=== PATIENT | male | born 1970 | race Caucasian/White ===

== ENCOUNTER 2017-06-20 12:55 | Emergency (ER) | payer OTHER ==
[~2017-06-20] VITALS: Ht 170.2 cm; Wt 74.5 kg
[2017-06-20 13:01] VITALS: Ht 170.2 cm; Wt 74.5 kg
[2017-06-20] MEDS ORDERED: KETOROLAC 60 MG INJ IM STA (13:36)
--- NOTE | 2017-06-20 13:56 | RADRPT ---
PROCEDURE: XR Chest. CLINICAL INDICATION: Chest pain TECHNIQUE: AP view of the chest was performed. COMPARISON: None FINDINGS: The cardiomediastinal silhouette is within normal limits. The lungs are clear. No signs of pleural f luid or pneumothorax are seen. The osseous structures and soft tissues are unremarkable. IMPRESSION: No evidence for active cardiopulmonary disease. RPTAT: QQ .Fifi Mcgee MD, MD Date Time Electronically viewed and signed by .Fifi Mcgee MD, on 06/20/2017 13:56 .F/
[2017-06-20] MEDS ORDERED: HYDROCODONE/APAP (10/325) TAB PO ONE (14:00)
[2017-06-20] MEDS ORDERED: IBUP-1542 PO (15:08)
[2017-06-20] MEDS ORDERED: TRAM50TA2 PO (15:08)
--- NOTE | 2017-06-20 15:13 | ERD ---
ER Documentation Chief Complaint Date/Time DATE: 06/20/17 TIME: 15:11 Chief Complaint LEFT SHOULDER PAIN X 2 WEEKS HPI This 38-year-old male presents with left shoulder pain and left chest wall pain for last 2 weeks. He denies any inciting events or history of trauma. Denies any fevers, cough, hemoptysis, leg swelling, shortness of breath. Patient has a history of HIV although he states that his T-cell counts are "good". ROS All systems reviewed and are negative except as per history of present illness. Medications Home Meds Active Scripts Ibuprofen* (Motrin*) 600 Mg Tab, 600 MG PO Q6, #20 TAB Prov:DAIN PIEDRA MD 06/20/17 Tramadol HCl (Tramadol HCl) 50 Mg Tablet, 50 MG PO Q4 Y for PAIN, #20 TAB Prov:DAIN PIEDRA MD 06/20/17 Allergies Allergies: Coded Allergies: No Known Drug Allergies (Verified Allergy, Unknown, 06/20/17) PMhx/Soc Medical and Surgical Hx: pt denies Medical Hx History of Surgery: No Anesthesia Reaction: No Hx Neurological Disorder: No Hx Respiratory Disorders: No Hx Cardiac Disorders: No Hx Psychiatric Problems: No Hx Miscellaneous Medical Probl: No (HIV) Hx Alcohol Use: No Hx Substance Use: No Hx Tobacco Use: No Smoking Status: Never smoker Physical Exam Vitals Vital Signs Date Time Temp Pulse Resp B/P Pulse Ox O2 Delivery O2 Flow Rate FiO2 06/20/17 13:01 98.7 100 18 116/62 97 Physical Exam Const: [], Not ill-appearing per Head: Atraumatic Eyes: Normal Conjunctiva ENT: Normal External Ears, Nose and Mouth. Neck: Full range of motion..~ No meningismus. Resp: Clear to auscultation bilaterally Cardio: Regular rate and rhythm, no murmurs. Minimal tenderness left pectoralis without skin changes or erythema. Abd: Soft, non tender, non distended. Normal bowel sounds Skin: No petechiae or rashes Back: No midline or flank tenderness Ext: No cyanosis, or edema. Mild tenderness in left trapezius left shoulder capsule. Neur: Awake and alert Psych: Normal Mood and Affect Results 24 hrs Current Medications Medications (Trade) Dose Ordered Sig/Jeramie Route PRN Reason Start Time Stop Time Status Last Admin Dose Admin Ketorolac Tromethamine (Toradol) 60 mg ONCE STAT IM 06/20/17 13:36 06/20/17 13:38 DC 06/20/17 13:44 Acetaminophen/ Hydrocodone Bitart ([place] (10)) 1 tab ONCE ONCE PO 06/20/17 14:00 06/20/17 14:01 DC 06/20/17 13:43 Procedures/MDM Patient presents with uncertain etiology of the shoulder and left chest wall pain for 3 weeks. EKG: Rate/Rhythm: [Normal Sinus Rhythm] rate equals 87 QRS, ST, T-waves: [No changes consistent w/ acute ischemia] Impression: [No evidence of ischemia or arrhythmia]. Impression-no acute findings on EKG Chest X-ray 1V Interpreted by me: Soft Tissue: No acute abnormalities Bones: No acute abnormalities Mediastinum/Cardiac Silhouette/Lungs: [No acute abnormalities] impression have normal 1 view chest x-ray Patient was given [place] by mouth and Toradol 60 mg IM. Patient presents with left shoulder and chest wall pain of uncertain etiology. Current signs or symptoms and duration do not suggest pulmonary embolism, pneumonia, acute coronary syndrome, additional emergent causes of presenting complaints. He may have pleurisy or chest wall or shoulder strain. He will be treated with tramadol ibuprofen and further observation at home. The patient was stable with no new complaints during the ER course. Clinically, there is no current evidence to suggest meningitis, sepsis, acute abdomen, pneumonia, acute coronary syndrome, pulmonary embolism, or any other emergent condition appearing to require further evaluation or hospitalization. The patient should certainly return for any new or worsening symptoms per the aftercare instructions. They should otherwise follow-up with her primary care doctor for reevaluation this week. Disclaimer: Inadvertent spelling and grammatical errors are likely due to EHR/ dictation software use and do not reflect on the overall quality of patient care. Also, please note that the electronic time recorded on this note does not necessarily reflect the actual time of the patient encounter. Departure Diagnosis: Primary Impression: Chest wall pain Additional Impression: Shoulder pain Laterality: left Chronicity: acute Qualified Code: M25.512 - Acute pain of left shoulder Condition: Stable Patient Instructions: Chest Wall Strain, Shoulder Pain (Uncertain Cause) Additional Instructions: Examines normal hoy. POSIBLEMENTE MUSCULOS O TENDONES Cheque otro vez con garrett doctor primario en el proximo mays or regresa para mas o nueva simptomas. DAIN PIEDRA MD Jun 20, 2017 15:12
== END 2017-06-20 15:28 | disposition home or self-care (01) ==
LOC: FTE 12:55
DX: R07.89 Other chest pain (principal)
CPT/HCPCS: 71010; 93005; 96372; J1885; Z7502; Z7610

== ENCOUNTER 2017-07-07 14:24 | Inpatient (IN) | payer OTHER ==
[~2017-07-07] VITALS: Ht 170.2 cm; Wt 66.0 kg
[~2017-07-07 14:24] MED LIST: IBUP-1542 PO; TRAM50TA2 PO
[2017-07-07 14:31] VITALS: Ht 170.2 cm; Wt 66.0 kg
[2017-07-07] MEDS ORDERED: HYDROCODONE/APAP (5/325) TAB PO ONE (15:30)
--- NOTE | 2017-07-07 15:43 | ERD ---
ER Documentation Chief Complaint Date/Time DATE: 07/07/17 TIME: 15:42 Chief Complaint lower back pain x 5 days from a fall HPI 46-year-old male history HIV comes in with right shoulder pain, left flank pain , low back pain after falling 2-3 days ago while gardening. He was pulling on a shrug, causing him to fall backwards, and the materials had fallen onto him as well. He describes achy pain management is diffuse, the right flank, low back, right shoulder. He denies any hematuria, fevers or chills. ROS All systems reviewed and are negative except as per history of present illness. Medications Home Meds Active Scripts Ibuprofen* (Motrin*) 600 Mg Tab, 600 MG PO Q6, #20 TAB Prov:DAIN PIEDRA MD 06/20/17 Tramadol HCl (Tramadol HCl) 50 Mg Tablet, 50 MG PO Q4 Y for PAIN, #20 TAB Prov:DAIN PIEDRA MD 06/20/17 Allergies Allergies: Coded Allergies: No Known Drug Allergies (Verified Allergy, Unknown, 06/20/17) PMhx/Soc History of Surgery: No Anesthesia Reaction: No Hx Neurological Disorder: No Hx Respiratory Disorders: No Hx Cardiac Disorders: No Hx Psychiatric Problems: No Hx Miscellaneous Medical Probl: No (HIV) Hx Alcohol Use: No Hx Substance Use: No Hx Tobacco Use: No Smoking Status: Never smoker FmHx Family history: patient states is negative for CA or bone CA Physical Exam Vitals Vital Signs Date Time Temp Pulse Resp B/P Pulse Ox O2 Delivery O2 Flow Rate FiO2 07/07/17 14:31 97.5 99 18 137/85 99 Physical Exam General: Well-developed, well-nourished. The patient appears in no acute distress. HEENT: Head is normocephalic, atraumatic. No scleral icterus. . Neck: Supple. Nontender. Lungs: Clear to auscultation. Normal air movement. Heart: Regular rate and rhythm. S1 and S2 are normal. No murmurs, gallops, or rubs. Abdomen: Soft, nontender, nondistended. Bowel sounds are normoactive. Back: Diffuse soft tissue tenderness over the left lateral back and the medial aspect and lower back. There is no midline tenderness or step-offs. Strength to lower exam is 5 out of 5 bilaterally. Extremities: No clubbing or cyanosis. Normal pulses. Moving extremities x 4. No weakness. Neurologic: Alert and oriented 3. No focal deficits. Skin: Normal turgor. No rash or lesions. Result Diagram: 07/07/17 1654 07/07/17 1654 Results 24 hrs Laboratory Tests Test 07/07/17 16:44 07/07/17 16:54 Urine Color YELLOW Urine Clarity CLEAR Urine pH 6.0 Urine Specific Russell 1.017 Urine Ketones NEGATIVEmg/dL Urine Nitrite NEGATIVEmg/dL Urine Bilirubin NEGATIVEmg/dL Urine Urobilinogen NEGATIVEmg/dL Urine Leukocyte Esterase NEGATIVELeu/ul Urine Microscopic RBC 2/HPF Urine Microscopic WBC 1/HPF Urine Hemoglobin NEGATIVEmg/dL Urine Glucose NEGATIVEmg/dL Urine Total Protein 1+mg/dl White Blood Count 5.210^3/ul Red Blood Count 3.8810^6/ul Hemoglobin 11.8g/dl Hematocrit 34.1% Mean Corpuscular Volume 87.9fl Mean Corpuscular Hemoglobin 30.4pg Mean Corpuscular Hemoglobin Concent 34.6g/dl Red Cell Distribution Width 13.4% Platelet Count 80848^3/UL Mean Platelet Volume 10.4fl Neutrophils % 48.9% Lymphocytes % 42.8% Monocytes % 6.0% Eosinophils % 1.3% Basophils % 0.4% Nucleated Red Blood Cells % 0.0/100WBC Neutrophils # (Manual) 2.510^3/ul Lymphocytes # 2.210^3/ul Monocytes # 0.310^3/ul Eosinophils # 0.110^3/ul Basophils # 0.010^3/ul Nucleated Red Blood Cells # 0.010^3/ul Prothrombin Time 12.8Sec Prothrombin Time Ratio 1.0 INR International Normalized Ratio 0.96 Activated Partial Thromboplast Time 25.3Sec Sodium Level 142mmol/L Potassium Level 3.7mmol/L Chloride Level 103mmol/L Carbon Dioxide Level 27mmol/L Anion Gap 16 Blood Urea Nitrogen 19mg/dl Creatinine 1.32mg/dl Glucose Level 91mg/dl Calcium Level 10.4mg/dl Total Bilirubin 0.2mg/dl Direct Bilirubin 0.00mg/dl Indirect Bilirubin 0.2mg/dl Aspartate Amino Transf (AST/SGOT) 29IU/L Alanine Aminotransferase (ALT/SGPT) 26IU/L Alkaline Phosphatase 103IU/L Total Protein 12.1g/dl Albumin 4.0g/dl Globulin 8.10g/dl Albumin/Globulin Ratio 0.49 Current Medications Medications (Trade) Dose Ordered Sig/Jeramie Route PRN Reason Start Time Stop Time Status Last Admin Dose Admin Acetaminophen/ Hydrocodone Bitart (Scott (5/325)) 1 tab ONCE ONCE PO 07/07/17 15:30 07/07/17 15:31 DC 07/07/17 15:23 Ketorolac Tromethamine (Toradol) 30 mg ONCE STAT IM 07/07/17 16:01 07/07/17 16:03 DC 07/07/17 16:08 Morphine Sulfate (morphine) 4 mg ONCE STAT IV 07/07/17 16:35 07/07/17 16:36 DC 07/07/17 16:55 Ondansetron HCl (Zofran Inj) 4 mg ONCE STAT IV 07/07/17 16:35 07/07/17 16:36 DC 07/07/17 16:55 DIAGNOSTIC IMAGING REPORT Patient: GLENN ROBERTSON : 1970 Age: 46 Sex: M MR #: [id number] DOS: 07/07/17 1518 Ordering MD: MO FREIRE PA-C Location: [facility] Room/Bed: PROCEDURE: CT abdomen and pelvis without IV contrast. CLINICAL INDICATION: Abdomen pain. TECHNIQUE: CT scan of the abdomen and pelvis was performed on a [address] scanner. The patient is scanned without IV contrast. Coronal and sagittal reformatted images were obtained from the axial source images. Images were reviewed on a high-resolution PACS workstation. Total radiation dose: Total CTDIvol: 9.08 mGy. Total DLP: 584 mGy-cm. One or more of the following dose reduction techniques were used: automated exposure control, adjustment of the mA and/or kV according to patient size, or use of iterative reconstruction technique. COMPARISON: Abdomen and pelvis, 03/28/2014. FINDINGS: CT abdomen: The lung bases are clear. The heart is not enlarged without pericardial thickening or effusion. The liver is normal in size and density without focal hepatic mass or biliary dilatation. The spleen is normal in size. The stomach is partially collapsed but is grossly unremarkable. The pancreas as visualized is normal. The gallbladder is normal and there is no evidence of biliary dilatation. The adrenal glands are symmetrical and normal. The kidneys are symmetrically normal bilaterally. No renal obstructive uropathy or mass lesion is seen.. The aorta is normal in caliber. There is no retroperitoneal lymphadenopathy. The radha hepatis region is clear. The bowel and mesentery, as visualized, are equally unremarkable. CT pelvis: The appendix is normal in the right lower quadrant. The small bowel loops situated within the pelvis are unremarkable. The pelvic organs are normal. The pelvic sidewalls and inguinal regions are clear. No mass, lymphadenopathy is seen. No acute inflammation seen. The urinary bladder is normal. There are innumerous punched-out osteolytic lesions involving the thoracolumbar sacral spine, pelvic bones, right hip and visualized right/left ribs and the tip of the right scapula. IMPRESSION: 1. Unremarkable CT abdomen pelvis without IV contrast. 2. Innumerous punched-out osteolytic lesions involving the thoracolumbar sacral spine, pelvic bones, right hip and visualized right/left ribs and the tip of the right scapula. Differential includes multiple myeloma. Recommend clinical correlation. RPTAT: GG .Kali Alonso MD, MD Date Time Electronically viewed and signed by .Kali Alonso MD, MD on 07/07/2017 16:10 Radiology Main Line: [phone] DIAGNOSTIC IMAGING REPORT Patient: GLENN ROBERTSON : 1970 Age: 46 Sex: M MR #: [id number] DOS: 07/07/17 1518 Ordering MD: MO FREIRE PA-C Location: [facility] Room/Bed: PROCEDURE: XR Shoulder. CLINICAL INDICATION: Right shoulder pain TECHNIQUE: 3 views of the right shoulder are available for review. COMPARISON: None available FINDINGS: There are multiple lucencies scattered throughout the visualized bones including the humerus, scapula and several ribs. No definitive lucencies are seen in the right clavicle. Alignment is intact. No acute fracture or dislocation is identified. The glenohumeral joint is within normal limits. The acromioclavicular joint is intact. The visualized portions of the right chest wall are grossly unremarkable. The soft tissues are within normal limits. IMPRESSION: 1. No evidence of acute fracture or dislocation. 2. Multiple lucencies throughout the proximal humerus, scapula, and ribs concerning for metastatic disease or other systemic osseous lytic process. RPTAT: KK .Ilir Lynn MD, MD Date Time Electronically viewed and signed by .Ilir Lynn MD, on 2016 16:03 .B/ CC: MO FREIRE PA-C Procedures/MDM ED course: Patient was initially given Scott as well as Toradol 30 mg IM for his pain. I discussed the x-ray findings that show multiple lytic lucencies, lesions as well as a CT abdomen and pelvis in the thoracic lumbar region, ribs, scapula, was advised that patient needs further imaging, a chest CT was ordered as well as blood and urine. IV line was established, patient received morphine 4 mg and Zofran 4 mg IV. Medical decision makin-year-old male with a history of HIV, Presents status post fall, incidentally found multiple lytic lesions concerning for multiple myeloma on the x-ray of the right shoulder and CT abdomen and pelvis.currently on antivirals which the medications he is not able to recall but he states that 2 months ago he was told everything was normal. He has had imaging done a year ago his back which she also states was normal. Incidentally we found multiple lucencies in the scapula, right shoulder, thoracic lumbar, pelvis, hip, ribs. Further lab work, CT chest was also done. Patient will be admitted for pain control, and continuing care. Departure Diagnosis: Primary Impression: Lytic bone lesions on xray Condition: Stable MO FREIRE PA-C Jul 07, 2017 15:43
[2017-07-07] MEDS ORDERED: KETOROLAC 30 MG INJ IM STA (16:01)
--- NOTE | 2017-07-07 16:04 | RADRPT ---
PROCEDURE: XR Shoulder. CLINICAL INDICATION: Right shoulder pain TECHNIQUE: 3 views of the right shoulder are available for review. COMPARISON: None available FINDINGS: There are multiple lucencies scattered throughout the visualized bones including the humerus, scapul a and several ribs. No definitive lucencies are seen in the right clavicle. Alignment is intact. No acute fracture or dislocation is identified. The glenohumeral joint is within normal limits. The ac romioclavicular joint is intact. The visualized portions of the right chest wall are grossly unrema rkable. The soft tissues are within normal limits. IMPRESSION: 1. No evidence of acute fracture or dislocation. 2. Multiple lucencies throughout the proximal humerus, scapula, and ribs concerning for metastatic disease or other systemic osseous lytic process. RPTAT: KK .Ilir Lynn MD, MD Date Time Electronically viewed and signed by .Ilir Lynn MD, on 07/07/2017 16:03 .B/
--- NOTE | 2017-07-07 16:10 | RADRPT ---
PROCEDURE: CT abdomen and pelvis without IV contrast. CLINICAL INDICATION: Abdomen pain. TECHNIQUE: CT scan of the abdomen and pelvis was performed on a [address] scanner. The patient is scanned without IV contrast. Coronal and sagittal reformatted images were obtained from the axia l source images. Images were reviewed on a high-resolution PACS workstation. Total radiation dose: Total CTDIvol: 9.08 mGy. Total DLP: 584 mGy-cm. One or more of the following dose reduction techniques were used: automated exposure control, adjustment of the mA and/or kV acco rding to patient size, or use of iterative reconstruction technique. COMPARISON: Abdomen and pelvis, 03/28/2014. FINDINGS: CT abdomen: The lung bases are clear. The heart is not enlarged without pericardial thickening or effusion. The liver is normal in size and density without focal hepatic mass or biliary dilatation. The splee n is normal in size. The stomach is partially collapsed but is grossly unremarkable. The pancreas as visualized is normal. The gallbladder is normal and there is no evidence of biliary dilatation. The adrenal glands are symmetrical and normal. The kidneys are symmetrically normal bilaterally. N o renal obstructive uropathy or mass lesion is seen.. The aorta is normal in caliber. There is no retroperitoneal lymphadenopathy. The radha hepatis reg ion is clear. The bowel and mesentery, as visualized, are equally unremarkable. CT pelvis: The appendix is normal in the right lower quadrant. The small bowel loops situated within the pelvi s are unremarkable. The pelvic organs are normal. The pelvic sidewalls and inguinal regions are cl ear. No mass, lymphadenopathy is seen. No acute inflammation seen. The urinary bladder is normal. There are innumerous punched-out osteolytic lesions involving the thoracolumbar sacral spine, pelvic bones, right hip and visualized right/left ribs and the tip of the right scapula. IMPRESSION: 1. Unremarkable CT abdomen pelvis without IV contrast. 2. Innumerous punched-out osteolytic lesions involving the thoracolumbar sacral spine, pelvic bones , right hip and visualized right/left ribs and the tip of the right scapula. Differential includes multiple myeloma. Recommend clinical correlation. RPTAT: GG .Kali Alonso MD, MD Date Time Electronically viewed and signed by .Kali Alonso MD, MD on 07/07/2017 16:10 .Y/
[2017-07-07] MEDS ORDERED: morphine 4 MG/ML VIAL IV STA (16:35)
[2017-07-07] MEDS ORDERED: ONDANSETRON 4 MG INJ IV STA (16:35)
[2017-07-07 17:21] LABS: BASOPHILS % 0.4 % (0.0-2.0); EOSINOPHILS # 0.1 10^3/ul (0.0-0.5); EOSINOPHILS % 1.3 % (0.0-7.0); HEMATOCRIT 34.1 % (42.0-52.0); HEMOGLOBIN 11.8 g/dl (14.0-18.0); LYMPHOCYTES # 2.2 10^3/ul (0.8-2.9); LYMPHOCYTES % 42.8 % (15.0-51.0); MEAN CORPUSCULAR HEMOGLOBIN 30.4 pg (29.0-33.0); MEAN CORPUSCULAR HGB CONC 34.6 g/dl (32.0-37.0); MEAN CORPUSCULAR VOLUME 87.9 fl (82.0-101.0); MEAN PLATELET VOLUME 10.4 fl (7.4-10.4); MONOCYTE # 0.3 10^3/ul (0.3-0.9); NEUTROPHILS % 48.9 % (39.0-77.0); PLATELET COUNT 214 10^3/UL (140-415); RED BLOOD COUNT 3.88 10^6/ul (4.70-6.10); RED CELL DISTRIBUTION WIDTH 13.4 % (11.5-14.5); WHITE BLOOD COUNT 5.2 10^3/ul (4.8-10.8)
[2017-07-07 17:38] LABS: ADD UMIC YES; UR ASCORBIC ACID NEGATIVE (NEGATIVE); UR BILIRUBIN (Dip) NEGATIVE (NEGATIVE); UR BLOOD (Dip) NEGATIVE (NEGATIVE); UR CLARITY CLEAR (CLEAR); UR COLOR YELLOW (YELLOW); UR GLUCOSE (Dip) NEGATIVE (NEGATIVE); UR KETONES (Dip) NEGATIVE (NEGATIVE); UR LEUKOCYTE ESTERASE (Dip) NEGATIVE Leu/ul (NEGATIVE); UR NITRITE (Dip) NEGATIVE (NEGATIVE); UR RBC 2 /HPF (0-5); UR SPECIFIC GRAVITY (Dip) 1.017 (1.003-1.030); UR TOTAL PROTEIN (Dip) 1+ mg/dl (NEGATIVE); UR UROBILINOGEN (Dip) NEGATIVE (NEGATIVE)
[2017-07-07 17:47] LABS: BILIRUBIN,INDIRECT 0.2 mg/dl (0-1.1); BILIRUBIN,TOTAL 0.2 mg/dl (0.2-1.3); CALCIUM 10.4 mg/dl (8.4-10.2); CREATININE 1.32 mg/dl (0.61-1.24); POTASSIUM 3.7 mmol/L (3.5-5.1)
[2017-07-07 17:48] LABS: INR 0.96; PROTIME 12.8 Sec (12.2-14.2)
[2017-07-07 17:49] LABS: PARTIAL THROMBOPLASTIN TIME 25.3 Sec (25.0-35.0)
[2017-07-07 17:57] LABS: ALBUMIN/GLOBULIN RATIO 0.49; TOTAL PROTEIN 12.1 g/dl (6.1-8.1)
--- NOTE | 2017-07-07 18:10 | EN ---
Date/Time of Note Date/Time of Note DATE: 07/07/17 TIME: 18:09 ER Progress Note I was notified about this 46-year-old male in fast track from our physician diet assistant. This patient did have a fall and had multiple lytic lesions in his humerus. CT the abdomen pelvis shows multiple lytic lesions throughout his spine. This patient has no previous history of multiple myeloma, however he does have a history of HIV. Given his new lytic lesions he will be placed in for admission at this time. The patient was admitted to Dr. Arriola Additional diagnoses: New cancer, multiple myeloma BA GARZA DO Jul 07, 2017 18:10
--- NOTE | 2017-07-07 18:19 | RADRPT ---
PROCEDURE: CT CHEST WITHOUT CONTRAST: CLINICAL INDICATION: 46 years of age, male. CT abdomen pelvis performed for abdominal pain demonst rates multiple lytic bone lesions. COMPARISON: CT abdomen pelvis from the same day TECHNIQUE: CT of the chest was performed without IV contrast. Coronal and sagittal reformatted image s were obtained from the axial source images. Images were reviewed on a high-resolution PACS worksta tion. Dose information: The estimated radiation dose (CTDIvol mGy) for each series in this exam is 8.1. Th e estimated cumulative dose (DLP mGy-cm) is 316. One or more of the following dose reduction techniques were used: - Automated exposure control. - Adjustment of the mA and/or kV according to patient size. - Use of iterative reconstruction technique. FINDINGS: In the absence of intravenous contrast, the study constitutes a limited assessment of the solid orga ns and vessels. CHEST: Medical devices: None. Thyroid: Normal. Lymph nodes: No supraclavicular, axillary, mediastinal, or hilar lymphadenopathy. Vasculature: Aorta and main pulmonary artery diameters are within normal range. Heart: Normal noncontrast appearance. No pericardial effusion. Other mediastinal structures: Normal noncontrast appearance. Lung parenchyma and pleura: Mild paraseptal emphysema at the lung apices. There is a 0.4 cm right up per lobe pulmonary nodule (3/34). Mild dependent atelectasis. Lungs are otherwise clear. There is a 1.3 x 2.6 cm pleural based mass in the right posterior mid lung zone that is likely relat ed to an expansile lesion of the underlying posterior right seventh rib. Additional extrapleural mas ses are related to expansile lytic rib lesions. The largest is at the left lung apex measuring 2.5 x 3 cm related to a lytic lesion involving the posterior left second rib (3/19). Negative for pleural effusion. Negative for pneumothorax. Airways: Normal noncontrast appearance. Chest wall: Normal noncontrast appearance. Upper abdomen: Please see CT abdomen pelvis reported separately. Musculoskeletal: There are multiple lytic bone lesions throughout the thoracic spine and the thoraci c cage involving ribs, sternum, scapulae and clavicles. In the thoracic spine, the lytic lesions involve both the anterior and posterior elements. Negative for pathologic compression fracture in the thoracic spine. Lytic lesion in the right superior facet at T8 has an extraosseous soft tissue component that compresses the thecal sac and the right T7 nerv e root in the intervertebral foramen (602/53). Lytic lesion in the left posterior T10 vertebral jones dy also has an extraosseous soft tissue component that mildly compresses the thecal sac and compress es the left T10 nerve root in the intervertebral foramen (602/59). Dominant lytic lesion in spinous process of T4 is expansile. There is a pathologic fracture through the left manubrium at the site of a lytic lesion (3/34). Margret ral rib lesions are expansile with associated subpleural soft tissue masses. Sample lesions are desc ribed in the pleural section. There is a pathologic fracture of the posterior right ninth rib. There are pathologic fractures of the anterolateral left third rib, lateral left ninth rib, and posterior left 11th rib. IMPRESSION: Multiple lytic bone lesions in the thoracic spine and in the thoracic cage. Some of these lesions mckeon ve extraosseous soft tissue masses. In the spine, lesions with extraosseous soft tissue masses compr ess the thecal sac and exiting nerve roots at T8 and T10. There are pathologic fractures of the manu brium and bilateral ribs. The appearance is most in keeping with multiple myeloma although other hem atogenous malignancies could appear similar. Tissue or hematologic testing is required for definitiv e diagnosis. 0.4 cm right upper lobe pulmonary nodule is not suspicious. Negative for evidence of primary solid o rgan malignancy in the chest. RPTAT: HCTS Physician Darrell Date Time Electronically viewed and signed by Ashtyn Burns Physician on 07/07/2017 18:19 /
[2017-07-07] MEDS ORDERED: ACETAMINOPHEN 325 MG TAB PO PRN ×2 (18:30→22:30)
[2017-07-07] MEDS ORDERED: ONDANSETRON 4 MG INJ IV PRN ×2 (18:30→22:30)
[2017-07-07] MEDS ORDERED: HIV PO (18:35)
[2017-07-07] MEDS ORDERED: NACL 0.9% 3 ML SYG IV SCH (22:30)
[2017-07-07] MEDS: FAMOTIDINE 20 MG TAB PO SCH (22:30)
[2017-07-07] MEDS ORDERED: DOCUSATE SODIUM 100 MG CAP PO PRN (22:30)
[2017-07-07] MEDS ORDERED: BISACODYL (EC) 5 MG TAB PO PRN (22:30)
[2017-07-07 23:15] VITALS: BP 159/92; RESP 18
[2017-07-08 00:07] VITALS: BP 130/84
[2017-07-08 02:01] VITALS: BP 150/87; RESP 18
[2017-07-08 06:34] LABS: BASOPHILS % 0.4 % (0.0-2.0); EOSINOPHILS # 0.1 10^3/ul (0.0-0.5); EOSINOPHILS % 2.2 % (0.0-7.0); HEMATOCRIT 32.8 % (42.0-52.0); LYMPHOCYTES # 1.8 10^3/ul (0.8-2.9); LYMPHOCYTES % 39.8 % (15.0-51.0); MEAN CORPUSCULAR HEMOGLOBIN 29.4 pg (29.0-33.0); MEAN CORPUSCULAR HGB CONC 33.5 g/dl (32.0-37.0); MEAN CORPUSCULAR VOLUME 87.7 fl (82.0-101.0); MEAN PLATELET VOLUME 10.9 fl (7.4-10.4); MONOCYTE # 0.3 10^3/ul (0.3-0.9); MONOCYTES % 7.4 % (0.0-11.0); NEUTROPHILS % 49.3 % (39.0-77.0); PLATELET COUNT 215 10^3/UL (140-415); RED BLOOD COUNT 3.74 10^6/ul (4.70-6.10); RED CELL DISTRIBUTION WIDTH 13.3 % (11.5-14.5); WHITE BLOOD COUNT 4.6 10^3/ul (4.8-10.8)
[2017-07-08 07:08] LABS: ALBUMIN 3.3 g/dl (3.3-4.9); ALBUMIN/GLOBULIN RATIO 0.52; BILIRUBIN,INDIRECT 0.3 mg/dl (0-1.1); BILIRUBIN,TOTAL 0.3 mg/dl (0.2-1.3); CALCIUM 10.2 mg/dl (8.4-10.2); CREATININE 1.17 mg/dl (0.61-1.24); MAGNESIUM 1.8 mg/dl (1.7-2.5); POTASSIUM 3.5 mmol/L (3.5-5.1); TOTAL PROTEIN 9.6 g/dl (6.1-8.1)
[2017-07-08 07:33] VITALS: BP 145/83; RESP 20
[2017-07-08 07:37] LABS: THYROID STIMULATING HORMONE 2.26 MIU/L (0.465-4.680)
--- NOTE | 2017-07-08 08:17 | HP ---
Date/Time of Note Date/Time of Note DATE: 07/08/17 TIME: 08:05 Assessment/Plan VTE Prophylaxis VTE Prophylaxis Intervention: SCD's Lines/Catheters IV Catheter Type (from Nrs): Saline Lock Assessment/Plan Chief Complaint/Hosp Course This is a 38-year-old male being admitted to the [facility] floor for: #1 Intractable back pain: Multiple lytic lesions seen on imaging studies which are suspicious for malignancy specifically multiple myeloma. At the current time will order protein electrophoresis as well as skeletal survey. Will consult hematology for further treatment strategy. Follow kidney function #2 HIV positive: Patient unsure what medication he is on. Will try to obtain medication records. Will check a CD4 count, ID consult if indicated, #3 hypertension: Patient currently not on any medications. Will continue to monitor and start medications if indicated Further treatment strategy will be implemented as per the clinical course Problems: HPI/ROS Admit Date/Time Admit Date/Time Jul 07, 2017 at 18:08 Hx of Present Illness Chief complaint: Left flank pain back pain 46-year-old male history HIV comes in with right shoulder pain, left flank pain , low back pain after falling 2-3 days ago while gardening. He was pulling on a shrug, causing him to fall backwards, and the materials had fallen onto him as well. He describes achy pain management is diffuse, the right flank, low back, right shoulder. He denies any hematuria, fevers or chills. Allergies: NKDA Medications: See LILLIE VIDES Const: As per HPI as per HPI Eyes : No pain discharge or redness or change in visual acuity ENT: No pain, sore throat, congestion, congestion, dysphagia or discharge Respiratory: No shortness of breath, cough, sputum, wheezing, or pleuritic pain Cardiovascular: No chest pain, palpitation, PND, or edema GI : no change in appetite, abdominal pain, nausea, vomiting, diarrhea, constipation, or change in the color his stool Genitourinary: No dysuria, hematuria, flank pain , discharge or CVA tenderness Musculoskeletal: As per HPI Skin: No rash, bruising or hives Neuro: No headache, dizziness, syncope, seizure, focal weakness Endocrine: No polyuria, polydipsia, temperature intolerance Psych: No hallucination, depression, anxiety or suicidal ideation PMH/Family/Social Past Medical History HIV, hypertension Past Surgical History Past Surgical Hx: no surgical history Family History Significant Family History: no pertinent family hx Social History Alcohol Use: none Smoking Status: Never smoker Drug Use: none Exam/Review of Systems Vital Signs Vitals Vital Signs Date Time Temp Pulse Resp B/P Pulse Ox O2 Delivery O2 Flow Rate FiO2 07/08/17 07:33 98.1 86 20 145/83 98 07/07/17 22:01 Room Air Exam Exam General: Patient is well-developed well-nourished The patient is alert oriented -3 lying comfortably in bed. HEENT: Atraumatic, normocephalic. The pupils are equal, round and reactive. Extraocular motor are intact Neck: Supple with full range of motion. No rigidity or meningismus Chest: Nontender Lungs: Clear to auscultation bilaterally no crackles rales or wheezing Heart: Normal S1-S2, Regular rhythm and rate. Abdomen: Soft , nontender, nondistended , bowel sounds are present. No guarding no rebound tenderness , No masses or organomegaly. No costovertebral temporal angle mass Extremities: Normal to inspection, no edema no cyanosis Neurologic: Normal mental status, speech normal, cranial nerves II through XII are intact, motor and sensory are intact, no focal weakness musculoskeletal: Diffuse back pain along the upper back and lumbar spine Additional Comments PROCEDURE: XR Shoulder. CLINICAL INDICATION: Right shoulder pain TECHNIQUE: 3 views of the right shoulder are available for review. COMPARISON: None available FINDINGS: There are multiple lucencies scattered throughout the visualized bones including the humerus, scapula and several ribs. No definitive lucencies are seen in the right clavicle. Alignment is intact. No acute fracture or dislocation is identified. The glenohumeral joint is within normal limits. The acromioclavicular joint is intact. The visualized portions of the right chest wall are grossly unremarkable. The soft tissues are within normal limits. IMPRESSION: 1. No evidence of acute fracture or dislocation. 2. Multiple lucencies throughout the proximal humerus, scapula, and ribs concerning for metastatic disease or other systemic osseous lytic process. RPTAT: KK .Ilir Lynn MD, Date Time Electronically viewed and signed by .Ilir Lynn MD, on 2016 16:03 .B/ CC: MO FREIRE PA-C PROCEDURE: CT abdomen and pelvis without IV contrast. CLINICAL INDICATION: Abdomen pain. TECHNIQUE: CT scan of the abdomen and pelvis was performed on a [address] scanner. The patient is scanned without IV contrast. Coronal and sagittal reformatted images were obtained from the axial source images. Images were reviewed on a high-resolution PACS workstation. Total radiation dose: Total CTDIvol: 9.08 mGy. Total DLP: 584 mGy-cm. One or more of the following dose reduction techniques were used: automated exposure control, adjustment of the mA and/or kV according to patient size, or use of iterative reconstruction technique. COMPARISON: Abdomen and pelvis, 03/28/2014. FINDINGS: CT abdomen: The lung bases are clear. The heart is not enlarged without pericardial thickening or effusion. The liver is normal in size and density without focal hepatic mass or biliary dilatation. The spleen is normal in size. The stomach is partially collapsed but is grossly unremarkable. The pancreas as visualized is normal. The gallbladder is normal and there is no evidence of biliary dilatation. The adrenal glands are symmetrical and normal. The kidneys are symmetrically normal bilaterally. No renal obstructive uropathy or mass lesion is seen.. The aorta is normal in caliber. There is no retroperitoneal lymphadenopathy. The radha hepatis region is clear. The bowel and mesentery, as visualized, are equally unremarkable. CT pelvis: The appendix is normal in the right lower quadrant. The small bowel loops situated within the pelvis are unremarkable. The pelvic organs are normal. The pelvic sidewalls and inguinal regions are clear. No mass, lymphadenopathy is seen. No acute inflammation seen. The urinary bladder is normal. There are innumerous punched-out osteolytic lesions involving the thoracolumbar sacral spine, pelvic bones, right hip and visualized right/left ribs and the tip of the right scapula. IMPRESSION: 1. Unremarkable CT abdomen pelvis without IV contrast. 2. Innumerous punched-out osteolytic lesions involving the thoracolumbar sacral spine, pelvic bones, right hip and visualized right/left ribs and the tip of the right scapula. Differential includes multiple myeloma. Recommend clinical correlation. RPTAT: GG .Kali Alonso MD, Date Time Electronically viewed and signed by .Kali Alonso MD, on 07/07/2017 16:10 PROCEDURE: CT CHEST WITHOUT CONTRAST: CLINICAL INDICATION: 46 years of age, male. CT abdomen pelvis performed for abdominal pain demonstrates multiple lytic bone lesions. COMPARISON: CT abdomen pelvis from the same day TECHNIQUE: CT of the chest was performed without IV contrast. Coronal and sagittal reformatted images were obtained from the axial source images. Images were reviewed on a high-resolution PACS workstation. Dose information: The estimated radiation dose (CTDIvol mGy) for each series in this exam is 8.1. The estimated cumulative dose (DLP mGy-cm) is 316. One or more of the following dose reduction techniques were used: - Automated exposure control. - Adjustment of the mA and/or kV according to patient size. - Use of iterative reconstruction technique. FINDINGS: In the absence of intravenous contrast, the study constitutes a limited assessment of the solid organs and vessels. CHEST: Medical devices: None. Thyroid: Normal. Lymph nodes: No supraclavicular, axillary, mediastinal, or hilar lymphadenopathy. Vasculature: Aorta and main pulmonary artery diameters are within normal range. Heart: Normal noncontrast appearance. No pericardial effusion. Other mediastinal structures: Normal noncontrast appearance. Lung parenchyma and pleura: Mild paraseptal emphysema at the lung apices. There is a 0.4 cm right upper lobe pulmonary nodule (3/34). Mild dependent atelectasis. Lungs are otherwise clear. There is a 1.3 x 2.6 cm pleural based mass in the right posterior mid lung zone that is likely related to an expansile lesion of the underlying posterior right seventh rib. Additional extrapleural masses are related to expansile lytic rib lesions. The largest is at the left lung apex measuring 2.5 x 3 cm related to a lytic lesion involving the posterior left second rib (3/19). Negative for pleural effusion. Negative for pneumothorax. Airways: Normal noncontrast appearance. Chest wall: Normal noncontrast appearance. Upper abdomen: Please see CT abdomen pelvis reported separately. Musculoskeletal: There are multiple lytic bone lesions throughout the thoracic spine and the thoracic cage involving ribs, sternum, scapulae and clavicles. In the thoracic spine, the lytic lesions involve both the anterior and posterior elements. Negative for pathologic compression fracture in the thoracic spine. Lytic lesion in the right superior facet at T8 has an extraosseous soft tissue component that compresses the thecal sac and the right T7 nerve root in the intervertebral foramen (602/53). Lytic lesion in the left posterior T10 vertebral body also has an extraosseous soft tissue component that mildly compresses the thecal sac and compresses the left T10 nerve root in the intervertebral foramen (602/59). Dominant lytic lesion in spinous process of T4 is expansile. There is a pathologic fracture through the left manubrium at the site of a lytic lesion (3/34). Several rib lesions are expansile with associated subpleural soft tissue masses. Sample lesions are described in the pleural section. There is a pathologic fracture of the posterior right ninth rib. There are pathologic fractures of the anterolateral left third rib, lateral left ninth rib, and posterior left 11th rib. IMPRESSION: Multiple lytic bone lesions in the thoracic spine and in the thoracic cage. Some of these lesions have extraosseous soft tissue masses. In the spine, lesions with extraosseous soft tissue masses compress the thecal sac and exiting nerve roots at T8 and T10. There are pathologic fractures of the manubrium and bilateral ribs. The appearance is most in keeping with multiple myeloma although other hematogenous malignancies could appear similar. Tissue or hematologic testing is required for definitive diagnosis. 0.4 cm right upper lobe pulmonary nodule is not suspicious. Negative for evidence of primary solid organ malignancy in the chest. RPTAT: HCTS Physician Darrell Date Time Electronically viewed and signed by Physician Darrell on 07/07/2017 18: 19 CS/ CC: MO FREIRE PA-C Labs Result Diagram: 07/08/17 0500 07/08/17 0500 Medications Medications Current Medications Ondansetron HCl (Zofran Inj) 4 mg Q6H PRN IV NAUSEA AND/OR VOMITING; Start 07/07 at 22:30 Acetaminophen (Tylenol Tab) 650 mg Q6H PRN PO PAIN LEVEL 1-3 OR FEVER; Start at 22:30 Morphine Sulfate (morphine) 2 mg Q4H PRN IV SEVERE PAIN LEVEL 7-10; Start at 22:30 Docusate Sodium (Colace) 100 mg Q12H PRN PO CONSTIPATION; Start 07/07/17 at 22: 30 Bisacodyl (Dulcolax) 5 mg DAILY PRN PO CONSTIPATION; Start 07/07/17 at 22:30 Famotidine (Pepcid) 20 mg Q12 PO ; Start 07/07/17 at 22:30 AMAIRANI LOVELL Jul 08, 2017 08:17
[2017-07-08] MEDS: morphine 2 MG INJ IV PRN ×3 (08:42→22:21)
[2017-07-08] MEDS: FAMOTIDINE 20 MG TAB PO SCH ×2 (08:42→20:55)
--- NOTE | 2017-07-08 09:41 | PN ---
Date/Time of Note Date/Time of Note DATE: 07/08/17 TIME: 09:30 Assessment/Plan VTE Prophylaxis VTE Prophylaxis Intervention: ambulation Lines/Catheters IV [facility]from [facility] Saline Lock Assessment/Plan Chief Complaint/Hosp Course 1. Back pain. Multiple lytic bony lesions seen on imaging- concern for monoclonal gammopathy. There is concern of pathologic fractures of the manubrium and bilateral ribs on chest CT-needs correlation with bone survey for diagnosis. -F/u metastatic series.Consult oncology -Continue pain meds 2. HIV -F/u CD4 counts.ID consult -Obtain outpt HAART regimen from [facility]. 3. Hypertension. stable. -Obtain home meds. 4.Anemia,mild-likely chronic. HH stable. -will monitor. 5. Hx of psychiatric illness. No suicidal thoughts. -Obtain home meds. PLAN:F/u with ID and onco recs. Obtain medical records from outpatient clinic. Case discussed with . Problems: Subjective 24 Hr Interval Summary Free Text/Dictation Patient ambulating in room.Denies any pain or other discomfort.No diarrhea., Denies suicidal or hallucinational thoughts. Exam/Review of Systems Vital Signs Vitals Vital Signs Date Time Temp Pulse Resp B/P Pulse Ox O2 Delivery O2 Flow Rate FiO2 07/08/17 07:33 98.1 86 20 145/83 98 07/07/17 22:01 Room Air Exam General: Well developed,male, not in any acute distress . HEENT: Normocephalic, Atraumatic, No laceration or hematoma; Eyes: PEERL, Conjunctiva clear, Anicteric sclera Neck: Supple without any lymphadenopathy, nontender, no JVD, no carotid bruits, trachea midline, no thyromegaly Cardiac: S1, S2 auscultated, regular rhythm and rate, no mumurs or gallop Pulmonary: Normal respiratory effort. Chest clear to auscultation bilaterally, no adventitious breath sounds GI: Abdomen normal to inspection. Soft, non- distended, no masses, no rebound tenderness or guarding. Bowel sounds active on all four quadrants Genitourinary: Deferred Extremities: No cyanosis, clubbing, or edema. Pulses [2+] bilaterally. Full ROM on all four extremities. No focal weakness appreciated. Neurologic: Alert to person, place, time, and situation. Affect appropriate, intact sensation. Skin: Clean,dry, and intact. No ecchymosis, no rashes, or lesions Psych:Normal affect. Results Result Diagram: 07/08/17 0500 07/08/17 0500 Results 24 hrs Laboratory Tests Test 07/07/17 16:44 07/07/17 16:54 07/08/17 05:00 Urine Color YELLOW Urine Clarity CLEAR Urine pH 6.0 Urine Specific [place] 1.017 Urine Ketones NEGATIVE Urine Nitrite NEGATIVE Urine Bilirubin NEGATIVE Urine Urobilinogen NEGATIVE Urine Leukocyte Esterase NEGATIVE Urine Microscopic RBC 2 Urine Microscopic WBC 1 Urine Hemoglobin NEGATIVE Urine Glucose NEGATIVE Urine Total Protein 1+ H White Blood Count 5.2 4.6 L Red Blood Count 3.88 L 3.74 L Hemoglobin 11.8 L 11.0 L Hematocrit 34.1 L 32.8 L Mean Corpuscular Volume 87.9 87.7 Mean Corpuscular Hemoglobin 30.4 29.4 Mean Corpuscular Hemoglobin Concent 34.6 33.5 Red Cell Distribution Width 13.4 13.3 Platelet Count 214 215 Mean Platelet Volume 10.4 10.9 H Neutrophils % 48.9 49.3 Lymphocytes % 42.8 39.8 Monocytes % 6.0 7.4 Eosinophils % 1.3 2.2 Basophils % 0.4 0.4 Nucleated Red Blood Cells % 0.0 0.0 Neutrophils # (Manual) 2.5 2.3 Lymphocytes # 2.2 1.8 Monocytes # 0.3 0.3 Eosinophils # 0.1 0.1 Basophils # 0.0 0.0 Nucleated Red Blood Cells # 0.0 0.0 Prothrombin Time 12.8 Prothrombin Time Ratio 1.0 INR International Normalized Ratio 0.96 Activated Partial Thromboplast Time 25.3 Sodium Level 142 138 Potassium Level 3.7 3.5 Chloride Level 103 105 Carbon Dioxide Level 27 26 Anion Gap 16 11 Blood Urea Nitrogen 19 22 H Creatinine 1.32 H 1.17 Glucose Level 91 93 Calcium Level 10.4 H 10.2 Total Bilirubin 0.2 0.3 Direct Bilirubin 0.00 0.00 Indirect Bilirubin 0.2 0.3 Aspartate Amino Transf (AST/SGOT) 29 23 Alanine Aminotransferase (ALT/SGPT) 26 20 Alkaline Phosphatase 103 86 Total Protein 12.1 H 9.6 #H Albumin 4.0 3.3 Globulin 8.10 H 6.30 H Albumin/Globulin Ratio 0.49 0.52 Hemoglobin A1c 4.9 Magnesium Level 1.8 Triglycerides Level 97 Cholesterol Level 176 LDL Cholesterol, Calculated 132 HDL Cholesterol 25 L Cholesterol/HDL Ratio 7.0 Thyroid Stimulating Hormone (TSH) 2.260 Medications Medications Current Medications Ondansetron HCl (Zofran Inj) 4 mg Q6H PRN IV NAUSEA AND/OR VOMITING; Start 07/07 at 22:30 Acetaminophen (Tylenol Tab) 650 mg Q6H PRN PO PAIN LEVEL 1-3 OR FEVER; Start at 22:30 Morphine Sulfate (morphine) 2 mg Q4H PRN IV SEVERE PAIN LEVEL 7-10 Last administered on 07/08/17 08:42; Admin Dose 2 MG; Start 07/07/17 at 22:30 Docusate Sodium (Colace) 100 mg Q12H PRN PO CONSTIPATION; Start 07/07/17 at 22: 30 Bisacodyl (Dulcolax) 5 mg DAILY PRN PO CONSTIPATION; Start 07/07/17 at 22:30 Famotidine (Pepcid) 20 mg Q12 PO Last administered on 07/08/17 08:42; Admin Dose 20 MG; Start 07/07/17 at 22:30 LETY RACHEL NP Jul 08, 2017 09:40 /05/16 at 22:30 Morphine Sulfate (morphine) 2 mg Q4H PRN IV SEVERE PAIN LEVEL 7-10 Last administered on 07/08/17 08:42; Admin Dose 2 MG; Start 07/07/17 at 22:30 Docusate Sodium (Colace) 100 mg Q12H PRN PO CONSTIPATION; Start 07/07/17 at 22: 30 Bisacodyl (Dulcolax) 5 mg DAILY PRN PO CONSTIPATION; Start 07/07/17 at 22:30 Famotidine (Pepcid) 20 mg Q12 PO Last administered on 07/08/17 08:42; Admin Dose 20 MG; Start 07/07/17 at 22:30 LETY RACHEL NP Jul 08, 2017 09:40
--- NOTE | 2017-07-08 13:10 | RADRPT ---
PROCEDURE: Bone survey. CLINICAL INDICATION: Lytic lesions, suspected of multiple myeloma TECHNIQUE: 29 images were obtained. COMPARISON: CT abdomen and pelvis dated 07/07/2017 FINDINGS: Skull: There are numerous lucent lesions throughout the calvarium. No acute calvarial fracture is identified. The visualized orbits are unremarkable. The paranasal sinuses and mastoid air cells ap pear clear. Spine: The osseous structures demonstrate normal alignment and mineralization. The vertebral body a nd intervertebral disk space heights are well preserved. There are numerous lucent lesions througho ut the spine. The paraspinal soft tissues are unremarkable. Ribs: The osseous structures demonstrate normal alignment. There is a healed nondisplaced fracture of the right posterior 7th rib. No acute fracture or dislocation is seen. There are numerous luce nt lesions throughout the ribs. Pelvis: The osseous structures demonstrate normal alignment. There are numerous lucent lesions thro ughout the pelvis. The soft tissues are unremarkable. Upper extremities: The osseous structures demonstrate normal alignment and mineralization. There are multiple lucent lesions within the scapula bilaterally. There is no periostitis. Joint spaces are well preserved. No significant soft tissue abnormality is seen. Lower extremities: The osseous structures demonstrate normal alignment and mineralization. There a re numerous lytic lesions within the proximal femurs. There is no periostitis. Joint spaces are wel l preserved. No significant soft tissue abnormality is seen. IMPRESSION: There are innumerable lytic lesions throughout the axial and proximal appendicular skeleton, better visualized on prior CT. No pathologic fracture identified. RPTAT: HH .Natasha Perez MD, Date Time Electronically viewed and signed by .Natasha Perez MD, on 07/08/2017 13:10 .Abran/
[2017-07-08 15:07] VITALS: BP 134/85; RESP 20
--- NOTE | 2017-07-08 17:07 | CONS ---
Date/Time of Note Date/Time of Note DATE: 07/08/17 TIME: 17:07 Consultation Date/Type/Reason Admit Date/Time Jul 07, 2017 at 18:08 Type of Consultation: id Referring Provider: LETY RACHEL NP Past Surgical History Past Surgical Hx: no surgical history Social History Alcohol Use: none Smoking Status: Never smoker Drug Use: none Exam/Review of Systems Vital Signs Vitals Vital Signs Date Time Temp Pulse Resp B/P Pulse Ox O2 Delivery O2 Flow Rate FiO2 07/08/17 15:07 98.2 83 20 134/85 98 07/07/17 22:01 Room Air Results Result Diagram: 07/08/17 0500 07/08/17 0500 Results 24 hrs Laboratory Tests Test 07/08/17 05:00 White Blood Count 4.6 L Red Blood Count 3.74 L Hemoglobin 11.0 L Hematocrit 32.8 L Mean Corpuscular Volume 87.7 Mean Corpuscular Hemoglobin 29.4 Mean Corpuscular Hemoglobin Concent 33.5 Red Cell Distribution Width 13.3 Platelet Count 215 Mean Platelet Volume 10.9 H Neutrophils % 49.3 Lymphocytes % 39.8 Monocytes % 7.4 Eosinophils % 2.2 Basophils % 0.4 Nucleated Red Blood Cells % 0.0 Neutrophils # (Manual) 2.3 Lymphocytes # 1.8 Monocytes # 0.3 Eosinophils # 0.1 Basophils # 0.0 Nucleated Red Blood Cells # 0.0 Sodium Level 138 Potassium Level 3.5 Chloride Level 105 Carbon Dioxide Level 26 Anion Gap 11 Blood Urea Nitrogen 22 H Creatinine 1.17 Glucose Level 93 Hemoglobin A1c 4.9 Calcium Level 10.2 Magnesium Level 1.8 Total Bilirubin 0.3 Direct Bilirubin 0.00 Indirect Bilirubin 0.3 Aspartate Amino Transf (AST/SGOT) 23 Alanine Aminotransferase (ALT/SGPT) 20 Alkaline Phosphatase 86 Total Protein 9.6 #H Albumin 3.3 Globulin 6.30 H Albumin/Globulin Ratio 0.52 Triglycerides Level 97 Cholesterol Level 176 LDL Cholesterol, Calculated 132 HDL Cholesterol 25 L Cholesterol/HDL Ratio 7.0 Thyroid Stimulating Hormone (TSH) 2.260 Medications Medications Current Medications Ondansetron HCl (Zofran Inj) 4 mg Q6H PRN IV NAUSEA AND/OR VOMITING; Start 07/07 at 22:30 Acetaminophen (Tylenol Tab) 650 mg Q6H PRN PO PAIN LEVEL 1-3 OR FEVER; Start at 22:30 Morphine Sulfate (morphine) 2 mg Q4H PRN IV SEVERE PAIN LEVEL 7-10 Last administered on 07/08/17 08:42; Admin Dose 2 MG; Start 07/07/17 at 22:30 Docusate Sodium (Colace) 100 mg Q12H PRN PO CONSTIPATION; Start 07/07/17 at 22: 30 Bisacodyl (Dulcolax) 5 mg DAILY PRN PO CONSTIPATION; Start 07/07/17 at 22:30 Famotidine (Pepcid) 20 mg Q12 PO Last administered on 07/08/17 08:42; Admin Dose 20 MG; Start 07/07/17 at 22:30 JUNIOR MONTAGUE NP Jul 08, 2017 17:07
[2017-07-08 20:37] VITALS: BP 144/81; RESP 20
--- NOTE | 2017-07-08 22:41 | CONS ---
Date/Time of Note Date/Time of Note DATE: 07/08/17 TIME: 22:21 Assessment/Plan Assessment/Plan Chief Complaint/Hosp Course 46 yo with hypercalcemia, QAMAR, lytic lesions and anemia, highly concerning for multiple myeloma. #concern for monoclonal gammopathy -will wait for SPEP -[place] Lambda Light Ratio ordered -check UPEP -check Serum ISAAC -will order bone marrow bx #HTN -BP ok -continue BP meds #HIV -appreciate ID recs -continue HAART therapy #Bony lesion -once we have confirmed out diagnosis, can start bisphosphonate -will check PSA Problems: Consultation Date/Type/Reason Admit Date/Time Jul 07, 2017 at 18:08 Date of Consultation: Jul 08, 2017 Type of Consultation: Oncology Reason for Consultation concern for multiple myeloma Referring Provider: LETY RACHEL NP Hx of Present Illness 46yo with with HIV x 22 years on HAART therapy who presented to [facility] with right shoulder pain, left flank pain, low back pain after falling 2-3 days ago while gardening. Patient attributes pain to a falling while gardening. CT A/P was done which revealed innumerous punched-out osteolytic lesions involving the thoracolumbar sacral spine, pelvic bones, right hip and visualized right/left ribs and the tip of the right scapula. CT Chest was done which revealed multiple lytic bone lesions in the thoracic spine and in the thoracic cage. Some of these lesions have extraosseous soft tissue masses. In the spine, lesions with extraosseous soft tissue masses compress the thecal sac and exiting nerve roots at T8 and T10. There are pathologic fractures of the manubrium and bilateral ribs. Labs reveal increased globulin fraction, hypercalcemia, mild anemia and mild QAMAR. This in the setting of innumerable lytic lesions has raised concern multiple myeloma, hence the reason for this consult. Constitutional: other (bone pain) Eyes: no complaints ENT: no complaints Respiratory: no complaints Cardiovascular: no complaints Gastrointestinal: no complaints Genitourinary: no complaints Musculoskeletal: back pain, bone/joint pain Skin: no complaints Past Medical History HIV on HAART therapy Hypertension Past Surgical History Past Surgical Hx: no surgical history Family History Significant Family History: no pertinent family hx Social History Alcohol Use: none Smoking Status: Never smoker Drug Use: none Exam/Review of Systems Vital Signs Vitals Vital Signs Date Time Temp Pulse Resp B/P Pulse Ox O2 Delivery O2 Flow Rate FiO2 07/08/17 20:37 98.4 83 20 144/81 98 07/07/17 22:01 Room Air Exam Constitutional: alert, frail, oriented Psych: no complaints Head: normocephalic Eyes: nl conjunctiva ENMT: nl external ears & nose Neck: non-tender, supple Respiratory: clear to auscultation Cardiovascular: regular rate and rhythm Gastrointestinal: soft Musculoskeletal: nl extremities to inspection Results Result Diagram: 07/08/17 0500 07/08/17 0500 Results 24 hrs Laboratory Tests Test 07/08/17 05:00 White Blood Count 4.6 L Red Blood Count 3.74 L Hemoglobin 11.0 L Hematocrit 32.8 L Mean Corpuscular Volume 87.7 Mean Corpuscular Hemoglobin 29.4 Mean Corpuscular Hemoglobin Concent 33.5 Red Cell Distribution Width 13.3 Platelet Count 215 Mean Platelet Volume 10.9 H Neutrophils % 49.3 Lymphocytes % 39.8 Monocytes % 7.4 Eosinophils % 2.2 Basophils % 0.4 Nucleated Red Blood Cells % 0.0 Neutrophils # (Manual) 2.3 Lymphocytes # 1.8 Monocytes # 0.3 Eosinophils # 0.1 Basophils # 0.0 Nucleated Red Blood Cells # 0.0 Sodium Level 138 Potassium Level 3.5 Chloride Level 105 Carbon Dioxide Level 26 Anion Gap 11 Blood Urea Nitrogen 22 H Creatinine 1.17 Glucose Level 93 Hemoglobin A1c 4.9 Calcium Level 10.2 Magnesium Level 1.8 Total Bilirubin 0.3 Direct Bilirubin 0.00 Indirect Bilirubin 0.3 Aspartate Amino Transf (AST/SGOT) 23 Alanine Aminotransferase (ALT/SGPT) 20 Alkaline Phosphatase 86 Total Protein 9.6 #H Albumin 3.3 Globulin 6.30 H Albumin/Globulin Ratio 0.52 Triglycerides Level 97 Cholesterol Level 176 LDL Cholesterol, Calculated 132 HDL Cholesterol 25 L Cholesterol/HDL Ratio 7.0 Thyroid Stimulating Hormone (TSH) 2.260 Medications Medications Current Medications Ondansetron HCl (Zofran Inj) 4 mg Q6H PRN IV NAUSEA AND/OR VOMITING; Start 07/07 at 22:30 Acetaminophen (Tylenol Tab) 650 mg Q6H PRN PO PAIN LEVEL 1-3 OR FEVER; Start at 22:30 Morphine Sulfate (morphine) 2 mg Q4H PRN IV SEVERE PAIN LEVEL 7-10 Last administered on 07/08/17 17:52; Admin Dose 2 MG; Start 07/07/17 at 22:30 Docusate Sodium (Colace) 100 mg Q12H PRN PO CONSTIPATION; Start 07/07/17 at 22: 30 Bisacodyl (Dulcolax) 5 mg DAILY PRN PO CONSTIPATION; Start 07/07/17 at 22:30 Famotidine (Pepcid) 20 mg Q12 PO Last administered on 07/08/17 20:55; Admin Dose 20 MG; Start 07/07/17 at 22:30 IQRA MIDDLETON M.D. Jul 08, 2017 22:31
[2017-07-09 01:47] LABS: PROSTATE SPECIFIC ANTIGEN 2.9 ng/ml (0.0-4.0)
[2017-07-09 02:36] LABS: IMMUNOGLOBULIN A 47 mg/dl (70-400)
[2017-07-09 02:38] LABS: IMMUNOGLOBULIN G 5352 mg/dl (700-1600); IMMUNOGLOBULIN M < 25 mg/dl (40-230)
[2017-07-09 02:48] VITALS: BP 144/77; RESP 20
[2017-07-09 06:52] LABS: LACTATE DEHYDROGENASE 479 IU/L (313-618)
[2017-07-09 07:20] LABS: CARCINOEMBRYONIC ANTIGEN 0.5 ng/ml (0.0-5.0)
[2017-07-09 07:21] LABS: PROTEIN, TOTAL 10.7 g/dL (6.1-8.1)
[2017-07-09 07:28] LABS: CANCER ANTIGEN 19-9 < 1.4 U/ml (0.0-37.0)
[2017-07-09 07:59] VITALS: BP 136/80; RESP 18
[2017-07-09] MEDS: FAMOTIDINE 20 MG TAB PO SCH ×2 (08:23→20:49)
[2017-07-09] MEDS: PREZCOBIX PO SCH ×2 (09:30→20:51)
[2017-07-09] MEDS: DESCOVY PO SCH ×2 (09:30→20:50)
[2017-07-09] MEDS ORDERED: traZODone 50 MG TAB PO PRN (09:30)
--- NOTE | 2017-07-09 09:49 | PN ---
Date/Time of Note Date/Time of Note DATE: 07/09/17 TIME: 09:46 Assessment/Plan VTE Prophylaxis VTE Prophylaxis Intervention: ambulation Lines/Catheters IV Catheter Type (from [facility]): Saline Lock Assessment/Plan Chief Complaint/Hosp Course 1. Back pain. Multiple lytic bony lesions seen on imaging-concern for monoclonal gammopathy. No pathological fracture on metastatic series -oncology eval appreciated and will follow recs. Diagnostic oncology work up has been ordered and will follow directions from oncology services. 2. HIV -ID eval requested. We are going to resume HAART therapy (Descovy+Prezcobix) which patient currently on as outpatient with [facility]. -F/u CD4 count that has been ordered 3. Hypertension. -Resume home meds. 4.Anemia,mild-likely chronic. HH stable. -will monitor. 5. Hx of psychiatric illness. No suicidal thoughts. -Resume home meds. 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 F/u with oncology and ID resc. Case discussed with . Problems: Subjective 24 Hr Interval Summary Free Text/Dictation Patient still with back pain worsens with movement.Denies any suicidal or hallucinational thoughts. Exam/Review of Systems Vital Signs Vitals Vital Signs Date Time Temp Pulse Resp B/P Pulse Ox O2 Delivery O2 Flow Rate FiO2 07/09/17 07:59 98.0 72 18 136/80 97 07/07/17 22:01 Room Air Intake and Output 07/08/17 07/08/17 07/09/17 15:00 23:00 07:00 Intake Total 400 ml 1453 ml 480 ml Output Total 300 ml 1300 ml Balance 400 ml 1153 ml -820 ml Exam General: Well developed,male, not in any acute distress . HEENT: Normocephalic, Atraumatic, No laceration or hematoma; Eyes: PEERL, Conjunctiva clear, Anicteric sclera Neck: Supple without any lymphadenopathy, nontender, no JVD, no carotid bruits, trachea midline, no thyromegaly Cardiac: S1, S2 auscultated, regular rhythm and rate, no mumurs or gallop Pulmonary: Normal respiratory effort. Chest clear to auscultation bilaterally, no adventitious breath sounds GI: Abdomen normal to inspection. Soft, non- distended, no masses, no rebound tenderness or guarding. Bowel sounds active on all four quadrants Genitourinary: Deferred Extremities: No cyanosis, clubbing, or edema. Pulses [2+] bilaterally. Full ROM on all four extremities. No focal weakness appreciated. Neurologic: Alert to person, place, time, and situation. Affect appropriate, intact sensation. Skin: Clean,dry, and intact. No ecchymosis, no rashes, or lesions Psych:Anxious+ Results Result Diagram: 07/08/17 0500 07/08/17 0500 Results 24 hrs Laboratory Tests Test 07/08/17 23:07 07/09/17 04:56 Prostate Specific Antigen 2.9 Immunoglobulin A 47 L Immunoglobulin G 5352 H Immunoglobulin M < 25 L Lactate Dehydrogenase 479 Alpha Fetoprotein 1.92 Carcinoembryonic Antigen 0.5 CA 19-9 Antigen < 1.4 Medications Medications Current Medications Ondansetron HCl (Zofran Inj) 4 mg Q6H PRN IV NAUSEA AND/OR VOMITING; Start 07/07 at 22:30 Acetaminophen (Tylenol Tab) 650 mg Q6H PRN PO PAIN LEVEL 1-3 OR FEVER; Start at 22:30 Morphine Sulfate (morphine) 2 mg Q4H PRN IV SEVERE PAIN LEVEL 7-10 Last administered on 07/08/17 22:21; Admin Dose 2 MG; Start 07/07/17 at 22:30 Docusate Sodium (Colace) 100 mg Q12H PRN PO CONSTIPATION; Start 07/07/17 at 22: 30 Bisacodyl (Dulcolax) 5 mg DAILY PRN PO CONSTIPATION; Start 07/07/17 at 22:30 Famotidine (Pepcid) 20 mg Q12 PO Last administered on 07/09/17 08:23; Admin Dose 20 MG; Start 07/07/17 at 22:30 LETY RACHEL NP Jul 09, 2017 09:49 LETY RACHEL NP Jul 09, 2017 09:49 LETY RACHEL NP Jul 09, 2017 09:49
[2017-07-09] MEDS: TENOFOVIR ALAFENAMIDE 25 MG XX SCH ×2 (10:00→18:00)
[2017-07-09] MEDS: EMTRICITABINE XX SCH ×2 (10:00→18:00)
[2017-07-09] MEDS: LISINOPRIL 10 MG TAB PO SCH (12:39)
[2017-07-09] MEDS: morphine 2 MG INJ IV PRN ×3 (12:39→20:58)
[2017-07-09 13:45] VITALS: BP 162/90; RESP 18
[2017-07-09 15:16] LABS: LYMPHOCYTE - CD4/CD8 RATIO 0.79 (0.86-5.00)
[2017-07-09 16:00] VITALS: BP 157/90; PULSE 79
--- NOTE | 2017-07-09 16:13 | PN ---
DATE: 07/09/2017 SUBJECTIVE DATA: No acute changes overnight. The patient is alert, looks comfortable. Denies pain. No fevers. Wants to go home. Temperature 98.3, pulse 74, respirations 18, blood pressure 162/90. Saturation 98 on room air. No labs this morning. ANTIMICROBIALS: The patient is off antibiotics. DIAGNOSTIC DATA: Patient had CT of the abdomen and pelvis on admission that revealed numerous punched-out osteolytic lesions involving the thoracolumbar spinal spine, sacral spine, pelvic bones, right hip and visualized right left ribs and the tip of the right scapula. Differential includes multiple myeloma. CT of the chest revealed this same findings. Some of the lesions half extraosseous soft tissue masses. Pathologic fractures of the manubrium and bilateral ribs, appearance most in keeping with multiple myeloma, although other hematogenous malignancies could appear similar appearance. The patient also had a metastatic series that revealed innumerable lytic lesions throughout the axial and proximal appendicular skeleton. No pathologic fracture. The patient is being seen by Dr. Dorantes in oncology consultation. PHYSICAL EXAMINATION: GENERAL: Well-nourished, well-developed, middle-aged, man, who is alert, in no distress. HEENT: Head atraumatic, normocephalic. Sclerae anicteric. Buccal mucosa pink. NECK: Supple. CHEST: Rise symmetrical. Breath sounds clear. HEART: S1, S2. ABDOMEN: Soft, bowel sounds present. EXTREMITIES: Without cyanosis. ASSESSMENT: 1. Skeletal lytic lesions, or possible multiple myeloma, versus other hematologic disease, oncology on case. 2. Human immunodeficiency virus, well-controlled on the patient's medications with a CD4 count of 504. 3. Anemia. 4. Hypertension. PLAN: The patient remains stable. Again, his CD4 count is well above 200. He is taking HIV medications and some of them are supposed to be brought from home, as the pharmacy does not carry them. He is followed by Oncology, pending final workup. Dictated By: Reji Bello NP /monet/montez /Document#: [id number]
[2017-07-09 17:26] LABS: ABNORMAL PROTEIN BAND 1 4.8 g/dL (NONE DETECTED); ALBUMIN 3.8 g/dL (3.8-4.8)
[2017-07-09 19:55] VITALS: BP 131/88; RESP 18
[2017-07-09] MEDS: ZIPRASIDONE 20 MG CAP PO SCH (20:49)
[2017-07-09] MEDS: MIRTAZAPINE 15 MG TAB PO SCH (20:56)
--- NOTE | 2017-07-10 01:53 | CONS ---
DATE OF ADMISSION: 07/07/2017 DATE OF CONSULTATION: 07/10/2017 Dr. Kerns dictating an infectious disease consultation for Dr. Bimal Boyd. REFERRING PHYSICIAN: Dr. Arriola. HISTORY OF PRESENT ILLNESS: The patient is a 46-year-old, male, who was admitted on 07/07 with a chief complaint of right shoulder pain. X-ray of the shoulder revealed multiple lucencies in the humerus, scapula and several ribs. The patient was admitted for further evaluation and treatment. His white count on admission was 5200 with a normal differential; his hemoglobin 11.8, g, hematocrit 34 percent, platelet count 216,000. The patient had a CT scan of his chest, which revealed a 0.5 cm right upper lobe nodule. There was a 1 x 3 x 2.6 cm pleural-based mass based on a lesion on the 7th rib. The patient also had a 2.5 x 3.0 cm lytic lesion related to the posterior left 2nd rib, which was pressing on the left T10 nerve root and at T8, there was a compressive lesion on the thecal sac. Metastatic series revealed multiple lesions in the spine, skull, ribs, pelvis and proximal femurs. The serum calcium was 10.2 mg%, alkaline phosphatase of 86, LDH 479, globulin 6.3 g, alpha- fetoprotein 1.92. PSA 2.9. The patient has HIV disease and is followed at [facility]. He has had this since 1989. He has had no complications as a result of this. The patient says his viral load has been nondetectable and that he was told that his T-cell count was "normal." The patient takes Prezcobix 800 mg/150 mg 1 tablet daily and Descovy 200 mg/25 mg tablets once a day. He states he is very good about taking his medication. ALLERGIES: THE PATIENT HAS NO KNOWN ALLERGIES. PAST SURGICAL HISTORY: Has had no surgeries. PHYSICAL EXAMINATION: GENERAL APPEARANCE: Reveals a well-developed, well-nourished, somewhat anxious male, who I awakened from sleep and addressing through a payment analyst. HEENT: The pupils are equal, round, and react to light. Extraocular movements are full. Mucous membranes of the mouth are moist. VITAL SIGNS: His temperature is 98, pulse 89, respirations 18, his blood pressure 131/88, and his O2 saturation on room air is 98. CHEST: Clear. HEART: Regular. ABDOMEN: Soft, slightly obese. No palpable organs or masses. EXTREMITIES: Reveal no edema, cyanosis, or clubbing. Distal pedal pulses are intact. IMPRESSION: 1. Multiple bone lytic lesions. 2. Human immunodeficiency virus. 3. T8 spinal compression, T10 nerve root compression. 4. Pathologic fracture of left manubrium. 5. Hypertension. 6. Peptic ulcer disease. RECOMMENDATION: I would proceed to biopsy the nature of the lesions to rule out if the patient has multiple myeloma or not and to make sure the patient continues to take the HIV medications. I have seen this patient for Dr. Bimal Boyd. Dictated By: Pierce Kerns MD /monet/meliton /Document#: [id number]
[2017-07-10 02:52] VITALS: BP 126/85; RESP 20
[2017-07-10 05:23] LABS: BASOPHILS % 0.4 % (0.0-2.0); EOSINOPHILS # 0.1 10^3/ul (0.0-0.5); HEMATOCRIT 33.6 % (42.0-52.0); HEMOGLOBIN 11.7 g/dl (14.0-18.0); LYMPHOCYTES # 2.1 10^3/ul (0.8-2.9); LYMPHOCYTES % 44.9 % (15.0-51.0); MEAN CORPUSCULAR HEMOGLOBIN 30.4 pg (29.0-33.0); MEAN CORPUSCULAR HGB CONC 34.8 g/dl (32.0-37.0); MEAN CORPUSCULAR VOLUME 87.3 fl (82.0-101.0); MEAN PLATELET VOLUME 10.6 fl (7.4-10.4); MONOCYTE # 0.3 10^3/ul (0.3-0.9); MONOCYTES % 6.7 % (0.0-11.0); NEUTROPHILS % 44.9 % (39.0-77.0); PLATELET COUNT 213 10^3/UL (140-415); POSITIVE DIFF @See below; RED BLOOD COUNT 3.85 10^6/ul (4.70-6.10); WHITE BLOOD COUNT 4.6 10^3/ul (4.8-10.8)
[2017-07-10 06:10] LABS: CALCIUM 10.5 mg/dl (8.4-10.2); CREATININE 1.19 mg/dl (0.61-1.24); POTASSIUM 3.7 mmol/L (3.5-5.1)
[2017-07-10 07:29] VITALS: BP 146/88; RESP 17
[2017-07-10] MEDS: LISINOPRIL 10 MG TAB PO SCH (09:03)
[2017-07-10] MEDS: FAMOTIDINE 20 MG TAB PO SCH ×2 (09:03→20:08)
[2017-07-10] MEDS: CHLORTHALIDONE 25 MG TAB PO SCH (09:03)
[2017-07-10] MEDS: DESCOVY PO SCH (09:03)
[2017-07-10] MEDS: PREZCOBIX PO SCH (09:04)
[2017-07-10] MEDS: morphine 2 MG INJ IV PRN ×3 (09:08→21:07)
--- NOTE | 2017-07-10 09:48 | PN ---
Date/Time of Note Date/Time of Note DATE: 07/10/17 TIME: 09:47 Assessment/Plan VTE Prophylaxis VTE Prophylaxis Intervention: ambulation Lines/Catheters IV Catheter Type (from [facility]): Saline Lock Assessment/Plan Chief Complaint/Hosp Course 1. Back pain. Multiple lytic bony lesions seen on imaging-concern for monoclonal gammopathy. No pathological fracture on metastatic series -oncology eval appreciated and will follow recs. -Plan is a bone marrow biopsy possibly tomorrow and will follow directions from oncology services. 2. HIV.Absolute CD4 504.[place] CD4 low. - Continue HAART therapy (Descovy+Prezcobix). Will obtain viral load to better evaluate treatment effectiveness. -F/u ID recs 3. Hypertension.Stable -Continue home meds. 4.Anemia,mild-likely chronic. HH stable. -will monitor. 5. Hx of psychiatric illness. No suicidal thoughts. -Continue home meds. 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 Continue with oncology and ID rec. Patient was seen in collaboration with DR. Coley. Problems: Subjective 24 Hr Interval Summary Free Text/Dictation No acute overnight episodes. Exam/Review of Systems Vital Signs Vitals Vital Signs Date Time Temp Pulse Resp B/P Pulse Ox O2 Delivery O2 Flow Rate FiO2 07/10/17 07:29 98.7 75 17 146/88 97 07/07/17 22:01 Room Air Intake and Output 07/09/17 07/09/17 07/10/17 15:00 23:00 07:00 Intake Total 980 ml Output Total 1550 ml Balance -570 ml Exam General: Well developed,male, not in any acute distress . HEENT: Normocephalic, Atraumatic, No laceration or hematoma; Eyes: PEERL, Conjunctiva clear, Anicteric sclera Neck: Supple without any lymphadenopathy, nontender, no JVD, no carotid bruits, trachea midline, no thyromegaly Cardiac: S1, S2 auscultated, regular rhythm and rate, no mumurs or gallop Pulmonary: Normal respiratory effort. Chest clear to auscultation bilaterally, no adventitious breath sounds GI: Abdomen normal to inspection. Soft, non- distended, no masses, no rebound tenderness or guarding. Bowel sounds active on all four quadrants Genitourinary: Deferred Extremities: No cyanosis, clubbing, or edema. Pulses [2+] bilaterally. Full ROM on all four extremities. No focal weakness appreciated. Neurologic: Alert to person, place, time, and situation. Affect appropriate, intact sensation. Skin: Clean,dry, and intact. No ecchymosis, no rashes, or lesions Psych:Anxious+ Results Result Diagram: 07/10/1742607/10/17426 Results 24 hrs Laboratory Tests Test 07/10/17 04:27 White Blood Count 4.6 L Red Blood Count 3.85 L Hemoglobin 11.7 L Hematocrit 33.6 L Mean Corpuscular Volume 87.3 Mean Corpuscular Hemoglobin 30.4 Mean Corpuscular Hemoglobin Concent 34.8 Red Cell Distribution Width 13.0 Platelet Count 213 Mean Platelet Volume 10.6 H Neutrophils % 44.9 Lymphocytes % 44.9 Monocytes % 6.7 Eosinophils % 2.0 Basophils % 0.4 Nucleated Red Blood Cells % 0.0 Neutrophils # (Manual) 2.1 Lymphocytes # 2.1 Monocytes # 0.3 Eosinophils # 0.1 Basophils # 0.0 Nucleated Red Blood Cells # 0.0 Sodium Level 141 Potassium Level 3.7 Chloride Level 105 Carbon Dioxide Level 27 Anion Gap 13 Blood Urea Nitrogen 22 H Creatinine 1.19 Glucose Level 110 Calcium Level 10.5 H Medications Medications Current Medications Ondansetron HCl (Zofran Inj) 4 mg Q6H PRN IV NAUSEA AND/OR VOMITING; Start 07/07 at 22:30 Acetaminophen (Tylenol Tab) 650 mg Q6H PRN PO PAIN LEVEL 1-3 OR FEVER; Start at 22:30 Morphine Sulfate (morphine) 2 mg Q4H PRN IV SEVERE PAIN LEVEL 7-10 Last administered on 07/10/17 09:08; Admin Dose 2 MG; Start 07/07/17 at 22:30 Docusate Sodium (Colace) 100 mg Q12H PRN PO CONSTIPATION; Start 07/07/17 at 22: 30 Bisacodyl (Dulcolax) 5 mg DAILY PRN PO CONSTIPATION; Start 07/07/17 at 22:30 Famotidine (Pepcid) 20 mg Q12 PO Last administered on 07/10/17 09:03; Admin Dose 20 MG; Start 07/07/17 at 22:30 Patient Own Medication 1 ea DAILY PO Last administered on 07/10/17 09:03; Admin Dose 1 EA; Start 07/09/17 at 09:30 Trazodone HCl (Desyrel) 50 mg HS PRN PO insomnia; Start 07/09/17 at 09:30 Ziprasidone (Geodon) 60 mg HS PO Last administered on 07/09/17 20:49; Admin Dose 60 MG; Start 07/09/17 at 21:00 Mirtazapine (Remeron) 30 mg HS PO ; Start 07/09/17 at 21:00 Patient Own Medication 1 ea DAILY PO Last administered on 07/10/17 09:04; Admin Dose 1 EA; Start 07/09/17 at 09:30 Lisinopril (Zestril) 10 mg DAILY PO Last administered on 07/10/17 09:03; Admin Dose 10 MG; Start 07/09/17 at 09:30 Chlorthalidone (Hygroton) 25 mg DAILY PO Last administered on 07/10/17 09:03; Admin Dose 25 MG; Start 07/10/17 at 09:00 LETY RACHEL NP Jul 10, 2017 09:48
--- NOTE | 2017-07-10 10:48 | CONS ---
Date/Time of Note Date/Time of Note DATE: 07/10/17 TIME: 10:44 Assessment/Plan Assessment/Plan Chief Complaint/Hosp Course 46 yo with hypercalcemia, QAMAR, lytic lesions and anemia, highly concerning for multiple myeloma. #concern for monoclonal gammopathy -QUIGS demonstrage IgG > 5000 mg/dL -will wait for SPEP -[place] Lambda Light Ratio ordered -check UPEP -check Serum ISAAC -will order bone marrow bx. to be done tomorrow #HTN -BP ok -continue BP meds #HIV -appreciate ID recs -continue HAART therapy #Bony lesion -once we have confirmed out diagnosis, can start bisphosphonate -PSA at 2.9 makes metastatic prostate CA unlikely #Hypercancemia -continue Fluids per Primary team -continue to monitor Calcium Problems: (1) Lytic bone lesions on xray Status: Acute Consultation Date/Type/Reason Admit Date/Time Jul 07, 2017 at 18:08 Initial Consult Date 07/08/17 Type of Consultation: Oncology Reason for Consultation lytic lesions/ concern for multiple myeloma Referring Provider: LETY RACHEL NP 24 HR Interval Summary Free Text/Dictation pt's pain is under better control..still feels very weak Exam/Review of Systems Vital Signs Vitals Vital Signs Date Time Temp Pulse Resp B/P Pulse Ox O2 Delivery O2 Flow Rate FiO2 07/10/17 07:29 98.7 75 17 146/88 97 07/07/17 22:01 Room Air Intake and Output 07/09/17 07/09/17 07/10/17 15:00 23:00 07:00 Intake Total 980 ml Output Total 1550 ml Balance -570 ml Exam Constitutional: alert, oriented Psych: nl mood/affect, no complaints Head: normocephalic Eyes: nl conjunctiva ENMT: nl external ears & nose Neck: non-tender, supple Respiratory: clear to auscultation Cardiovascular: regular rate and rhythm Gastrointestinal: soft Musculoskeletal: nl extremities to inspection, nl gait and stance 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 Results Result Diagram: 07/10/177 07/10/177 Results 24 hrs Laboratory Tests Test 07/10/17 04:27 White Blood Count 4.6 L Red Blood Count 3.85 L Hemoglobin 11.7 L Hematocrit 33.6 L Mean Corpuscular Volume 87.3 Mean Corpuscular Hemoglobin 30.4 Mean Corpuscular Hemoglobin Concent 34.8 Red Cell Distribution Width 13.0 Platelet Count 213 Mean Platelet Volume 10.6 H Neutrophils % 44.9 Lymphocytes % 44.9 Monocytes % 6.7 Eosinophils % 2.0 Basophils % 0.4 Nucleated Red Blood Cells % 0.0 Neutrophils # (Manual) 2.1 Lymphocytes # 2.1 Monocytes # 0.3 Eosinophils # 0.1 Basophils # 0.0 Nucleated Red Blood Cells # 0.0 Sodium Level 141 Potassium Level 3.7 Chloride Level 105 Carbon Dioxide Level 27 Anion Gap 13 Blood Urea Nitrogen 22 H Creatinine 1.19 Glucose Level 110 Calcium Level 10.5 H Medications Medications Current Medications Ondansetron HCl (Zofran Inj) 4 mg Q6H PRN IV NAUSEA AND/OR VOMITING; Start 07/07 at 22:30 Acetaminophen (Tylenol Tab) 650 mg Q6H PRN PO PAIN LEVEL 1-3 OR FEVER; Start at 22:30 Morphine Sulfate (morphine) 2 mg Q4H PRN IV SEVERE PAIN LEVEL 7-10 Last administered on 07/10/17 09:08; Admin Dose 2 MG; Start 07/07/17 at 22:30 Docusate Sodium (Colace) 100 mg Q12H PRN PO CONSTIPATION; Start 07/07/17 at 22: 30 Bisacodyl (Dulcolax) 5 mg DAILY PRN PO CONSTIPATION; Start 07/07/17 at 22:30 Famotidine (Pepcid) 20 mg Q12 PO Last administered on 07/10/17 09:03; Admin Dose 20 MG; Start 07/07/17 at 22:30 Patient Own Medication 1 ea DAILY PO Last administered on 07/10/17 09:03; Admin Dose 1 EA; Start 07/09/17 at 09:30 Trazodone HCl (Desyrel) 50 mg HS PRN PO insomnia; Start 07/09/17 at 09:30 Ziprasidone (Geodon) 60 mg HS PO Last administered on 07/09/17 20:49; Admin Dose 60 MG; Start 07/09/17 at 21:00 Mirtazapine (Remeron) 30 mg HS PO ; Start 07/09/17 at 21:00 Patient Own Medication 1 ea DAILY PO Last administered on 07/10/17 09:04; Admin Dose 1 EA; Start 07/09/17 at 09:30 Lisinopril (Zestril) 10 mg DAILY PO Last administered on 07/10/17 09:03; Admin Dose 10 MG; Start 07/09/17 at 09:30 Chlorthalidone (Hygroton) 25 mg DAILY PO Last administered on 07/10/17 09:03; Admin Dose 25 MG; Start 07/10/17 at 09:00 IQRA MIDDLETON M.D. Jul 10, 2017 10:47
[2017-07-10 14:00] VITALS: BP 150/89; RESP 18
--- NOTE | 2017-07-10 14:59 | CONS ---
Date/Time of Note Date/Time of Note DATE: 07/10/17 TIME: 14:51 Assessment/Plan Assessment/Plan Chief Complaint/Hosp Course SUBJECTIVE DATA: No acute changes overnight. Complains of Back pain. ANTIMICROBIALS: The patient is off antibiotics. DIAGNOSTIC DATA: Patient had CT of the abdomen and pelvis on admission that revealed numerous punched-out osteolytic lesions involving the thoracolumbar spinal spine, sacral spine, pelvic bones, right hip and visualized right left ribs and the tip of the right scapula. Differential includes multiple myeloma. CT of the chest revealed this same findings. Some of the lesions half extraosseous soft tissue masses. Pathologic fractures of the manubrium and bilateral ribs, appearance most in keeping with multiple myeloma, although other hematogenous malignancies could appear similar appearance. The patient also had a metastatic series that revealed innumerable lytic lesions throughout the axial and proximal appendicular skeleton. No pathologic fracture. The patient is being seen by Dr. Dorantes in oncology consultation. PHYSICAL EXAMINATION: GENERAL: Well-nourished, well-developed, middle-aged, man, who is alert, in no distress. HEENT: Head atraumatic, normocephalic. Sclerae anicteric. Buccal mucosa pink. NECK: Supple. CHEST: Rise symmetrical. Breath sounds clear. HEART: S1, S2. ABDOMEN: Soft, bowel sounds present. EXTREMITIES: Without cyanosis. ASSESSMENT: 1. Skeletal lytic lesions, or possible multiple myeloma, versus other hematologic disease, oncology on case. 2. Human immunodeficiency virus, well-controlled on the patient's medications with a CD4 count of 504. 3. Anemia. 4. Hypertension. 5. Back Pain. PLAN: The patient remains stable. The CD4 count is well above 200. He is taking HIV medications and some of them are supposed to be brought from home, as the pharmacy does not carry them. He is followed by Oncology. Pending final workup. Pain Management. Monitor Labs. Problems: Consultation Date/Type/Reason Admit Date/Time Jul 07, 2017 at 18:08 Initial Consult Date 07/08/17 Type of Consultation: id Referring Provider: LETY RACHEL NP Exam/Review of Systems Vital Signs Vitals Vital Signs Date Time Temp Pulse Resp B/P Pulse Ox O2 Delivery O2 Flow Rate FiO2 07/10/17 14:00 97.4 86 18 150/89 96 07/07/17 22:01 Room Air Intake and Output 07/09/17 07/09/17 07/10/17 14:59 22:59 06:59 Intake Total 980 ml Output Total 1550 ml Balance -570 ml Results Result Diagram: 07/10/177 07/10/17 0427 Results 24 hrs Laboratory Tests Test 07/10/17 04:27 White Blood Count 4.6 L Red Blood Count 3.85 L Hemoglobin 11.7 L Hematocrit 33.6 L Mean Corpuscular Volume 87.3 Mean Corpuscular Hemoglobin 30.4 Mean Corpuscular Hemoglobin Concent 34.8 Red Cell Distribution Width 13.0 Platelet Count 213 Mean Platelet Volume 10.6 H Neutrophils % 44.9 Lymphocytes % 44.9 Monocytes % 6.7 Eosinophils % 2.0 Basophils % 0.4 Nucleated Red Blood Cells % 0.0 Neutrophils # (Manual) 2.1 Lymphocytes # 2.1 Monocytes # 0.3 Eosinophils # 0.1 Basophils # 0.0 Nucleated Red Blood Cells # 0.0 Sodium Level 141 Potassium Level 3.7 Chloride Level 105 Carbon Dioxide Level 27 Anion Gap 13 Blood Urea Nitrogen 22 H Creatinine 1.19 Glucose Level 110 Calcium Level 10.5 H Medications Medications Current Medications Ondansetron HCl (Zofran Inj) 4 mg Q6H PRN IV NAUSEA AND/OR VOMITING; Start 07/07 at 22:30 Acetaminophen (Tylenol Tab) 650 mg Q6H PRN PO PAIN LEVEL 1-3 OR FEVER; Start at 22:30 Morphine Sulfate (morphine) 2 mg Q4H PRN IV SEVERE PAIN LEVEL 7-10 Last administered on 07/10/17 09:08; Admin Dose 2 MG; Start 07/07/17 at 22:30 Docusate Sodium (Colace) 100 mg Q12H PRN PO CONSTIPATION; Start 07/07/17 at 22: 30 Bisacodyl (Dulcolax) 5 mg DAILY PRN PO CONSTIPATION; Start 07/07/17 at 22:30 Famotidine (Pepcid) 20 mg Q12 PO Last administered on 07/10/17 09:03; Admin Dose 20 MG; Start 07/07/17 at 22:30 Patient Own Medication 1 ea DAILY PO Last administered on 07/10/17 09:03; Admin Dose 1 EA; Start 07/09/17 at 09:30 Trazodone HCl (Desyrel) 50 mg HS PRN PO insomnia; Start 07/09/17 at 09:30 Ziprasidone (Geodon) 60 mg HS PO Last administered on 07/09/17 20:49; Admin Dose 60 MG; Start 07/09/17 at 21:00 Mirtazapine (Remeron) 30 mg HS PO ; Start 07/09/17 at 21:00 Patient Own Medication 1 ea DAILY PO Last administered on 07/10/17 09:04; Admin Dose 1 EA; Start 07/09/17 at 09:30 Lisinopril (Zestril) 10 mg DAILY PO Last administered on 07/10/17 09:03; Admin Dose 10 MG; Start 07/09/17 at 09:30 Chlorthalidone (Hygroton) 25 mg DAILY PO Last administered on 07/10/17 09:03; Admin Dose 25 MG; Start 07/10/17 at 09:00 JENNIFER MUNIZ NP Jul 10, 2017 14:59
[2017-07-10 19:45] VITALS: BP 142/89; RESP 18
[2017-07-10] MEDS: MIRTAZAPINE 15 MG TAB PO SCH (20:08)
[2017-07-10] MEDS: ZIPRASIDONE 20 MG CAP PO SCH (20:08)
[2017-07-10] MEDS: SOD CHLORIDE 0.9% 1,000 ML IV SCH (21:26)
[2017-07-11 01:49] VITALS: BP 144/72; RESP 18
[2017-07-11 06:07] LABS: ALBUMIN 3.3 g/dl (3.3-4.9); ANION GAP 13 (8-16); BLOOD UREA NITROGEN 26 mg/dl (7-20); CALCIUM 10.8 mg/dl (8.4-10.2); CARBON DIOXIDE 27 mmol/L (21-31); CHLORIDE 105 mmol/L (97-110); CREATININE 1.28 mg/dl (0.61-1.24); GLUCOSE 103 mg/dl (70-220); POTASSIUM 4.1 mmol/L (3.5-5.1); SODIUM 141 mmol/L (135-144)
[2017-07-11 07:31] VITALS: BP 143/83
[2017-07-11] MEDS: morphine 2 MG INJ IV PRN ×2 (08:42→20:54)
--- NOTE | 2017-07-11 11:17 | PN ---
Date/Time of Note Date/Time of Note DATE: 07/11/17 TIME: 11:06 Assessment/Plan VTE Prophylaxis VTE Prophylaxis Intervention: ambulation Lines/Catheters IV Catheter Type (from Nrs): Peripheral IV Urinary Cath still in place: No Assessment/Plan Chief Complaint/Hosp Course 1. Back pain. Improved. Multiple lytic bony lesions seen on imaging-concern for monoclonal gammopathy. -oncology eval appreciated and will follow recs. -For bone marrow biopsy today will follow directions from oncology services. 2. HIV.Absolute CD4 504.[place] CD4 low. - Continue HAART therapy (Descovy+Prezcobix). F/u viral load to better evaluate treatment effectiveness. -F/u ID recs 3. Hypertension.Stable -Continue home meds. 4.Anemia,mild-likely chronic. HH stable. -will monitor. 5.Mild Hypercalcemia with coexisting low vitamin D level,with high suspicion for multiple myeloma, We will also Rule out PTH mediated hypercalcemia Follow-up with PTH level. Meanwhile, obtain thyroid ultrasound.-Consider endocrinology if indicated 6. Vitamin D deficiency. -Hold off to supplementation until hyperparathyroidism is ruled out to avoid further increase in serum calcium. 7.QAMAR-likely hemodynamics. -Continue gentle hydration. 8. Hx of psychiatric illness. No suicidal thoughts.stable. -Continue home meds. 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 Continue with oncology and ID rec. Patient was seen in collaboration with DR. Epstein. Problems: Subjective 24 Hr Interval Summary Free Text/Dictation No acute overnight episodes. Pain relief with analgesics. For bone marrow biopsy today. Exam/Review of Systems Vital Signs Vitals Vital Signs Date Time Temp Pulse Resp B/P Pulse Ox O2 Delivery O2 Flow Rate FiO2 07/11/17 07:31 98.9 108 143/83 07/11/17 01:49 18 97 07/07/17 22:01 Room Air Intake and Output 07/10/17 07/10/17 07/11/17 15:00 23:00 07:00 Intake Total 600 ml 760 ml 730 ml Output Total 900 ml 700 ml Balance -300 ml 60 ml 730 ml Exam General: Well developed,male, not in any acute distress . HEENT: Normocephalic, Atraumatic, No laceration or hematoma; Eyes: PEERL, Conjunctiva clear, Anicteric sclera Neck: Supple without any lymphadenopathy, nontender, no JVD, no carotid bruits, trachea midline, no thyromegaly Cardiac: S1, S2 auscultated, regular rhythm and rate, no mumurs or gallop Pulmonary: Normal respiratory effort. Chest clear to auscultation bilaterally, no adventitious breath sounds GI: Abdomen normal to inspection. Soft, non- distended, no masses, no rebound tenderness or guarding. Bowel sounds active on all four quadrants Genitourinary: Deferred Extremities: No cyanosis, clubbing, or edema. Pulses [2+] bilaterally. Full ROM on all four extremities. No focal weakness appreciated. Neurologic: Alert to person, place, time, and situation. Affect appropriate, intact sensation. Skin: Clean,dry, and intact. No ecchymosis, no rashes, or lesions Psych:Anxious+ Results Result Diagram: 07/10/17 0427 07/11/17 0441 Results 24 hrs Laboratory Tests Test 07/11/17 04:41 Sodium Level 141 Potassium Level 4.1 Chloride Level 105 Carbon Dioxide Level 27 Anion Gap 13 Blood Urea Nitrogen 26 H Creatinine 1.28 H Glucose Level 103 Calcium Level 10.8 H Ionized Calcium (Measured) 1.5 H Albumin 3.3 Vitamin D 1,25-Dihydroxy 17.3 L Parathyroid Hormone (Intact) Medications Medications Current Medications Ondansetron HCl (Zofran Inj) 4 mg Q6H PRN IV NAUSEA AND/OR VOMITING; Start 07/07 at 22:30 Acetaminophen (Tylenol Tab) 650 mg Q6H PRN PO PAIN LEVEL 1-3 OR FEVER; Start at 22:30 Morphine Sulfate (morphine) 2 mg Q4H PRN IV SEVERE PAIN LEVEL 7-10 Last administered on 07/11/17 08:42; Admin Dose 2 MG; Start 07/07/17 at 22:30 Docusate Sodium (Colace) 100 mg Q12H PRN PO CONSTIPATION; Start 07/07/17 at 22: 30 Bisacodyl (Dulcolax) 5 mg DAILY PRN PO CONSTIPATION; Start 07/07/17 at 22:30 Famotidine (Pepcid) 20 mg Q12 PO Last administered on 07/10/17 20:08; Admin Dose 20 MG; Start 07/07/17 at 22:30 Patient Own Medication 1 ea DAILY PO Last administered on 07/10/17 09:03; Admin Dose 1 EA; Start 07/09/17 at 09:30 Trazodone HCl (Desyrel) 50 mg HS PRN PO insomnia; Start 07/09/17 at 09:30 Ziprasidone (Geodon) 60 mg HS PO Last administered on 07/10/17 20:08; Admin Dose 60 MG; Start 07/09/17 at 21:00 Mirtazapine (Remeron) 30 mg HS PO Last administered on 07/10/17 20:08; Admin Dose 30 MG; Start 07/09/17 at 21:00 Patient Own Medication 1 ea DAILY PO Last administered on 07/10/17 09:04; Admin Dose 1 EA; Start 07/09/17 at 09:30 Lisinopril (Zestril) 10 mg DAILY PO Last administered on 07/10/17 09:03; Admin Dose 10 MG; Start 07/09/17 at 09:30 Chlorthalidone 25 mg 25 mg DAILY PO Last administered on 07/10/17 09:03; Admin Dose 25 MG; Start 07/10/17 at 09:00 Sodium Chloride (NS) 1,000 ml @ 60 mls/hr [id number] IV Last administered on 07/10 21:26; Admin Dose 60 MLS/HR; Start 07/10/17 at 21:00 LETY RACHEL NP Jul 11, 2017 11:17 LETY RACHEL NP Jul 11, 2017 11:17 LETY RACHEL NP Jul 11, 2017 11:17
[2017-07-11] MEDS ORDERED: LIDOCAINE 1% (MDV) 20 ML INJ ONE (11:44)
[2017-07-11] MEDS ORDERED: MIDAZOLAM 1 MG/ML 2 ML INJ ONE (11:48)
[2017-07-11] MEDS ORDERED: SOD CHLORIDE 0.9% 500 ML ONE (11:48)
[2017-07-11] MEDS ORDERED: FENTAnyl 50 MCG/ML VIAL ONE (11:48)
[2017-07-11 13:11] VITALS: BP 137/86; RESP 86
[2017-07-11] MEDS: DESCOVY PO SCH (13:19)
[2017-07-11] MEDS: PREZCOBIX PO SCH (13:19)
[2017-07-11] MEDS: LISINOPRIL 10 MG TAB PO SCH (13:20)
[2017-07-11] MEDS: FAMOTIDINE 20 MG TAB PO SCH ×2 (13:20→20:53)
[2017-07-11] MEDS: CHLORTHALIDONE 25 MG TAB PO SCH (13:20)
[2017-07-11] MEDS: SOD CHLORIDE 0.9% 1,000 ML IV SCH (13:28)
--- NOTE | 2017-07-11 14:22 | CONS ---
Date/Time of Note Date/Time of Note DATE: 07/11/17 TIME: 14:18 Assessment/Plan Assessment/Plan Chief Complaint/Hosp Course 46 yo with hypercalcemia, QAMAR, lytic lesions and anemia, highly concerning for multiple myeloma. #Monoclonal gammopathy, SPEP confirms M spike -QUIGS demonstrage IgG > 5000 mg/dL -will wait for SPEP -[place] Lambda Light Ratio ordered -check UPEP -check Serum ISAAC -will order bone marrow bx. to be done today -further recs will depend on results of bone marrow bx #HTN -BP ok -continue BP meds #HIV -appreciate ID recs -continue HAART therapy #Bony lesion -will start bisphosphonate today -PSA at 2.9 makes metastatic prostate CA unlikely #Hypercalcemia -given this is likely secondary to multiple myeloma and is now causing QAMAR, will given 1 dose of Pamidronate 90mg IV Problems: (1) Hypercalcemia Status: Acute (2) Lytic bone lesions on xray Status: Acute (3) QAMAR (acute kidney injury) Status: Acute (4) HIV (human immunodeficiency virus infection) Consultation Date/Type/Reason Admit Date/Time Jul 07, 2017 at 18:08 Initial Consult Date 07/08/17 Type of Consultation: Hematology Reason for Consultation monoclonal gammopathy Referring Provider: LETY RACHEL NP 24 HR Interval Summary Free Text/Dictation pt to have bone marrow bx today. still with 10/10 pain, requiring pain medication around the clock Exam/Review of Systems Vital Signs Vitals Vital Signs Date Time Temp Pulse Resp B/P Pulse Ox O2 Delivery O2 Flow Rate FiO2 07/11/17 13:11 86 137/86 07/11/17 07:31 98.9 108 07/11/17 01:49 97 07/07/17 22:01 Room Air Intake and Output 07/10/17 07/10/17 07/11/17 15:00 23:00 07:00 Intake Total 600 ml 760 ml 730 ml Output Total 900 ml 700 ml Balance -300 ml 60 ml 730 ml Exam Constitutional: alert, distress, oriented Psych: no complaints Head: normocephalic Eyes: nl conjunctiva ENMT: nl external ears & nose Neck: supple Respiratory: clear to auscultation, normal air movement Cardiovascular: regular rate and rhythm Gastrointestinal: soft Musculoskeletal: nl extremities to inspection Results Result Diagram: 07/10/17 0427 07/11/17 0441 Results 24 hrs Laboratory Tests Test 07/11/17 04:41 Sodium Level 141 Potassium Level 4.1 Chloride Level 105 Carbon Dioxide Level 27 Anion Gap 13 Blood Urea Nitrogen 26 H Creatinine 1.28 H Glucose Level 103 Calcium Level 10.8 H Ionized Calcium (Measured) 1.5 H Albumin 3.3 Vitamin D 1,25-Dihydroxy 17.3 L Parathyroid Hormone (Intact) Medications Medications Current Medications Ondansetron HCl (Zofran Inj) 4 mg Q6H PRN IV NAUSEA AND/OR VOMITING; Start 07/07 at 22:30 Acetaminophen (Tylenol Tab) 650 mg Q6H PRN PO PAIN LEVEL 1-3 OR FEVER; Start at 22:30 Morphine Sulfate (morphine) 2 mg Q4H PRN IV SEVERE PAIN LEVEL 7-10 Last administered on 07/11/17 08:42; Admin Dose 2 MG; Start 07/07/17 at 22:30 Docusate Sodium (Colace) 100 mg Q12H PRN PO CONSTIPATION; Start 07/07/17 at 22: 30 Bisacodyl (Dulcolax) 5 mg DAILY PRN PO CONSTIPATION; Start 07/07/17 at 22:30 Famotidine (Pepcid) 20 mg Q12 PO Last administered on 07/11/17 13:20; Admin Dose 20 MG; Start 07/07/17 at 22:30 Patient Own Medication 1 ea DAILY PO Last administered on 07/11/17 13:19; Admin Dose 1 EA; Start 07/09/17 at 09:30 Trazodone HCl (Desyrel) 50 mg HS PRN PO insomnia; Start 07/09/17 at 09:30 Ziprasidone (Geodon) 60 mg HS PO Last administered on 07/10/17 20:08; Admin Dose 60 MG; Start 07/09/17 at 21:00 Mirtazapine (Remeron) 30 mg HS PO Last administered on 07/10/17 20:08; Admin Dose 30 MG; Start 07/09/17 at 21:00 Patient Own Medication 1 ea DAILY PO Last administered on 07/11/17 13:19; Admin Dose 1 EA; Start 07/09/17 at 09:30 Lisinopril (Zestril) 10 mg DAILY PO Last administered on 07/11/17 13:20; Admin Dose 10 MG; Start 07/09/17 at 09:30 Chlorthalidone 25 mg 25 mg DAILY PO Last administered on 07/11/17 13:20; Admin Dose 25 MG; Start 07/10/17 at 09:00 Sodium Chloride (NS) 1,000 ml @ 60 mls/hr [id number] IV Last administered on 07/11 13:28; Admin Dose 60 MLS/HR; Start 07/10/17 at 21:00 IQRA MIDDLETON M.D. Jul 11, 2017 14:22
--- NOTE | 2017-07-11 16:00 | RADRPT ---
PROCEDURE: US Thyroid. CLINICAL INDICATION: Thyroid or parathyroid disorder. TECHNIQUE: Multiple sonographic images of the thyroid were obtained. Transverse and sagittal imagi ng of the gland and nelly-thyroidal tissues was performed with a high frequency linear array transduc er. Color interrogation was performed as well. The images were reviewed on a PACS workstation. COMPARISON: No prior studies are available for comparison. FINDINGS: Thyroid Size: Right lobe: 4.8 x 1.2 x 1.7 cm Left lobe: 3.7 x 1.1 x 1.5 cm Appearance: Echogenicity: Normal Vascularity: Normal Right thyroid nodules: None Left thyroid nodules: None. Additional: Adenopathy: None Soft tissues: Normal IMPRESSION: 1. Normal thyroid ultrasound. 2. No thyroid nodule. 3. TI-RADS 1. RPTAT: PP TI-RADS 1: Benign, <2% malignancy risk: No FNA TI-RADS 2: Not suspicious, <2% malignancy risk: No FNA TI-RADS 3: Mildly suspicious, 5% malignancy risk: FNA if ? 2.5 cm TI-RADS 4: Moderately suspicious, 5-20% malignancy risk: FNA if ? 1.5 cm TI-RADS 5: Highly suspicious, >20% malignancy risk: FNA if ? 1.0 cm .Michael Arias MD, MD Date Time Electronically viewed and signed by .Michael Arias MD, on 07/11/2017 16:00 .R/
--- NOTE | 2017-07-11 16:03 | RADRPT ---
PROCEDURE: CT guided bone marrow aspiration and left iliac bone biopsy. CLINICAL INDICATION: History of multiple lytic lesions of the skeleton. TECHNIQUE: Informed consent was obtained. The procedure, risks, benefits, complications and alternatives were e xplained to the patient. Risks including bleeding and infection were explained. The patient understo od and was willing to proceed. A procedural pause was performed. The patient's name, date of , and procedure to be performed were verified. One or more of the following dose reduction techni ques were used: Automated exposure control, adjustment of the mA and/or kV according to patient size , use of iterative reconstruction technique. Using local anesthetic, sterile technique and CT guidance, an 11-gauge On Control bone biopsy needle was advanced into the left iliac bone via a posterior approach. Bone marrow aspiration was perform ed yielding approximately 10 ml. The bone biopsy needle was then advanced an additional 4 cm using the power drill device and tissue was obtained. Adequate tissue was obtained according to the patho logist present during the procedure. The needle was removed. A postprocedural scan was performed. A dressing was applied. The patient tolerated procedure well. COMPARISON: None. FINDINGS: Initial images demonstrate the tip of the needle at the posterior margin of the left iliac bone. [place] bsequent images demonstrate the needle within the bone. Post biopsy images demonstrate no immediate complication. IMPRESSION: 1. Successful CT guided bone marrow aspiration and biopsy. RPTAT: QQ .Michael Arias MD, Date Time Electronically viewed and signed by .Michael Arias MD, on 07/11/2017 16:03 .R/
[2017-07-11] MEDS ORDERED: PAMIDRONATE 90 MG in SOD CHLORIDE 0.9% 500 ML IV ONE (16:30)
[2017-07-11 19:13] VITALS: BP 130/79; RESP 19
[2017-07-11] MEDS: ZIPRASIDONE 20 MG CAP PO SCH (20:53)
[2017-07-11] MEDS: MIRTAZAPINE 15 MG TAB PO SCH (20:53)
--- NOTE | 2017-07-11 21:09 | PN ---
DATE: 07/11/2017 SUBJECTIVE DATA: No events overnight. No fevers. Patient is off the floor for procedure. VITAL SIGNS: Temperature 98.9, pulse, respirations 18, blood pressure 144/72. Saturation 97%. LABORATORY AND DIAGNOSTIC DATA: WBC yesterday was 4.6, no shift, no bands. Patient is off antibiotics, getting antiretroviral medications for HIV. CD4 count on admission was 504. DIAGNOSTIC IMPRESSION: This is a 46-year-old HIV positive man, which is well controlled on current antimicrobials, admitted with hypercalcemia, acute kidney injury, lytic lesions, anemia concerning for multiple myeloma. Patient is being followed by Oncology, pending bone marrow biopsy. Dictated By: Reji Bello NP /monet/karis /Document#: [id number]
[2017-07-12 00:33] VITALS: BP 121/68; RESP 18
[2017-07-12 03:46] VITALS: BP 127/73; RESP 18
[2017-07-12 05:38] LABS: CALCIUM 10.6 mg/dl (8.4-10.2); CREATININE 1.3 mg/dl (0.61-1.24); MAGNESIUM 1.7 mg/dl (1.7-2.5); POTASSIUM 3.6 mmol/L (3.5-5.1)
[2017-07-12 05:44] LABS: BASOPHILS % 0.5 % (0.0-2.0); EOSINOPHILS # 0.1 10^3/ul (0.0-0.5); EOSINOPHILS % 1.8 % (0.0-7.0); HEMATOCRIT 32.7 % (42.0-52.0); HEMOGLOBIN 11.1 g/dl (14.0-18.0); LYMPHOCYTES # 1.9 10^3/ul (0.8-2.9); LYMPHOCYTES % 42.3 % (15.0-51.0); MEAN CORPUSCULAR HEMOGLOBIN 30.4 pg (29.0-33.0); MEAN CORPUSCULAR HGB CONC 33.9 g/dl (32.0-37.0); MEAN CORPUSCULAR VOLUME 89.6 fl (82.0-101.0); MEAN PLATELET VOLUME 10.5 fl (7.4-10.4); MONOCYTE # 0.3 10^3/ul (0.3-0.9); NEUTROPHILS % 47.3 % (39.0-77.0); PLATELET COUNT 196 10^3/UL (140-415); RED BLOOD COUNT 3.65 10^6/ul (4.70-6.10); RED CELL DISTRIBUTION WIDTH 13.2 % (11.5-14.5); WHITE BLOOD COUNT 4.4 10^3/ul (4.8-10.8)
[2017-07-12] MEDS: SOD CHLORIDE 0.9% 1,000 ML IV SCH ×3 (06:20→23:55)
[2017-07-12 08:21] VITALS: BP 132/85; RESP 18
[2017-07-12] MEDS: LISINOPRIL 10 MG TAB PO SCH (09:15)
[2017-07-12] MEDS: FAMOTIDINE 20 MG TAB PO SCH ×2 (09:16→21:32)
[2017-07-12] MEDS: CHLORTHALIDONE 25 MG TAB PO SCH (09:16)
[2017-07-12] MEDS: PREZCOBIX PO SCH (09:17)
[2017-07-12] MEDS: morphine 2 MG INJ IV PRN ×4 (09:17→21:34)
[2017-07-12] MEDS: DESCOVY PO SCH (09:17)
--- NOTE | 2017-07-12 12:11 | PN ---
Date/Time of Note Date/Time of Note DATE: 07/12/17 TIME: 12:05 Assessment/Plan VTE Prophylaxis VTE Prophylaxis Intervention: ambulation, SCD's Lines/Catheters IV Catheter Type (from Nrs): Peripheral IV Urinary Cath still in place: No Assessment/Plan Chief Complaint/Hosp Course 1. Back pain. Improved. Multiple lytic bony lesions seen on imaging-concern for monoclonal gammopathy. -oncology eval appreciated and will follow recs. -F/u bone marrow biopsy and will follow directions from oncology services. 2. HIV.Absolute CD4 504.[place] CD4 low. - Continue HAART therapy (Descovy+Prezcobix). 3. Hypertension.Stable -Continue home meds. 4.Anemia,mild-likely chronic. HH stable. -will monitor. 5.Mild Hypercalcemia with coexisting low vitamin D level,with high suspicion for multiple myeloma, We will also Rule out PTH mediated hypercalcemia. Status post pamidronate 1 dose. Follow-up with PTH level. 6. Vitamin D deficiency. -Hold off to supplementation until hyperparathyroidism is ruled out to avoid further increase in serum calcium. 7.QAMAR-likely hemodynamics. -Increase IVF. Obtain renal US and consider Nephro if indicated 8. Hx of psychiatric illness. No suicidal thoughts.stable. -Continue home meds. 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 Continue with oncology and ID rec. Patient was seen in collaboration with DR. Epstein. Problems: Subjective 24 Hr Interval Summary Free Text/Dictation No acute distress. Status post bone marrow biopsy Exam/Review of Systems Vital Signs Vitals Vital Signs Date Time Temp Pulse Resp B/P Pulse Ox O2 Delivery O2 Flow Rate FiO2 07/12/17 08:21 97.6 98 18 132/85 98 Intake and Output 07/11/17 07/11/17 07/12/17 15:00 23:00 07:00 Intake Total 400 ml 700 ml 1130 ml Output Total 800 ml 1100 ml Balance 400 ml -100 ml 30 ml Exam General: Well developed,male, not in any acute distress . HEENT: Normocephalic, Atraumatic, No laceration or hematoma; Eyes: PEERL, Conjunctiva clear, Anicteric sclera Neck: Supple without any lymphadenopathy, nontender, no JVD, no carotid bruits, trachea midline, no thyromegaly Cardiac: S1, S2 auscultated, regular rhythm and rate, no mumurs or gallop Pulmonary: Normal respiratory effort. Chest clear to auscultation bilaterally, no adventitious breath sounds GI: Abdomen normal to inspection. Soft, non- distended, no masses, no rebound tenderness or guarding. Bowel sounds active on all four quadrants Genitourinary: Deferred Extremities: No cyanosis, clubbing, or edema. Pulses [2+] bilaterally. Full ROM on all four extremities. No focal weakness appreciated. Neurologic: Alert to person, place, time, and situation. Affect appropriate, intact sensation. Skin: Clean,dry, and intact. No ecchymosis, no rashes, or lesions Psych:Anxious+ Results Result Diagram: 07/12/172 07/12/172 Results 24 hrs Laboratory Tests Test 07/12/17 04:32 White Blood Count 4.4 L Red Blood Count 3.65 L Hemoglobin 11.1 L Hematocrit 32.7 L Mean Corpuscular Volume 89.6 Mean Corpuscular Hemoglobin 30.4 Mean Corpuscular Hemoglobin Concent 33.9 Red Cell Distribution Width 13.2 Platelet Count 196 Mean Platelet Volume 10.5 H Neutrophils % 47.3 Lymphocytes % 42.3 Monocytes % 7.0 Eosinophils % 1.8 Basophils % 0.5 Nucleated Red Blood Cells % 0.0 Neutrophils # (Manual) 2.1 Lymphocytes # 1.9 Monocytes # 0.3 Eosinophils # 0.1 Basophils # 0.0 Nucleated Red Blood Cells # 0.0 Sodium Level 141 Potassium Level 3.6 Chloride Level 105 Carbon Dioxide Level 27 Anion Gap 13 Blood Urea Nitrogen 22 H Creatinine 1.30 H Glucose Level 117 Calcium Level 10.6 H Magnesium Level 1.7 Medications Medications Current Medications Ondansetron HCl (Zofran Inj) 4 mg Q6H PRN IV NAUSEA AND/OR VOMITING; Start 07/07 at 22:30 Acetaminophen (Tylenol Tab) 650 mg Q6H PRN PO PAIN LEVEL 1-3 OR FEVER; Start at 22:30 Morphine Sulfate (morphine) 2 mg Q4H PRN IV SEVERE PAIN LEVEL 7-10 Last administered on 07/12/17t 09:17; Admin Dose 2 MG; Start 07/07/17 at 22:30 Docusate Sodium (Colace) 100 mg Q12H PRN PO CONSTIPATION; Start 07/07/17 at 22: 30 Bisacodyl (Dulcolax) 5 mg DAILY PRN PO CONSTIPATION; Start 07/07/17 at 22:30 Famotidine (Pepcid) 20 mg Q12 PO Last administered on 07/12/17 09:16; Admin Dose 20 MG; Start 07/07/17 at 22:30 Patient Own Medication 1 ea DAILY PO Last administered on 07/12/17 09:17; Admin Dose 1 EA; Start 07/09/17 at 09:30 Trazodone HCl (Desyrel) 50 mg HS PRN PO insomnia; Start 07/09/17 at 09:30 Ziprasidone (Geodon) 60 mg HS PO Last administered on 07/11/17 20:53; Admin Dose 60 MG; Start 07/09/17 at 21:00 Mirtazapine (Remeron) 30 mg HS PO Last administered on 07/11/17 20:53; Admin Dose 30 MG; Start 07/09/17 at 21:00 Patient Own Medication 1 ea DAILY PO Last administered on 07/12/17 09:17; Admin Dose 1 EA; Start 07/09/17 at 09:30 Lisinopril (Zestril) 10 mg DAILY PO Last administered on 07/12/17 09:15; Admin Dose 10 MG; Start 07/09/17 at 09:30 Chlorthalidone 25 mg 25 mg DAILY PO Last administered on 07/12/17 09:16; Admin Dose 25 MG; Start 07/10/17 at 09:00 Sodium Chloride (NS) 1,000 ml @ 60 mls/hr [id number] IV Last administered on 07/11 13:28; Admin Dose 60 MLS/HR; Start 07/10/17 at 21:00 LETY RACHEL NP Jul 12, 2017 12:11 LETY RACHEL NP Jul 12, 2017 12:11 LETY RACHEL NP Jul 12, 2017 12:11
[2017-07-12 13:06] LABS: CREATININE, RANDOM URINE 74 mg/dL (20-370); PROTEIN/CREATININE RATIO 2338 mg/g creat (22-128)
--- NOTE | 2017-07-12 15:43 | RADRPT ---
PROCEDURE: Retroperitoneal US. CLINICAL INDICATION: Renal insufficiency TECHNIQUE: Multiple sonographic images of the kidneys and retroperitoneum were obtained. The imag es were reviewed on a PACS workstation. COMPARISON: 07/07/17 FINDINGS: The kidneys are normal in size, contour, cortical thickness and cortical echogenicity. The right kidney measures 10.3 cm. The left kidney measures 10.4 cm. No kidney stones are visualized. There is no evidence for hydronephrosis. The urinary bladder is normal. RPTAT: AA IMPRESSION: Unremarkable retroperitoneal ultrasound. .Boby Cortes MD, Date Time Electronically viewed and signed by .Boby Cortes MD, MD on 07/12/2017 15:43 .S/
[2017-07-12 16:30] VITALS: BP 138/87; RESP 18
--- NOTE | 2017-07-12 18:59 | PN ---
DATE: 07/12/2017 SUBJECTIVE DATA: Patient is alert, complaining of left-sided body pain. He is afebrile. LABORATORY AND DIAGNOSTIC DATA: WBC 4.4, no shift, no bands. BUN 22, creatinine 1.3. Patient is off antibiotics. He is taking HIV medication that he brings from home. He is specifically on Descovy and Prezcobix. CD4 count 504. OBJECTIVE DATA: GENERAL: Well-developed, well-nourished middle-aged man, who is alert, in no distress. HEENT: Head atraumatic, normocephalic. Sclerae anicteric. Buccal mucosa dry. NECK: Supple. CHEST: Rise symmetrical. Breath sounds clear. HEART: S1, S2. ABDOMEN: Soft, bowel sounds present. EXTREMITIES: Without cyanosis. ASSESSMENT: 1. Back pain with multiple lytic bony lesions, concern for malignancy, status post bone marrow biopsy yesterday. 2. HIV disease, well controlled on current anti-retroviral medications. 3. Hypertension. 4. Anemia. 5. Acute kidney injury. 6. History of psychiatric illness. PLAN: Patient remains stable. He is off antibiotics. So far, no evidence of active infectious process. Continue present care. Continue antiretroviral medications. Follow oncology recommendations. Dictated By: Reji Bello NP /monet/martinez /Document#: [id number]
[2017-07-12 20:02] VITALS: BP 135/90; RESP 18
[2017-07-12] MEDS: MIRTAZAPINE 15 MG TAB PO SCH (21:32)
[2017-07-12] MEDS: ZIPRASIDONE 20 MG CAP PO SCH (21:33)
--- NOTE | 2017-07-12 23:01 | CONS ---
Date/Time of Note Date/Time of Note DATE: 07/12/17 TIME: 22:54 Assessment/Plan Assessment/Plan Chief Complaint/Hosp Course 46 yo with hypercalcemia, QAMAR, lytic lesions and anemia, highly concerning for multiple myeloma. #Monoclonal gammopathy, SPEP confirms M spike -QUIGS demonstrage IgG > 5000 mg/dL -Serum ISAAC demonstrates IgG Lambda monoclonal gammopathy -[place] Lambda Light Ratio ordered, will follow up - bone marrow bx done. wneed to follow up percentage of plasma cells in bone marrow -given this diagnosis of stage III multiple myeloma in this young patient will send to [facility] as an outpatient for evaluation for bone marrow transplant #HTN -BP ok -continue BP meds #HIV -appreciate ID recs -continue HAART therapy #Bony lesion -will start bisphosphonate today -PSA at 2.9 makes metastatic prostate CA unlikely -will obtain out patient authorization for radiation oncology #Hypercalcemia -given this is likely secondary to multiple myeloma and is now causing QAMAR, will given 1 dose of Pamidronate 90mg IV Problems: (1) Hypercalcemia Status: Acute (2) Lytic bone lesions on xray Status: Acute (3) QAMAR (acute kidney injury) Status: Acute (4) HIV (human immunodeficiency virus infection) Problems: Consultation Date/Type/Reason Admit Date/Time Jul 07, 2017 at 18:08 Initial Consult Date 07/08/17 Type of Consultation: Hematology Reason for Consultation multiple myeloma Referring Provider: LETY RACHEL NP 24 HR Interval Summary Free Text/Dictation pt still with acute bone pain somewhat controlled with current pain regime. labs do support a diagnosis of multiple myeloma Exam/Review of Systems Vital Signs Vitals Vital Signs Date Time Temp Pulse Resp B/P Pulse Ox O2 Delivery O2 Flow Rate FiO2 07/12/17 20:02 99.3 114 18 135/90 100 Intake and Output 07/11/17 07/11/17 07/12/17 15:00 23:00 07:00 Intake Total 400 ml 700 ml 1130 ml Output Total 800 ml 1100 ml Balance 400 ml -100 ml 30 ml Exam Constitutional: alert, oriented Psych: other (in pain) Head: normocephalic Eyes: nl conjunctiva ENMT: nl external ears & nose Neck: non-tender, supple Respiratory: clear to auscultation Cardiovascular: regular rate and rhythm Gastrointestinal: soft Musculoskeletal: nl extremities to inspection Results Result Diagram: 07/12/17 0432 07/12/17 0432 Results 24 hrs Laboratory Tests Test 07/12/17 04:32 White Blood Count 4.4 L Red Blood Count 3.65 L Hemoglobin 11.1 L Hematocrit 32.7 L Mean Corpuscular Volume 89.6 Mean Corpuscular Hemoglobin 30.4 Mean Corpuscular Hemoglobin Concent 33.9 Red Cell Distribution Width 13.2 Platelet Count 196 Mean Platelet Volume 10.5 H Neutrophils % 47.3 Lymphocytes % 42.3 Monocytes % 7.0 Eosinophils % 1.8 Basophils % 0.5 Nucleated Red Blood Cells % 0.0 Neutrophils # (Manual) 2.1 Lymphocytes # 1.9 Monocytes # 0.3 Eosinophils # 0.1 Basophils # 0.0 Nucleated Red Blood Cells # 0.0 Sodium Level 141 Potassium Level 3.6 Chloride Level 105 Carbon Dioxide Level 27 Anion Gap 13 Blood Urea Nitrogen 22 H Creatinine 1.30 H Glucose Level 117 Calcium Level 10.6 H Magnesium Level 1.7 Medications Medications Current Medications Ondansetron HCl (Zofran Inj) 4 mg Q6H PRN IV NAUSEA AND/OR VOMITING; Start 07/07 at 22:30 Acetaminophen (Tylenol Tab) 650 mg Q6H PRN PO PAIN LEVEL 1-3 OR FEVER; Start at 22:30 Morphine Sulfate (morphine) 2 mg Q4H PRN IV SEVERE PAIN LEVEL 7-10 Last administered on 07/12/17 21:34; Admin Dose 2 MG; Start 07/07/17 at 22:30 Docusate Sodium (Colace) 100 mg Q12H PRN PO CONSTIPATION; Start 07/07/17 at 22: 30 Bisacodyl (Dulcolax) 5 mg DAILY PRN PO CONSTIPATION; Start 07/07/17 at 22:30 Famotidine (Pepcid) 20 mg Q12 PO Last administered on 07/12/17 21:32; Admin Dose 20 MG; Start 07/07/17 at 22:30 Patient Own Medication 1 ea DAILY PO Last administered on 07/12/17 09:17; Admin Dose 1 EA; Start 07/09/17 at 09:30 Trazodone HCl (Desyrel) 50 mg HS PRN PO insomnia; Start 07/09/17 at 09:30 Ziprasidone (Geodon) 60 mg HS PO Last administered on 07/12/17 21:33; Admin Dose 60 MG; Start 07/09/17 at 21:00 Mirtazapine (Remeron) 30 mg HS PO Last administered on 07/12/17 21:32; Admin Dose 30 MG; Start 07/09/17 at 21:00 Patient Own Medication 1 ea DAILY PO Last administered on 07/12/17 09:17; Admin Dose 1 EA; Start 07/09/17 at 09:30 Lisinopril (Zestril) 10 mg DAILY PO Last administered on 07/12/17 09:15; Admin Dose 10 MG; Start 07/09/17 at 09:30 Chlorthalidone 25 mg 25 mg DAILY PO Last administered on 07/12/17 09:16; Admin Dose 25 MG; Start 07/10/17 at 09:00 Sodium Chloride (NS) 1,000 ml @ 100 mls/hr Q10H IV Last administered on 13:36; Admin Dose 100 MLS/HR; Start 07/10/17 at 21:00 IQRA MIDDLETON M.D. Jul 12, 2017 23:01
[2017-07-13 01:41] VITALS: BP 115/63; RESP 18
[2017-07-13] MEDS: SOD CHLORIDE 0.9% 1,000 ML IV SCH ×3 (04:40→21:18)
[2017-07-13 05:16] LABS: BASOPHILS % 0.5 % (0.0-2.0); EOSINOPHILS # 0.1 10^3/ul (0.0-0.5); EOSINOPHILS % 2.2 % (0.0-7.0); HEMATOCRIT 30.4 % (42.0-52.0); HEMOGLOBIN 10.4 g/dl (14.0-18.0); LYMPHOCYTES # 1.4 10^3/ul (0.8-2.9); LYMPHOCYTES % 39.1 % (15.0-51.0); MEAN CORPUSCULAR HEMOGLOBIN 30.6 pg (29.0-33.0); MEAN CORPUSCULAR HGB CONC 34.2 g/dl (32.0-37.0); MEAN CORPUSCULAR VOLUME 89.4 fl (82.0-101.0); MEAN PLATELET VOLUME 10.1 fl (7.4-10.4); MONOCYTE # 0.3 10^3/ul (0.3-0.9); MONOCYTES % 7.7 % (0.0-11.0); NEUTROPHILS % 49.1 % (39.0-77.0); PLATELET COUNT 160 10^3/UL (140-415); RED CELL DISTRIBUTION WIDTH 13.2 % (11.5-14.5); WHITE BLOOD COUNT 3.7 10^3/ul (4.8-10.8)
[2017-07-13 05:32] LABS: CALCIUM 9.2 mg/dl (8.4-10.2); CREATININE 1.47 mg/dl (0.61-1.24); POTASSIUM 3.7 mmol/L (3.5-5.1)
[2017-07-13 07:55] VITALS: BP 134/77; RESP 16
[2017-07-13] MEDS: DESCOVY PO SCH (08:34)
[2017-07-13] MEDS: PREZCOBIX PO SCH (08:34)
[2017-07-13] MEDS: CHLORTHALIDONE 25 MG TAB PO SCH (08:35)
[2017-07-13] MEDS: FAMOTIDINE 20 MG TAB PO SCH ×2 (08:35→21:16)
[2017-07-13] MEDS: LISINOPRIL 10 MG TAB PO SCH (08:38)
--- NOTE | 2017-07-13 11:41 | PN ---
Date/Time of Note Date/Time of Note DATE: 07/13/17 TIME: 11:39 Assessment/Plan VTE Prophylaxis VTE Prophylaxis Intervention: ambulation, SCD's Lines/Catheters IV Catheter Type (from Nrs): Peripheral IV Urinary Cath still in place: No Assessment/Plan Chief Complaint/Hosp Course 1. Back pain. Improved. Multiple lytic bony lesions seen on imaging-concern for monoclonal gammopathy. -oncology eval appreciated and will follow recs. -F/u bone marrow biopsy and will follow directions from oncology services. 2. HIV.Absolute CD4 504.[place] CD4 low. - Continue HAART therapy (Descovy+Prezcobix). 3. Hypertension.Stable -Continue home meds. 4.Anemia,mild-likely chronic. HH stable. -will monitor. 5.Mild Hypercalcemia with coexisting low vitamin D level,with high suspicion for multiple myeloma, We will also Rule out PTH mediated hypercalcemia v Follow-up with PTH level. 6. Vitamin D deficiency. -Hold off to supplementation until hyperparathyroidism is ruled out to avoid further increase in serum calcium. 7.QAMAR-likely hemodynamics.Renal fxn worsened. -Continue IVF. Nephro consult. -Monitor renal fxn closely 8. Hx of psychiatric illness. No suicidal thoughts.stable. -Continue home meds. 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 Continue with oncology,nephrology and ID rec. Patient was seen in collaboration with DR. Epstein. Problems: Subjective 24 Hr Interval Summary Free Text/Dictation No acute overnight episodes. Exam/Review of Systems Vital Signs Vitals Vital Signs Date Time Temp Pulse Resp B/P Pulse Ox O2 Delivery O2 Flow Rate FiO2 07/13/17 07:55 99.2 93 16 134/77 97 Intake and Output 07/12/17 07/12/17 07/13/17 15:00 23:00 07:00 Intake Total 1120 ml 1540 ml Output Total 800 ml 1000 ml Balance 320 ml 540 ml Exam General: Well developed,male, not in any acute distress . HEENT: Normocephalic, Atraumatic, No laceration or hematoma; Eyes: PEERL, Conjunctiva clear, Anicteric sclera Neck: Supple without any lymphadenopathy, nontender, no JVD, no carotid bruits, trachea midline, no thyromegaly Cardiac: S1, S2 auscultated, regular rhythm and rate, no mumurs or gallop Pulmonary: Normal respiratory effort. Chest clear to auscultation bilaterally, no adventitious breath sounds GI: Abdomen normal to inspection. Soft, non- distended, no masses, no rebound tenderness or guarding. Bowel sounds active on all four quadrants Genitourinary: Deferred Extremities: No cyanosis, clubbing, or edema. Pulses [2+] bilaterally. Full ROM on all four extremities. No focal weakness appreciated. Neurologic: Alert to person, place, time, and situation. Affect appropriate, intact sensation. Skin: Clean,dry, and intact. No ecchymosis, no rashes, or lesion Psych: Normal affect Results Result Diagram: 07/13/17 0432 07/13/17 0432 Results 24 hrs Laboratory Tests Test 07/13/17 04:32 07/13/17 07:40 White Blood Count 3.7 L Red Blood Count 3.40 L Hemoglobin 10.4 L Hematocrit 30.4 L Mean Corpuscular Volume 89.4 Mean Corpuscular Hemoglobin 30.6 Mean Corpuscular Hemoglobin Concent 34.2 Red Cell Distribution Width 13.2 Platelet Count 160 Mean Platelet Volume 10.1 Neutrophils % 49.1 Lymphocytes % 39.1 Monocytes % 7.7 Eosinophils % 2.2 Basophils % 0.5 Nucleated Red Blood Cells % 0.0 Neutrophils # (Manual) 1.8 Lymphocytes # 1.4 Monocytes # 0.3 Eosinophils # 0.1 Basophils # 0.0 Nucleated Red Blood Cells # 0.0 Sodium Level 139 Potassium Level 3.7 Chloride Level 104 Carbon Dioxide Level 25 Anion Gap 14 Blood Urea Nitrogen 22 H Creatinine 1.47 H Glucose Level 112 Calcium Level 9.2 Lab Scanned Report REFERENCE LAB Medications Medications Current Medications Ondansetron HCl (Zofran Inj) 4 mg Q6H PRN IV NAUSEA AND/OR VOMITING; Start 07/07 at 22:30 Acetaminophen (Tylenol Tab) 650 mg Q6H PRN PO PAIN LEVEL 1-3 OR FEVER; Start at 22:30 Morphine Sulfate (morphine) 2 mg Q4H PRN IV SEVERE PAIN LEVEL 7-10 Last administered on 07/12/17t 21:34; Admin Dose 2 MG; Start 07/07/17 at 22:30 Docusate Sodium (Colace) 100 mg Q12H PRN PO CONSTIPATION; Start 07/07/17 at 22: 30 Bisacodyl (Dulcolax) 5 mg DAILY PRN PO CONSTIPATION; Start 07/07/17 at 22:30 Famotidine (Pepcid) 20 mg Q12 PO Last administered on 07/13/17 08:35; Admin Dose 20 MG; Start 07/07/17 at 22:30 Patient Own Medication 1 ea DAILY PO Last administered on 07/13/17 08:34; Admin Dose 1 EA; Start 07/09/17 at 09:30 Trazodone HCl (Desyrel) 50 mg HS PRN PO insomnia; Start 07/09/17 at 09:30 Ziprasidone (Geodon) 60 mg HS PO Last administered on 07/12/17 21:33; Admin Dose 60 MG; Start 07/09/17 at 21:00 Mirtazapine (Remeron) 30 mg HS PO Last administered on 07/12/17 21:32; Admin Dose 30 MG; Start 07/09/17 at 21:00 Patient Own Medication 1 ea DAILY PO Last administered on 07/13/17 08:34; Admin Dose 1 EA; Start 07/09/17 at 09:30 Lisinopril (Zestril) 10 mg DAILY PO Last administered on 07/13/17 08:38; Admin Dose 10 MG; Start 07/09/17 at 09:30 Chlorthalidone 25 mg 25 mg DAILY PO Last administered on 07/13/17 08:35; Admin Dose 25 MG; Start 07/10/17 at 09:00 Sodium Chloride (NS) 1,000 ml @ 100 mls/hr Q10H IV Last administered on 23:55; Admin Dose 100 MLS/HR; Start 07/10/17 at 21:00 LETY RACHEL NP Jul 13, 2017 11:41 LETY RACHEL NP Jul 13, 2017 11:41 LETY RACHEL NP Jul 13, 2017 11:41
--- NOTE | 2017-07-13 13:08 | CONS ---
Date/Time of Note Date/Time of Note DATE: 07/13/17 TIME: 13:06 Assessment/Plan Assessment/Plan Chief Complaint/Hosp Course SUBJECTIVE DATA: Patient is alert, no n/v/d, no fevers Rx; Descovy and Prezcobix. CD4 count 504. OBJECTIVE DATA: GENERAL: Well-developed, well-nourished middle-aged man, who is alert, in no distress. HEENT: Head atraumatic, normocephalic. Sclerae anicteric. Buccal mucosa dry. NECK: Supple. CHEST: Rise symmetrical. Breath sounds clear. HEART: S1, S2. ABDOMEN: Soft, bowel sounds present. EXTREMITIES: Without cyanosis. ASSESSMENT: 1. Back pain with multiple lytic bony lesions, concern for malignancy, status post bone marrow biopsy yesterday. 2. HIV disease, well controlled on current anti-retroviral medications. 3. Hypertension. 4. Anemia. 5. Acute kidney injury. 6. History of psychiatric illness. PLAN: Patient remains stable. He is off antibiotics. So far, no evidence of active infectious process. Continue present care. Continue antiretroviral medications. Follow oncology recommendations. [facility] from ID point of view Problems: Consultation Date/Type/Reason Admit Date/Time Jul 07, 2017 at 18:08 Initial Consult Date 07/08/17 Type of Consultation: ID Referring Provider: LETY RACHEL NP Exam/Review of Systems Vital Signs Vitals Vital Signs Date Time Temp Pulse Resp B/P Pulse Ox O2 Delivery O2 Flow Rate FiO2 07/13/17 07:55 99.2 93 16 134/77 97 Intake and Output 07/12/17 07/12/17 07/13/17 15:00 23:00 07:00 Intake Total 1120 ml 1540 ml Output Total 800 ml 1000 ml Balance 320 ml 540 ml Results Result Diagram: 07/13/17 0432 07/13/17 0432 Results 24 hrs Laboratory Tests Test 07/13/17 04:32 07/13/17 07:40 White Blood Count 3.7 L Red Blood Count 3.40 L Hemoglobin 10.4 L Hematocrit 30.4 L Mean Corpuscular Volume 89.4 Mean Corpuscular Hemoglobin 30.6 Mean Corpuscular Hemoglobin Concent 34.2 Red Cell Distribution Width 13.2 Platelet Count 160 Mean Platelet Volume 10.1 Neutrophils % 49.1 Lymphocytes % 39.1 Monocytes % 7.7 Eosinophils % 2.2 Basophils % 0.5 Nucleated Red Blood Cells % 0.0 Neutrophils # (Manual) 1.8 Lymphocytes # 1.4 Monocytes # 0.3 Eosinophils # 0.1 Basophils # 0.0 Nucleated Red Blood Cells # 0.0 Sodium Level 139 Potassium Level 3.7 Chloride Level 104 Carbon Dioxide Level 25 Anion Gap 14 Blood Urea Nitrogen 22 H Creatinine 1.47 H Glucose Level 112 Calcium Level 9.2 Lab Scanned Report REFERENCE LAB Medications Medications Current Medications Ondansetron HCl (Zofran Inj) 4 mg Q6H PRN IV NAUSEA AND/OR VOMITING; Start 07/07 at 22:30 Acetaminophen (Tylenol Tab) 650 mg Q6H PRN PO PAIN LEVEL 1-3 OR FEVER; Start at 22:30 Morphine Sulfate (morphine) 2 mg Q4H PRN IV SEVERE PAIN LEVEL 7-10 Last administered on 07/12/17 21:34; Admin Dose 2 MG; Start 07/07/17 at 22:30 Docusate Sodium (Colace) 100 mg Q12H PRN PO CONSTIPATION; Start 07/07/17 at 22: 30 Bisacodyl (Dulcolax) 5 mg DAILY PRN PO CONSTIPATION; Start 07/07/17 at 22:30 Famotidine (Pepcid) 20 mg Q12 PO Last administered on 07/13/17 08:35; Admin Dose 20 MG; Start 07/07/17 at 22:30 Patient Own Medication 1 ea DAILY PO Last administered on 07/13/17 08:34; Admin Dose 1 EA; Start 07/09/17 at 09:30 Trazodone HCl (Desyrel) 50 mg HS PRN PO insomnia; Start 07/09/17 at 09:30 Ziprasidone (Geodon) 60 mg HS PO Last administered on 07/12/17 21:33; Admin Dose 60 MG; Start 07/09/17 at 21:00 Mirtazapine (Remeron) 30 mg HS PO Last administered on 07/12/17 21:32; Admin Dose 30 MG; Start 07/09/17 at 21:00 Patient Own Medication 1 ea DAILY PO Last administered on 07/13/17 08:34; Admin Dose 1 EA; Start 07/09/17 at 09:30 Lisinopril (Zestril) 10 mg DAILY PO Last administered on 07/13/17 08:38; Admin Dose 10 MG; Start 07/09/17 at 09:30 Chlorthalidone 25 mg 25 mg DAILY PO Last administered on 07/13/17 08:35; Admin Dose 25 MG; Start 07/10/17 at 09:00 Sodium Chloride (NS) 1,000 ml @ 100 mls/hr Q10H IV Last administered on 23:55; Admin Dose 100 MLS/HR; Start 07/10/17 at 21:00 JUNIOR MONTAGUE NP Jul 13, 2017 13:08
[2017-07-13] MEDS: morphine 2 MG INJ IV PRN ×3 (13:39→21:18)
[2017-07-13 17:35] LABS: ADD UMIC YES; UR ASCORBIC ACID NEGATIVE (NEGATIVE); UR BILIRUBIN (Dip) NEGATIVE (NEGATIVE); UR BLOOD (Dip) 1+ mg/dL (NEGATIVE); UR CLARITY CLEAR (CLEAR); UR COLOR STRAW (YELLOW); UR GLUCOSE (Dip) NEGATIVE (NEGATIVE); UR KETONES (Dip) NEGATIVE (NEGATIVE); UR LEUKOCYTE ESTERASE (Dip) NEGATIVE Leu/ul (NEGATIVE); UR NITRITE (Dip) NEGATIVE (NEGATIVE); UR RBC 0 /HPF (0-5); UR SPECIFIC GRAVITY (Dip) 1.006 (1.003-1.030); UR TOTAL PROTEIN (Dip) NEGATIVE (NEGATIVE); UR UROBILINOGEN (Dip) NEGATIVE (NEGATIVE)
--- NOTE | 2017-07-13 18:41 | CONS ---
DATE OF ADMISSION: 07/07/2017 DATE OF CONSULTATION: 07/13/2017 NEPHROLOGY CONSULTATION: REASON FOR CONSULTATION: Acute kidney injury. HISTORY OF PRESENT ILLNESS: This is a 46-year-old male with a past medical history of HIV who presents to [facility] with shoulder pain, left flank pain, lower back pain for 2-3 days. The patient described the pain as acute. Upon arrival, the patient had imaging studies that showed lytic lesions of the spine. He was subsequently admitted for evaluation. During the course of the patient was concern for monoclonal gammopathy, possible multiple myeloma. The patient is seen by conference manager, Dr. Dorantes. The patient had serum free light chains obtained which showed elevated lambda light chains and decreased kappa lambda ratio. The patient during the hospital course also received pamidronate and was noted to be hypercalcemic. In terms of patient's renal history, on admission the patient had creatinines ranging from 1.9-1.3 mg/dL. The patient's creatinine has increased to 1.47 mg/dL. During this time, the patient was noted to be hypercalcemic, has been receiving IV fluids, has been on an FRANCOIS inhibitor and diuretics. There has been no reports of hemoptysis, hematemesis, hematochezia. PAST MEDICAL HISTORY: History of HIV, history of hypertension. PAST SURGICAL HISTORY: None. FAMILY HISTORY: Noncontributory. SOCIAL HISTORY: Does not drink, smoke, or do drugs. The patient's medications have been reviewed. LABORATORY DATA: Shows sodium 139, potassium 3.7, BUN 22, creatinine 1.47. White count 3.7, hemoglobin 10.4, hematocrit 30.4, platelet count is 160. Urinalysis was reviewed, patient has a protein creatinine ratio of 2 grams. IMPRESSION AND PLAN: This is a 46-year-old male who presents with: 1. Nonoliguric acute kidney injury with unknown previous baseline creatinine. Etiology of acute kidney injury may be multifactorial secondary to hypercalcemia FRANCOIS inhibitor effect. The possibility of a light chain associated nephropathy such as cast nephropathy is also a consideration. At this point, I would recommend to hold FRANCOIS inhibitor, would hold diuretic therapy, would continue gentle IV hydration, would monitor renal function closely. Will repeat urinalysis and evaluate the urine under microscopy. If renal function should further decline, would consider renal biopsy to evaluate for any evidence of cast nephropathy. Ultimately the patient will need definitive treatment of his underlying monoclonal gammopathy. 2. Anemia. Monitor hemoglobin and hematocrit levels. 3. Mineral bone disorder. Monitor calcium and phosphorus levels. 4. Hypercalcemia secondary to monoclonal gammopathy. The patient is status post bisphosphonate. Calcium levels are improving. Continue to monitor. 5. History of hypertension. Blood pressure controlled. 6. HIV. Continue HAART therapy. 7. Vitamin D deficiency. Continue to monitor. 8. History of psychiatric illness. Continue current medical management. Thank you, today, for this interesting consult. It will be a pleasure to follow patient with you throughout the hospital course. Dictated By: Micah Serna DO /monet/aman /Document#: [id number]
[2017-07-13 19:22] VITALS: BP 118/71; RESP 19
[2017-07-13] MEDS: MIRTAZAPINE 15 MG TAB PO SCH (21:15)
[2017-07-13] MEDS: ZIPRASIDONE 20 MG CAP PO SCH (21:16)
--- NOTE | 2017-07-13 22:42 | CONS ---
Date/Time of Note Date/Time of Note DATE: 07/13/17 TIME: 22:39 Assessment/Plan Assessment/Plan Chief Complaint/Hosp Course 46 yo with hypercalcemia, QAMAR, lytic lesions and anemia, highly concerning for multiple myeloma. #Monoclonal gammopathy, SPEP confirms M spike of 4.6 grams -QUIGS demonstrage IgG > 5000 mg/dL -Serum ISAAC demonstrates IgG Lambda monoclonal gammopathy -[place] Lambda Light Ratio [place] lambda light chains at 1196 - bone marrow bx done and demonstrates > 90% plasma cells -given this diagnosis of stage III multiple myeloma in this young patient will send to [facility] as an outpatient for evaluation for bone marrow transplant -will start treatment harshal with [facility] as an out patient #HTN -BP ok -continue BP meds #HIV -appreciate ID recs -continue HAART therapy #Bony lesion -will start bisphosphonate today -PSA at 2.9 makes metastatic prostate CA unlikely -will obtain out patient authorization for radiation oncology #Hypercalcemia -given this is likely secondary to multiple myeloma and is now causing QAMAR, will given 1 dose of Pamidronate 90mg IV Problems: (1) Hypercalcemia Status: Acute (2) Lytic bone lesions on xray Status: Acute (3) QAMAR (acute kidney injury) Status: Acute (4) HIV (human immunodeficiency virus infection) Problems: Consultation Date/Type/Reason Admit Date/Time Jul 07, 2017 at 18:08 Initial Consult Date 07/08/17 Type of Consultation: Hematology Reason for Consultation multiple myeloma Referring Provider: LETY RACHEL NP 24 HR Interval Summary Free Text/Dictation patient states bone pain is under better control. was told this morning about his diagnosis of multiple myeloma Exam/Review of Systems Vital Signs Vitals Vital Signs Date Time Temp Pulse Resp B/P Pulse Ox O2 Delivery O2 Flow Rate FiO2 07/13/17 19:22 98.8 93 19 118/71 100 Intake and Output 07/12/17 07/12/17 07/13/17 15:00 23:00 07:00 Intake Total 1120 ml 1540 ml Output Total 800 ml 1000 ml Balance 320 ml 540 ml Exam Constitutional: alert, oriented Psych: no complaints Head: normocephalic Eyes: nl conjunctiva ENMT: nl external ears & nose Neck: non-tender, supple Respiratory: clear to auscultation, normal air movement Cardiovascular: nl pulses, regular rate and rhythm Gastrointestinal: soft Musculoskeletal: nl extremities to inspection, nl gait and stance Extremities: normal pulses Results Result Diagram: 07/13/17 0432 07/13/17 0432 Results 24 hrs Laboratory Tests Test 07/13/17 04:32 07/13/17 07:40 07/13/17 16:45 White Blood Count 3.7 L Red Blood Count 3.40 L Hemoglobin 10.4 L Hematocrit 30.4 L Mean Corpuscular Volume 89.4 Mean Corpuscular Hemoglobin 30.6 Mean Corpuscular Hemoglobin Concent 34.2 Red Cell Distribution Width 13.2 Platelet Count 160 Mean Platelet Volume 10.1 Neutrophils % 49.1 Lymphocytes % 39.1 Monocytes % 7.7 Eosinophils % 2.2 Basophils % 0.5 Nucleated Red Blood Cells % 0.0 Neutrophils # (Manual) 1.8 Lymphocytes # 1.4 Monocytes # 0.3 Eosinophils # 0.1 Basophils # 0.0 Nucleated Red Blood Cells # 0.0 Sodium Level 139 Potassium Level 3.7 Chloride Level 104 Carbon Dioxide Level 25 Anion Gap 14 Blood Urea Nitrogen 22 H Creatinine 1.47 H Glucose Level 112 Calcium Level 9.2 Lab Scanned Report REFERENCE LAB Urine Color STRAW Urine Clarity CLEAR Urine pH 7.0 Urine Specific [place] 1.006 Urine Ketones NEGATIVE Urine Nitrite NEGATIVE Urine Bilirubin NEGATIVE Urine Urobilinogen NEGATIVE Urine Leukocyte Esterase NEGATIVE Urine Microscopic RBC 0 Urine Microscopic WBC 1 Urine Hemoglobin 1+ H Urine Random Creatinine 30.85 Urine Random Sodium 64 Urine Glucose NEGATIVE Urine Total Protein 46.0 H Medications Medications Current Medications Ondansetron HCl (Zofran Inj) 4 mg Q6H PRN IV NAUSEA AND/OR VOMITING; Start 07/07 at 22:30 Acetaminophen (Tylenol Tab) 650 mg Q6H PRN PO PAIN LEVEL 1-3 OR FEVER; Start at 22:30 Morphine Sulfate (morphine) 2 mg Q4H PRN IV SEVERE PAIN LEVEL 7-10 Last administered on 07/13/17t 21:18; Admin Dose 2 MG; Start 07/07/17 at 22:30 Docusate Sodium (Colace) 100 mg Q12H PRN PO CONSTIPATION; Start 07/07/17 at 22: 30 Bisacodyl (Dulcolax) 5 mg DAILY PRN PO CONSTIPATION; Start 07/07/17 at 22:30 Famotidine (Pepcid) 20 mg Q12 PO Last administered on 07/13/17 21:16; Admin Dose 20 MG; Start 07/07/17 at 22:30 Patient Own Medication 1 ea DAILY PO Last administered on 07/13/17 08:34; Admin Dose 1 EA; Start 07/09/17 at 09:30 Trazodone HCl (Desyrel) 50 mg HS PRN PO insomnia; Start 07/09/17 at 09:30 Ziprasidone (Geodon) 60 mg HS PO Last administered on 07/13/17 21:16; Admin Dose 60 MG; Start 07/09/17 at 21:00 Mirtazapine (Remeron) 30 mg HS PO Last administered on 07/13/17 21:15; Admin Dose 30 MG; Start 07/09/17 at 21:00 Patient Own Medication 1 ea DAILY PO Last administered on 07/13/17 08:34; Admin Dose 1 EA; Start 07/09/17 at 09:30 Chlorthalidone 25 mg 25 mg DAILY PO Last administered on 07/13/17 08:35; Admin Dose 25 MG; Start 07/10/17 at 09:00; Status Future Hold Sodium Chloride (NS) 1,000 ml @ 100 mls/hr Q10H IV Last administered on 21:18; Admin Dose 100 MLS/HR; Start 07/10/17 at 21:00 IQRA MIDDLETON M.D. Jul 13, 2017 22:42
[2017-07-14] MEDS: SOD CHLORIDE 0.9% 1,000 ML IV SCH ×3 (00:40→20:10)
[2017-07-14 01:57] VITALS: BP 116/64; RESP 21
[2017-07-14 05:59] LABS: CALCIUM 8.6 mg/dl (8.4-10.2); CREATININE 1.41 mg/dl (0.61-1.24)
[2017-07-14 07:38] VITALS: BP 125/75; RESP 18
[2017-07-14] MEDS: DESCOVY PO SCH (08:25)
[2017-07-14] MEDS: PREZCOBIX PO SCH (08:25)
[2017-07-14] MEDS: FAMOTIDINE 20 MG TAB PO SCH ×2 (08:25→21:34)
--- NOTE | 2017-07-14 08:25 | PN ---
DATE: 07/14/2017 SUBJECTIVE DATA: The patient is stable. No events overnight. The patient's pain is controlled. OBJECTIVE DATA: VITAL SIGNS: Blood pressure is 125/75, pulse 100, respirations 18, temperature 98.1. HEENT: Head is normocephalic. NECK: Supple. HEART: Regular rate. LUNGS: Show diminished breath sounds at the base. ABDOMEN: Soft, nontender to palpation. No rebound or guarding. EXTREMITIES: Negative for clubbing, cyanosis. No edema. DERMATOLOGIC: Clean. No rashes. MUSCULOSKELETAL: No joint effusion. NEUROLOGIC: No change in exam. MEDICATIONS: Have been reviewed. LABORATORY AND DIAGNOSTIC DATA: Show sodium 140, potassium 4, BUN 25, creatinine 1.41. White count 3.7, hemoglobin 10.4, hematocrit 30.4, and platelet count is 160. ASSESSMENT AND PLAN: 1. Nonoliguric acute kidney injury with unknown previous baseline creatinine. Etiology of acute kidney injury appears to be multifactorial secondary to hypercalcemia, FRANCOIS inhibitor effect, diuretic therapy. The possibility of a light chain associated nephropathy is a consideration as the patient has monoclonal gammopathy with possible multiple myeloma. The patient's kappa lambda ratio of free light chains are markedly low given the elevated levels of lambda light chains. Patient's renal function has improved after discontinuing FRANCOIS inhibitor and diuretic therapy. At this point, we will continue to monitor closely. If there is further decline in renal function, would consider a renal biopsy to see if there is evidence of cast nephropathy. Otherwise would continue current treatment plan. Patient would eventually recommend ultimate treatment of his monoclonal gammopathy. 2. Anemia. Monitor H and H levels. 3. Mineral bone disorder. Monitor calcium and phosphorus levels. Patient is status post pamidronate. Calcium levels improved. 4. Hypertension. Continue current blood pressure regimen. 5. HIV. Continue HAART therapy. 6. Vitamin D deficiency. 7. History of psychiatric illness. Continue medical management. Dictated By: Micah Serna DO /monet/martinez /Document#: [id number]
[2017-07-14] MEDS: morphine 2 MG INJ IV PRN (08:26)
[2017-07-14] MEDS: morphine (ER) 15 MG TAB PO SCH ×2 (10:11→21:34)
--- NOTE | 2017-07-14 11:01 | PDOCDIS ---
Discharge Instructions CONDITION Patient Condition: Stable HOME CARE INSTRUCTIONS: Diet Instructions: Regular FOLLOW UP/APPOINTMENTS Follow-up Plan 1.Follow up with primary care physician in 1 week If you don't have one please let someone know, we can give you resources that may help you pick one. You may also call your insurance company to assign one to you. Review your medication list with your nurse before leaving and if you need new prescriptions please let your nurse know. I may have made changes to your home medications or given you new prescriptions, please let your primary doctor know as well. Stay compliant with your medications and report any side effects to your PCP or pharmacist. Return to the ER if you have any concerns and cannot reach your doctors or call your insurance company, they usually have a nurse that can help you. 2. Call 911 or go to the nearest emergency room if experiencing loss of consciousness, dizziness, chest pain, shortness of breath, vomiting/abdominal pain, speech difficulties, motor weakness or any unusual symptoms. REFERRALS Other Referrals referral to [facility] Hematology, Dr hoover for bone marrow transplant referral to [facility] for radiation oncology APPOINTMENT AT DR MIDDLETON OFFICE IN 1-2 WEEKS. LETY RACHEL NP Jul 14, 2017 11:01
--- NOTE | 2017-07-14 11:25 | PN ---
Date/Time of Note Date/Time of Note DATE: 07/14/17 TIME: 11:15 Assessment/Plan VTE Prophylaxis VTE Prophylaxis Intervention: ambulation Lines/Catheters IV Catheter Type (from Nrsg): Peripheral IV Urinary Cath still in place: No Assessment/Plan Chief Complaint/Hosp Course 1. Monoclonal gammopathy with stage III multiple myeloma. Status post bone marrow biopsy. -Oncology evaluation appreciated and recommended outpatient follow-up with for treatment harshal with VRD and [facility] follow-up as an outpatient for evaluation for bone marrow transplant 2.Back pain, secondary to #1. -Continue MS Contin and monitor effectiveness over the next 24 hours. 3. HIV.Absolute CD4 504. - Continue HAART therapy (Descovy+Prezcobix). F/u viral load to better evaluate treatment effectiveness. 4. Hypertension.Stable -Continue home meds. 5.Anemia,mild-likely chronic. HH stable. -will monitor. 6.Mild Hypercalcemia with coexisting low vitamin D level,with multiple myeloma. We will also Rule out PTH mediated hypercalcemia -Follow-up with PTH level. 7. Vitamin D deficiency. -Hold off to supplementation until hyperparathyroidism is ruled out to avoid further increase in serum calcium. 8.QAMAR in the setting of multiple myeloma.Renal fxn stabilized. -Nephrology follow-up appreciated. 9. Hx of psychiatric illness. No suicidal thoughts.stable. -Continue home meds. PLAN: Monitor pain status over the next 24 hours as patient has been started on MS Contin. Discharge planning in a.m. Follow-up:Referral to [facility] Hematology, Dr hoover for bone marrow transplant Referral to [facility] for radiation oncology Appointment at Dr. Dorantes in 1-2 weeks Patient was seen in collaboration with DR. Epstein. Problems: Subjective 24 Hr Interval Summary Free Text/Dictation No acute overnight episodes. Patient has been started on MS Contin with improving back pain. Exam/Review of Systems Vital Signs Vitals Vital Signs Date Time Temp Pulse Resp B/P Pulse Ox O2 Delivery O2 Flow Rate FiO2 07/14/17 07:38 98.1 100 18 125/75 98 Intake and Output 07/13/17 07/13/17 07/14/17 15:00 23:00 07:00 Intake Total 2460 ml 1830 ml Output Total 1050 ml Balance 2460 ml 780 ml Exam General: Well developed,male, not in any acute distress . HEENT: Normocephalic, Atraumatic, No laceration or hematoma; Eyes: PEERL, Conjunctiva clear, Anicteric sclera Neck: Supple without any lymphadenopathy, nontender, no JVD, no carotid bruits, trachea midline, no thyromegaly Cardiac: S1, S2 auscultated, regular rhythm and rate, no mumurs or gallop Pulmonary: Normal respiratory effort. Chest clear to auscultation bilaterally, no adventitious breath sounds GI: Abdomen normal to inspection. Soft, non- distended, no masses, no rebound tenderness or guarding. Bowel sounds active on all four quadrants Genitourinary: Deferred Extremities: No cyanosis, clubbing, or edema. Pulses [2+] bilaterally. Full ROM on all four extremities. No focal weakness appreciated. Neurologic: Alert to person, place, time, and situation. Affect appropriate, intact sensation. Skin: Clean,dry, and intact. No ecchymosis, no rashes, or lesion Psych: Normal affect Results Result Diagram: 07/13/17 0432 07/14/17 0424 Results 24 hrs Laboratory Tests Test 07/13/17 16:45 07/14/17 04:24 Urine Color STRAW Urine Clarity CLEAR Urine pH 7.0 Urine Specific [place] 1.006 Urine Ketones NEGATIVE Urine Nitrite NEGATIVE Urine Bilirubin NEGATIVE Urine Urobilinogen NEGATIVE Urine Leukocyte Esterase NEGATIVE Urine Microscopic RBC 0 Urine Microscopic WBC 1 Urine Hemoglobin 1+ H Urine Random Creatinine 30.85 Urine Random Sodium 64 Urine Glucose NEGATIVE Urine Total Protein 46.0 H Sodium Level 140 Potassium Level 4.0 Chloride Level 103 Carbon Dioxide Level 27 Anion Gap 14 Blood Urea Nitrogen 25 H Creatinine 1.41 H Glucose Level 105 Calcium Level 8.6 Medications Medications Current Medications Ondansetron HCl (Zofran Inj) 4 mg Q6H PRN IV NAUSEA AND/OR VOMITING; Start 07/07 at 22:30 Acetaminophen (Tylenol Tab) 650 mg Q6H PRN PO PAIN LEVEL 1-3 OR FEVER; Start at 22:30 Morphine Sulfate (morphine) 2 mg Q4H PRN IV SEVERE PAIN LEVEL 7-10 Last administered on 07/14/17t 08:26; Admin Dose 2 MG; Start 07/07/17 at 22:30 Docusate Sodium (Colace) 100 mg Q12H PRN PO CONSTIPATION; Start 07/07/17 at 22: 30 Bisacodyl (Dulcolax) 5 mg DAILY PRN PO CONSTIPATION; Start 07/07/17 at 22:30 Famotidine (Pepcid) 20 mg Q12 PO Last administered on 07/14/17 08:25; Admin Dose 20 MG; Start 07/07/17 at 22:30 Patient Own Medication 1 ea DAILY PO Last administered on 07/14/17 08:25; Admin Dose 1 EA; Start 07/09/17 at 09:30 Trazodone HCl (Desyrel) 50 mg HS PRN PO insomnia; Start 07/09/17 at 09:30 Ziprasidone (Geodon) 60 mg HS PO Last administered on 07/13/17 21:16; Admin Dose 60 MG; Start 07/09/17 at 21:00 Mirtazapine (Remeron) 30 mg HS PO Last administered on 07/13/17 21:15; Admin Dose 30 MG; Start 07/09/17 at 21:00 Patient Own Medication 1 ea DAILY PO Last administered on 07/14/17 08:25; Admin Dose 1 EA; Start 07/09/17 at 09:30 Chlorthalidone 25 mg 25 mg DAILY PO Last administered on 07/13/17 08:35; Admin Dose 25 MG; Start 07/10/17 at 09:00; Status Future Hold Sodium Chloride (NS) 1,000 ml @ 100 mls/hr Q10H IV Last administered on 21:18; Admin Dose 100 MLS/HR; Start 07/10/17 at 21:00 Morphine Sulfate (Ms Contin (Er)) 15 mg BID PO Last administered on 07/14/17 10:11; Admin Dose 15 MG; Start 07/14/17 at 09:00 LETY RACHEL NP Jul 14, 2017 11:24
[2017-07-14] MEDS ORDERED: DIPH1TAB PO (11:32)
[2017-07-14] MEDS ORDERED: TRAZ50TA18 PO (11:32)
[2017-07-14] MEDS ORDERED: EMTR1TAB16 PO (11:32)
[2017-07-14] MEDS ORDERED: LISI10TA2 PO (11:32)
[2017-07-14] MEDS ORDERED: METR500T14 PO (11:32)
[2017-07-14] MEDS ORDERED: DARU1TAB PO (11:32)
[2017-07-14] MEDS ORDERED: ZIPR60CA6 PO (11:32)
[2017-07-14] MEDS ORDERED: MIRT30TA PO (11:32)
[2017-07-14] MEDS ORDERED: IBUP-1542 PO (11:32)
[2017-07-14] MEDS ORDERED: CHLO25TA13 PO (11:32)
[2017-07-14] MEDS ORDERED: KET2CR15 TOP (11:32)
[2017-07-14 14:30] VITALS: BP 118/72; RESP 18
[2017-07-14] MEDS: METHOCARBAMOL 500 MG TAB PO SCH ×2 (17:53→21:35)
[2017-07-14] MEDS: HYDROmorphONE 2 MG TAB PO PRN (19:02)
[2017-07-14 19:11] LABS: PTH CALCIUM 8.4 mg/dL (8.6-10.3)
[2017-07-14] MEDS: MIRTAZAPINE 15 MG TAB PO SCH (21:34)
[2017-07-14] MEDS: ZIPRASIDONE 20 MG CAP PO SCH (21:35)
[2017-07-14 21:44] VITALS: BP 140/72; RESP 20
--- NOTE | 2017-07-14 22:23 | CONS ---
Date/Time of Note Date/Time of Note DATE: 07/14/17 TIME: 22:15 Assessment/Plan Assessment/Plan Chief Complaint/Hosp Course 46 yo with hypercalcemia, QAMAR, lytic lesions and anemia, now confirmed as multiple myeloma with 90% plasma cells in marrow #Monoclonal gammopathy, SPEP confirms M spike of 4.6 grams -QUIGS demonstrate IgG > 5000 mg/dL -Serum ISAAC demonstrates IgG Lambda monoclonal gammopathy -[place] Lambda Light Ratio demonstrate lambda light chains at 1196 - bone marrow bx done and demonstrates > 90% plasma cells -given this diagnosis of stage III multiple myeloma in this young patient will send to [facility] as an outpatient for evaluation for bone marrow transplant -will start treatment harshal with VRD as an out patient #HTN -BP ok -continue BP meds #HIV -appreciate ID recs -continue HAART therapy #Bony lesion -will start bisphosphonate today -PSA at 2.9 makes metastatic prostate CA unlikely -will obtain out patient authorization for radiation oncology #Hypercalcemia -given this is likely secondary to multiple myeloma and is now causing QAMAR, will given 1 dose of Pamidronate 90mg IV Problems: (1) Hypercalcemia Status: Acute (2) Lytic bone lesions on xray Status: Acute (3) QAMAR (acute kidney injury) Status: Acute (4) HIV (human immunodeficiency virus infection) Problems: Consultation Date/Type/Reason Admit Date/Time Jul 07, 2017 at 18:08 Initial Consult Date 07/08/17 Type of Consultation: Hematology Reason for Consultation multiple myeloma Referring Provider: LETY RACHEL NP 24 HR Interval Summary Free Text/Dictation pt still with pain. spoke with patient's brother about his case. the disease the treatment process was explained Exam/Review of Systems Vital Signs Vitals Vital Signs Date Time Temp Pulse Resp B/P Pulse Ox O2 Delivery O2 Flow Rate FiO2 07/14/17 21:44 98.3 90 20 140/72 100 Intake and Output 07/13/17 07/13/17 07/14/17 15:00 23:00 07:00 Intake Total 2460 ml 1830 ml Output Total 1050 ml Balance 2460 ml 780 ml Exam Constitutional: alert, oriented Psych: anxiety, other (with pain) Head: normocephalic Eyes: nl conjunctiva ENMT: nl external ears & nose Neck: non-tender, supple Respiratory: clear to auscultation Cardiovascular: regular rate and rhythm Gastrointestinal: soft Musculoskeletal: nl extremities to inspection Results Result Diagram: 07/13/17 0432 07/14/17 0424 Results 24 hrs Laboratory Tests Test 07/14/17 04:24 Sodium Level 140 Potassium Level 4.0 Chloride Level 103 Carbon Dioxide Level 27 Anion Gap 14 Blood Urea Nitrogen 25 H Creatinine 1.41 H Glucose Level 105 Calcium Level 8.6 Medications Medications Current Medications Ondansetron HCl (Zofran Inj) 4 mg Q6H PRN IV NAUSEA AND/OR VOMITING; Start 07/07 at 22:30 Acetaminophen (Tylenol Tab) 650 mg Q6H PRN PO PAIN LEVEL 1-3 OR FEVER; Start at 22:30 Morphine Sulfate (morphine) 2 mg Q4H PRN IV SEVERE PAIN LEVEL 7-10 Last administered on 07/14/17 08:26; Admin Dose 2 MG; Start 07/07/17 at 22:30 Docusate Sodium (Colace) 100 mg Q12H PRN PO CONSTIPATION; Start 07/07/17 at 22: 30 Bisacodyl (Dulcolax) 5 mg DAILY PRN PO CONSTIPATION; Start 07/07/17 at 22:30 Famotidine (Pepcid) 20 mg Q12 PO Last administered on 07/14/17 21:34; Admin Dose 20 MG; Start 07/07/17 at 22:30 Patient Own Medication 1 ea DAILY PO Last administered on 07/14/17 08:25; Admin Dose 1 EA; Start 07/09/17 at 09:30 Trazodone HCl (Desyrel) 50 mg HS PRN PO insomnia; Start 07/09/17 at 09:30 Ziprasidone (Geodon) 60 mg HS PO Last administered on 07/14/17 21:35; Admin Dose 60 MG; Start 07/09/17 at 21:00 Mirtazapine (Remeron) 30 mg HS PO Last administered on 07/14/17 21:34; Admin Dose 30 MG; Start 07/09/17 at 21:00 Patient Own Medication 1 ea DAILY PO Last administered on 07/14/17 08:25; Admin Dose 1 EA; Start 07/09/17 at 09:30 Chlorthalidone 25 mg 25 mg DAILY PO Last administered on 9/13/17at 08:35; Admin Dose 25 MG; Start 07/10/17 at 09:00; Status Future Hold Sodium Chloride (NS) 1,000 ml @ 100 mls/hr Q10H IV Last administered on 21:18; Admin Dose 100 MLS/HR; Start 07/10/17 at 21:00 Morphine Sulfate (Ms Contin (Er)) 15 mg BID PO Last administered on 07/14/17 21:34; Admin Dose 15 MG; Start 07/14/17 at 09:00 Methocarbamol (Robaxin) 500 mg QID PO Last administered on 07/14/17 21:35; Admin Dose 500 MG; Start 07/14/17 at 17:30 Hydromorphone HCl (Dilaudid) 2 mg Q4H PRN PO PAIN Last administered on 19:02; Admin Dose 2 MG; Start 07/14/17 at 19:00 IQRA MIDDLETON M.D. Jul 14, 2017 22:23
[2017-07-15 00:05] VITALS: BP 124/80; RESP 20
[2017-07-15 00:20] VITALS: BP 124/80; RESP 20
[2017-07-15] MEDS: SOD CHLORIDE 0.9% 1,000 ML IV SCH ×2 (04:51→16:40)
[2017-07-15 06:29] LABS: CALCIUM 7.9 mg/dl (8.4-10.2); MAGNESIUM 2.4 mg/dl (1.7-2.5); PHOSPHORUS 4.1 mg/dl (2.5-4.9); POTASSIUM 4.1 mmol/L (3.5-5.1)
[2017-07-15 08:12] VITALS: BP 132/62; RESP 18
[2017-07-15] MEDS: METHOCARBAMOL 500 MG TAB PO SCH ×4 (09:00→20:53)
[2017-07-15] MEDS: FAMOTIDINE 20 MG TAB PO SCH ×2 (09:00→21:01)
[2017-07-15] MEDS: PREZCOBIX PO SCH (09:00)
[2017-07-15] MEDS: morphine (ER) 15 MG TAB PO SCH ×2 (09:01→21:01)
[2017-07-15] MEDS: DESCOVY PO SCH (09:01)
--- NOTE | 2017-07-15 10:35 | PN ---
DATE: 07/15/2017 SUBJECTIVE DATA: I spoke this morning with Dr. Dorantes about the possibility of patient having a cast nephropathy given elevation in creatinine. She agrees in his attempting to possibly initiate chemotherapy and Velcade while the patient is in the hospital. 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 The patient is aware and understands. All questions were answered. I also discussed the possibility of eventual renal biopsy depending on his clinical course. No other events noted. OBJECTIVE DATA: VITAL SIGNS: Blood pressure is 132/67, respirations 18, pulse 88, temperature 98.1. HEENT: Head is normocephalic. NECK: Supple. HEART: Regular rate. LUNGS: Diminished breath sounds at the base. ABDOMEN: Soft, nontender to palpation. No rebound or guarding. EXTREMITIES: Negative for clubbing, cyanosis. No edema. DERMATOLOGIC: Clean. No rashes. MUSCULOSKELETAL: No joint effusion. NEUROLOGIC: No change in exam. MEDICATIONS: Reviewed. LABORATORY AND DIAGNOSTIC DATA: Shows sodium 141, potassium 4.1, chloride 105, BUN 33, creatinine 2.0. White count 3.7, hemoglobin 10.4, hematocrit 30.4, platelet count is 160. ASSESSMENT AND PLAN: 1. Nonoliguric acute kidney injury with an unknown previous baseline creatinine. Etiology of acute kidney injury is concerning for possible cast nephropathy. Other possibilities including acute tubular necrosis due to associated light chains and medication associated acute tubular necrosis are a possibility. However, given the diagnosed multiple myeloma and high load of light chains, cast nephropathy is a consideration. I spoke with Dr. Dorantes and patient may be initiated on Velcade in- house. Would otherwise continue current treatment plan and supportive care. Renally dose all meds. Monitor renal function closely. If the patient's function does not improve, would consider renal biopsy for definitive diagnosis. Would defer any plasmapheresis at this time until a definitive diagnosis is made. Monitor closely. 2. Anemia. Monitor H and H levels. 3. Mineral bone disorder. Monitor calcium and phosphorus levels. The patient is status post 4. Hypertension. Continue current blood pressure regimen. 5. Human immunodeficiency virus. Continue therapy. 6. Vitamin D deficiency. 7. History of psychiatric illness. Continue current treatment plan. Dictated By: Micah Serna DO /monet/abisai /Document#: [id number]
--- NOTE | 2017-07-15 11:14 | PN ---
Date/Time of Note Date/Time of Note DATE: 07/15/17 TIME: 11:03 Assessment/Plan VTE Prophylaxis VTE Prophylaxis Intervention: ambulation Lines/Catheters [facility] [place] Urinary Cath still in place: No Assessment/Plan Chief Complaint/Hosp Course 1. Monoclonal gammopathy with stage III multiple myeloma. Status post bone marrow biopsy. -Oncology evaluation appreciated and recommended treatment harshal with Velcade/ Revlimid/dexamethasone (VRD) and eventual [facility] [place] follow-up as an outpatient for evaluation for bone marrow transplant. 2.Back pain, secondary to #1. Improved. 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 Renal function worsened. -We will follow-up with nephrology recommendations. 4. HIV.Absolute CD4 504. - Continue HAART therapy (Descovy+Prezcobix). F/u viral load to better evaluate treatment effectiveness. 5.Hypertension.Stable -Continue home meds. 6.Anemia,mild-likely chronic. HH stable. -will monitor. 7.Mild Hypercalcemia with coexisting low vitamin D level,with multiple myeloma. Status post pamidronate and now with mild hypocalcemia. -Follow-up with nephrology recommendation 8. Vitamin D deficiency. -Patient also has QAMAR. Will defer nephrology whether patient needs treatment on cholecalciferol versus Calcitrol. Patient also had hypercalcemia. 9. Hx of psychiatric illness. No suicidal thoughts.stable. -Continue home meds. PLAN: Patient with deteriorating renal function and therefore, the plan is to keep patient in-house for initiation VRD treatment by oncology team. Patient was seen in collaboration with DR. Epstein. Problems: Subjective 24 Hr Interval Summary Free Text/Dictation Patient with improved pain status. Exam/Review of Systems Vital Signs Vitals Vital Signs Date Time Temp Pulse Resp B/P Pulse Ox O2 Delivery O2 Flow Rate FiO2 07/15/17 08:12 98.1 88 18 132/62 97 Intake and Output 07/14/17 07/14/17 07/15/17 15:00 23:00 07:00 Intake Total 2140 ml 360 ml Balance 2140 ml 360 ml Exam General: Well developed,male, not in any acute distress . HEENT: Normocephalic, Atraumatic, No laceration or hematoma; Eyes: PEERL, Conjunctiva clear, Anicteric sclera Neck: Supple without any lymphadenopathy, nontender, no JVD, no carotid bruits, trachea midline, no thyromegaly Cardiac: S1, S2 auscultated, regular rhythm and rate, no mumurs or gallop Pulmonary: Normal respiratory effort. Chest clear to auscultation bilaterally, no adventitious breath sounds GI: Abdomen normal to inspection. Soft, non- distended, no masses, no rebound tenderness or guarding. Bowel sounds active on all four quadrants Genitourinary: Deferred Extremities: No cyanosis, clubbing, or edema. Pulses [2+] bilaterally. Full ROM on all four extremities. No focal weakness appreciated. Neurologic: Alert to person, place, time, and situation. Affect appropriate, intact sensation. Skin: Clean,dry, and intact. No ecchymosis, no rashes, or lesion Psych: Normal affect Results Result Diagram: 07/13/17 0432 07/15/17 0436 Results 24 hrs Laboratory Tests Test 07/15/17 04:36 Sodium Level 141 Potassium Level 4.1 Chloride Level 105 Carbon Dioxide Level 25 Anion Gap 15 Blood Urea Nitrogen 33 H Creatinine 2.00 H Glucose Level 105 Calcium Level 7.9 L Phosphorus Level 4.1 Magnesium Level 2.4 Medications Medications Current Medications Ondansetron HCl (Zofran Inj) 4 mg Q6H PRN IV NAUSEA AND/OR VOMITING; Start 07/07 at 22:30 Acetaminophen (Tylenol Tab) 650 mg Q6H PRN PO PAIN LEVEL 1-3 OR FEVER; Start at 22:30 Morphine Sulfate (morphine) 2 mg Q4H PRN IV SEVERE PAIN LEVEL 7-10 Last administered on 07/14/17 08:26; Admin Dose 2 MG; Start 07/07/17 at 22:30 Docusate Sodium (Colace) 100 mg Q12H PRN PO CONSTIPATION; Start 07/07/17 at 22: 30 Bisacodyl (Dulcolax) 5 mg DAILY PRN PO CONSTIPATION; Start 07/07/17 at 22:30 Famotidine (Pepcid) 20 mg Q12 PO Last administered on 07/15/17 09:00; Admin Dose 20 MG; Start 07/07/17 at 22:30 Patient Own Medication 1 ea DAILY PO Last administered on 07/15/17 09:01; Admin Dose 1 EA; Start 07/09/17 at 09:30 Trazodone HCl (Desyrel) 50 mg HS PRN PO insomnia; Start 07/09/17 at 09:30 Ziprasidone (Geodon) 60 mg HS PO Last administered on 07/14/17 21:35; Admin Dose 60 MG; Start 07/09/17 at 21:00 Mirtazapine (Remeron) 30 mg HS PO Last administered on 07/14/17 21:34; Admin Dose 30 MG; Start 07/09/17 at 21:00 Patient Own Medication 1 ea DAILY PO Last administered on 07/15/17 09:00; Admin Dose 1 EA; Start 07/09/17 at 09:30 Chlorthalidone 25 mg 25 mg DAILY PO Last administered on 07/13/17 08:35; Admin Dose 25 MG; Start 07/10/17 at 09:00; Status Future Hold Sodium Chloride (NS) 1,000 ml @ 100 mls/hr Q10H IV Last administered on 21:18; Admin Dose 100 MLS/HR; Start 07/10/17 at 21:00 Morphine Sulfate (Ms Contin (Er)) 15 mg BID PO Last administered on 07/15/17 09:01; Admin Dose 15 MG; Start 07/14/17 at 09:00 Methocarbamol (Robaxin) 500 mg QID PO Last administered on 07/15/17 09:00; Admin Dose 500 MG; Start 07/14/17 at 17:30 Hydromorphone HCl (Dilaudid) 2 mg Q4H PRN PO PAIN Last administered on 19:02; Admin Dose 2 MG; Start 07/14/17 at 19:00 LETY RACHEL NP Jul 15, 2017 11:14
[2017-07-15 14:36] LABS: MICROALBUMIN 2.2 mg/dL
--- NOTE | 2017-07-15 20:04 | CONS ---
Date/Time of Note Date/Time of Note DATE: 07/15/17 TIME: 20:00 Assessment/Plan Assessment/Plan Chief Complaint/Hosp Course 46 yo with hypercalcemia, QAMAR, lytic lesions and anemia, now confirmed as multiple myeloma with 90% plasma cells in marrow #Monoclonal gammopathy, SPEP confirms M spike of 4.6 grams -QUIGS demonstrate IgG > 5000 mg/dL -Serum ISAAC demonstrates IgG Lambda monoclonal gammopathy -[place] Lambda Light Ratio demonstrate lambda light chains at 1196 - bone marrow bx done and demonstrates > 90% plasma cells -given this diagnosis of stage III multiple myeloma in this young patient will send to [facility] as an outpatient for evaluation for bone marrow transplant -given the acute rise in creatinine, will plan to start velcade, cytoxan, dexamathasone , in house. 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 -start treatment in house #HTN -BP ok -continue BP meds #HIV -appreciate ID recs -continue HAART therapy #Bony lesion -will start bisphosphonate today -PSA at 2.9 makes metastatic prostate CA unlikely -will obtain out patient authorization for radiation oncology #Hypercalcemia -given this is likely secondary to multiple myeloma and is now causing QAMAR, will given 1 dose of Pamidronate 90mg IV Problems: (1) Hypercalcemia Status: Acute (2) Lytic bone lesions on xray Status: Acute (3) QAMAR (acute kidney injury) Status: Acute (4) HIV (human immunodeficiency virus infection) Problems: Consultation Date/Type/Reason Admit Date/Time Jul 07, 2017 at 18:08 Initial Consult Date 07/08/17 Type of Consultation: Hematology Reason for Consultation Multiple myeloma Referring Provider: LETY RACHEL NP 24 HR Interval Summary Free Text/Dictation patient's pain is under better control wit MS contin. Creatinine continues to rise Exam/Review of Systems Vital Signs Vitals Vital Signs Date Time Temp Pulse Resp B/P Pulse Ox O2 Delivery O2 Flow Rate FiO2 07/15/17 08:12 98.1 88 18 132/62 97 Intake and Output 07/14/17 07/14/17 07/15/17 15:00 23:00 07:00 Intake Total 2140 ml 360 ml Balance 2140 ml 360 ml Exam Constitutional: alert, oriented Psych: no complaints Head: normocephalic Eyes: nl conjunctiva ENMT: nl external ears & nose Neck: non-tender, supple Respiratory: clear to auscultation Cardiovascular: nl pulses, regular rate and rhythm Gastrointestinal: soft Musculoskeletal: nl extremities to inspection Results Result Diagram: 07/13/1743107/15/17 0436 Results 24 hrs Laboratory Tests Test 07/15/17 04:36 Sodium Level 141 Potassium Level 4.1 Chloride Level 105 Carbon Dioxide Level 25 Anion Gap 15 Blood Urea Nitrogen 33 H Creatinine 2.00 H Glucose Level 105 Calcium Level 7.9 L Phosphorus Level 4.1 Magnesium Level 2.4 Medications Medications Current Medications Ondansetron HCl (Zofran Inj) 4 mg Q6H PRN IV NAUSEA AND/OR VOMITING; Start 07/07 at 22:30 Acetaminophen (Tylenol Tab) 650 mg Q6H PRN PO PAIN LEVEL 1-3 OR FEVER; Start at 22:30 Morphine Sulfate (morphine) 2 mg Q4H PRN IV SEVERE PAIN LEVEL 7-10 Last administered on 07/14/17 08:26; Admin Dose 2 MG; Start 07/07/17 at 22:30 Docusate Sodium (Colace) 100 mg Q12H PRN PO CONSTIPATION; Start 07/07/17 at 22: 30 Bisacodyl (Dulcolax) 5 mg DAILY PRN PO CONSTIPATION; Start 07/07/17 at 22:30 Famotidine (Pepcid) 20 mg Q12 PO Last administered on 07/15/17 09:00; Admin Dose 20 MG; Start 07/07/17 at 22:30 Patient Own Medication 1 ea DAILY PO Last administered on 07/15/17 09:01; Admin Dose 1 EA; Start 07/09/17 at 09:30 Trazodone HCl (Desyrel) 50 mg HS PRN PO insomnia; Start 07/09/17 at 09:30 Ziprasidone (Geodon) 60 mg HS PO Last administered on 07/14/17 21:35; Admin Dose 60 MG; Start 07/09/17 at 21:00 Mirtazapine (Remeron) 30 mg HS PO Last administered on 07/14/17 21:34; Admin Dose 30 MG; Start 07/09/17 at 21:00 Patient Own Medication 1 ea DAILY PO Last administered on 07/15/17 09:00; Admin Dose 1 EA; Start 07/09/17 at 09:30 Chlorthalidone 25 mg 25 mg DAILY PO Last administered on 07/13/17 08:35; Admin Dose 25 MG; Start 07/10/17 at 09:00; Status Future Hold Sodium Chloride (NS) 1,000 ml @ 100 mls/hr Q10H IV Last administered on 21:18; Admin Dose 100 MLS/HR; Start 07/10/17 at 21:00 Morphine Sulfate (Ms Contin (Er)) 15 mg BID PO Last administered on 07/15/17 09:01; Admin Dose 15 MG; Start 07/14/17 at 09:00 Methocarbamol (Robaxin) 500 mg QID PO Last administered on 07/15/17 16:58; Admin Dose 500 MG; Start 07/14/17 at 17:30 Hydromorphone HCl (Dilaudid) 2 mg Q4H PRN PO PAIN Last administered on 19:02; Admin Dose 2 MG; Start 07/14/17 at 19:00 Trimethoprim/ Sulfamethoxazole (Bactrim (Ss)) 1 tab Sa@09 PO ; Start 07/16/17 at 09:00 Trimethoprim/ Sulfamethoxazole (Bactrim (Ss)) 1 tab Corona@09 PO ; Start 07/17/17 at 09:00 Acyclovir (Zovirax) 400 mg BID PO ; Start 07/15/17 at 21:00 Diphenhydramine HCl (Benadryl) 25 mg Q4H PRN IV ALLERGIC REACTION; Start at 10:00; Stop 08/08/17 at 23:59 Methylprednisolone Sodium Succinate (Solu-Medrol) 60 mg Q4H PRN IV ALLERGIC REACTION; Start 07/16/17 at 10:00; Stop 08/08/17 at 23:59 IQRA MIDDLETON M.D. Jul 15, 2017 20:04
[2017-07-15 20:48] VITALS: BP 129/76; RESP 20
[2017-07-15] MEDS: MIRTAZAPINE 15 MG TAB PO SCH (20:52)
[2017-07-15] MEDS: ACYCLOVIR 400 MG TAB PO SCH (21:00)
[2017-07-15] MEDS: ZIPRASIDONE 20 MG CAP PO SCH (21:00)
[2017-07-16 03:49] VITALS: BP 130/89; RESP 20
[2017-07-16 06:36] LABS: CREATININE 2.06 mg/dl (0.61-1.24); MAGNESIUM 2.7 mg/dl (1.7-2.5); PHOSPHORUS 3.2 mg/dl (2.5-4.9); POTASSIUM 4.3 mmol/L (3.5-5.1)
[2017-07-16 07:58] VITALS: BP 134/78; RESP 16
--- NOTE | 2017-07-16 08:43 | PN ---
Date/Time of Note Date/Time of Note DATE: 07/16/17 TIME: 08:40 Assessment/Plan VTE Prophylaxis VTE Prophylaxis Intervention: heparin Lines/Catheters IV [facility]from [facility] Saline Lock Urinary Cath still in place: No Assessment/Plan Problems: (1) HIV (human immunodeficiency virus infection) Status: Chronic Comment: He is presently to be treated with highly active antiretroviral therapy. As per infectious diseases (2) Stage III multiple myeloma Comment: This is a new diagnosis and the patient is to be started on chemotherapy directly. I concur with outpatient referral to our colleagues at [facility] (3) Hypercalcemia Status: Acute Comment: This is resolved with usage of IV pamidronate. This is due to the myeloma. Parathyroid and vitamin D axes are normal. The patient actually does have mild hypovitaminosis D. I would not replace that yet. Once he has had a full course of induction chemotherapy ministered then I would replete the calcitriol gently and the vitamin D using 1000 units a day (4) QAMAR (acute kidney injury) Status: Acute Comment: Nephrology consult is in place. I believe this is most likely due to the load of the proteins from the myeloma (5) Lytic bone lesions on xray Status: Acute Comment: This is due to the myeloma. His pain control is adequate on current medications. Subjective 24 Hr Interval Summary Free Text/Dictation Patient reports that he is wondering what his length of stay will be. Is anxious to get started with chemotherapy. Constitutional: no complaints (Denies fevers chills or sweats) Respiratory: no complaints Cardiovascular: no complaints Musculoskeletal: back pain (Controlled with medications) Exam/Review of Systems Vital Signs Vitals Vital Signs Date Time Temp Pulse Resp B/P Pulse Ox O2 Delivery O2 Flow Rate FiO2 07/16/17 07:58 98.1 81 16 134/78 98 Intake and Output 07/15/17 07/15/17 07/16/17 15:00 23:00 07:00 Intake Total 1320 ml 700 ml Output Total 1100 ml 400 ml Balance 220 ml 300 ml Exam Constitutional: alert, oriented Respiratory: clear to auscultation, normal air movement Cardiovascular: nl pulses, regular rate and rhythm Gastrointestinal: nl liver, spleen, non-tender, soft Results Result Diagram: 07/13/17 0432 07/16/17 0457 Results 24 hrs Laboratory Tests Test 07/16/17 04:57 Sodium Level 142 Potassium Level 4.3 Chloride Level 105 Carbon Dioxide Level 25 Anion Gap 16 Blood Urea Nitrogen 34 H Creatinine 2.06 H Glucose Level 105 Calcium Level 8.0 L Phosphorus Level 3.2 Magnesium Level 2.7 H Medications Medications Current Medications Ondansetron HCl (Zofran Inj) 4 mg Q6H PRN IV NAUSEA AND/OR VOMITING; Start 07/07 at 22:30 Acetaminophen (Tylenol Tab) 650 mg Q6H PRN PO PAIN LEVEL 1-3 OR FEVER; Start at 22:30 Morphine Sulfate (morphine) 2 mg Q4H PRN IV SEVERE PAIN LEVEL 7-10 Last administered on 07/14/17 08:26; Admin Dose 2 MG; Start 07/07/17 at 22:30 Docusate Sodium (Colace) 100 mg Q12H PRN PO CONSTIPATION; Start 07/07/17 at 22: 30 Bisacodyl (Dulcolax) 5 mg DAILY PRN PO CONSTIPATION; Start 07/07/17 at 22:30 Famotidine (Pepcid) 20 mg Q12 PO Last administered on 07/15/17 21:01; Admin Dose 20 MG; Start 07/07/17 at 22:30 Patient Own Medication 1 ea DAILY PO Last administered on 07/15/17 09:01; Admin Dose 1 EA; Start 07/09/17 at 09:30 Trazodone HCl (Desyrel) 50 mg HS PRN PO insomnia; Start 07/09/17 at 09:30 Ziprasidone (Geodon) 60 mg HS PO Last administered on 07/14/17 21:35; Admin Dose 60 MG; Start 07/09/17 at 21:00 Mirtazapine (Remeron) 30 mg HS PO Last administered on 07/14/17 21:34; Admin Dose 30 MG; Start 07/09/17 at 21:00 Patient Own Medication 1 ea DAILY PO Last administered on 07/15/17 09:00; Admin Dose 1 EA; Start 07/09/17 at 09:30 Chlorthalidone (Hygroton) 25 mg DAILY PO Last administered on 07/13/17 08:35; Admin Dose 25 MG; Start 07/10/17 at 09:00; Status Future Hold Morphine Sulfate (Ms Contin (Er)) 15 mg BID PO Last administered on 07/15/17 21:01; Admin Dose 15 MG; Start 07/14/17 at 09:00 Methocarbamol (Robaxin) 500 mg QID PO Last administered on 07/15/17 20:53; Admin Dose 500 MG; Start 07/14/17 at 17:30 Hydromorphone HCl (Dilaudid) 2 mg Q4H PRN PO PAIN Last administered on 19:02; Admin Dose 2 MG; Start 07/14/17 at 19:00 Trimethoprim/ Sulfamethoxazole (Bactrim (Ss)) 1 tab Sa@09 PO ; Start 07/16/17 at 09:00 Trimethoprim/ Sulfamethoxazole (Bactrim (Ss)) 1 tab Corona@09 PO ; Start 07/17/17 at 09:00 Acyclovir (Zovirax) 400 mg BID PO ; Start 07/15/17 at 21:00 Diphenhydramine HCl (Benadryl) 25 mg Q4H PRN IV ALLERGIC REACTION; Start at 10:00; Stop 08/08/17 at 23:59 Methylprednisolone Sodium Succinate (Solu-Medrol) 60 mg Q4H PRN IV ALLERGIC REACTION; Start 07/16/17 at 10:00; Stop 08/08/17 at 23:59 TRACIE NEWSOME MD Jul 16, 2017 08:43
[2017-07-16] MEDS ORDERED: TRIMETHOPRIM/SULFAMETHOX (SS) TAB PO SCH (09:00)
[2017-07-16] MEDS: morphine (ER) 15 MG TAB PO SCH ×2 (09:31→20:23)
[2017-07-16] MEDS: PREZCOBIX PO SCH (09:34)
[2017-07-16] MEDS: DESCOVY PO SCH (09:35)
[2017-07-16] MEDS: ACYCLOVIR 400 MG TAB PO SCH ×2 (09:36→20:23)
[2017-07-16] MEDS: FAMOTIDINE 20 MG TAB PO SCH ×2 (09:36→20:24)
[2017-07-16] MEDS: METHOCARBAMOL 500 MG TAB PO SCH ×4 (09:36→20:24)
[2017-07-16] MEDS ORDERED: DIPHENHYDRAMINE 50 MG INJ IV PRN (10:00)
[2017-07-16] MEDS ORDERED: METHYLPREDNISOLONE 125 MG INJ IV PRN (10:00)
--- NOTE | 2017-07-16 10:51 | PN ---
Date/Time of Note Date/Time of Note DATE: 07/16/17 TIME: 10:49 Assessment/Plan VTE Prophylaxis VTE Prophylaxis Intervention: other Lines/Catheters [facility] Saline Lock Urinary Cath still in place: No Assessment/Plan Chief Complaint/Hosp Course SUBJECTIVE DATA: All noted d/w Dr Serna no complaints OBJECTIVE DATA: HEENT: Head is normocephalic. NECK: Supple. HEART: Regular rate. LUNGS: Diminished breath sounds at the base. ABDOMEN: Soft, nontender to palpation. No rebound or guarding. EXTREMITIES: Negative for clubbing, cyanosis. No edema. DERMATOLOGIC: Clean. No rashes. MUSCULOSKELETAL: No joint effusion. NEUROLOGIC: No change in exam. MEDICATIONS: Reviewed. ASSESSMENT AND PLAN: 1. Nonoliguric acute kidney injury with an unknown previous baseline creatinine. Etiology of acute kidney injury is concerning for possible cast nephropathy however other possibilities are still possible. He has 2.5 grams of proteinuria. Other possibilities including acute tubular necrosis due to associated light chains and medication (BACTRIM) associated acute tubular necrosis are a possibility. However, given the diagnosed multiple myeloma and high load of light chains, cast nephropathy is a consideration. The patient may be initiated on Velcade in- house. Would otherwise continue current treatment plan and supportive care. Renally dose all meds. Monitor renal function closely. If the patient's function does not improve, would consider renal biopsy for definitive diagnosis. Would defer any plasmapheresis at this time until a definitive diagnosis is made. Monitor closely. 2. Anemia. Monitor H and H levels. 3. Mineral bone disorder. Monitor calcium and phosphorus levels. 4. Hypertension. Continue current blood pressure regimen. 5. Human immunodeficiency virus. 6. Vitamin D deficiency. 7. History of psychiatric illness. Continue current treatment plan. Problems: Exam/Review of Systems Vital Signs Vitals Vital Signs Date Time Temp Pulse Resp B/P Pulse Ox O2 Delivery O2 Flow Rate FiO2 07/16/17 07:58 98.1 81 16 134/78 98 Intake and Output 07/15/17 07/15/17 07/16/17 15:00 23:00 07:00 Intake Total 1320 ml 700 ml Output Total 1100 ml 400 ml Balance 220 ml 300 ml Results Result Diagram: 07/13/17 0432 07/16/17 0457 Results 24 hrs Laboratory Tests Test 07/16/17 04:57 Sodium Level 142 Potassium Level 4.3 Chloride Level 105 Carbon Dioxide Level 25 Anion Gap 16 Blood Urea Nitrogen 34 H Creatinine 2.06 H Glucose Level 105 Calcium Level 8.0 L Phosphorus Level 3.2 Magnesium Level 2.7 H Medications Medications Current Medications Ondansetron HCl (Zofran Inj) 4 mg Q6H PRN IV NAUSEA AND/OR VOMITING; Start 07/07 at 22:30 Acetaminophen (Tylenol Tab) 650 mg Q6H PRN PO PAIN LEVEL 1-3 OR FEVER; Start at 22:30 Morphine Sulfate (morphine) 2 mg Q4H PRN IV SEVERE PAIN LEVEL 7-10 Last administered on 07/14/17 08:26; Admin Dose 2 MG; Start 07/07/17 at 22:30 Docusate Sodium (Colace) 100 mg Q12H PRN PO CONSTIPATION; Start 07/07/17 at 22: 30 Bisacodyl (Dulcolax) 5 mg DAILY PRN PO CONSTIPATION; Start 07/07/17 at 22:30 Famotidine (Pepcid) 20 mg Q12 PO Last administered on 07/16/17 09:36; Admin Dose 20 MG; Start 07/07/17 at 22:30 Patient Own Medication 1 ea DAILY PO Last administered on 07/16/17 09:35; Admin Dose 1 EA; Start 07/09/17 at 09:30 Trazodone HCl (Desyrel) 50 mg HS PRN PO insomnia; Start 07/09/17 at 09:30 Ziprasidone (Geodon) 60 mg HS PO Last administered on 07/14/17 21:35; Admin Dose 60 MG; Start 07/09/17 at 21:00 Mirtazapine (Remeron) 30 mg HS PO Last administered on 07/14/17 21:34; Admin Dose 30 MG; Start 07/09/17 at 21:00 Patient Own Medication 1 ea DAILY PO Last administered on 07/16/17 09:34; Admin Dose 1 EA; Start 07/09/17 at 09:30 Chlorthalidone (Hygroton) 25 mg DAILY PO Last administered on 07/13/17 08:35; Admin Dose 25 MG; Start 07/10/17 at 09:00; Status Future Hold Morphine Sulfate (Ms Contin (Er)) 15 mg BID PO Last administered on 07/16/17 09:31; Admin Dose 15 MG; Start 07/14/17 at 09:00 Methocarbamol (Robaxin) 500 mg QID PO Last administered on 07/16/17 09:36; Admin Dose 500 MG; Start 07/14/17 at 17:30 Hydromorphone HCl (Dilaudid) 2 mg Q4H PRN PO PAIN Last administered on 19:02; Admin Dose 2 MG; Start 07/14/17 at 19:00 Trimethoprim/ Sulfamethoxazole (Bactrim (Ss)) 1 tab Sa@09 PO Last administered on 07/16/17 09:36; Admin Dose 1 TAB; Start 07/16/17 at 09:00 Trimethoprim/ Sulfamethoxazole (Bactrim (Ss)) 1 tab Corona@09 PO ; Start 07/17/17 at 09:00 Acyclovir (Zovirax) 400 mg BID PO Last administered on 07/16/17 09:36; Admin Dose 400 MG; Start 07/15/17 at 21:00 Diphenhydramine HCl (Benadryl) 25 mg Q4H PRN IV ALLERGIC REACTION; Start at 10:00; Stop 08/08/17 at 23:59 Methylprednisolone Sodium Succinate (Solu-Medrol) 60 mg Q4H PRN IV ALLERGIC REACTION; Start 07/16/17 at 10:00; Stop 08/08/17 at 23:59 NANCY NIÑO DO Jul 16, 2017 10:51
[2017-07-16] MEDS: HYDROmorphONE 2 MG TAB PO PRN (12:56)
[2017-07-16 14:00] VITALS: BP 139/82; RESP 15
[2017-07-16] MEDS: MIRTAZAPINE 15 MG TAB PO SCH (20:24)
[2017-07-16] MEDS: ZIPRASIDONE 20 MG CAP PO SCH (20:27)
[2017-07-16 20:46] VITALS: BP 124/78; RESP 17
--- NOTE | 2017-07-16 21:23 | CONS ---
Date/Time of Note Date/Time of Note DATE: 07/16/17 TIME: 21:22 Assessment/Plan Assessment/Plan Chief Complaint/Hosp Course 46 yo with hypercalcemia, QAMAR, lytic lesions and anemia, now confirmed as multiple myeloma with 90% plasma cells in marrow #Monoclonal gammopathy, SPEP confirms M spike of 4.6 grams -QUIGS demonstrate IgG > 5000 mg/dL -Serum ISAAC demonstrates IgG Lambda monoclonal gammopathy -[place] Lambda Light Ratio demonstrate lambda light chains at 1196 - bone marrow bx done and demonstrates > 90% plasma cells -given this diagnosis of stage III multiple myeloma in this young patient will send to [facility] as an outpatient for evaluation for bone marrow transplant -given the acute rise in creatinine, will plan to start velcade, cytoxan, dexamathasone , in house. 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 -start treatment in house #HTN -BP ok -continue BP meds #HIV -appreciate ID recs -continue HAART therapy #Bony lesion -increase MA contin to 30mg BID for now -will start bisphosphonate today -PSA at 2.9 makes metastatic prostate CA unlikely -will obtain out patient authorization for radiation oncology #Hypercalcemia -given this is likely secondary to multiple myeloma and is now causing QAMAR, will given 1 dose of Pamidronate 90mg IV Problems: (1) Hypercalcemia Status: Acute (2) Lytic bone lesions on xray Status: Acute (3) QAMAR (acute kidney injury) Status: Acute (4) HIV (human immunodeficiency virus infection) Problems: Consultation Date/Type/Reason Admit Date/Time Jul 07, 2017 at 18:08 Initial Consult Date 07/08/17 Type of Consultation: Hematology Reason for Consultation multiple myeloma Referring Provider: LETY RACHEL NP 24 HR Interval Summary Free Text/Dictation patient remains in a lot of pain. has not yet started velcade. pharmacy states medication has not yet arrived Exam/Review of Systems Vital Signs Vitals Vital Signs Date Time Temp Pulse Resp B/P Pulse Ox O2 Delivery O2 Flow Rate FiO2 07/16/17 20:46 98.5 84 17 124/78 100 Intake and Output 07/15/17 07/15/17 07/16/17 15:00 23:00 07:00 Intake Total 1320 ml 700 ml Output Total 1100 ml 400 ml Balance 220 ml 300 ml Exam Constitutional: alert, frail, oriented Psych: anxiety, depression Head: normocephalic Eyes: nl conjunctiva ENMT: nl external ears & nose Neck: non-tender, supple Respiratory: clear to auscultation Cardiovascular: regular rate and rhythm Gastrointestinal: soft Musculoskeletal: nl extremities to inspection Results Result Diagram: 07/13/17 0432 07/16/17 0457 Results 24 hrs Laboratory Tests Test 07/16/17 04:57 Sodium Level 142 Potassium Level 4.3 Chloride Level 105 Carbon Dioxide Level 25 Anion Gap 16 Blood Urea Nitrogen 34 H Creatinine 2.06 H Glucose Level 105 Calcium Level 8.0 L Phosphorus Level 3.2 Magnesium Level 2.7 H Medications Medications Current Medications Ondansetron HCl (Zofran Inj) 4 mg Q6H PRN IV NAUSEA AND/OR VOMITING; Start 07/07 at 22:30 Acetaminophen (Tylenol Tab) 650 mg Q6H PRN PO PAIN LEVEL 1-3 OR FEVER; Start at 22:30 Morphine Sulfate (morphine) 2 mg Q4H PRN IV SEVERE PAIN LEVEL 7-10 Last administered on 07/14/17 08:26; Admin Dose 2 MG; Start 07/07/17 at 22:30 Docusate Sodium (Colace) 100 mg Q12H PRN PO CONSTIPATION; Start 07/07/17 at 22: 30 Bisacodyl (Dulcolax) 5 mg DAILY PRN PO CONSTIPATION; Start 07/07/17 at 22:30 Famotidine (Pepcid) 20 mg Q12 PO Last administered on 07/16/17 20:24; Admin Dose 20 MG; Start 07/07/17 at 22:30 Patient Own Medication 1 ea DAILY PO Last administered on 07/16/17 09:35; Admin Dose 1 EA; Start 07/09/17 at 09:30 Trazodone HCl (Desyrel) 50 mg HS PRN PO insomnia; Start 07/09/17 at 09:30 Ziprasidone (Geodon) 60 mg HS PO Last administered on 07/16/17 20:27; Admin Dose 60 MG; Start 07/09/17 at 21:00 Mirtazapine (Remeron) 30 mg HS PO Last administered on 07/16/17 20:24; Admin Dose 30 MG; Start 07/09/17 at 21:00 Patient Own Medication 1 ea DAILY PO Last administered on 07/16/17 09:34; Admin Dose 1 EA; Start 07/09/17 at 09:30 Chlorthalidone (Hygroton) 25 mg DAILY PO Last administered on 07/13/17 08:35; Admin Dose 25 MG; Start 07/10/17 at 09:00; Status Future Hold Methocarbamol (Robaxin) 500 mg QID PO Last administered on 07/16/17 20:24; Admin Dose 500 MG; Start 07/14/17 at 17:30 Hydromorphone HCl (Dilaudid) 2 mg Q4H PRN PO PAIN Last administered on 12:56; Admin Dose 2 MG; Start 07/14/17 at 19:00 Trimethoprim/ Sulfamethoxazole (Bactrim (Ss)) 1 tab Sa@09 PO Last administered on 07/16/17 09:36; Admin Dose 1 TAB; Start 07/16/17 at 09:00 Trimethoprim/ Sulfamethoxazole (Bactrim (Ss)) 1 tab Corona@09 PO ; Start 07/17/17 at 09:00 Acyclovir (Zovirax) 400 mg BID PO Last administered on 07/16/17 20:23; Admin Dose 400 MG; Start 07/15/17 at 21:00 Diphenhydramine HCl (Benadryl) 25 mg Q4H PRN IV ALLERGIC REACTION; Start at 10:00; Stop 08/08/17 at 23:59 Methylprednisolone Sodium Succinate (Solu-Medrol) 60 mg Q4H PRN IV ALLERGIC REACTION; Start 07/16/17 at 10:00; Stop 08/08/17 at 23:59 Morphine Sulfate (Ms Contin (Er)) 30 mg BID PO ; Start 07/17/17 at 09:00 IQRA MIDDLETON M.D. Jul 16, 2017 21:23
[2017-07-17 02:00] VITALS: BP 128/82; PULSE 84; RESP 18
[2017-07-17] MEDS: HYDROmorphONE 2 MG TAB PO PRN (06:48)
[2017-07-17] MEDS: PREZCOBIX PO SCH (08:24)
[2017-07-17] MEDS: DESCOVY PO SCH (08:24)
[2017-07-17] MEDS: morphine (ER) 15 MG TAB PO SCH ×2 (08:25→20:58)
[2017-07-17] MEDS: METHOCARBAMOL 500 MG TAB PO SCH ×4 (08:25→21:01)
[2017-07-17] MEDS: FAMOTIDINE 20 MG TAB PO SCH (08:25)
[2017-07-17] MEDS: ACYCLOVIR 400 MG TAB PO SCH ×2 (08:26→20:58)
[2017-07-17 08:30] VITALS: BP 115/69; RESP 18
[2017-07-17] MEDS ORDERED: TRIMETHOPRIM/SULFAMETHOX (SS) TAB PO SCH (09:00)
--- NOTE | 2017-07-17 09:54 | PN ---
Date/Time of Note Date/Time of Note DATE: 07/17/17 TIME: 09:53 Assessment/Plan VTE Prophylaxis VTE Prophylaxis Intervention: other Lines/Catheters IV Catheter Type (from [facility]): Saline Lock Urinary Cath still in place: No Assessment/Plan Chief Complaint/Hosp Course SUBJECTIVE DATA: All noted d/w Dr Serna no complaints OBJECTIVE DATA: HEENT: Head is normocephalic. NECK: Supple. HEART: Regular rate. LUNGS: Diminished breath sounds at the base. ABDOMEN: Soft, nontender to palpation. No rebound or guarding. EXTREMITIES: Negative for clubbing, cyanosis. No edema. DERMATOLOGIC: Clean. No rashes. MUSCULOSKELETAL: No joint effusion. NEUROLOGIC: No change in exam. MEDICATIONS: Reviewed. ASSESSMENT AND PLAN: 1. Nonoliguric acute kidney injury with an unknown previous baseline creatinine. Etiology of acute kidney injury is concerning for possible cast nephropathy however other possibilities are still possible. He has 2.5 grams of proteinuria. Other possibilities including acute tubular necrosis due to associated light chains and medication (BACTRIM) associated acute tubular necrosis are a possibility. However, given the diagnosed multiple myeloma and high load of light chains, cast nephropathy is a consideration. The patient may be initiated on Velcade in- house. Would otherwise continue current treatment plan and supportive care. Renally dose all meds. Monitor renal function closely. If the patient's function does not improve, would consider renal biopsy for definitive diagnosis. Would defer any plasmapheresis at this time until a definitive diagnosis is made. Monitor closely. 2. Anemia. Monitor H and H levels. 3. Mineral bone disorder. Monitor calcium and phosphorus levels. 4. Hypertension. Continue current blood pressure regimen. 5. Human immunodeficiency virus. 6. Vitamin D deficiency. 7. History of psychiatric illness. Continue current treatment plan. Problems: Exam/Review of Systems Vital Signs Vitals Vital Signs Date Time Temp Pulse Resp B/P Pulse Ox O2 Delivery O2 Flow Rate FiO2 07/17/17 02:00 98.0 84 18 128/82 96 Intake and Output 07/16/17 07/16/17 07/17/17 15:00 23:00 07:00 Intake Total 1100 ml 2000 ml Balance 1100 ml 2000 ml Results Result Diagram: 07/13/17 0432 07/16/17 0457 Medications Medications Current Medications Ondansetron HCl (Zofran Inj) 4 mg Q6H PRN IV NAUSEA AND/OR VOMITING; Start 07/07 at 22:30 Acetaminophen (Tylenol Tab) 650 mg Q6H PRN PO PAIN LEVEL 1-3 OR FEVER; Start at 22:30 Morphine Sulfate (morphine) 2 mg Q4H PRN IV SEVERE PAIN LEVEL 7-10 Last administered on 07/14/17 08:26; Admin Dose 2 MG; Start 07/07/17 at 22:30 Docusate Sodium (Colace) 100 mg Q12H PRN PO CONSTIPATION; Start 07/07/17 at 22: 30 Bisacodyl (Dulcolax) 5 mg DAILY PRN PO CONSTIPATION; Start 07/07/17 at 22:30 Famotidine (Pepcid) 20 mg Q12 PO Last administered on 07/17/17 08:25; Admin Dose 20 MG; Start 07/07/17 at 22:30 Patient Own Medication 1 ea DAILY PO Last administered on 07/17/17 08:24; Admin Dose 1 EA; Start 07/09/17 at 09:30 Trazodone HCl (Desyrel) 50 mg HS PRN PO insomnia; Start 07/09/17 at 09:30 Ziprasidone (Geodon) 60 mg HS PO Last administered on 07/16/17 20:27; Admin Dose 60 MG; Start 07/09/17 at 21:00 Mirtazapine (Remeron) 30 mg HS PO Last administered on 07/16/17 20:24; Admin Dose 30 MG; Start 07/09/17 at 21:00 Patient Own Medication 1 ea DAILY PO Last administered on 07/17/17 08:24; Admin Dose 1 EA; Start 07/09/17 at 09:30 Chlorthalidone (Hygroton) 25 mg DAILY PO Last administered on 07/13/17 08:35; Admin Dose 25 MG; Start 07/10/17 at 09:00; Status Future Hold Methocarbamol (Robaxin) 500 mg QID PO Last administered on 07/17/17 08:25; Admin Dose 500 MG; Start 07/14/17 at 17:30 Hydromorphone HCl (Dilaudid) 2 mg Q4H PRN PO PAIN Last administered on 06:48; Admin Dose 2 MG; Start 07/14/17 at 19:00 Trimethoprim/ Sulfamethoxazole (Bactrim (Ss)) 1 tab Sa@09 PO Last administered on 07/16/17 09:36; Admin Dose 1 TAB; Start 07/16/17 at 09:00 Trimethoprim/ Sulfamethoxazole (Bactrim (Ss)) 1 tab Corona@09 PO Last administered on 07/17/17 08:24; Admin Dose 1 TAB; Start 07/17/17 at 09:00 Acyclovir (Zovirax) 400 mg BID PO Last administered on 07/17/17 08:26; Admin Dose 400 MG; Start 07/15/17 at 21:00 Diphenhydramine HCl (Benadryl) 25 mg Q4H PRN IV ALLERGIC REACTION; Start at 10:00; Stop 08/08/17 at 23:59 Methylprednisolone Sodium Succinate (Solu-Medrol) 60 mg Q4H PRN IV ALLERGIC REACTION; Start 07/16/17 at 10:00; Stop 08/08/17 at 23:59 Morphine Sulfate (Ms Contin (Er)) 30 mg BID PO Last administered on 07/17/17 08:25; Admin Dose 30 MG; Start 07/17/17 at 09:00 NANCY NIÑO DO Jul 17, 2017 09:54
--- NOTE | 2017-07-17 11:48 | PN ---
Date/Time of Note Date/Time of Note DATE: 07/17/17 TIME: 11:42 Assessment/Plan VTE Prophylaxis VTE Prophylaxis Intervention: anti-embolic stocking Lines/Catheters IV Catheter Type (from Nrs): Saline Lock Urinary Cath still in place: No Assessment/Plan Problems: (1) Stage III multiple myeloma Status: Acute Comment: Waiting pharmacy to obtain the medication to start the chemotherapy. (2) HIV (human immunodeficiency virus infection) Status: Chronic Comment: Remains on HAART (3) QAMAR (acute kidney injury) Status: Acute Comment: Recheck labs tomorrow morning. (4) Lytic bone lesions on xray Status: Acute Comment: Adequate control of pain. Subjective 24 Hr Interval Summary Free Text/Dictation Patient reports that he is anxious to get going with the chemotherapy. He is actually modestly irritated about that Constitutional: no complaints Respiratory: no complaints Cardiovascular: no complaints Gastrointestinal: no complaints Musculoskeletal: back pain (Adequate control with analgesia) Exam/Review of Systems Vital Signs Vitals Vital Signs Date Time Temp Pulse Resp B/P Pulse Ox O2 Delivery O2 Flow Rate FiO2 07/17/17 08:30 98.1 86 18 115/69 99 Intake and Output 07/16/17 07/16/17 07/17/17 15:00 23:00 07:00 Intake Total 1100 ml 2000 ml Balance 1100 ml 2000 ml Exam Constitutional: alert, oriented Neck: non-tender, supple Respiratory: clear to auscultation, normal air movement Results Result Diagram: 07/13/17 0432 07/16/17 0457 Medications Medications Current Medications Ondansetron HCl (Zofran Inj) 4 mg Q6H PRN IV NAUSEA AND/OR VOMITING; Start 07/07 at 22:30 Acetaminophen (Tylenol Tab) 650 mg Q6H PRN PO PAIN LEVEL 1-3 OR FEVER; Start at 22:30 Morphine Sulfate (morphine) 2 mg Q4H PRN IV SEVERE PAIN LEVEL 7-10 Last administered on 07/14/17t 08:26; Admin Dose 2 MG; Start 07/07/17 at 22:30 Docusate Sodium (Colace) 100 mg Q12H PRN PO CONSTIPATION; Start 07/07/17 at 22: 30 Bisacodyl (Dulcolax) 5 mg DAILY PRN PO CONSTIPATION; Start 07/07/17 at 22:30 Famotidine (Pepcid) 20 mg Q12 PO Last administered on 07/17/17 08:25; Admin Dose 20 MG; Start 07/07/17 at 22:30 Patient Own Medication 1 ea DAILY PO Last administered on 07/17/17 08:24; Admin Dose 1 EA; Start 07/09/17 at 09:30 Trazodone HCl (Desyrel) 50 mg HS PRN PO insomnia; Start 07/09/17 at 09:30 Ziprasidone (Geodon) 60 mg HS PO Last administered on 07/16/17 20:27; Admin Dose 60 MG; Start 07/09/17 at 21:00 Mirtazapine (Remeron) 30 mg HS PO Last administered on 07/16/17 20:24; Admin Dose 30 MG; Start 07/09/17 at 21:00 Patient Own Medication 1 ea DAILY PO Last administered on 07/17/17 08:24; Admin Dose 1 EA; Start 07/09/17 at 09:30 Chlorthalidone (Hygroton) 25 mg DAILY PO Last administered on 07/13/17 08:35; Admin Dose 25 MG; Start 07/10/17 at 09:00; Status Future Hold Methocarbamol (Robaxin) 500 mg QID PO Last administered on 07/17/17 08:25; Admin Dose 500 MG; Start 07/14/17 at 17:30 Hydromorphone HCl (Dilaudid) 2 mg Q4H PRN PO PAIN Last administered on 06:48; Admin Dose 2 MG; Start 07/14/17 at 19:00 Trimethoprim/ Sulfamethoxazole (Bactrim (Ss)) 1 tab Sa@09 PO Last administered on 07/16/17 09:36; Admin Dose 1 TAB; Start 07/16/17 at 09:00 Trimethoprim/ Sulfamethoxazole (Bactrim (Ss)) 1 tab Corona@09 PO Last administered on 07/17/17 08:24; Admin Dose 1 TAB; Start 07/17/17 at 09:00 Acyclovir (Zovirax) 400 mg BID PO Last administered on 07/17/17 08:26; Admin Dose 400 MG; Start 07/15/17 at 21:00 Diphenhydramine HCl (Benadryl) 25 mg Q4H PRN IV ALLERGIC REACTION; Start at 10:00; Stop 08/08/17 at 23:59 Methylprednisolone Sodium Succinate (Solu-Medrol) 60 mg Q4H PRN IV ALLERGIC REACTION; Start 07/16/17 at 10:00; Stop 08/08/17 at 23:59 Morphine Sulfate (Ms Contin (Er)) 30 mg BID PO Last administered on 07/17/17t 08:25; Admin Dose 30 MG; Start 07/17/17 at 09:00 TRACIE NEWSOME MD Jul 17, 2017 11:48
[2017-07-17 16:30] VITALS: BP 123/76; RESP 18
[2017-07-17 20:16] VITALS: BP 142/87; RESP 18
[2017-07-17] MEDS: ZIPRASIDONE 20 MG CAP PO SCH (20:58)
[2017-07-17] MEDS: MIRTAZAPINE 15 MG TAB PO SCH (20:59)
[2017-07-17] MEDS ORDERED: DEXAMETHASONE 4 MG TAB PO ONE (21:00)
[2017-07-17] MEDS ORDERED: ONDANSETRON INJ 8 MG in SOD CHLORIDE 0.9% 50 ML IV ONE (21:30)
[2017-07-17] MEDS ORDERED: ACETAMINOPHEN 325 MG TAB PO ONE (21:30)
[2017-07-17] MEDS ORDERED: BORTEZOMIB 3.5 MG SC SCH (22:00)
[2017-07-17] MEDS ORDERED: CYCLOPHOSPHAMIDE 25 MG TAB PO SCH (22:00)
[2017-07-17 23:30] VITALS: BP 125/67; PULSE 94; RESP 16
[2017-07-18] VITALS (10 sets, daily range): BP systolic 119–142; BP diastolic 59–88; PULSE 78–94; RESP 16–19
[2017-07-18 06:01] LABS: BASOPHILS % 0.4 % (0.0-2.0); EOSINOPHILS % 0.8 % (0.0-7.0); HEMATOCRIT 29.9 % (42.0-52.0); HEMOGLOBIN 10.2 g/dl (14.0-18.0); LYMPHOCYTES # 1.3 10^3/ul (0.8-2.9); LYMPHOCYTES % 26.1 % (15.0-51.0); MEAN CORPUSCULAR HEMOGLOBIN 30.3 pg (29.0-33.0); MEAN CORPUSCULAR HGB CONC 34.1 g/dl (32.0-37.0); MEAN CORPUSCULAR VOLUME 88.7 fl (82.0-101.0); MEAN PLATELET VOLUME 10.8 fl (7.4-10.4); MONOCYTE # 0.1 10^3/ul (0.3-0.9); MONOCYTES % 2.3 % (0.0-11.0); NEUTROPHIL # 3.4 10^3/ul (1.6-7.5); NEUTROPHILS % 69.4 % (39.0-77.0); PLATELET COUNT 194 10^3/UL (140-415); POSITIVE DIFF @See below; RED BLOOD COUNT 3.37 10^6/ul (4.70-6.10); RED CELL DISTRIBUTION WIDTH 13.1 % (11.5-14.5); WHITE BLOOD COUNT 4.9 10^3/ul (4.8-10.8)
[2017-07-18 06:19] LABS: ALBUMIN 3.5 g/dl (3.3-4.9); ALBUMIN/GLOBULIN RATIO 0.46; BILIRUBIN,INDIRECT 0.2 mg/dl (0-1.1); BILIRUBIN,TOTAL 0.2 mg/dl (0.2-1.3); CALCIUM 8.5 mg/dl (8.4-10.2); CREATININE 2.09 mg/dl (0.61-1.24); POTASSIUM 4.8 mmol/L (3.5-5.1)
[2017-07-18] MEDS: DESCOVY PO SCH (08:20)
[2017-07-18] MEDS: PREZCOBIX PO SCH (08:20)
[2017-07-18] MEDS: morphine (ER) 15 MG TAB PO SCH ×2 (08:21→21:55)
[2017-07-18] MEDS: METHOCARBAMOL 500 MG TAB PO SCH ×4 (08:22→21:55)
[2017-07-18] MEDS: FAMOTIDINE 20 MG TAB PO SCH (08:22)
[2017-07-18] MEDS: ACYCLOVIR 400 MG TAB PO SCH ×2 (08:22→21:55)
--- NOTE | 2017-07-18 08:54 | PN ---
Date/Time of Note Date/Time of Note DATE: 07/18/17 TIME: 08:48 Assessment/Plan VTE Prophylaxis VTE Prophylaxis Intervention: ambulation Lines/Catheters [facility] Saline Lock Urinary Cath still in place: No Assessment/Plan Chief Complaint/Hosp Course 1. Monoclonal gammopathy with stage III multiple myeloma. Status post bone marrow biopsy. -Oncology evaluation appreciated, started on velcade, cytoxan, dexamathasone. - Eventual [facility] follow-up as an outpatient for evaluation for bone marrow transplant. 2.Back pain, secondary to #1. Improved. -Continue MS Contin 3.QAMAR in the setting of multiple myeloma concerning for light chain cast nephropathy. -We will follow-up with nephrology recommendations. 4. HIV.Absolute CD4 504. - Continue HAART therapy (Descovy+Prezcobix). Viral load not detected. 5.Hypertension.Stable -Continue home meds. 6.Anemia,mild-likely chronic. HH stable. -will monitor. 7.Mild Hypercalcemia with coexisting low vitamin D level,with multiple myeloma. Resolved - Status post pamidronate. -Follow-up with nephrology recommendation 8. Vitamin D deficiency. -Patient also has QAMAR. -Recommend low-dose calcitriol followed by cholecalciferol low-dose once chemotherapy completed. 9. Hx of psychiatric illness. No suicidal thoughts.stable. -Continue home meds. PLAN: Once cleared from nephrology standpoint, discharge planning with outpatient oncology follow-up. Patient was seen in collaboration with DR. Aceves. Problems: Subjective 24 Hr Interval Summary Free Text/Dictation Patient ambulating in room. Significant improvement in back pain. Had received chemotherapy. Exam/Review of Systems Vital Signs Vitals Vital Signs Date Time Temp Pulse Resp B/P Pulse Ox O2 Delivery O2 Flow Rate FiO2 07/18/17 07:57 98.0 61 19 121/59 98 Intake and Output 07/17/17 07/17/17 07/18/17 15:00 23:00 07:00 Intake Total 1000 ml 1654 ml Output Total 900 ml 1300 ml Balance 100 ml 354 ml Exam General: Well developed,male, not in any acute distress . HEENT: Normocephalic, Atraumatic, No laceration or hematoma; Eyes: PEERL, Conjunctiva clear, Anicteric sclera Neck: Supple without any lymphadenopathy, nontender, no JVD, no carotid bruits, trachea midline, no thyromegaly Cardiac: S1, S2 auscultated, regular rhythm and rate, no mumurs or gallop Pulmonary: Normal respiratory effort. Chest clear to auscultation bilaterally, no adventitious breath sounds GI: Abdomen normal to inspection. Soft, non- distended, no masses, no rebound tenderness or guarding. Bowel sounds active on all four quadrants Genitourinary: Deferred Extremities: No cyanosis, clubbing, or edema. Pulses [2+] bilaterally. Full ROM on all four extremities. No focal weakness appreciated. Neurologic: Alert to person, place, time, and situation. Affect appropriate, intact sensation. Skin: Clean,dry, and intact. No ecchymosis, no rashes, or lesion Psych: Normal affect Results Result Diagram: 07/18/1742407/18/17424 Results 24 hrs Laboratory Tests Test 07/18/17 04:25 White Blood Count 4.9 # Red Blood Count 3.37 L Hemoglobin 10.2 L Hematocrit 29.9 L Mean Corpuscular Volume 88.7 Mean Corpuscular Hemoglobin 30.3 Mean Corpuscular Hemoglobin Concent 34.1 Red Cell Distribution Width 13.1 Platelet Count 194 # Mean Platelet Volume 10.8 H Neutrophils % 69.4 Lymphocytes % 26.1 Monocytes % 2.3 Eosinophils % 0.8 Basophils % 0.4 Nucleated Red Blood Cells % 0.0 Neutrophils # 3.4 Lymphocytes # 1.3 Monocytes # 0.1 L Eosinophils # 0.0 Basophils # 0.0 Nucleated Red Blood Cells # 0.0 Sodium Level 138 Potassium Level 4.8 Chloride Level 106 Carbon Dioxide Level 22 Anion Gap 15 Blood Urea Nitrogen 39 H Creatinine 2.09 H Glucose Level 188 Calcium Level 8.5 Total Bilirubin 0.2 Direct Bilirubin 0.00 Indirect Bilirubin 0.2 Aspartate Amino Transf (AST/SGOT) 25 Alanine Aminotransferase (ALT/SGPT) 15 Alkaline Phosphatase 93 Total Protein 11.0 H Albumin 3.5 Globulin 7.50 H Albumin/Globulin Ratio 0.46 Medications Medications Current Medications Ondansetron HCl (Zofran Inj) 4 mg Q6H PRN IV NAUSEA AND/OR VOMITING; Start 07/07 at 22:30 Acetaminophen (Tylenol Tab) 650 mg Q6H PRN PO PAIN LEVEL 1-3 OR FEVER; Start at 22:30 Morphine Sulfate (morphine) 2 mg Q4H PRN IV SEVERE PAIN LEVEL 7-10 Last administered on 07/14/17 08:26; Admin Dose 2 MG; Start 07/07/17 at 22:30 Docusate Sodium (Colace) 100 mg Q12H PRN PO CONSTIPATION; Start 07/07/17 at 22: 30 Bisacodyl (Dulcolax) 5 mg DAILY PRN PO CONSTIPATION; Start 07/07/17 at 22:30 Patient Own Medication 1 ea DAILY PO Last administered on 07/18/17 08:20; Admin Dose 1 EA; Start 07/09/17 at 09:30 Trazodone HCl (Desyrel) 50 mg HS PRN PO insomnia; Start 07/09/17 at 09:30 Ziprasidone (Geodon) 60 mg HS PO Last administered on 07/17/17 20:58; Admin Dose 60 MG; Start 07/09/17 at 21:00 Mirtazapine (Remeron) 30 mg HS PO Last administered on 07/17/17 20:59; Admin Dose 30 MG; Start 07/09/17 at 21:00 Patient Own Medication 1 ea DAILY PO Last administered on 07/18/17 08:20; Admin Dose 1 EA; Start 07/09/17 at 09:30 Chlorthalidone (Hygroton) 25 mg DAILY PO Last administered on 07/13/17 08:35; Admin Dose 25 MG; Start 07/10/17 at 09:00; Status Future Hold Methocarbamol (Robaxin) 500 mg QID PO Last administered on 07/18/17 08:22; Admin Dose 500 MG; Start 07/14/17 at 17:30 Hydromorphone HCl (Dilaudid) 2 mg Q4H PRN PO PAIN Last administered on 06:48; Admin Dose 2 MG; Start 07/14/17 at 19:00 Trimethoprim/ Sulfamethoxazole (Bactrim (Ss)) 1 tab Sa@09 PO Last administered on 07/16/17 09:36; Admin Dose 1 TAB; Start 07/16/17 at 09:00 Trimethoprim/ Sulfamethoxazole (Bactrim (Ss)) 1 tab Corona@09 PO Last administered on 07/17/17 08:24; Admin Dose 1 TAB; Start 07/17/17 at 09:00 Acyclovir (Zovirax) 400 mg BID PO Last administered on 07/18/17 08:22; Admin Dose 400 MG; Start 07/15/17 at 21:00 Diphenhydramine HCl (Benadryl) 25 mg Q4H PRN IV ALLERGIC REACTION; Start at 10:00; Stop 08/08/17 at 23:59 Methylprednisolone Sodium Succinate (Solu-Medrol) 60 mg Q4H PRN IV ALLERGIC REACTION; Start 07/16/17 at 10:00; Stop 08/08/17 at 23:59 Morphine Sulfate (Ms Contin (Er)) 30 mg BID PO Last administered on 07/18/17 08:21; Admin Dose 30 MG; Start 07/17/17 at 09:00 Famotidine (Pepcid) 20 mg DAILY PO Last administered on 07/18/17 08:22; Admin Dose 20 MG; Start 07/18/17 at 09:00 LETY RACHEL NP Jul 18, 2017 08:54
--- NOTE | 2017-07-18 12:07 | CONS ---
Date/Time of Note Date/Time of Note DATE: 07/18/17 TIME: 12:05 Assessment/Plan Assessment/Plan Chief Complaint/Hosp Course SUBJECTIVE DATA: Patient is awake, looks comfortable,no fevers Rx: Descovy and Prezcobix, Bactrim, Acyclovir. CD4 count 504. OBJECTIVE DATA: GENERAL: Well-developed, well-nourished middle-aged man, who is alert, in no distress. HEENT: Head atraumatic, normocephalic. Sclerae anicteric. Buccal mucosa dry. NECK: Supple. CHEST: Rise symmetrical. Breath sounds clear. HEART: S1, S2. ABDOMEN: Soft, bowel sounds present. EXTREMITIES: Without cyanosis. ASSESSMENT: 1. Monoclonal gammopathy with stage III multiple myeloma==> per BM bx, started on chemo 2. HIV disease, well controlled on current anti-retroviral medications. 3. Hypertension. 4. Anemia. 5. Acute kidney injury. 6. History of psychiatric illness. PLAN: Patient remains stable. Continue present care, oncology rec-s, RAPHAEL/ prophylactic Rx, repeat cx's prn [facility] staff Problems: Consultation Date/Type/Reason Admit Date/Time Jul 07, 2017 at 18:08 Initial Consult Date 07/08/17 Type of Consultation: id Referring Provider: LETY RACHEL V. [employer]ERK Exam/Review of Systems Vital Signs Vitals Vital Signs Date Time Temp Pulse Resp B/P Pulse Ox O2 Delivery O2 Flow Rate FiO2 07/18/17 07:57 98.0 61 19 121/59 98 Intake and Output 07/17/17 07/17/17 07/18/17 15:00 23:00 07:00 Intake Total 1000 ml 1654 ml Output Total 900 ml 1300 ml Balance 100 ml 354 ml Results Result Diagram: 07/18/17 0425 07/18/17 0425 Results 24 hrs Laboratory Tests Test 07/18/17 04:25 White Blood Count 4.9 # Red Blood Count 3.37 L Hemoglobin 10.2 L Hematocrit 29.9 L Mean Corpuscular Volume 88.7 Mean Corpuscular Hemoglobin 30.3 Mean Corpuscular Hemoglobin Concent 34.1 Red Cell Distribution Width 13.1 Platelet Count 194 # Mean Platelet Volume 10.8 H Neutrophils % 69.4 Lymphocytes % 26.1 Monocytes % 2.3 Eosinophils % 0.8 Basophils % 0.4 Nucleated Red Blood Cells % 0.0 Neutrophils # 3.4 Lymphocytes # 1.3 Monocytes # 0.1 L Eosinophils # 0.0 Basophils # 0.0 Nucleated Red Blood Cells # 0.0 Sodium Level 138 Potassium Level 4.8 Chloride Level 106 Carbon Dioxide Level 22 Anion Gap 15 Blood Urea Nitrogen 39 H Creatinine 2.09 H Glucose Level 188 Calcium Level 8.5 Total Bilirubin 0.2 Direct Bilirubin 0.00 Indirect Bilirubin 0.2 Aspartate Amino Transf (AST/SGOT) 25 Alanine Aminotransferase (ALT/SGPT) 15 Alkaline Phosphatase 93 Total Protein 11.0 H Albumin 3.5 Globulin 7.50 H Albumin/Globulin Ratio 0.46 Medications Medications Current Medications Ondansetron HCl (Zofran Inj) 4 mg Q6H PRN IV NAUSEA AND/OR VOMITING; Start 07/07 at 22:30 Acetaminophen (Tylenol Tab) 650 mg Q6H PRN PO PAIN LEVEL 1-3 OR FEVER; Start at 22:30 Morphine Sulfate (morphine) 2 mg Q4H PRN IV SEVERE PAIN LEVEL 7-10 Last administered on 07/14/17 08:26; Admin Dose 2 MG; Start 07/07/17 at 22:30 Docusate Sodium (Colace) 100 mg Q12H PRN PO CONSTIPATION; Start 07/07/17 at 22: 30 Bisacodyl (Dulcolax) 5 mg DAILY PRN PO CONSTIPATION; Start 07/07/17 at 22:30 Patient Own Medication 1 ea DAILY PO Last administered on 07/18/17 08:20; Admin Dose 1 EA; Start 07/09/17 at 09:30 Trazodone HCl (Desyrel) 50 mg HS PRN PO insomnia; Start 07/09/17 at 09:30 Ziprasidone (Geodon) 60 mg HS PO Last administered on 07/17/17 20:58; Admin Dose 60 MG; Start 07/09/17 at 21:00 Mirtazapine (Remeron) 30 mg HS PO Last administered on 07/17/17 20:59; Admin Dose 30 MG; Start 07/09/17 at 21:00 Patient Own Medication 1 ea DAILY PO Last administered on 07/18/17 08:20; Admin Dose 1 EA; Start 07/09/17 at 09:30 Chlorthalidone (Hygroton) 25 mg DAILY PO Last administered on 07/13/17 08:35; Admin Dose 25 MG; Start 07/10/17 at 09:00; Status Future Hold Methocarbamol (Robaxin) 500 mg QID PO Last administered on 07/18/17 08:22; Admin Dose 500 MG; Start 07/14/17 at 17:30 Hydromorphone HCl (Dilaudid) 2 mg Q4H PRN PO PAIN Last administered on 06:48; Admin Dose 2 MG; Start 07/14/17 at 19:00 Trimethoprim/ Sulfamethoxazole (Bactrim (Ss)) 1 tab Sa@09 PO Last administered on 07/16/17 09:36; Admin Dose 1 TAB; Start 07/16/17 at 09:00 Trimethoprim/ Sulfamethoxazole (Bactrim (Ss)) 1 tab Corona@09 PO Last administered on 07/17/17 08:24; Admin Dose 1 TAB; Start 07/17/17 at 09:00 Acyclovir (Zovirax) 400 mg BID PO Last administered on 07/18/17 08:22; Admin Dose 400 MG; Start 07/15/17 at 21:00 Diphenhydramine HCl (Benadryl) 25 mg Q4H PRN IV ALLERGIC REACTION; Start at 10:00; Stop 08/08/17 at 23:59 Methylprednisolone Sodium Succinate (Solu-Medrol) 60 mg Q4H PRN IV ALLERGIC REACTION; Start 07/16/17 at 10:00; Stop 08/08/17 at 23:59 Morphine Sulfate (Ms Contin (Er)) 30 mg BID PO Last administered on 07/18/17 08:21; Admin Dose 30 MG; Start 07/17/17 at 09:00 Famotidine (Pepcid) 20 mg DAILY PO Last administered on 07/18/17 08:22; Admin Dose 20 MG; Start 07/18/17 at 09:00 JUNIOR MONTAGUE NP Jul 18, 2017 12:07
--- NOTE | 2017-07-18 14:00 | PN ---
DATE: 07/18/2017 SUBJECTIVE DATA: The patient was started on chemotherapy with Velcade, tolerated well. No other events noted. No hemoptysis, hematemesis, or hematochezia. OBJECTIVE DATA: VITAL SIGNS: Blood pressure is 121/59, temperature 98, respirations 19 and pulse 61. HEENT: Head is normocephalic. Pupils are reactive to light. NECK: Supple. HEART: Regular rate. LUNGS: Diminished breath sounds at the base. ABDOMEN: Soft, nontender to palpation. No rebound or guarding. EXTREMITIES: Negative for clubbing, cyanosis. No edema. DERMATOLOGIC: No rashes. MUSCULOSKELETAL: No joint effusion. NEUROLOGIC: Unchanged exam. MEDICATIONS: Reviewed. LABORATORY AND DIAGNOSTIC DATA: Shows a white count of 4.9, hemoglobin 10.2, hematocrit 29.9, and platelet count is 194,000. Sodium 138, potassium 3.9, creatinine 2.09. ASSESSMENT AND PLAN: 1. Nonoliguric acute kidney injury with unknown previous baseline creatinine. Etiology of acute kidney injury is concerning for possible light chain associated nephropathy. Including acute tubular necrosis. Possible cast nephropathy. Other possibilities including medications associated acute tubular necrosis also a consideration. The patient was initiated on Velcade. At this point, renal function has been stable. Would continue current treatment plan. Renally dose all medications. Avoid nephrotoxins. 2. Anemia. Monitor hemoglobin and hematocrit levels. 3. Mineral bone disorder. Monitor calcium and phosphorus levels. 4. Hypertension. Continue current blood pressure regimen. 5. Human immunodeficiency virus. Continue HAART therapy. 6. Vitamin D deficiency. 7. History of psychiatric illness. Continue current medical management. Dictated By: Micah Serna DO /monet/montez /Document#: [id number]
[2017-07-18] MEDS ORDERED: METH500T8 PO (14:41)
[2017-07-18] MEDS ORDERED: ACYC400T2 PO (14:41)
[2017-07-18] MEDS ORDERED: BACTRIM PO ×2 (14:42)
[2017-07-18] MEDS ORDERED: OXYC-203 PO (19:59)
--- NOTE | 2017-07-18 20:12 | CONS ---
Date/Time of Note Date/Time of Note DATE: 07/18/17 TIME: 20:09 Assessment/Plan Assessment/Plan Chief Complaint/Hosp Course 46 yo with hypercalcemia, QAMAR, lytic lesions and anemia, now confirmed as multiple myeloma with 90% plasma cells in marrow #Monoclonal gammopathy, SPEP confirms M spike of 4.6 grams -QUIGS demonstrate IgG > 5000 mg/dL -Serum ISAAC demonstrates IgG Lambda monoclonal gammopathy -[place] Lambda Light Ratio demonstrate lambda light chains at 1196 - bone marrow bx done and demonstrates > 90% plasma cells -given this diagnosis of stage III multiple myeloma in this young patient will send to [facility] as an outpatient for evaluation for bone marrow transplant -given the acute rise in creatinine, pt was started on treatment of velcade, cytoxan, dexamathasone , -pt can be discharged to continue chemotherapy as an out patient #QAMAR -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 -start treatment in house #HTN -BP ok -continue BP meds #HIV -appreciate ID recs -continue HAART therapy #Bony lesion -increase MS contin to 30mg BID for now -will start bisphosphonate today -PSA at 2.9 makes metastatic prostate CA unlikely -will obtain out patient authorization for radiation oncology #Hypercalcemia -given this is likely secondary to multiple myeloma and is now causing QAMAR, will given 1 dose of Pamidronate 90mg IV Problems: (1) Hypercalcemia Status: Acute (2) Lytic bone lesions on xray Status: Acute (3) QAMAR (acute kidney injury) Status: Acute (4) HIV (human immunodeficiency virus infection) Problems: (1) Lytic bone lesions on xray Status: Acute (2) Stage III multiple myeloma Status: Acute (3) QAMAR (acute kidney injury) Status: Acute (4) HIV (human immunodeficiency virus infection) Status: Chronic Consultation Date/Type/Reason Admit Date/Time Jul 07, 2017 at 18:08 Initial Consult Date 07/08/17 Type of Consultation: Hematology Reason for Consultation Multiple Myeloma Referring Provider: LETY RACHEL NP 24 HR Interval Summary Free Text/Dictation pt's pain is currently under better control. received his first dose of Velcade Cytoxan Dex yesterday which he tolerated well Exam/Review of Systems Vital Signs Vitals Vital Signs Date Time Temp Pulse Resp B/P Pulse Ox O2 Delivery O2 Flow Rate FiO2 07/18/17 19:24 97.9 92 18 129/76 97 Intake and Output 07/17/17 07/17/17 07/18/17 15:00 23:00 07:00 Intake Total 1000 ml 1654 ml Output Total 900 ml 1300 ml Balance 100 ml 354 ml Exam Constitutional: alert, oriented Psych: no complaints Head: normocephalic Eyes: nl conjunctiva ENMT: nl external ears & nose Neck: non-tender, supple Respiratory: clear to auscultation Cardiovascular: regular rate and rhythm Gastrointestinal: soft Musculoskeletal: joint tenderness Results Result Diagram: 07/18/175 07/18/17 0425 Results 24 hrs Laboratory Tests Test 07/18/17 04:25 White Blood Count 4.9 # Red Blood Count 3.37 L Hemoglobin 10.2 L Hematocrit 29.9 L Mean Corpuscular Volume 88.7 Mean Corpuscular Hemoglobin 30.3 Mean Corpuscular Hemoglobin Concent 34.1 Red Cell Distribution Width 13.1 Platelet Count 194 # Mean Platelet Volume 10.8 H Neutrophils % 69.4 Lymphocytes % 26.1 Monocytes % 2.3 Eosinophils % 0.8 Basophils % 0.4 Nucleated Red Blood Cells % 0.0 Neutrophils # 3.4 Lymphocytes # 1.3 Monocytes # 0.1 L Eosinophils # 0.0 Basophils # 0.0 Nucleated Red Blood Cells # 0.0 Sodium Level 138 Potassium Level 4.8 Chloride Level 106 Carbon Dioxide Level 22 Anion Gap 15 Blood Urea Nitrogen 39 H Creatinine 2.09 H Glucose Level 188 Calcium Level 8.5 Total Bilirubin 0.2 Direct Bilirubin 0.00 Indirect Bilirubin 0.2 Aspartate Amino Transf (AST/SGOT) 25 Alanine Aminotransferase (ALT/SGPT) 15 Alkaline Phosphatase 93 Total Protein 11.0 H Albumin 3.5 Globulin 7.50 H Albumin/Globulin Ratio 0.46 Medications Medications Current Medications Ondansetron HCl (Zofran Inj) 4 mg Q6H PRN IV NAUSEA AND/OR VOMITING; Start 07/07 at 22:30 Acetaminophen (Tylenol Tab) 650 mg Q6H PRN PO PAIN LEVEL 1-3 OR FEVER; Start at 22:30 Morphine Sulfate (morphine) 2 mg Q4H PRN IV SEVERE PAIN LEVEL 7-10 Last administered on 07/14/17t 08:26; Admin Dose 2 MG; Start 07/07/17 at 22:30 Docusate Sodium (Colace) 100 mg Q12H PRN PO CONSTIPATION; Start 07/07/17 at 22: 30 Bisacodyl (Dulcolax) 5 mg DAILY PRN PO CONSTIPATION; Start 07/07/17 at 22:30 Patient Own Medication 1 ea DAILY PO Last administered on 07/18/17 08:20; Admin Dose 1 EA; Start 07/09/17 at 09:30 Trazodone HCl (Desyrel) 50 mg HS PRN PO insomnia; Start 07/09/17 at 09:30 Ziprasidone (Geodon) 60 mg HS PO Last administered on 07/17/17 20:58; Admin Dose 60 MG; Start 07/09/17 at 21:00 Mirtazapine (Remeron) 30 mg HS PO Last administered on 07/17/17 20:59; Admin Dose 30 MG; Start 07/09/17 at 21:00 Patient Own Medication 1 ea DAILY PO Last administered on 07/18/17 08:20; Admin Dose 1 EA; Start 07/09/17 at 09:30 Chlorthalidone (Hygroton) 25 mg DAILY PO Last administered on 07/13/17 08:35; Admin Dose 25 MG; Start 07/10/17 at 09:00; Status Future Hold Methocarbamol (Robaxin) 500 mg QID PO Last administered on 07/18/17 16:40; Admin Dose 500 MG; Start 07/14/17 at 17:30 Trimethoprim/ Sulfamethoxazole (Bactrim (Ss)) 1 tab Sa@09 PO Last administered on 07/16/17 09:36; Admin Dose 1 TAB; Start 07/16/17 at 09:00 Trimethoprim/ Sulfamethoxazole (Bactrim (Ss)) 1 tab Corona@09 PO Last administered on 07/17/17 08:24; Admin Dose 1 TAB; Start 07/17/17 at 09:00 Acyclovir (Zovirax) 400 mg BID PO Last administered on 07/18/17 08:22; Admin Dose 400 MG; Start 07/15/17 at 21:00 Diphenhydramine HCl (Benadryl) 25 mg Q4H PRN IV ALLERGIC REACTION; Start at 10:00; Stop 08/08/17 at 23:59 Methylprednisolone Sodium Succinate (Solu-Medrol) 60 mg Q4H PRN IV ALLERGIC REACTION; Start 07/16/17 at 10:00; Stop 08/08/17 at 23:59 Morphine Sulfate (Ms Contin (Er)) 30 mg BID PO Last administered on 07/18/17 08:21; Admin Dose 30 MG; Start 07/17/17 at 09:00 Famotidine (Pepcid) 20 mg DAILY PO Last administered on 07/18/17 08:22; Admin Dose 20 MG; Start 07/18/17 at 09:00 IQRA MIDDLETON M.D. Jul 18, 2017 20:12
[2017-07-18] MEDS: MIRTAZAPINE 15 MG TAB PO SCH (21:54)
[2017-07-18] MEDS: ZIPRASIDONE 20 MG CAP PO SCH (21:55)
[2017-07-19 01:08] VITALS: BP 119/71; RESP 18
[2017-07-19 05:23] LABS: HEMOGLOBIN 9.5 g/dl (14.0-18.0); LYMPHOCYTES # 0.7 10^3/ul (0.8-2.9); LYMPHOCYTES % 10.7 % (15.0-51.0); MEAN CORPUSCULAR HGB CONC 33.9 g/dl (32.0-37.0); MEAN CORPUSCULAR VOLUME 88.3 fl (82.0-101.0); MEAN PLATELET VOLUME 11.2 fl (7.4-10.4); MONOCYTE # 0.3 10^3/ul (0.3-0.9); MONOCYTES % 4.1 % (0.0-11.0); NEUTROPHIL # 5.3 10^3/ul (1.6-7.5); NEUTROPHILS % 84.7 % (39.0-77.0); PLATELET COUNT 183 10^3/UL (140-415); RED BLOOD COUNT 3.17 10^6/ul (4.70-6.10); RED CELL DISTRIBUTION WIDTH 13.1 % (11.5-14.5); WHITE BLOOD COUNT 6.3 10^3/ul (4.8-10.8)
[2017-07-19 05:44] LABS: CALCIUM 8.1 mg/dl (8.4-10.2); CREATININE 1.62 mg/dl (0.61-1.24); POTASSIUM 4.8 mmol/L (3.5-5.1)
[2017-07-19 07:32] VITALS: BP 120/73; RESP 20
[2017-07-19] MEDS: DESCOVY PO SCH (08:46)
[2017-07-19] MEDS: morphine (ER) 15 MG TAB PO SCH (08:46)
[2017-07-19] MEDS: PREZCOBIX PO SCH (08:46)
[2017-07-19] MEDS: ACYCLOVIR 400 MG TAB PO SCH (08:47)
[2017-07-19] MEDS: METHOCARBAMOL 500 MG TAB PO SCH (08:47)
[2017-07-19] MEDS: FAMOTIDINE 20 MG TAB PO SCH (08:47)
--- NOTE | 2017-07-19 09:23 | DS ---
Date/Time of Note Date/Time of Note DATE: 07/19/17 TIME: 09:15 Discharge Summary Admission/Discharge Info Admit Date/Time Jul 07, 2017 at 18:08 Discharge Date/Time Discharge Diagnosis 1. Monoclonal gammopathy with stage III multiple myeloma. Started on velcade, cytoxan, dexamathasone. 2.Back pain, secondary to #1. Improved. 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 Stable. 4. HIV.Absolute CD4 504. On HAART therapy (Descovy+Prezcobix). 5.Hypertension.Stable 6.Anemia of chronic disease. 7.Mild Hypercalcemia with coexisting low vitamin D level,with multiple myeloma. Resolved 8. Vitamin D deficiency. Outpt f/u for calcitriol followed by cholecalciferol low-dose once chemotherapy completed. 9. Hx of psychiatric illness. Patient Condition: Stable Consults ,Oncology ,Npehrologist Procedures 07/08/2017. Bone survey scan. There are innumerable lytic lesions throughout the axial and proximal appendicular skeleton, better visualized on prior CT. No pathologic fracture identified. 07/11/2017. CT guided bone marrow aspiration and left iliac bone biopsy. Peripheral blood: -- Mild to moderate normocytic, normochromic anemia. Bone marrow, left posterior superior iliac crest, biopsy and aspiration: -- Plasma cell myeloma with lambda light chain restriction (plasma cell compose approximately 90% of the nucleated cell population). -- Adequate marrow iron stores. -- Increase reticulin fibers. IMMUNOLOGY TESTS: -Serum ISAAC demonstrates IgG Lambda monoclonal gammopathy -[place] Lambda Light Ratio demonstrate lambda light chains at 1196 Hospital Course This is a 46-year-old male with a past medical history of HIV diagnosed 22 years ago and on HAART therapy, who presented to the emergency room with complaints of lower back pain, flank pain, and shoulder pain. Patient 's symptoms started few days ago. His pain gets worse with activities. A pelvis CT showed nnumerous punched-out osteolytic lesions involving the thoracolumbar sacral spine, pelvic bones, right hip and visualized right/left ribs and the tip of the right scapula. Chest CT showed revealed multiple lytic bone lesions in the thoracic spine and in the thoracic cage. Some of these lesions have extraosseous soft tissue masses. In the spine, lesions with extraosseous soft tissue masses compress the thecal sac and exiting nerve roots at T8 and T10. There are pathologic fractures of the manubrium and bilateral ribs. Patient was admitted for further evaluation. Patient was resumed on his home medications including HAART therapy. Oncology and ID consult was requested. He was continued on appropriate pain regimen. A bone survey scan showed innumerable lytic lesions throughout the axial and proximal appendicular skeleton, better visualized on prior CT. No pathologic fracture identified. Bone marrow biopsy, [place] Lambda Light Ratio , and serum ISAAC presence of IgG lambda monoclonal gammopathy were confirmatory for monoclonal gammopathy with stage III multiple myeloma. Initial plan was to send patient home with outpatient oncology follow-up for starting patient on chemo with velcade, cytoxan, and dexamathasone followed by eventual [facility] follow- up as an outpatient for evaluation of bone marrow transplant. 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 PSA was normal which makes metastatic prostate cancer unlikely. Patient was evaluated by our nephrology colleague and the recommendation was to keep him in-house to monitor kidney function until he gets his first set of chemo. Lisinopril was stopped secondary to kidney function. Patient's blood pressure was monitored closely and he did not require any antihypertensives and his blood pressures remained within desired range. Patient received chemotherapy on 07/17/2017. His renal function was monitored closely and remained stable. Blood Counts remained stable and he did not require any transfusion. At this time, as per enrollment consultant's recommendation, patient can be discharged to continue chemotherapy as an outpatient with close monitoring with nephrology for renal function. As per oncology, patient will need to continue his antimicrobial prophylaxis until he finishes with his second set chemotherapy and is supposed to be 4 days after discharge. Patient's pain also improved and he was successfully transitioned to Percocet from MS Contin along with Robaxin. During the course of hospitalization, patient was also noted with vitamin D deficiency along with hypercalcemia of multiple myeloma. PTH was normal. He was treated with 1 dose of pamidronate with normal calcium thereafter. Recommendation was to start Calcitrol gently followed by low-dose cholecalciferol once his chemotherapy is completed and his renal function is stabilized. This was referred for outpatient monitoring and his labor supervisor is aware of this. Disposition: Patient will be discharged home today. He was instructed to follow -up with nursing care attendant/oncologist for next chemotherapy as well as Dr. Serna for nephrology outpatient follow-up. Case management had arranged process of insurance authorization for [facility] as an outpatient for evaluation for bone marrow transplant as well as radiation oncology follow-up. Patient was instructed on outpatient follow-up instructions as well as review of medications along with [place] translation and he verbalized discharge instructions very clearly. Approximately 60 minutes was spent in coordinating the discharge on this patient. Patient was seen in collaboration with . Home Meds Active Scripts Oxycodone HCl/Acetaminophen (Percocet 7.5-325 mg Tablet) 1 Each Tablet, 1 EACH PO Q6H, #30 TAB Prov:RACHEL,LETY V. IMAGING SPECIALIST 07/18/17 Trimethoprim-Sulfamethoxazole* (Bactrim*) 400-80 Mg Tab, 1 TAB PO Sa@09, #1 TAB Prov:RACHEL,LETY V. IMAGING SPECIALIST 07/18/17 Trimethoprim-Sulfamethoxazole* (Bactrim*) 400-80 Mg Tab, 1 TAB PO Corona@09, #1 TAB Prov:RACHEL,LETY V. IMAGING SPECIALIST 07/18/17 Acyclovir* (Acyclovir*) 400 Mg Tablet, 400 MG PO BID, #8 TAB Prov:RACHEL,LETY V. IMAGING SPECIALIST 07/18/17 Methocarbamol* (Methocarbamol*) 500 Mg Tablet, 500 MG PO QID, #60 TAB Prov:RACHEL,LETY V. IMAGING SPECIALIST 07/18/17 Reported Medications Emtricitabine/Tenofov Alafenam (Descovy 200-25 mg Tablet) 1 Each Tablet, 1 EACH PO, TAB 07/14/17 Darunavir/Cobicistat (Prezcobix 800 mg-150 mg Tablet) 1 Each Tablet, PO, TAB 07/14/17 Mirtazapine* (Remeron*) 30 Mg Tablet, 30 MG PO HS, TAB 07/14/17 Ziprasidone* (Geodon*) 60 Mg Capsule, 60 MG PO QHS, CAP 07/14/17 Trazodone Hcl* (Trazodone Hcl*) 50 Mg Tablet, 50 MG PO QHS, #30 TAB 07/14/17 Discontinued Reported Medications Ibuprofen* (Ibuprofen*) 600 Mg Tablet, 600 MG PO Q12, TAB 07/14/17 Ketoconazole* (Ketoconazole* 2% Cream (15gm)) 1 Applic Cr, 1 APPLIC TOP DAILY, TUB 07/14/17 Chlorthalidone* (Chlorthalidone*) 25 Mg Tablet, 25 MG PO DAILY, TAB 07/14/17 Lisinopril* (Lisinopril*) 10 Mg Tablet, 10 MG PO DAILY, #30 TAB 07/14/17 Diphenoxylate HCl/Atropine (Lomotil 2.5-0.025 mg Tablet) 1 Each Tablet, 2.5 TAB PO Q6H Y for DIARRHEA, TAB 07/14/17 Metronidazole (Flagyl) 500 Mg Tab, 500 MG PO Q8, TAB 07/14/17 [Hiv] No Conflict Check, PO PATIENT TAKE SOME HIV MEDS, BUT HE DOESN'T REMEMBER THE NAMES. 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 RENDON FOR OUTPT RADIATION, F/U VISIT W/ DR MIDDLETON AND REFERRAL TO [facility] FOR BONE MARROW TRANSPLANT FAXED TO PT'S INSURANCE ([phone] ([facility])/[phone] ([facility]) AND [facility] ([phone]). 1.Follow up with primary care physician in 1 week If you don't have one please let someone know, we can give you resources that may help you pick one. You may also call your insurance company to assign one to you. Review your medication list with your nurse before leaving and if you need new prescriptions please let your nurse know. I may have made changes to your home medications or given you new prescriptions, please let your primary doctor know as well. Stay compliant with your medications and report any side effects to your PCP or pharmacist. Return to the ER if you have any concerns and cannot reach your doctors or call your insurance company, they usually have a nurse that can help you. 2. Call 911 or go to the nearest emergency room if experiencing loss of consciousness, dizziness, chest pain, shortness of breath, vomiting/abdominal pain, speech difficulties, motor weakness or any unusual symptoms. Primary Care Provider Not On Staff Doctor Pending Labs Laboratory Tests Test 07/19/17 04:36 07/19/17 04:41 White Blood Count 6.310^3/ul (4.8-10.8) Red Blood Count 3.1710^6/ul (4.70-6.10) Hemoglobin 9.5g/dl (14.0-18.0) Hematocrit 28.0% (42.0-52.0) Mean Corpuscular Volume 88.3fl (82.0-101.0) Mean Corpuscular Hemoglobin 30.0pg (29.0-33.0) Mean Corpuscular Hemoglobin Concent 33.9g/dl (32.0-37.0) Red Cell Distribution Width 13.1% (11.5-14.5) Platelet Count 06140^3/UL (140-415) Mean Platelet Volume 11.2fl (7.4-10.4) Neutrophils % 84.7% (39.0-77.0) Lymphocytes % 10.7% (15.0-51.0) Monocytes % 4.1% (0.0-11.0) Eosinophils % 0.0% (0.0-7.0) Basophils % 0.0% (0.0-2.0) Nucleated Red Blood Cells % 0.0/100WBC (0.0-0.0) Neutrophils # 5.310^3/ul (1.6-7.5) Lymphocytes # 0.710^3/ul (0.8-2.9) Monocytes # 0.310^3/ul (0.3-0.9) Eosinophils # 0.010^3/ul (0.0-0.5) Basophils # 0.010^3/ul (0.0-0.1) Nucleated Red Blood Cells # 0.010^3/ul (0.0-0.0) Sodium Level 138mmol/L (135-144) Potassium Level 4.8mmol/L (3.5-5.1) Chloride Level 107mmol/L (97-110) Carbon Dioxide Level 21mmol/L (21-31) Anion Gap 15 (8-16) Blood Urea Nitrogen 42mg/dl (7-20) Creatinine 1.62mg/dl (0.61-1.24) Glucose Level 175mg/dl (70-220) Calcium Level 8.1mg/dl (8.4-10.2) LETY RACHEL V. IMAGING SPECIALIST Jul 19, 2017 09:23
[2017-07-19] MEDS ORDERED: OXYCODONE/ACETAMINOPHEN (10/325) TAB PO ONE (09:30)
--- NOTE | 2017-07-19 10:59 | PN ---
DATE: 07/19/2017 SUBJECTIVE DATA: The patient is clinically stable. No events overnight. No fevers, chills, nausea, vomiting. No shortness of breath. OBJECTIVE DATA: VITAL SIGNS: Blood pressure is 120/73, temperature 97.7, pulse 102, respirations 20. HEENT: Head is normocephalic. NECK: Supple. HEART: Regular rate. LUNGS: Showed diminished breath sounds at the base. ABDOMEN: Soft, nontender to palpation. No rebound or guarding. EXTREMITIES: Negative for clubbing, cyanosis. No edema. DERMATOLOGIC: Clean. No rashes. MUSCULOSKELETAL: No joint effusion. NEUROLOGIC: Unchanged exam. MEDICATIONS: Reviewed. LABORATORY AND DIAGNOSTIC DATA: Shows a white count of 6.3, hemoglobin 9.5, crit 28.0, platelet count is 183. Sodium 138, potassium 4.8, chloride 107, BUN 42, creatinine 1.62. ASSESSMENT AND PLAN: 1. Nonoliguric acute kidney injury with unknown previous baseline creatinine. Etiology of acute kidney injury is concerning for possible light chain-associated nephropathy. Other possibilities include acute tubular necrosis. The patient was initiated on Velcade and prednisone. The patient's renal function has been improving. At this point, continue current treatment plan and supportive care. Renally dose all meds. 2. Anemia. Monitor H and H levels. 3. Mineral bone disorder. We will monitor calcium and phosphorus levels. 4. Hypertension. Continue current blood pressure regimen. 5. Human immunodeficiency virus. Continue highly active antiretroviral therapy. 6. Vitamin D deficiency. Continue with . 7. History of psychiatric illness. Continue current medical management and monitor. Dictated By: Micah Serna DO /monet/meliton /Document#: [id number]
--- NOTE | 2017-07-19 16:42 | PN ---
DATE: 07/19/2017 SUBJECTIVE DATA: No events overnight. No fevers. Patient is awake, looks comfortable. LABORATORY AND DIAGNOSTIC DATA: WBC today is 6.3, neutrophils 84.7. BUN 42, creatinine 1.62. ANTIMICROBIALS: 1. Bactrim. 2. Acyclovir. 3. Prezcobix. 4. Descovy. PHYSICAL EXAMINATION: GENERAL: Well developed, middle-aged, man, who is awake, in no distress. HEENT: Head atraumatic, normocephalic. Sclerae anicteric. Buccal mucosa pink. NECK: Supple. CHEST: Rise symmetrical. Breath sounds clear. HEART: S1, S2. ABDOMEN: Soft, bowel sounds present. EXTREMITIES: No cyanosis. ASSESSMENT: 1. Stage III multiple myeloma. 2. Human immunodeficiency virus, well controlled on current antiretrovirals. 3. Hypertension. 4. [id number] kidney disease. PLAN: Patient remains stable. He is being followed by multiple consultants. Started on chemotherapy. Continue present care. Dictated By: Reji Bello NP /monet/jamal /Document#: [id number]
== END 2017-07-19 13:41 | disposition home or self-care (01) | DRG 841 ==
LOC: FTE 14:24 → MS1 18:08
PROVIDERS: ADMIT Internal Medicine; ATTEND Internal Medicine
PROC: 07DR3ZX Extraction of Iliac Bone Marrow, Percutaneous Approach, Diagnostic (ICD-10-PCS; principal; 2017-07-11)
PROC: 3E03305 Introduction of Other Antineoplastic into Peripheral Vein, Percutaneous Approach (ICD-10-PCS; 2017-07-17)
DX: C90.00 Multiple myeloma not having achieved remission (principal); N17.9 Acute kidney failure, unspecified; E83.52 Hypercalcemia; M84.48XA Pathological fracture, other site, initial encounter for fracture; G95.20 Unspecified cord compression; E83.9 Disorder of mineral metabolism, unspecified; G54.3 Thoracic root disorders, not elsewhere classified; D47.2 Monoclonal gammopathy; I10 Essential (primary) hypertension; K27.9 Peptic ulcer, site unspecified, unspecified as acute or chronic, without hemorrhage or perforation; E55.9 Vitamin D deficiency, unspecified; F99 Mental disorder, not otherwise specified; M89.8X8 Other specified disorders of bone, other site; N28.9 Disorder of kidney and ureter, unspecified; Z79.899 Other long term (current) drug therapy; D63.8 Anemia in other chronic diseases classified elsewhere
CPT/HCPCS: 36415; 71250; 74176; 76536; 76775; 77012; 77075; 80048; 80053; 80061; 81001; 81003; 82040; 82043; 82105; 82306; 82330; 82378; 82570; 82652; 82784; 83036; 83615; 83735; 83970; 84100; 84153; 84154; 84155; 84156; 84165; 84166; 84300; 84443; 85025; 85610; 85730; 86301; 86320; 86360; 87536; 88305; 88313; 96372; 96374; 96375; J2430; J1170; J1885; J2250; J2270; J2405; J3010; J7030; J7040

== ENCOUNTER 2017-09-01 11:37 | Emergency (ER) | payer OTHER ==
[~2017-09-01] VITALS: Ht 177.8 cm; Wt 75.8 kg
[~2017-09-01 11:37] MED LIST changes: +ACYC400T2 PO; +BACTRIM PO; +DARU1TAB PO; +EMTR1TAB16 PO; -IBUP-1542 PO; +METH500T8 PO; +MIRT30TA PO; +OXYC-203 PO; -TRAM50TA2 PO; +TRAZ50TA18 PO; +ZIPR60CA6 PO
[2017-09-01 11:41] VITALS: Ht 177.8 cm; Wt 75.8 kg
[2017-09-01] MEDS ORDERED: KETOROLAC 30 MG INJ IV STA (13:41)
--- NOTE | 2017-09-01 14:21 | RADRPT ---
PROCEDURE: XR Right Femur. CLINICAL INDICATION: Trauma due to a fall. History of multiple myeloma. Right leg pain. TECHNIQUE: AP and lateral views of the right femur were performed. COMPARISON: 07/08/2017 FINDINGS: There is an ill-defined linear lucency across the mid right femoral neck which may indicate a nondis placed fracture. There is no other fracture and there is no dislocation. The soft tissues are normal. Articular surfaces are intact. There are multiple lytic lesions as seen on the prior study consistent with multiple myeloma. There is no radiopaque foreign body. IMPRESSION: 1. Possible nondisplaced fracture of the mid right femoral neck. Correlation with CT scan advised. 2. Multiple lytic lesions consistent with multiple myeloma. 3. Otherwise unremarkable study. RPTAT: QQ .Michael Arias MD, Date Time Electronically viewed and signed by .Michael Arias MD, on 09/01/2017 14:20 .R/
--- NOTE | 2017-09-01 16:15 | ERD ---
ER Documentation Chief Complaint Chief Complaint RT LEG , LT SHOULDER PAIN S/P FALL X 4 DAYS AGO HPI 46y/o male patient with history of multiple myeloma and HIV, presents to the emergency department c/o right hip pain located laterally, that started 4 days ago after a ground-level fall. pain is dull, rated 7/10, radiated to right knee. The symptoms are associated with antalgic gait. Denies head trauma, loss of consciousness, no open wounds, no fever, chills, N/V/D. The patient is currently taking opioids for the management of his pain and refers adequate pain control ROS SYSTEMIC symptoms: no fever, chills, no night sweats, no weight loss EYE symptoms: No blurred vision, no eye discharge OTOLARYNGEAL symptoms: No hearing loss. No ear pain, no sore throat CARDIOVASCULAR symptoms: No chest pain or discomfort, no palpitations. PULMONARY symptoms: No dyspnea, no cough, no wheezing. GASTROINTESTINAL symptoms: No abdominal pain, no nausea, no vomiting, no diarrhea MUSCULOSKELETAL symptoms: + arthralgias, + muscle aches. NEUROLOGY symptoms: No confusion, no syncope, no numbness or tingling. SKIN no rashes All systems reviewed and are negative except as per history of present illness. Medications Home Meds Active Scripts Ketorolac Tromethamine* (Ketorolac Tromethamine*) 10 Mg Tablet, 10 MG PO TID for 10 Days, #30 TAB Prov:ROMERO GEE MD 09/01/17 Oxycodone HCl/Acetaminophen (Percocet 7.5-325 mg Tablet) 1 Each Tablet, 1 EACH PO Q6H, #30 TAB Prov:LETY RACHEL NP 07/18/17 Trimethoprim-Sulfamethoxazole* (Bactrim*) 400-80 Mg Tab, 1 TAB PO Sa@09, #1 TAB Prov:LETY RACHEL NP 07/18/17 Trimethoprim-Sulfamethoxazole* (Bactrim*) 400-80 Mg Tab, 1 TAB PO [place]@09, #1 TAB Prov:LETY RACHEL NP 07/18/17 Acyclovir* (Acyclovir*) 400 Mg Tablet, 400 MG PO BID, #8 TAB Prov:LETY RACHEL NP 07/18/17 Methocarbamol* (Methocarbamol*) 500 Mg Tablet, 500 MG PO QID, #60 TAB Prov:LETY RACHEL V. SEALS ENGRAVER 07/18/17 Reported Medications Emtricitabine/Tenofov Alafenam (Descovy 200-25 mg Tablet) 1 Each Tablet, 1 EACH PO, TAB 07/14/17 Darunavir/Cobicistat (Prezcobix 800 mg-150 mg Tablet) 1 Each Tablet, PO, TAB 07/14/17 Mirtazapine* (Remeron*) 30 Mg Tablet, 30 MG PO HS, TAB 07/14/17 Ziprasidone* (Geodon*) 60 Mg Capsule, 60 MG PO QHS, CAP 07/14/17 Trazodone Hcl* (Trazodone Hcl*) 50 Mg Tablet, 50 MG PO QHS, #30 TAB 07/14/17 Allergies Allergies: Coded Allergies: No Known Drug Allergies (Verified Allergy, Unknown, 07/07/17) PMhx/Soc History of Surgery: No Anesthesia Reaction: No Hx Neurological Disorder: No Hx Respiratory Disorders: No Hx Cardiac Disorders: No Hx Psychiatric Problems: No Hx Miscellaneous Medical Probl: Yes Hx Alcohol Use: No Hx Substance Use: No Hx Tobacco Use: No Smoking Status: Never smoker Physical Exam Vitals Vital Signs Date Time Temp Pulse Resp B/P Pulse Ox O2 Delivery O2 Flow Rate FiO2 09/01/17 17:35 98.3 68 19 134/75 100 Room Air 09/01/17 11:41 98.5 90 18 135/84 97 Physical Exam Patient is in no acute distress, vital signs stable. Alert and fully oriented. EYES: PERRLA, EOMI, Sclera and conjunctiva appear normal. EARS: Canals clear, tympanic membranes WNL THROAT: Normal oropharynx. NECK: Supple, No lymphadenopathy. Full ROM without pain or tenderness. HEART: RRR, no rubs, murmurs, clicks or gallops. LUNGS: Clear to auscultation. ABDOMEN: Soft, non-tender without masses or hepatosplenomegaly. EXTREMITIES: Right hip tender to palpation, no ecchymosis no gross deformity, decreased range of motion due to pain Results 24 hrs Current Medications Medications (Trade) Dose Ordered Sig/Jeramie Route PRN Reason Start Time Stop Time Status Last Admin Dose Admin Ketorolac Tromethamine (Toradol) 30 mg ONCE STAT IV 09/01/17 13:41 09/01/17 13:44 DC Acetaminophen/ Hydrocodone Bitart ([place] (5/325)) 1 tab ONCE ONCE PO 09/01/17 16:30 09/01/17 16:31 DC 09/01/17 16:22 Patient: GLENN ROBERTSON : 1970 Age: 46 Sex: M MR #: [id number] DOS: 09/01/17 1543 Ordering MD: ROMERO GEE MD Location: [facility] Room/Bed: PROCEDURE: CT Pelvis without Contrast CLINICAL INDICATION: Right leg pain and limp, rule out right femoral neck fracture TECHNIQUE: Transaxial images were obtained through the pelvis on a multi- slice scanner without intravenous contrast. No oral contrast had previously been given. Sagittal and coronal re-formations were subsequently reconstructed. One or more of the following dose reduction techniques were used: - Automated exposure control. - Adjustment of the mA and/or kV according to patient size. - Use of iterative reconstruction technique. Radiation dose: CTDIvol = 18.40 mGy; DLP = 677.42 mGy-cm. COMPARISON: Comparison to the previous right femur study done earlier on the same date FINDINGS: Osseous structures: There is a linear defect within the lateral cortex at the neck of the proximal right femur as well as slight trabecular distorted on extending across the femoral neck compatible with a very subtle nondisplaced impaction fracture. No other fractures identified. Multiple lytic lesions are seen throughout the osseous elements compatible with multiple myeloma. The largest measures 2.9 cm in diameter seen within the anterior right femoral head. Other lesions are seen within the supra-acetabular iliac bones bilaterally , the sacrum, the L5 vertebral body, the left superior pubic ramus and both inferior pubic rami. Degenerative endplate changes are seen within the lumbar spine. Hip joints: Are anatomically maintained. No joint effusion is identified. Sacroiliac joints: Appear unremarkable with no significant sclerosis or erosion identified. Extraperitoneal soft tissues: Appear unremarkable. Bladder: The bladder appears unremarkable. Reproductive organs: Unremarkable. Visualized bowel: Appears unremarkable. Peritoneum: No free intraperitoneal fluid or air is identified. Vessels: Normal in caliber with no aneurysmal dilatation. Lymph nodes: No pathologically enlarged nodes are identified. IMPRESSION: 1. Very subtle nondisplaced impaction fracture involving the proximal right femoral neck. 2. Multiple lytic lesions are seen to the visualized osseous elements compatible with multiple myeloma. Osseous metastasis cannot have a similar appearance. Findings of nondisplaced fracture through the proximal neck of the right femur and lytic lesions seen throughout the pelvis compatible with multiple myeloma were telephoned by Jerry Chamberlain MD to RENETTA Chavez on 09/01/2017 at 1700 hours. Physician Gali Date Time Electronically viewed and signed by Physician Gali on 09/01/2017 17:08 RH/ CC: ROMERO GEE MD Procedures/[facility] 46y/o male patient with history of multiple myeloma and HIV, presents to the ED c/o right hip pain S/P fall for 4 days. Vital signs stable, Physical exam shows tenderness over the right hip. Differential diagnosis include but not limited to: Fracture, contusion, tendon/ligament injury, hematoma, less likely infectious process. Pertinent Data: CT pelvis IMPRESSION: 1. Very subtle nondisplaced impaction fracture involving the proximal right femoral neck. 2. Multiple lytic lesions are seen to the visualized osseous elements compatible with multiple myeloma. Osseous metastasis cannot have a similar appearance. Physical examination and clinical presentation consistent with right hip contusion with minor impaction fracture of the right femoral neck. During the ED course the patient received treatment with Toradol and [place] presenting overall improvement of the symptoms. Results and medical impression discussed with patient who agrees with management. The patient will be discharged home with a Rx for Toradol p.o. Side effects of prescribed narcotic medications (drowsiness, constipation, habituation) were reviewed. Side effects of prescribed NSAID medication (GI distress, edema, bleeding, HTN) were reviewed. If symptoms persist, worsen or new symptoms develop, then patient is instructed to follow-up with the primary care provider. If the patient is unable to see the primary care provider, then return to the ED immediately. Departure Diagnosis: Primary Impression: Fall with no significant injury Additional Impression: Contusion of hip, right Condition: Stable (ERASED) Additional Instructions: Muchas andre por [facility] para corona servicio. Esperamos que en corona visita a la marily de emergencia corona problema medico haya sido solucionado y que se sienta mucho mejor. Para estar seguros que corona mejoria sigue en proceso, le pedimos el favor de hacer osmany isaiah de seguimiento medico con corona doctor primario en los proximos 2-4 mays. Lleve con usted estos documentos y las medicinas recetadas. Si donis sintomas empeoran y no puede polly a corona doctor, por favor regrese a marily de emergencia. En lorna que usted no tenga un mdico de atencin primaria: Llame al mdico o clnica comunitaria de referencia que aparece abajo sandra las horas de consultorio para hacer osmany isaiah para que le vean. CLINICAS: [facility] [phone] [facility] [phone] [facility]. [facility] [phone] [facility] [place] [id number] [phone] [facility]. [place] [phone] [place] [id number] [phone] ROMERO ROCHA MD Sep 01, 2017 13:43
--- NOTE | 2017-09-01 16:15 | ERD ---
ER Documentation Chief Complaint Chief Complaint RT LEG , LT SHOULDER PAIN S/P FALL X 4 DAYS AGO HPI 46y/o male patient with history of multiple myeloma and HIV, presents to the emergency department c/o right hip pain located laterally, that started 4 days ago after a ground-level fall. pain is dull, rated 7/10, radiated to right knee. The symptoms are associated with antalgic gait. Denies head trauma, loss of consciousness, no open wounds, no fever, chills, N/V/D. The patient is currently taking opioids for the management of his pain and refers adequate pain control ROS SYSTEMIC symptoms: no fever, chills, no night sweats, no weight loss EYE symptoms: No blurred vision, no eye discharge OTOLARYNGEAL symptoms: No hearing loss. No ear pain, no sore throat CARDIOVASCULAR symptoms: No chest pain or discomfort, no palpitations. PULMONARY symptoms: No dyspnea, no cough, no wheezing. GASTROINTESTINAL symptoms: No abdominal pain, no nausea, no vomiting, no diarrhea MUSCULOSKELETAL symptoms: + arthralgias, + muscle aches. NEUROLOGY symptoms: No confusion, no syncope, no numbness or tingling. SKIN no rashes All systems reviewed and are negative except as per history of present illness. Medications Home Meds Active Scripts Ketorolac Tromethamine* (Ketorolac Tromethamine*) 10 Mg Tablet, 10 MG PO TID for 10 Days, #30 TAB Prov:ROMERO GEE MD 09/01/17 Oxycodone HCl/Acetaminophen (Percocet 7.5-325 mg Tablet) 1 Each Tablet, 1 EACH PO Q6H, #30 TAB Prov:LETY RACHEL NP 07/18/17 Trimethoprim-Sulfamethoxazole* (Bactrim*) 400-80 Mg Tab, 1 TAB PO Sa@09, #1 TAB Prov:LETY RACHEL NP 07/18/17 Trimethoprim-Sulfamethoxazole* (Bactrim*) 400-80 Mg Tab, 1 TAB PO Corona@09, #1 TAB Prov:LETY RACHEL NP 07/18/17 Acyclovir* (Acyclovir*) 400 Mg Tablet, 400 MG PO BID, #8 TAB Prov:LETY RACHEL NP 07/18/17 Methocarbamol* (Methocarbamol*) 500 Mg Tablet, 500 MG PO QID, #60 TAB Prov:LETY RACHEL V. SERVICE OPERATOR 07/18/17 Reported Medications Emtricitabine/Tenofov Alafenam (Descovy 200-25 mg Tablet) 1 Each Tablet, 1 EACH PO, TAB 07/14/17 Darunavir/Cobicistat (Prezcobix 800 mg-150 mg Tablet) 1 Each Tablet, PO, TAB 07/14/17 Mirtazapine* (Remeron*) 30 Mg Tablet, 30 MG PO HS, TAB 07/14/17 Ziprasidone* (Geodon*) 60 Mg Capsule, 60 MG PO QHS, CAP 07/14/17 Trazodone Hcl* (Trazodone Hcl*) 50 Mg Tablet, 50 MG PO QHS, #30 TAB 07/14/17 Allergies Allergies: Coded Allergies: No Known Drug Allergies (Verified Allergy, Unknown, 07/07/17) PMhx/Soc History of Surgery: No Anesthesia Reaction: No Hx Neurological Disorder: No Hx Respiratory Disorders: No Hx Cardiac Disorders: No Hx Psychiatric Problems: No Hx Miscellaneous Medical Probl: Yes Hx Alcohol Use: No Hx Substance Use: No Hx Tobacco Use: No Smoking Status: Never smoker Physical Exam Vitals Vital Signs Date Time Temp Pulse Resp B/P Pulse Ox O2 Delivery O2 Flow Rate FiO2 09/01/17 17:35 98.3 68 19 134/75 100 Room Air 09/01/17 11:41 98.5 90 18 135/84 97 Physical Exam Patient is in no acute distress, vital signs stable. Alert and fully oriented. EYES: PERRLA, EOMI, Sclera and conjunctiva appear normal. EARS: Canals clear, tympanic membranes WNL THROAT: Normal oropharynx. NECK: Supple, No lymphadenopathy. Full ROM without pain or tenderness. HEART: RRR, no rubs, murmurs, clicks or gallops. LUNGS: Clear to auscultation. ABDOMEN: Soft, non-tender without masses or hepatosplenomegaly. EXTREMITIES: Right hip tender to palpation, no ecchymosis no gross deformity, decreased range of motion due to pain Results 24 hrs Current Medications Medications (Trade) Dose Ordered Sig/Jeramie Route PRN Reason Start Time Stop Time Status Last Admin Dose Admin Ketorolac Tromethamine (Toradol) 30 mg ONCE STAT IV 09/01/17 13:41 09/01/17 13:44 DC Acetaminophen/ Hydrocodone Bitart ([place] (5/325)) 1 tab ONCE ONCE PO 09/01/17 16:30 09/01/17 16:31 DC 09/01/17 16:22 Patient: GLENN ROBERTSON : 1970 Age: 46 Sex: M MR #: [id number] DOS: 09/01/17 1543 Ordering MD: ROMERO GEE MD Location: [facility] Room/Bed: PROCEDURE: CT Pelvis without Contrast CLINICAL INDICATION: Right leg pain and limp, rule out right femoral neck fracture TECHNIQUE: Transaxial images were obtained through the pelvis on a multi- slice scanner without intravenous contrast. No oral contrast had previously been given. Sagittal and coronal re-formations were subsequently reconstructed. One or more of the following dose reduction techniques were used: - Automated exposure control. - Adjustment of the mA and/or kV according to patient size. - Use of iterative reconstruction technique. Radiation dose: CTDIvol = 18.40 mGy; DLP = 677.42 mGy-cm. COMPARISON: Comparison to the previous right femur study done earlier on the same date FINDINGS: Osseous structures: There is a linear defect within the lateral cortex at the neck of the proximal right femur as well as slight trabecular distorted on extending across the femoral neck compatible with a very subtle nondisplaced impaction fracture. No other fractures identified. Multiple lytic lesions are seen throughout the osseous elements compatible with multiple myeloma. The largest measures 2.9 cm in diameter seen within the anterior right femoral head. Other lesions are seen within the supra-acetabular iliac bones bilaterally , the sacrum, the L5 vertebral body, the left superior pubic ramus and both inferior pubic rami. Degenerative endplate changes are seen within the lumbar spine. Hip joints: Are anatomically maintained. No joint effusion is identified. Sacroiliac joints: Appear unremarkable with no significant sclerosis or erosion identified. Extraperitoneal soft tissues: Appear unremarkable. Bladder: The bladder appears unremarkable. Reproductive organs: Unremarkable. Visualized bowel: Appears unremarkable. Peritoneum: No free intraperitoneal fluid or air is identified. Vessels: Normal in caliber with no aneurysmal dilatation. Lymph nodes: No pathologically enlarged nodes are identified. IMPRESSION: 1. Very subtle nondisplaced impaction fracture involving the proximal right femoral neck. 2. Multiple lytic lesions are seen to the visualized osseous elements compatible with multiple myeloma. Osseous metastasis cannot have a similar appearance. Findings of nondisplaced fracture through the proximal neck of the right femur and lytic lesions seen throughout the pelvis compatible with multiple myeloma were telephoned by Jerry Chamberlain MD to RENETTA Chavez on 09/01/2017 at 1700 hours. Physician Gali Date Time Electronically viewed and signed by Physician Gali on 09/01/2017 17:08 RH/ CC: ROMERO GEE MD Procedures/[facility] 46y/o male patient with history of multiple myeloma and HIV, presents to the ED c/o right hip pain S/P fall for 4 days. Vital signs stable, Physical exam shows tenderness over the right hip. Differential diagnosis include but not limited to: Fracture, contusion, tendon/ligament injury, hematoma, less likely infectious process. Pertinent Data: CT pelvis IMPRESSION: 1. Very subtle nondisplaced impaction fracture involving the proximal right femoral neck. 2. Multiple lytic lesions are seen to the visualized osseous elements compatible with multiple myeloma. Osseous metastasis cannot have a similar appearance. Physical examination and clinical presentation consistent with right hip contusion with minor impaction fracture of the right femoral neck. During the ED course the patient received treatment with Toradol and [place] presenting overall improvement of the symptoms. Results and medical impression discussed with patient who agrees with management. The patient will be discharged home with a Rx for Toradol p.o. Side effects of prescribed narcotic medications (drowsiness, constipation, habituation) were reviewed. Side effects of prescribed NSAID medication (GI distress, edema, bleeding, HTN) were reviewed. If symptoms persist, worsen or new symptoms develop, then patient is instructed to follow-up with the primary care provider. If the patient is unable to see the primary care provider, then return to the ED immediately. Departure Diagnosis: Primary Impression: Fall with no significant injury Additional Impression: Contusion of hip, right Condition: Stable (ERASED) Additional Instructions: Muchas andre por [facility] para corona servicio. Esperamos que en corona visita a la marily de emergencia corona problema medico haya sido solucionado y que se sienta mucho mejor. Para estar seguros que corona mejoria sigue en proceso, le pedimos el favor de hacer osmany isaiah de seguimiento medico con corona doctor primario en los proximos 2-4 mays. Lleve con usted estos documentos y las medicinas recetadas. Si donis sintomas empeoran y no puede polly a corona doctor, por favor regrese a marily de emergencia. En lorna que usted no tenga un mdico de atencin primaria: Llame al mdico o clnica comunitaria de referencia que aparece abajo sandra las horas de consultorio para hacer osmany isaiah para que le vean. CLINICAS: [facility] [phone] [facility] [phone] [facility]. [facility], [place] [phone] [facility] [place] [phone] [facility]. [place] [phone] [place] [phone] ROMERO ROCHA MD Sep 01, 2017 13:43
--- NOTE | 2017-09-01 16:15 | ERD ---
ER Documentation Chief Complaint Chief Complaint RT LEG , LT SHOULDER PAIN S/P FALL X 4 DAYS AGO HPI 46y/o male patient with history of multiple myeloma and HIV, presents to the emergency department c/o right hip pain located laterally, that started 4 days ago after a ground-level fall. pain is dull, rated 7/10, radiated to right knee. The symptoms are associated with antalgic gait. Denies head trauma, loss of consciousness, no open wounds, no fever, chills, N/V/D. The patient is currently taking opioids for the management of his pain and refers adequate pain control ROS SYSTEMIC symptoms: no fever, chills, no night sweats, no weight loss EYE symptoms: No blurred vision, no eye discharge OTOLARYNGEAL symptoms: No hearing loss. No ear pain, no sore throat CARDIOVASCULAR symptoms: No chest pain or discomfort, no palpitations. PULMONARY symptoms: No dyspnea, no cough, no wheezing. GASTROINTESTINAL symptoms: No abdominal pain, no nausea, no vomiting, no diarrhea MUSCULOSKELETAL symptoms: + arthralgias, + muscle aches. NEUROLOGY symptoms: No confusion, no syncope, no numbness or tingling. SKIN no rashes All systems reviewed and are negative except as per history of present illness. Medications Home Meds Active Scripts Ketorolac Tromethamine* (Ketorolac Tromethamine*) 10 Mg Tablet, 10 MG PO TID for 10 Days, #30 TAB Prov:ROMERO GEE MD 09/01/17 Oxycodone HCl/Acetaminophen (Percocet 7.5-325 mg Tablet) 1 Each Tablet, 1 EACH PO Q6H, #30 TAB Prov:LETY RACHEL NP 07/18/17 Trimethoprim-Sulfamethoxazole* (Bactrim*) 400-80 Mg Tab, 1 TAB PO Sa@09, #1 TAB Prov:LETY RACHEL NP 07/18/17 Trimethoprim-Sulfamethoxazole* (Bactrim*) 400-80 Mg Tab, 1 TAB PO Corona@09, #1 TAB Prov:LETY RACHEL NP 07/18/17 Acyclovir* (Acyclovir*) 400 Mg Tablet, 400 MG PO BID, #8 TAB Prov:LETY RACHEL NP 07/18/17 Methocarbamol* (Methocarbamol*) 500 Mg Tablet, 500 MG PO QID, #60 TAB Prov:LETY RACHEL [employer] 07/18/17 Reported Medications Emtricitabine/Tenofov Alafenam (Descovy 200-25 mg Tablet) 1 Each Tablet, 1 EACH PO, TAB 07/14/17 Darunavir/Cobicistat (Prezcobix 800 mg-150 mg Tablet) 1 Each Tablet, PO, TAB 07/14/17 Mirtazapine* (Remeron*) 30 Mg Tablet, 30 MG PO HS, TAB 07/14/17 Ziprasidone* (Geodon*) 60 Mg Capsule, 60 MG PO QHS, CAP 07/14/17 Trazodone Hcl* (Trazodone Hcl*) 50 Mg Tablet, 50 MG PO QHS, #30 TAB 07/14/17 Allergies Allergies: Coded Allergies: No Known Drug Allergies (Verified Allergy, Unknown, 07/07/17) PMhx/Soc History of Surgery: No Anesthesia Reaction: No Hx Neurological Disorder: No Hx Respiratory Disorders: No Hx Cardiac Disorders: No Hx Psychiatric Problems: No Hx Miscellaneous Medical Probl: Yes Hx Alcohol Use: No Hx Substance Use: No Hx Tobacco Use: No Smoking Status: Never smoker Physical Exam Vitals Vital Signs Date Time Temp Pulse Resp B/P Pulse Ox O2 Delivery O2 Flow Rate FiO2 09/01/17 17:35 98.3 68 19 134/75 100 Room Air 09/01/17 11:41 98.5 90 18 135/84 97 Physical Exam Patient is in no acute distress, vital signs stable. Alert and fully oriented. EYES: PERRLA, EOMI, Sclera and conjunctiva appear normal. EARS: Canals clear, tympanic membranes WNL THROAT: Normal oropharynx. NECK: Supple, No lymphadenopathy. Full ROM without pain or tenderness. HEART: RRR, no rubs, murmurs, clicks or gallops. LUNGS: Clear to auscultation. ABDOMEN: Soft, non-tender without masses or hepatosplenomegaly. EXTREMITIES: Right hip tender to palpation, no ecchymosis no gross deformity, decreased range of motion due to pain Results 24 hrs Current Medications Medications (Trade) Dose Ordered Sig/Jeramie Route PRN Reason Start Time Stop Time Status Last Admin Dose Admin Ketorolac Tromethamine (Toradol) 30 mg ONCE STAT IV 09/01/17 13:41 09/01/17 13:44 DC Acetaminophen/ Hydrocodone Bitart (Kirklin (5/325)) 1 tab ONCE ONCE PO 09/01/17 16:30 09/01/17 16:31 DC 09/01/17 16:22 Patient: GLENN ROBERTSON : 1970 Age: 46 Sex: M MR #: [id number] DOS: 09/01/17 1543 Ordering MD: RMOERO GEE MD Location: [facility] Room/Bed: PROCEDURE: CT Pelvis without Contrast CLINICAL INDICATION: Right leg pain and limp, rule out right femoral neck fracture TECHNIQUE: Transaxial images were obtained through the pelvis on a multi- slice scanner without intravenous contrast. No oral contrast had previously been given. Sagittal and coronal re-formations were subsequently reconstructed. One or more of the following dose reduction techniques were used: - Automated exposure control. - Adjustment of the mA and/or kV according to patient size. - Use of iterative reconstruction technique. Radiation dose: CTDIvol = 18.40 mGy; DLP = 677.42 mGy-cm. COMPARISON: Comparison to the previous right femur study done earlier on the same date FINDINGS: Osseous structures: There is a linear defect within the lateral cortex at the neck of the proximal right femur as well as slight trabecular distorted on extending across the femoral neck compatible with a very subtle nondisplaced impaction fracture. No other fractures identified. Multiple lytic lesions are seen throughout the osseous elements compatible with multiple myeloma. The largest measures 2.9 cm in diameter seen within the anterior right femoral head. Other lesions are seen within the supra-acetabular iliac bones bilaterally , the sacrum, the L5 vertebral body, the left superior pubic ramus and both inferior pubic rami. Degenerative endplate changes are seen within the lumbar spine. Hip joints: Are anatomically maintained. No joint effusion is identified. Sacroiliac joints: Appear unremarkable with no significant sclerosis or erosion identified. Extraperitoneal soft tissues: Appear unremarkable. Bladder: The bladder appears unremarkable. Reproductive organs: Unremarkable. Visualized bowel: Appears unremarkable. Peritoneum: No free intraperitoneal fluid or air is identified. Vessels: Normal in caliber with no aneurysmal dilatation. Lymph nodes: No pathologically enlarged nodes are identified. IMPRESSION: 1. Very subtle nondisplaced impaction fracture involving the proximal right femoral neck. 2. Multiple lytic lesions are seen to the visualized osseous elements compatible with multiple myeloma. Osseous metastasis cannot have a similar appearance. Findings of nondisplaced fracture through the proximal neck of the right femur and lytic lesions seen throughout the pelvis compatible with multiple myeloma were telephoned by Jerry Chamberlain MD to RENETTA Chavez on 09/01/2017 at 1700 hours. Physician Gali Date Time Electronically viewed and signed by Physician Gali on 09/01/2017 17:08 RH/ CC: ROMERO GEE MD Procedures/[facility] 46y/o male patient with history of multiple myeloma and HIV, presents to the ED c/o right hip pain S/P fall for 4 days. Vital signs stable, Physical exam shows tenderness over the right hip. Differential diagnosis include but not limited to: Fracture, contusion, tendon/ligament injury, hematoma, less likely infectious process. Pertinent Data: CT pelvis IMPRESSION: 1. Very subtle nondisplaced impaction fracture involving the proximal right femoral neck. 2. Multiple lytic lesions are seen to the visualized osseous elements compatible with multiple myeloma. Osseous metastasis cannot have a similar appearance. Physical examination and clinical presentation consistent with right hip contusion with minor impaction fracture of the right femoral neck. During the ED course the patient received treatment with Toradol and Kirklin presenting overall improvement of the symptoms. Results and medical impression discussed with patient who agrees with management. The patient will be discharged home with a Rx for Toradol p.o. Side effects of prescribed narcotic medications (drowsiness, constipation, habituation) were reviewed. Side effects of prescribed NSAID medication (GI distress, edema, bleeding, HTN) were reviewed. If symptoms persist, worsen or new symptoms develop, then patient is instructed to follow-up with the primary care provider. If the patient is unable to see the primary care provider, then return to the ED immediately. Departure Diagnosis: Primary Impression: Fall with no significant injury Additional Impression: Contusion of hip, right Condition: Stable (ERASED) Additional Instructions: Muchas andre por [facility] para corona servicio. Esperamos que en corona visita a la marily de emergencia corona problema medico haya sido solucionado y que se sienta mucho mejor. Para estar seguros que corona mejoria sigue en proceso, le pedimos el favor de hacer osmany isaiah de seguimiento medico con corona doctor primario en los proximos 2-4 mays. Lleve con usted estos documentos y las medicinas recetadas. Si donis sintomas empeoran y no puede polly a corona doctor, por favor regrese a marily de emergencia. En lorna que usted no tenga un mdico de atencin primaria: Llame al mdico o clnica comunitaria de referencia que aparece abajo sandra las horas de consultorio para hacer osmany isaiah para que le vean. CLINICAS: [facility] [phone] [facility] [phone] [facility] [facility] [place] [phone] [facility]. [place] [id number] [phone] [facility] [place] [id number] [phone] [place] [id number] [phone] ROMERO ROCHA MD Sep 01, 2017 13:43
[2017-09-01] MEDS ORDERED: HYDROCODONE/APAP (5/325) TAB PO ONE (16:30)
--- NOTE | 2017-09-01 17:08 | RADRPT ---
PROCEDURE: CT Pelvis without Contrast CLINICAL INDICATION: Right leg pain and limp, rule out right femoral neck fracture TECHNIQUE: Transaxial images were obtained through the pelvis on a multi-slice scanner without int ravenous contrast. No oral contrast had previously been given. Sagittal and coronal re-formations w ere subsequently reconstructed. One or more of the following dose reduction techniques were used: - Automated exposure control. - Adjustment of the mA and/or kV according to patient size. - Use of iterative reconstruction technique. Radiation dose: CTDIvol = 18.40 mGy; DLP = 677.42 mGy-cm. COMPARISON: Comparison to the previous right femur study done earlier on the same date FINDINGS: Osseous structures: There is a linear defect within the lateral cortex at the neck of the proximal r ight femur as well as slight trabecular distorted on extending across the femoral neck compatible wi th a very subtle nondisplaced impaction fracture. No other fractures identified. Multiple lytic lesi ons are seen throughout the osseous elements compatible with multiple myeloma. The largest measures 2.9 cm in diameter seen within the anterior right femoral head. Other lesions are seen within the garrett pra-acetabular iliac bones bilaterally, the sacrum, the L5 vertebral body, the left superior pubic r amus and both inferior pubic rami. Degenerative endplate changes are seen within the lumbar spine. Hip joints: Are anatomically maintained. No joint effusion is identified. Sacroiliac joints: Appear unremarkable with no significant sclerosis or erosion identified. Extraperitoneal soft tissues: Appear unremarkable. Bladder: The bladder appears unremarkable. Reproductive organs: Unremarkable. Visualized bowel: Appears unremarkable. Peritoneum: No free intraperitoneal fluid or air is identified. Vessels: Normal in caliber with no aneurysmal dilatation. Lymph nodes: No pathologically enlarged nodes are identified. IMPRESSION: 1. Very subtle nondisplaced impaction fracture involving the proximal right femoral neck. 2. Multiple lytic lesions are seen to the visualized osseous elements compatible with multiple myel flor. Osseous metastasis cannot have a similar appearance. Findings of nondisplaced fracture through the proximal neck of the right femur and lytic lesions see n throughout the pelvis compatible with multiple myeloma were telephoned by Jerry Chamberlain MD to RENETTA Chavez on 09/01/2017 at 1700 hours. Makenzie Chamberlain Physician Date Time Electronically viewed and signed by Makenzie Chamberlain Physician on 09/01/2017 17:08 /
[2017-09-01] MEDS ORDERED: KETO10TA PO (17:27)
[2017-09-01 17:35] VITALS: BP 134/75; PULSE 68; RESP 19; TEMP 98.3
== END 2017-09-01 17:37 | disposition home or self-care (01) ==
LOC: FTE 11:37
DX: S70.01XA Contusion of right hip, initial encounter (principal); W18.39XA Other fall on same level, initial encounter; Y92.9 Unspecified place or not applicable
CPT/HCPCS: 72192; 73550; J1885; Z7502; Z7610

== ENCOUNTER 2017-09-07 12:41 | Inpatient (IN) | payer OTHER ==
[~2017-09-07] VITALS: Ht 170.2 cm; Wt 72.7 kg
[~2017-09-07 12:41] MED LIST changes: +KETO10TA PO
[2017-09-07] MEDS ORDERED: SOD CHLORIDE 0.9% 1,000 ML IV STA (14:40)
[2017-09-07] MEDS ORDERED: morphine 4 MG/ML VIAL IV STA (14:40)
[2017-09-07] MEDS ORDERED: ONDANSETRON 4 MG INJ IV STA (14:40)
[2017-09-07 15:15] LABS: ABNORMAL IP MESSAGE 1; HEMATOCRIT 33.9 % (42.0-52.0); HEMOGLOBIN 11.6 g/dl (14.0-18.0); MEAN CORPUSCULAR HGB CONC 34.2 g/dl (32.0-37.0); MEAN CORPUSCULAR VOLUME 87.6 fl (82.0-101.0); NUCLEATED RED BLOOD CELLS% 0.5 /100WBC (0.0-0.0); PLATELET COUNT 140 10^3/UL (140-415); POSITIVE DIFF @See below; RED BLOOD COUNT 3.87 10^6/ul (4.70-6.10); RED CELL DISTRIBUTION WIDTH 14.1 % (11.5-14.5); WHITE BLOOD COUNT 5.7 10^3/ul (4.8-10.8)
[2017-09-07 15:26] LABS: ADD UMIC YES; UR ASCORBIC ACID NEGATIVE (NEGATIVE); UR BACTERIA FEW /HPF (NONE SEEN); UR BILIRUBIN (Dip) NEGATIVE (NEGATIVE); UR BLOOD (Dip) NEGATIVE (NEGATIVE); UR CLARITY CLEAR (CLEAR); UR COLOR YELLOW (YELLOW); UR GLUCOSE (Dip) NEGATIVE (NEGATIVE); UR KETONES (Dip) NEGATIVE (NEGATIVE); UR LEUKOCYTE ESTERASE (Dip) 1+ Leu/ul (NEGATIVE); UR MUCUS MODERATE /HPF (NONE SEEN); UR NITRITE (Dip) NEGATIVE (NEGATIVE); UR RBC 1 /HPF (0-5); UR SPECIFIC GRAVITY (Dip) 1.018 (1.003-1.030); UR TOTAL PROTEIN (Dip) 1+ mg/dl (NEGATIVE); UR UROBILINOGEN (Dip) NEGATIVE (NEGATIVE)
[2017-09-07 16:36] LABS: ALBUMIN 2.7 g/dl (3.3-4.9); ALBUMIN/GLOBULIN RATIO 0.72; BILIRUBIN,INDIRECT 0.1 mg/dl (0-1.1); BILIRUBIN,TOTAL 0.1 mg/dl (0.2-1.3); POTASSIUM 3.2 mmol/L (3.5-5.1); TOTAL PROTEIN 6.4 g/dl (6.1-8.1)
[2017-09-07 16:39] LABS: CALCIUM 5.6 mg/dl (8.4-10.2)
[2017-09-07] MEDS ORDERED: IODIXANOL LOCM 100 ML BTL ONE (16:48)
[2017-09-07] MEDS ORDERED: SOD CHLORIDE 0.9% 100 ML ONE (16:48)
--- NOTE | 2017-09-07 17:14 | RADRPT ---
PROCEDURE: CT of the abdomen and pelvis CLINICAL INDICATION: Abdominal pain TECHNIQUE: The study was performed utilizing a GE [employer] 64-slice multidetector CT scanner. Dir ect spiral axial sections were obtained through the abdomen and pelvis with intravenous contrast. Af ter administration of 100cc of Visipaque 320, postcontrast images were obtained. Coronal and sagitt al reformatted images were performed. The CTDI vol is 8.75 mGy and the DLP is 506.48 mGy-cm. The im ages were reviewed on a PACS workstation. One or more of the following dose reduction techniques were used: Automated exposure control. Adjustment of the mA and/or kV according to patient size. Use of iterative reconstruction technique. COMPARISON: 07/07/2017 FINDINGS: CT abdomen: The lung bases are clear. The heart is not enlarged. No pericardial effusion is seen. The liver is normal in size and contour. No focal liver lesions or intrahepatic biliary dilatation is seen. The gallbladder is normal. No common bile duct dilatation is seen. The spleen, pancreas, a nd adrenal glands are unremarkable in appearance. The kidneys are normal in size and contour enhance normally. No evidence of hydronephrosis or nephrolithiasis is seen. The stomach is unremarkable. Sigmoid diverticulosis is seen without evidence of diverticulitis. The small and large bowel are otherwise unremarkable in course and caliber. A normal appendix is ident ified. No enlarged lymph nodes or fluid collections are seen. The aorta is normal in caliber. CT pelvis: No pelvic mass, adenopathy, or focal fluid collection is seen. There is no free fluid. The urinary bladder is normal. The pelvic organs are unremarkable. Innumerable lytic lesions are se en throughout the osseous structures once again which has not changed significantly in size and numb er. A compression fracture of the L1 vertebral body is seen which is mild in extent and is new lino red to the prior examination and is without evidence of retropulsion. IMPRESSION: 1. No acute pathology in the abdomen and pelvis. 2. Sigmoid diverticulosis without evidence of diverticulitis. 3. Innumerable lytic lesions throughout the osseous structures worrisome for osseous metastatic dis ease which is once again seen and has not changed significantly. Another possibility includes multip le myeloma. 4. Mild L1 compression fracture which is new compared to the prior examination. RPTAT: HPNM Alphonso Seth, Physician Date Time Electronically viewed and signed by Alphonso Seth, Physician on 09/07/2017 17:14 /
--- NOTE | 2017-09-07 17:29 | RADRPT ---
PROCEDURE: CT of the right femur without contrast CLINICAL INDICATION: Concern for a pathologic fracture. TECHNIQUE: CT scan of the right femur was performed . No IV contrast was administered. Coronal a nd sagittal reformatted images were obtained from the axial source images. Images were reviewed on a high-resolution PACS workstation. The calculated radiation dose measures 1016.51 mGy centimeters. The CTDI measures 18.46 mGy. One or more of the following dose reduction techniques were used: - Automated exposure control. - Adjustment of the mA and/or kV according to patient size . - Use of iterative reconstruction technique. COMPARISON: CT 09/07/2017; DR EXTREMITY 09/01/2017 FINDINGS: Osseous structures: There are innumerable lytic lesions seen throughout the visualized portions of the right bacilio pelvis and right proximal femur. There is a large, lytic destructive lesion at the medial aspect of the fe moral head neck junction and there is a nondisplaced fracture at the lateral aspect of the femoral n seven seen on the coronal series image 103 extending to the lytic lesion representing a pathologic fra cture. No additional pathologic fractures are identified. The right hip joint is otherwise maintaine d. The femorotibial and patellofemoral compartments are grossly preserved. Soft tissues: Muscle bulk about the right hip and thigh are within normal limits. There is a fat containing right inguinal hernia. There is residual contrast from the previous CT of the abdomen and pelvis. IMPRESSION: 1. Nondisplaced, pathologic fracture of the right femoral neck. 2. Innumerable lytic lesions seen throughout the visualized portions of the right bacilio pelvis and p roximal femur noting a large destructive lytic lesion at the femoral head neck junction, as above. T his compatible with metastatic disease versus multiple myeloma. RPTAT: PP .Nick Chavez MD, MD Date Time Electronically viewed and signed by .Nick Chavez MD, MD on 09/07/2017 17:28 .d/
[2017-09-07 17:51] LABS: EOSINOPHILS % (M) 1 % (0-7); MONOCYTES % (M) 4 % (0-11); MYELOCYTES % (M) 2 % (0-0)
[2017-09-07] MEDS ORDERED: CALCIUM GLUCONATE 10% 1 GM in SOD CHLORIDE 0.9% 100 ML IVPB ONE (18:30)
--- NOTE | 2017-09-07 19:28 | ERD ---
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 No nausea or vomiting. Denies ill contacts, recent travel or spoiled food exposure. Patient is also had ongoing, chronic, right leg pain of uncertain etiology. Chest pain, palpitations or shortness of breath. No dysuria, polyuria hematuria. No relieving or exacerbating factors. Fevers or chills. ROS All systems reviewed and are negative except as per history of present illness. Medications Home Meds Active Scripts Ketorolac Tromethamine* (Ketorolac Tromethamine*) 10 Mg Tablet, 10 MG PO TID for 10 Days, #30 TAB Prov:ROMERO GEE MD 09/01/17 Oxycodone HCl/Acetaminophen (Percocet 7.5-325 mg Tablet) 1 Each Tablet, 1 EACH PO Q6H, #30 TAB Prov:LETY RACHEL NP 07/18/17 Acyclovir* (Acyclovir*) 400 Mg Tablet, 400 MG PO BID, #8 TAB Prov:LETY RACHEL V. LOG WASHER 07/18/17 Methocarbamol* (Methocarbamol*) 500 Mg Tablet, 500 MG PO QID, #60 TAB Prov:LETY RACHEL NP 07/18/17 Reported Medications Emtricitabine/Tenofov Alafenam (Descovy 200-25 mg Tablet) 1 Each Tablet, 1 EACH PO, TAB 07/14/17 Darunavir/Cobicistat (Prezcobix 800 mg-150 mg Tablet) 1 Each Tablet, PO, TAB 07/14/17 Mirtazapine* (Remeron*) 30 Mg Tablet, 30 MG PO HS, TAB 07/14/17 Ziprasidone* (Geodon*) 60 Mg Capsule, 60 MG PO QHS, CAP 07/14/17 Trazodone Hcl* (Trazodone Hcl*) 50 Mg Tablet, 50 MG PO QHS, #30 TAB 07/14/17 Discontinued Scripts Trimethoprim-Sulfamethoxazole* (Bactrim*) 400-80 Mg Tab, 1 TAB PO Sa@09, #1 TAB Prov:RACHEL,LETY V. LOG WASHER 07/18/17 Trimethoprim-Sulfamethoxazole* (Bactrim*) 400-80 Mg Tab, 1 TAB PO [place]@09, #1 TAB Prov:RACHELKJLETY V. LOG WASHER 07/18/17 Allergies Allergies: Coded Allergies: No Known Drug Allergies (Verified Allergy, Unknown, 07/07/17) PMhx/Soc History of Surgery: No Anesthesia Reaction: No Hx Neurological Disorder: No Hx Respiratory Disorders: No Hx Cardiac Disorders: Yes (HTN) Hx Psychiatric Problems: No Hx Miscellaneous Medical Probl: Yes (DM ) Hx Alcohol Use: No Hx Substance Use: No Hx Tobacco Use: No Smoking Status: Never smoker FmHx No relevant to presenting complaint Physical Exam Vitals Vital Signs Date Time Temp Pulse Resp B/P Pulse Ox O2 Delivery O2 Flow Rate FiO2 09/07/17 17:51 98.2 72 18 125/78 100 Room Air 09/07/17 16:05 72 18 112/59 100 Room Air 09/07/17 14:07 69 18 104/65 100 Room Air 09/07/17 12:43 97.6 82 18 83/52 98 Physical Exam Const: Alert, moderate distress due to pain Head: Atraumatic Eyes: Normal Conjunctiva ENT: Normal External Ears, Nose and Mouth. Neck: Full range of motion..~ No meningismus. Resp: Clear to auscultation bilaterally Cardio: Regular rate and rhythm, no murmurs Abd: Soft, mild diffuse tenderness, non distended. No rebound or guarding. Normal bowel sounds Skin: No petechiae or rashes Back: Diffuse lumbar midline tenderness Ext: No cyanosis, or edema. Right hip tenderness. Distall NV intact Neur: Awake and alert Psych: Normal Mood and Affect Result Diagram: 09/08/1754109/08/17541 Results 24 hrs Laboratory Tests Test 09/07/17 14:53 09/07/17 15:50 White Blood Count 5.710^3/ul Red Blood Count 3.8710^6/ul Hemoglobin 11.6g/dl Hematocrit 33.9% Mean Corpuscular Volume 87.6fl Mean Corpuscular Hemoglobin 30.0pg Mean Corpuscular Hemoglobin Concent 34.2g/dl Red Cell Distribution Width 14.1% Platelet Count 03629^3/UL Mean Platelet Volume 13.0fl Neutrophils % % Segmented Neutrophils % (Manual) 62% Band Neutrophils % (Manual) 19% Lymphocytes % (Manual) 13% Monocytes % (Manual) 4% Eosinophils % % Eosinophils % (Manual) 1% Myelocytes % (Manual) 2% Nucleated Red Blood Cells % 0.5/100WBC Neutrophils # 10^3/ul Neutrophils # (Manual) 3.610^3/ul Band Neutrophils # 1.010^3/ul Absolute Lymphocytes (Manual) 0.710^3/ul Absolute Monocytes (Manual) 0.210^3/ul Eosinophils # 10^3/ul Myelocytes # 0.110^3/ul Platelet Morphology Comment @See below Urine Color YELLOW Urine Clarity CLEAR Urine pH 5.0 Urine Specific [place] 1.018 Urine Ketones NEGATIVEmg/dL Urine Nitrite NEGATIVEmg/dL Urine Bilirubin NEGATIVEmg/dL Urine Urobilinogen NEGATIVEmg/dL Urine Leukocyte Esterase 1+Marlene/ul Urine Microscopic RBC 1/HPF Urine Microscopic WBC 8/HPF Urine Bacteria FEW/HPF Urine Mucus MODERATE/HPF Urine Hemoglobin NEGATIVEmg/dL Urine Glucose NEGATIVEmg/dL Urine Total Protein 1+mg/dl Prothrombin Time 14.9Sec Prothrombin Time Ratio 1.2 INR International Normalized Ratio 1.16 Activated Partial Thromboplast Time 25.0Sec Sodium Level 138mmol/L Potassium Level 3.2mmol/L Chloride Level 106mmol/L Carbon Dioxide Level 26mmol/L Anion Gap 9 Blood Urea Nitrogen 24mg/dl Creatinine 1.00mg/dl Glucose Level 88mg/dl Calcium Level 5.6mg/dl Total Bilirubin 0.1mg/dl Direct Bilirubin 0.00mg/dl Indirect Bilirubin 0.1mg/dl Aspartate Amino Transf (AST/SGOT) 72IU/L Alanine Aminotransferase (ALT/SGPT) 98IU/L Alkaline Phosphatase 96IU/L Total Protein 6.4g/dl Albumin 2.7g/dl Globulin 3.70g/dl Albumin/Globulin Ratio 0.72 Lipase 70U/L Free Thyroxine 1.08ng/dl Current Medications Medications (Trade) Dose Ordered Sig/[place] Route PRN Reason Start Time Stop Time Status Last Admin Dose Admin Sodium Chloride (NS) 1,000 ml @ 1,000 mls/hr Q1H STAT IV 09/07/17 14:40 09/07/17 15:39 DC 09/07/17 15:04 Morphine Sulfate (morphine) 4 mg ONCE STAT IV 09/07/17 14:40 09/07/17 14:42 DC 09/07/17 15:04 Ondansetron HCl (Zofran Inj) 4 mg ONCE STAT IV 09/07/17 14:40 09/07/17 14:42 DC 09/07/17 15:04 IV Flush 10 ml 10 ml STK-MED ONCE .ROUTE 09/07/17 16:48 09/07/17 16:49 DC 09/07/17 17:02 Sodium Chloride (NS) 100 ml @ ud STK-MED ONCE .ROUTE 09/07/17 16:48 09/07/17 16:49 DC 09/07/17 17:02 Iodixanol 100 ml 100 ml STK-MED ONCE .ROUTE 09/07/17 16:48 09/07/17 16:49 DC 09/07/17 17:02 Calcium Gluconate/ Sodium Chloride (Ca Gluc/NS) 110 ml @ 110 mls/hr ONCE ONCE IVPB 09/07/17 18:30 09/07/17 19:29 DC 09/07/17 18:42 IV Flush (NS 3 ml) 3 ml PER PROTOCOL IV 09/07/17 19:30 Ondansetron HCl (Zofran Inj) 4 mg Q6H PRN IV NAUSEA AND/OR VOMITING 09/07/17 19:30 Acetaminophen (Tylenol Tab) 650 mg Q6H PRN PO PAIN LEVEL 1-3 OR FEVER 09/07/17 19:30 Acetaminophen/ Hydrocodone Bitart ([place] (5/325)) 1 tab Q6H PRN PO MODERATE PAIN LEVEL 4-6 09/07/17 19:30 09/07/17 20:18 Morphine Sulfate (morphine) 2 mg Q4H PRN IV SEVERE PAIN LEVEL 7-10 09/07/17 19:30 Hydromorphone HCl (Dilaudid) 0.5 mg Q4H PRN IV SEVERE PAIN LEVEL 7-10 09/07/17 19:30 Docusate Sodium (Colace) 100 mg Q12H PRN PO CONSTIPATION 09/07/17 19:30 Magnesium Hydroxide (Milk Of Mag) 30 ml DAILY PRN PO CONSTIPATION 09/07/17 19:30 Sodium Biphosphate/ Sodium Phosphate 133 ml 133 ml DAILY PRN [place] CONSTIPATION 09/07/17 19:30 Sodium Chloride (1/2 NS) 1,000 ml @ 75 mls/hr [id number] IV 09/07/17 19:29 09/07/17 23:34 DC 09/07/17 22:20 Lorazepam (Ativan) 0.5 mg Q6H PRN IV ANXIETY 09/07/17 19:30 Albuterol/ Ipratropium (Duoneb) 3 ml Q4H RESP THERAPY PRN HHN SHORTNESS OF BREATH 09/07/17 19:30 Hydralazine HCl (Apresoline) 10 mg Q6H PRN IV ELEVATED BLOOD PRESSURE 09/07/17 19:30 Nitroglycerin (Nitroglycerin (Sl Tab) 0.4 Mg) 1 tab Q5M PRN SL ANGINA 09/07/17 19:30 EKG: Time: 18: 16. Sinus rhythm. Ventricular rate 68. LVH. QT prolongation of [address] segment elevation or depression. No ectopy. EP interpretation: Abnormal ECG. PROCEDURE: CT of the abdomen and pelvis CLINICAL INDICATION: Abdominal pain TECHNIQUE: The study was performed utilizing a [employer] 64-slice multidetector CT scanner. Direct spiral axial sections were obtained through the abdomen and pelvis with intravenous contrast. After administration of 100cc of Visipaque 320, postcontrast images were obtained. Coronal and sagittal reformatted images were performed. The CTDI vol is 8.75 mGy and the DLP is 506.48 mGy-cm. The images were reviewed on a PACS workstation. One or more of the following dose reduction techniques were used: Automated exposure control. Adjustment of the mA and/or kV according to patient size. Use of iterative reconstruction technique. COMPARISON: 07/07/2017 FINDINGS: CT abdomen: The lung bases are clear. The heart is not enlarged. No pericardial effusion is seen. The liver is normal in size and contour. No focal liver lesions or intrahepatic biliary dilatation is seen. The gallbladder is normal. No common bile duct dilatation is seen. The spleen, pancreas, and adrenal glands are unremarkable in appearance. The kidneys are normal in size and contour enhance normally. No evidence of hydronephrosis or nephrolithiasis is seen. The stomach is unremarkable. Sigmoid diverticulosis is seen without evidence of diverticulitis. The small and large bowel are otherwise unremarkable in course and caliber. A normal appendix is identified. No enlarged lymph nodes or fluid collections are seen. The aorta is normal in caliber. CT pelvis: No pelvic mass, adenopathy, or focal fluid collection is seen. There is no free fluid. The urinary bladder is normal. The pelvic organs are unremarkable. Innumerable lytic lesions are seen throughout the osseous structures once again which has not changed significantly in size and number. A compression fracture of the L1 vertebral body is seen which is mild in extent and is new compared to the prior examination and is without evidence of retropulsion. IMPRESSION: 1. No acute pathology in the abdomen and pelvis. 2. Sigmoid diverticulosis without evidence of diverticulitis. 3. Innumerable lytic lesions throughout the osseous structures worrisome for osseous metastatic disease which is once again seen and has not changed significantly. Another possibility includes multiple myeloma. 4. Mild L1 compression fracture which is new compared to the prior examination. RPTAT: HPNM Physician Ruben Date Time Electronically viewed and signed by Physician Ruben on 09/07/2017 17 :14 / CC: HAILEY TOMAS MD PROCEDURE: CT of the right femur without contrast CLINICAL INDICATION: Concern for a pathologic fracture. TECHNIQUE: CT scan of the right femur was performed . No IV contrast was administered. Coronal and sagittal reformatted images were obtained from the axial source images. Images were reviewed on a high-resolution PACS workstation. The calculated radiation dose measures 1016.51 mGy centimeters. The CTDI measures 18.46 mGy. One or more of the following dose reduction techniques were used: - Automated exposure control. - Adjustment of the mA and/or kV according to patient size . - Use of iterative reconstruction technique. COMPARISON: CT 09/07/2017; DR EXTREMITY 09/01/2017 FINDINGS: Osseous structures: There are innumerable lytic lesions seen throughout the visualized portions of the right bacilio pelvis and right proximal femur. There is a large, lytic destructive lesion at the medial aspect of the femoral head neck junction and there is a nondisplaced fracture at the lateral aspect of the femoral neck seen on the coronal series image 103 extending to the lytic lesion representing a pathologic fracture. No additional pathologic fractures are identified. The right hip joint is otherwise maintained. The femorotibial and patellofemoral compartments are grossly preserved. Soft tissues: Muscle bulk about the right hip and thigh are within normal limits. There is a fat containing right inguinal hernia. There is residual contrast from the previous CT of the abdomen and pelvis. IMPRESSION: 1. Nondisplaced, pathologic fracture of the right femoral neck. 2. Innumerable lytic lesions seen throughout the visualized portions of the right bacilio pelvis and proximal femur noting a large destructive lytic lesion at the femoral head neck junction, as above. This compatible with metastatic disease versus multiple myeloma. RPTAT: PP .Nick Chavez MD, MD Date Time Electronically viewed and signed by .Nick Chavez MD, MD on 09/07/2017 17:28 .d/ Procedures/MDM DOCUMENTS REVIEWED: ED nurse, prior records MEDICAL DECISION MAKIN-year-old male with a history of HIV on HAART, most recent CD4 count was 504, monoclonal gammopathy with stage III multiple myeloma , multiple bony metastases, hypertension, anemia and hypercalcemia presents to the ED complaining of a one-day history of worsening, generalized abdominal pain notable episodes of watery, nonbloody, nonmucoid diarrhea. Pain resolved with intravenous hydration and analgesics. CT scan of the right lower extremity reveals a nondisplaced right femoral neck fracture. Hypocalcemia with hypoalbuminemia with corrected calcium is 6.2 and not supplemented with 1 g of calcium gluconate IV. Patient be admitted to [facility] for further evaluation and management. Counseled patient regarding diagnosis, diagnostic results and plan for admission. CALLS/CONSULTS: Dr. Stephen, Recommends admission and will arrange for orthopedic consultation.. CALLS/CONSULTS: Time 19:20, Dr. Cueva, Recommends surgery admission. PATIENT CARE TRANSITIONED: Time: 19:28, Dr. Valadez. Departure Diagnosis: Primary Impression: Fracture of femoral neck, right, closed Encounter type: initial encounter Qualified Code: S72.001A - Closed fracture of neck of right femur, initial encounter Additional Impressions: Hypocalcemia Multiple myeloma Multiple myeloma remission status: unspecified Qualified Code: C90.00 - Multiple myeloma, remission status unspecified HIV (human immunodeficiency virus infection) Abdominal pain Abdominal location: unspecified location Qualified Code: R10.9 - Abdominal pain, unspecified abdominal location Diarrhea Diarrhea type: unspecified type Qualified Code: R19.7 - Diarrhea, unspecified type Closed compression fracture of L1 lumbar vertebra Encounter type: initial encounter Qualified Code: S32.010A - Closed compression fracture of first lumbar vertebra, initial encounter Condition: Serious HAILEY TOMAS MD Sep 07, 2017 19:28 17:28 .d/ Procedures/MDM DOCUMENTS REVIEWED: ED nurse[, EMS, [facility] care, Prior ED, Prior records, Dialysis, Clinic notes, Physician referral] PROCEDURES: [] ED COURSE: [] REEXAMINATION/REEVALUATION: Time:[] MEDICAL DECISION MAKIN-year-old male with a history of HIV on HAART, most recent CD4 count was 504, monoclonal gammopathy with stage III multiple myeloma , multiple bony metastases, hypertension, anemia and hypercalcemia presents to the ED complaining of a one-day history of worsening, generalized abdominal pain notable episodes of watery, nonbloody, nonmucoid diarrhea. Pain resolved with intravenous hydration and analgesics. CT scan of the right lower extremity reveals a nondisplaced right femoral neck fracture. Hypocalcemia with hypoalbuminemia with corrected calcium is 6.2 and not supplemented with 1 g of calcium gluconate IV. Patient be admitted to [facility] for further evaluation and management. Counseled patient regarding diagnosis, diagnostic results and plan for admission. CALLS/CONSULTS: Dr. Stephen, Recommends admission and will arrange for orthopedic consultation.. CALLS/CONSULTS: Time 19:20, Dr. Cueva, Recommends surgery admission. PATIENT CARE TRANSITIONED: Time: 19:28, Dr. Cueva. Departure Diagnosis: Primary Impression: Fracture of femoral neck, right, closed Encounter type: initial encounter Qualified Code: S72.001A - Closed fracture of neck of right femur, initial encounter Additional Impressions: Hypocalcemia Multiple myeloma Multiple myeloma remission status: unspecified Qualified Code: C90.00 - Multiple myeloma, remission status unspecified HIV (human immunodeficiency virus infection) Abdominal pain Abdominal location: unspecified location Qualified Code: R10.9 - Abdominal pain, unspecified abdominal location Diarrhea Diarrhea type: unspecified type Qualified Code: R19.7 - Diarrhea, unspecified type Closed compression fracture of L1 lumbar vertebra Encounter type: initial encounter Qualified Code: S32.010A - Closed compression fracture of first lumbar vertebra, initial encounter HAILEY TOMAS MD Sep 07, 2017 19:28
[2017-09-07] MEDS ORDERED: SOD CHLORIDE 0.45% 1,000 ML IV SCH (19:29)
[2017-09-07] MEDS ORDERED: MAGNESIUM HYDROXIDE 30ML CUP PO PRN (19:30)
[2017-09-07] MEDS ORDERED: ACETAMINOPHEN 325 MG TAB PO PRN ×2 (19:30→20:00)
[2017-09-07] MEDS ORDERED: NITROGLYCERIN (SL) 0.4 MG TAB SL PRN (19:30)
[2017-09-07] MEDS ORDERED: DOCUSATE SODIUM 100 MG CAP PO PRN (19:30)
[2017-09-07] MEDS ORDERED: hydrALAzine 20 MG INJ IV PRN (19:30)
[2017-09-07] MEDS ORDERED: NA PHOSPHATE/BIPHOS 133 ML ENEMA PR PRN (19:30)
[2017-09-07] MEDS ORDERED: LORAZEPAM 2 MG INJ IV PRN (19:30)
[2017-09-07] MEDS ORDERED: NACL 0.9% 3 ML SYG IV SCH (19:30)
[2017-09-07] MEDS ORDERED: HYDROmorphONE 0.5 MG/0.5 ML SYG IV PRN (19:30)
[2017-09-07] MEDS ORDERED: ONDANSETRON 4 MG INJ IV PRN ×2 (19:30→20:00)
[2017-09-07 19:52] LABS: INR 1.16; PROTIME 14.9 Sec (12.2-14.2); PT RATIO 1.2
[2017-09-07 20:18] VITALS: TEMP 98.2
[2017-09-07] MEDS: HYDROCODONE/APAP (5/325) TAB PO PRN (20:18)
[2017-09-07] MEDS: traZODone 50 MG TAB PO SCH (22:30)
[2017-09-07] MEDS: MIRTAZAPINE 15 MG TAB PO SCH (22:30)
[2017-09-07] MEDS: HEPARIN 5,000 UNIT/0.5 ML VIAL SC SCH (22:32)
[2017-09-07 22:53] VITALS: Ht 170.2 cm; Wt 72.7 kg
[2017-09-08] MEDS: METHOCARBAMOL 500 MG TAB PO SCH ×5 (00:27→21:10)
[2017-09-08] MEDS: ACYCLOVIR 400 MG TAB PO SCH ×3 (00:28→21:10)
[2017-09-08] MEDS: D5W-0.45 NACL + KCL 10 MEQ 1,000 ML IV SCH ×4 (00:29→21:08)
[2017-09-08] MEDS: ZIPRASIDONE 20 MG CAP PO SCH ×2 (00:33→21:10)
[2017-09-08 03:08] VITALS: BP 113/67; RESP 18
[2017-09-08 06:06] LABS: ABNORMAL IP MESSAGE 1; HEMATOCRIT 33.7 % (42.0-52.0); HEMOGLOBIN 11.5 g/dl (14.0-18.0); MEAN CORPUSCULAR HEMOGLOBIN 29.9 pg (29.0-33.0); MEAN CORPUSCULAR HGB CONC 34.1 g/dl (32.0-37.0); MEAN CORPUSCULAR VOLUME 87.5 fl (82.0-101.0); MEAN PLATELET VOLUME 12.9 fl (7.4-10.4); PLATELET COUNT 120 10^3/UL (140-415); POSITIVE DIFF @See below; RED BLOOD COUNT 3.85 10^6/ul (4.70-6.10); WHITE BLOOD COUNT 3.3 10^3/ul (4.8-10.8)
[2017-09-08 06:37] LABS: CHOL/HDL RATIO 2.6 RATIO
[2017-09-08 06:56] LABS: CALCIUM 6.1 mg/dl (8.4-10.2); CREATININE 0.83 mg/dl (0.61-1.24); MAGNESIUM 2.8 mg/dl (1.7-2.5); PHOSPHORUS 2.2 mg/dl (2.5-4.9); POTASSIUM 3.4 mmol/L (3.5-5.1)
--- NOTE | 2017-09-08 07:05 | HP ---
Date/Time of Note Date/Time of Note DATE: 09/08/17 TIME: 06:57 Assessment/Plan VTE Prophylaxis VTE Prophylaxis Intervention: SCD's Lines/Catheters IV Catheter Type (from Nrsg): Peripheral IV Assessment/Plan Assessment/Plan ASSESSMENT 46-year-old male with a history of monoclonal gammopathy with stage III multiple myeloma, HIV, hypertension presenting with abdominal pain, watery nonbloody diarrhea and chronic right lower extremity pain is found to have a right femoral neck pathologic fracture and mild L1 fracture. PLAN We will place an orthotic consult for evaluation of the femoral neck fracture. He will also be seen by his heme/onc Pain management Stool studies to workup diarrhea Continue home meds with adjustment as needed Correct electrolytes HPI/ROS Admit Date/Time Admit Date/Time Sep 07, 2017 at 19:33 Hx of Present Illness This is a 46-year-old male with a history of monoclonal gammopathy with stage III multiple myeloma, HIV, hypertension who presented to the ER complaining of abdominal pain, diarrhea and right lower extremity pain. Patient has generalized body pain and also chronic right lower extremity pain but has been worsening. He also reported watery nonbloody diarrhea. Recent CD4 count is 544. When he presented to the ER imaging showed right femoral neck pathologic fracture and a mild L1 fracture which is new. PMH/Family/Social Past Surgical History Past Surgical Hx: no surgical history Social History Smoking Status: Never smoker Exam/Review of Systems Vital Signs Vitals Vital Signs Date Time Temp Pulse Resp B/P Pulse Ox O2 Delivery O2 Flow Rate FiO2 09/08/17 03:08 99.0 85 18 113/67 95 09/07/17 20:18 Room Air Intake and Output 09/07/17 09/07/17 09/08/17 15:00 23:00 07:00 Intake Total 465 ml Output Total 600 ml Balance -135 ml Exam Constitutional: alert, oriented Head: atraumatic, normocephalic Respiratory: clear to auscultation Cardiovascular: nl pulses, regular rate and rhythm Gastrointestinal: soft, tender Musculoskeletal: other (Right hip/extremity tenderness) Labs Result Diagram: 09/08/17 0542 09/07/17 0630 Medications Medications Current Medications Ondansetron HCl (Zofran Inj) 4 mg Q6H PRN IV NAUSEA AND/OR VOMITING; Start 09/07/17 at 19:30 Acetaminophen (Tylenol Tab) 650 mg Q6H PRN PO PAIN LEVEL 1-3 OR FEVER; Start 09/07/17 at 19:30 Acetaminophen/ Hydrocodone Bitart ([place] (5/325)) 1 tab Q6H PRN PO MODERATE PAIN LEVEL 4-6 Last administered on 09/07/17 20:18; Admin Dose 1 TAB; Start at 19:30 Morphine Sulfate (morphine) 2 mg Q4H PRN IV SEVERE PAIN LEVEL 7-10; Start 09/07 at 19:30 Hydromorphone HCl (Dilaudid) 0.5 mg Q4H PRN IV SEVERE PAIN LEVEL 7-10; Start 09/07/17 at 19:30 Docusate Sodium (Colace) 100 mg Q12H PRN PO CONSTIPATION; Start 09/07/17 at 19: 30 Magnesium Hydroxide (Milk Of Mag) 30 ml DAILY PRN PO CONSTIPATION; Start at 19:30 Sodium Biphosphate/ Sodium Phosphate (Fleet Enema) 133 ml DAILY PRN [place] CONSTIPATION; Start 09/07/17 at 19:30 Heparin Sodium (Porcine) (Heparin (5000 Units/0.5 ml)) 5,000 unit Q12 SC Last administered on 09/07/17 22:32; Admin Dose 5,000 UNIT; Start 09/07/17 at 21:00 Lorazepam (Ativan) 0.5 mg Q6H PRN IV ANXIETY; Start 09/07/17 at 19:30 Hydralazine HCl (Apresoline) 10 mg Q6H PRN IV ELEVATED BLOOD PRESSURE; Start 09/07/17 at 19:30 Nitroglycerin (Nitroglycerin (Sl Tab) 0.4 Mg) 1 tab Q5M PRN SL ANGINA; Start 09/07/17 at 19:30 Acyclovir (Zovirax) 400 mg BID PO Last administered on 09/08/17 00:28; Admin Dose 400 MG; Start 09/07/17 at 21:00 Methocarbamol (Robaxin) 500 mg QID PO Last administered on 09/08/17 00:27; Admin Dose 500 MG; Start 09/07/17 at 21:00 Mirtazapine (Remeron) 30 mg HS PO Last administered on 09/07/17 22:30; Admin Dose 30 MG; Start 09/07/17 at 21:00 Trazodone HCl (Desyrel) 50 mg QHS PO Last administered on 09/07/17 22:30; Admin Dose 50 MG; Start 09/07/17 at 21:00 Ziprasidone 60 mg 60 mg QHS PO Last administered on 09/08/17 00:33; Admin Dose 60 MG; Start 09/07/17 at 21:00 Potassium Chloride/Dextrose/ Sod Cl (D5-1/2ns + KCl 10 Meq) 1,000 ml @ 100 mls/ hr Q10H IV Last administered on 09/08/17 00:29; Admin Dose 100 MLS/HR; Start 09/08/17 at 00:00 PIETER PASTOR MD Sep 08, 2017 07:05
[2017-09-08 07:07] LABS: THYROID STIMULATING HORMONE 1.49 MIU/L (0.465-4.680)
[2017-09-08 07:38] VITALS: BP 124/75; RESP 18
[2017-09-08 07:44] LABS: EOSINOPHILS % (M) 2 % (0-7); GIANT THROMBO% (M) 1 % (0-0); METAMYELOCYTES %M 2 % (0-0); MONOCYTES % (M) 10 % (0-11); MYELOCYTES % (M) 1 % (0-0); PLATELET ESTIMATE DECREASED; POLYCHROMASIA 2+ (0-0)
[2017-09-08] MEDS ORDERED: IODIXANOL LOCM 100 ML BTL ONE (08:30)
[2017-09-08] MEDS ORDERED: SOD CHLORIDE 0.9% 100 ML ONE (08:30)
--- NOTE | 2017-09-08 09:26 | RADRPT ---
PROCEDURE: CT of the right lower extremity CLINICAL INDICATION: Right lower extremity pain, fracture, concern for pathologic fracture TECHNIQUE: Axial images through the right hip with IV contrast. Moderate cc Visipaque 320 IV contr ast was used. Coronal and sagittal reformats. Images were interpreted at an independent PACS works tation. CTDI 6.88 mGy DLP 48 7.96 mGy-cm One or more of the following dose reduction techniques were used: Automated exposure control Adjustment of the mA and / or kV according to patient size Use of iterative reconstruction technique. COMPARISON: CT of the right lower extremity September 07, [address] the pelvis there are [address] of the abdomen pelvis dated July 07, 2017 FINDINGS: As seen on the recently performed CT of the right lower extremity, there is a nondisplaced right fem oral neck fracture (coronal 46), in unchanged alignment. No additional CT evidence of acute fracture is identified. There are innumerable lytic lesions seen throughout the visualized osseous structures compatible wit h metastatic disease or myeloma. In particular there is a large lytic lesion within the anterior asp ect of the right femoral head extending towards the neck (axial 71), measuring 2.4 x 2.3 x 1.6 cm in size. There is also a lytic lesion within the intertrochanteric right femur measuring 2.0 x 2.6 x 1 .5 cm (axial 80 and coronal 48). There are additional smaller scattered lesions seen throughout including numerous small subcortical lesions throughout the proximal femur. There is also a small lesion at the site of the linea aspirin along the posterior margin of the proximal femur where there is some chronic bone proliferation lik cinda enthesopathic change. Limited intrapelvic evaluation is grossly unremarkable. Limited evaluation of the knee demonstrates no acute osseous abnormality and physiologic joint fluid. IMPRESSION: 1. Redemonstration of acute nondisplaced pathologic right femoral neck fracture. 2. Innumerable lytic lesions throughout the visualized structures compatible with metastatic disease or myeloma. Large lesions at the anterior right femoral head and intertrochanteric femur are descri bed above. RPTAT: UU .Dre Oliver MD, MD Date Time Electronically viewed and signed by .Dre Oliver MD, on 09/08/2017 09:26 .[facility]
[2017-09-08] MEDS: HEPARIN 5,000 UNIT/0.5 ML VIAL SC SCH ×2 (09:59→21:00)
--- NOTE | 2017-09-08 10:06 | PN ---
Date/Time of Note Date/Time of Note DATE: 09/08/17 TIME: 10:02 Assessment/Plan VTE Prophylaxis VTE Prophylaxis Intervention: SCD's Lines/Catheters IV [facility] Peripheral IV Assessment/Plan Chief Complaint/Hosp Course Assessment and plan 1. History of monoclonal gammopathy with stage III multiple myeloma. Oncologist is following. Continue recommendations. 2. Right femoral pathologic fracture. Orthopedic surgeon was consulted. After discussion, patient may need orthopedic oncologist. Will follow up with radiation oncologist to see if still possible for radiation therapy 3. History of HIV. Patient resumed on his home medications. 4. Mild L1 compression fracture. Patient to be seen by physical therapy. Continue with analgesics as needed. Disposition plan: We will follow-up with surgeon recommendations. Follow-up with oncologist recommendations. Discussed plan of care with Problems: Subjective 24 Hr Interval Summary Free Text/Dictation Reports pain still on right leg. No other specific complaints. Exam/Review of Systems Vital Signs Vitals Vital Signs Date Time Temp Pulse Resp B/P Pulse Ox O2 Delivery O2 Flow Rate FiO2 09/08/17 07:38 97.5 71 18 124/75 98 09/07/17 20:18 Room Air Intake and Output 09/07/17 09/07/17 09/08/17 15:00 23:00 07:00 Intake Total 465 ml Output Total 600 ml Balance -135 ml Exam Constitutional: alert, oriented Psych: nl mood/affect Head: normocephalic Respiratory: clear to auscultation, normal air movement Gastrointestinal: non-tender Musculoskeletal: swelling Neurological: HYBRID DERIVATIVES TRADER II-XII intact, nl mental status, nl speech Skin: nl turgor Results Result Diagram: 09/08/17 0542 09/08/17 0542 Results 24 hrs Laboratory Tests Test 09/07/17 14:53 09/07/17 15:50 09/08/17 05:42 09/08/17 07:24 White Blood Count 5.7 3.3 #L Red Blood Count 3.87 #L 3.85 L Hemoglobin 11.6 #L 11.5 L Hematocrit 33.9 #L 33.7 L Mean Corpuscular Volume 87.6 87.5 Mean Corpuscular Hemoglobin 30.0 29.9 Mean Corpuscular Hemoglobin Concent 34.2 34.1 Red Cell Distribution Width 14.1 14.0 Platelet Count 140 # 120 L Mean Platelet Volume 13.0 H 12.9 H Neutrophils % Segmented Neutrophils % (Manual) 62 47 Band Neutrophils % (Manual) 19 H 16 H Lymphocytes % (Manual) 13 L 22 Monocytes % (Manual) 4 10 Eosinophils % Eosinophils % (Manual) 1 2 Myelocytes % (Manual) 2 H 1 H Nucleated Red Blood Cells % 0.5 H 0.0 Neutrophils # Neutrophils # (Manual) 3.6 1.6 L Band Neutrophils # 1.0 H 0.5 Absolute Lymphocytes (Manual) 0.7 L 0.7 L Absolute Monocytes (Manual) 0.2 L 0.3 Eosinophils # Myelocytes # 0.1 H 0.0 Platelet Morphology Comment @See below Urine Color YELLOW Urine Clarity CLEAR Urine pH 5.0 Urine Specific [place] 1.018 Urine Ketones NEGATIVE Urine Nitrite NEGATIVE Urine Bilirubin NEGATIVE Urine Urobilinogen NEGATIVE Urine Leukocyte Esterase 1+ H Urine Microscopic RBC 1 Urine Microscopic WBC 8 H Urine Bacteria FEW A Urine Mucus MODERATE Urine Hemoglobin NEGATIVE Urine Glucose NEGATIVE Urine Total Protein 1+ H Prothrombin Time 14.9 H Prothrombin Time Ratio 1.2 INR International Normalized Ratio 1.16 Activated Partial Thromboplast Time 25.0 Sodium Level 138 142 Potassium Level 3.2 L 3.4 L Chloride Level 106 109 Carbon Dioxide Level 26 26 Anion Gap 9 10 Blood Urea Nitrogen 24 H 13 # Creatinine 1.00 0.83 Glucose Level 88 101 Calcium Level 5.6 *L 6.1 L Total Bilirubin 0.1 L Direct Bilirubin 0.00 Indirect Bilirubin 0.1 Aspartate Amino Transf (AST/SGOT) 72 H Alanine Aminotransferase (ALT/SGPT) 98 H Alkaline Phosphatase 96 Total Protein 6.4 Albumin 2.7 L Globulin 3.70 H Albumin/Globulin Ratio 0.72 Lipase 70 Free Thyroxine 1.08 Lymphocytes % Monocytes % Basophils % Metamyelocytes % (manual) 2 H Lymphocytes # Monocytes # Basophils # Metamyelocytes # 0.0 Nucleated Red Blood Cells # Platelet Estimate DECREASED Giant Platelets 1 H Polychromasia 2+ Hemoglobin A1c 5.2 Phosphorus Level 2.2 L Magnesium Level 2.8 H Triglycerides Level 248 H Cholesterol Level 119 LDL Cholesterol, Calculated 24 HDL Cholesterol 45 Cholesterol/HDL Ratio 2.6 Thyroid Stimulating Hormone (TSH) 1.490 Ionized Calcium (Measured) 0.9 L Medications Medications Current Medications Ondansetron HCl (Zofran Inj) 4 mg Q6H PRN IV NAUSEA AND/OR VOMITING; Start 11/ 8/17 at 19:30 Acetaminophen (Tylenol Tab) 650 mg Q6H PRN PO PAIN LEVEL 1-3 OR FEVER; Start 09/07/17 at 19:30 Acetaminophen/ Hydrocodone Bitart ([place] (5/325)) 1 tab Q6H PRN PO MODERATE PAIN LEVEL 4-6 Last administered on 09/07/17 20:18; Admin Dose 1 TAB; Start at 19:30 Morphine Sulfate (morphine) 2 mg Q4H PRN IV SEVERE PAIN LEVEL 7-10; Start 09/07 at 19:30 Hydromorphone HCl (Dilaudid) 0.5 mg Q4H PRN IV SEVERE PAIN LEVEL 7-10; Start 09/07/17 at 19:30 Docusate Sodium (Colace) 100 mg Q12H PRN PO CONSTIPATION; Start 09/07/17 at 19: 30 Magnesium Hydroxide (Milk Of Mag) 30 ml DAILY PRN PO CONSTIPATION; Start at 19:30 Sodium Biphosphate/ Sodium Phosphate (Fleet Enema) 133 ml DAILY PRN [place] CONSTIPATION; Start 09/07/17 at 19:30 Heparin Sodium (Porcine) (Heparin (5000 Units/0.5 ml)) 5,000 unit Q12 SC Last administered on 09/08/17 09:59; Admin Dose 5,000 UNIT; Start 09/07/17 at 21:00 Lorazepam (Ativan) 0.5 mg Q6H PRN IV ANXIETY; Start 09/07/17 at 19:30 Hydralazine HCl (Apresoline) 10 mg Q6H PRN IV ELEVATED BLOOD PRESSURE; Start 09/07/17 at 19:30 Nitroglycerin (Nitroglycerin (Sl Tab) 0.4 Mg) 1 tab Q5M PRN SL ANGINA; Start 09/07/17 at 19:30 Acyclovir (Zovirax) 400 mg BID PO Last administered on 09/08/17 09:56; Admin Dose 400 MG; Start 09/07/17 at 21:00 Methocarbamol (Robaxin) 500 mg QID PO Last administered on 09/08/17 09:56; Admin Dose 500 MG; Start 09/07/17 at 21:00 Mirtazapine (Remeron) 30 mg HS PO Last administered on 09/07/17 22:30; Admin Dose 30 MG; Start 09/07/17 at 21:00 Trazodone HCl (Desyrel) 50 mg QHS PO Last administered on 09/07/17 22:30; Admin Dose 50 MG; Start 09/07/17 at 21:00 Ziprasidone 60 mg 60 mg QHS PO Last administered on 09/08/17 00:33; Admin Dose 60 MG; Start 09/07/17 at 21:00 Potassium Chloride/Dextrose/ Sod Cl (D5-1/2ns + KCl 10 Meq) 1,000 ml @ 100 mls/ hr Q10H IV Last administered on 09/08/17 00:29; Admin Dose 100 MLS/HR; Start 09/08/17 at 00:00 ESPERANZA ADAMS Sep 08, 2017 10:06
[2017-09-08 14:38] VITALS: BP 141/92; RESP 18
--- NOTE | 2017-09-08 18:24 | CONS ---
Date/Time of Note Date/Time of Note DATE: 09/08/17 TIME: 18:11 Assessment/Plan Assessment/Plan Chief Complaint/Hosp Course #STAGE III Multiple Myeloma -pt received cycle 2 day 11 of therapy on 09/06 -will start cycle 3 of VRD on 09/15 if patient is in house -pt should contnue Revlimid 25 mg with ASA while in house. this is given day 1 - 21 with 7 day rest. This should continue until 08/15 -continue Decadron 40 mg q week. will need to clarify which day of the week patient takes medication -continue acyclovir 400 mg bid as well as Bactrim SS Tue /Tuesday #R femur fracture -pt will need this stabilized bu orthopedic surgery -pt is at great risk for complete fracture of this weight bearing bone -pt needs to be transferred to tertiary care center for surgery -afterwards pt can receive adjuvant radiation #Bone pain -continue current pain regimen -pt getting pamidronate as an out patient #HIV -continue HAART therapy #HTN -continue current medications Problems: Consultation Date/Type/Reason Admit Date/Time Sep 07, 2017 at 19:33 Date of Consultation: Sep 08, 2017 Type of Consultation: hematology Reason for Consultation multiple myeloma Referring Provider: ESPERANZA ADAMS Hx of Present Illness 46yo with with HIV x 22 years on HAART therapy who presented to [facility] with right shoulder pain, left flank pain, low back pain after falling 2-3 days ago while gardening. Patient attributes pain to a falling while gardening. 07/07/17: CT A/ P was done which revealed innumerous punched-out osteolytic lesions involving the thoracolumbar sacral spine, pelvic bones, right hip and visualized right/ left ribs and the tip of the right scapula. CT Chest was done which revealed multiple lytic bone lesions in the thoracic spine and in the thoracic cage. Some of these lesions have extraosseous soft tissue masses. In the spine, lesions with extraosseous soft tissue masses compress the thecal sac and exiting nerve roots at T8 and T10. There are pathologic fractures of the manubrium and bilateral ribs. 07/08/17 Metastatic survey- Revealed innumerable lytic lesions throughout the axial and proximal appendicular skeleton, better visualized on prior CT. No pathologic fracture identified07/11/17: Bone Marrow Bx done demonstrates Plasma cell myeloma with lambda light chain restriction ( plasma cell compose approximately 90% of the nucleated cell population). by flow this was 10%. Myeloma FISH panel did not show evidence of molecular abnormalities 08/05/17: started VRD. Cycle 2 day 11 of VRD was given on 09/06/17. Earlier this week pt was evaluate by Rad onc who noted patient's severe Right femur pain. Pt was admitted and has since been diagnosed with a non displaced fracture of the right femur. Pt has been evaluated by Orthopedic surgery who states patient must be operated on at a tertiary care center with orthopedic oncology. Pt currently states his pain is under control Constitutional: other (weakness), poor po Eyes: no complaints ENT: no complaints Respiratory: no complaints Cardiovascular: no complaints Gastrointestinal: no complaints Genitourinary: no complaints Musculoskeletal: back pain, bone/joint pain, restricted range of motion Skin: no complaints Psychological: nl mood/affect Past Medical History HIV on HAART therapy Hypertension Past Surgical History Past Surgical Hx: no surgical history Family History Significant Family History: no pertinent family hx Social History Alcohol Use: none Smoking Status: Never smoker Drug Use: none Exam/Review of Systems Vital Signs Vitals Vital Signs Date Time Temp Pulse Resp B/P Pulse Ox O2 Delivery O2 Flow Rate FiO2 09/08/17 14:38 97.7 75 18 141/92 97 09/07/17 20:18 Room Air Intake and Output 09/07/17 09/07/17 09/08/17 15:00 23:00 07:00 Intake Total 465 ml Output Total 600 ml Balance -135 ml Exam Constitutional: alert, frail, oriented Psych: anxiety, depression Head: normocephalic Eyes: nl conjunctiva ENMT: nl external ears & nose Neck: non-tender, supple Respiratory: clear to auscultation, normal air movement Cardiovascular: nl pulses, regular rate and rhythm Gastrointestinal: soft Musculoskeletal: joint tenderness, muscle weakness, nl extremities to inspection, nl gait and stance Results Result Diagram: 09/08/17 0542 09/08/17 0542 Results 24 hrs Laboratory Tests Test 09/08/17 05:42 09/08/17 07:24 White Blood Count 3.3 #L Red Blood Count 3.85 L Hemoglobin 11.5 L Hematocrit 33.7 L Mean Corpuscular Volume 87.5 Mean Corpuscular Hemoglobin 29.9 Mean Corpuscular Hemoglobin Concent 34.1 Red Cell Distribution Width 14.0 Platelet Count 120 L Mean Platelet Volume 12.9 H Neutrophils % Segmented Neutrophils % (Manual) 47 Band Neutrophils % (Manual) 16 H Lymphocytes % Lymphocytes % (Manual) 22 Monocytes % Monocytes % (Manual) 10 Eosinophils % Eosinophils % (Manual) 2 Basophils % Metamyelocytes % (manual) 2 H Myelocytes % (Manual) 1 H Nucleated Red Blood Cells % 0.0 Neutrophils # Neutrophils # (Manual) 1.6 L Band Neutrophils # 0.5 Absolute Lymphocytes (Manual) 0.7 L Lymphocytes # Monocytes # Absolute Monocytes (Manual) 0.3 Eosinophils # Basophils # Metamyelocytes # 0.0 Myelocytes # 0.0 Nucleated Red Blood Cells # Platelet Estimate DECREASED Giant Platelets 1 H Polychromasia 2+ Sodium Level 142 Potassium Level 3.4 L Chloride Level 109 Carbon Dioxide Level 26 Anion Gap 10 Blood Urea Nitrogen 13 # Creatinine 0.83 Glucose Level 101 Hemoglobin A1c 5.2 Calcium Level 6.1 L Phosphorus Level 2.2 L Magnesium Level 2.8 H Triglycerides Level 248 H Cholesterol Level 119 LDL Cholesterol, Calculated 24 HDL Cholesterol 45 Cholesterol/HDL Ratio 2.6 Thyroid Stimulating Hormone (TSH) 1.490 Ionized Calcium (Measured) 0.9 L Medications Medications Current Medications Ondansetron HCl (Zofran Inj) 4 mg Q6H PRN IV NAUSEA AND/OR VOMITING; Start 09/07/17 at 19:30 Acetaminophen (Tylenol Tab) 650 mg Q6H PRN PO PAIN LEVEL 1-3 OR FEVER; Start 09/07/17 at 19:30 Acetaminophen/ Hydrocodone Bitart ([place] (5/325)) 1 tab Q6H PRN PO MODERATE PAIN LEVEL 4-6 Last administered on 09/07/17t 20:18; Admin Dose 1 TAB; Start at 19:30 Morphine Sulfate (morphine) 2 mg Q4H PRN IV SEVERE PAIN LEVEL 7-10; Start 09/07 at 19:30 Hydromorphone HCl (Dilaudid) 0.5 mg Q4H PRN IV SEVERE PAIN LEVEL 7-10; Start 09/07/17 at 19:30 Docusate Sodium (Colace) 100 mg Q12H PRN PO CONSTIPATION; Start 09/07/17 at 19: 30 Magnesium Hydroxide (Milk Of Mag) 30 ml DAILY PRN PO CONSTIPATION; Start at 19:30 Sodium Biphosphate/ Sodium Phosphate (Fleet Enema) 133 ml DAILY PRN [place] CONSTIPATION; Start 09/07/17 at 19:30 Heparin Sodium (Porcine) (Heparin (5000 Units/0.5 ml)) 5,000 unit Q12 SC Last administered on 09/08/17 09:59; Admin Dose 5,000 UNIT; Start 09/07/17 at 21:00 Lorazepam (Ativan) 0.5 mg Q6H PRN IV ANXIETY; Start 09/07/17 at 19:30 Hydralazine HCl (Apresoline) 10 mg Q6H PRN IV ELEVATED BLOOD PRESSURE; Start 09/07/17 at 19:30 Nitroglycerin (Nitroglycerin (Sl Tab) 0.4 Mg) 1 tab Q5M PRN SL ANGINA; Start 09/07/17 at 19:30 Acyclovir (Zovirax) 400 mg BID PO Last administered on 09/08/17 09:56; Admin Dose 400 MG; Start 09/07/17 at 21:00 Methocarbamol (Robaxin) 500 mg QID PO Last administered on 09/08/17 17:15; Admin Dose 500 MG; Start 09/07/17 at 21:00 Mirtazapine (Remeron) 30 mg HS PO Last administered on 09/07/17 22:30; Admin Dose 30 MG; Start 09/07/17 at 21:00 Trazodone HCl (Desyrel) 50 mg QHS PO Last administered on 09/07/17 22:30; Admin Dose 50 MG; Start 09/07/17 at 21:00 Ziprasidone 60 mg 60 mg QHS PO Last administered on 09/08/17 00:33; Admin Dose 60 MG; Start 09/07/17 at 21:00 Potassium Chloride/Dextrose/ Sod Cl (D5-1/2ns + KCl 10 Meq) 1,000 ml @ 100 mls/ hr Q10H IV Last administered on 09/08/17 12:02; Admin Dose 100 MLS/HR; Start 09/08/17 at 00:00 IQRA MIDDLETON M.D. Sep 08, 2017 18:23
[2017-09-08] MEDS ORDERED: DARU1TAB PO (20:42)
[2017-09-08] MEDS ORDERED: NON-FORMULARY/PATIENT OWN MED (Emtricitabine/Tenofov Alafenam (Descovy 200-25 mg Tablet) 1 PO SCH (21:00)
[2017-09-08] MEDS ORDERED: NON-FORMULARY/PATIENT OWN MED (Darunavir/Cobicistat (Prezcobix 800 mg-150 mg Tablet) 1 EAC PO SCH (21:00)
[2017-09-08] MEDS: traZODone 50 MG TAB PO SCH (21:10)
[2017-09-08] MEDS: MIRTAZAPINE 15 MG TAB PO SCH (21:10)
[2017-09-08] MEDS: GUAIFENESIN/DM 5ML CUP PO PRN (21:11)
[2017-09-08 21:19] VITALS: BP 124/71; RESP 18
[2017-09-08] MEDS: PREZCOBIX PO SCH (21:22)
[2017-09-08] MEDS: DESCOVY 200/25 PO SCH (21:25)
[2017-09-09 03:00] VITALS: BP 130/76; RESP 18
[2017-09-09] MEDS: D5W-0.45 NACL + KCL 10 MEQ 1,000 ML IV SCH ×3 (06:00→17:40)
[2017-09-09 06:40] LABS: ABNORMAL IP MESSAGE 1; HEMATOCRIT 34.8 % (42.0-52.0); HEMOGLOBIN 11.9 g/dl (14.0-18.0); MEAN CORPUSCULAR HEMOGLOBIN 30.1 pg (29.0-33.0); MEAN CORPUSCULAR HGB CONC 34.2 g/dl (32.0-37.0); MEAN CORPUSCULAR VOLUME 87.9 fl (82.0-101.0); MEAN PLATELET VOLUME 13.2 fl (7.4-10.4); PLATELET COUNT 108 10^3/UL (140-415); POSITIVE DIFF @See below; RED BLOOD COUNT 3.96 10^6/ul (4.70-6.10); WHITE BLOOD COUNT 4.8 10^3/ul (4.8-10.8)
[2017-09-09 07:14] LABS: CALCIUM 6.5 mg/dl (8.4-10.2); CREATININE 0.83 mg/dl (0.61-1.24); POTASSIUM 3.5 mmol/L (3.5-5.1)
[2017-09-09 07:27] VITALS: BP 127/82; RESP 18
[2017-09-09 08:21] LABS: ANISOCYTOSIS 1+ (0-0); MICROCYTOSIS 1+ (0-0); MONOCYTES % (M) 8 % (0-11); PLATELET ESTIMATE DECREASED; POLYCHROMASIA 3+ (0-0); REACTIVE LYMPHOCYTES% (M) 7 % (0-0)
[2017-09-09] MEDS: HEPARIN 5,000 UNIT/0.5 ML VIAL SC SCH ×2 (09:00→21:00)
[2017-09-09] MEDS: ACYCLOVIR 400 MG TAB PO SCH ×2 (09:01→21:53)
[2017-09-09] MEDS: METHOCARBAMOL 500 MG TAB PO SCH ×4 (09:01→21:53)
--- NOTE | 2017-09-09 14:16 | PN ---
Date/Time of Note Date/Time of Note DATE: 09/09/17 TIME: 14:12 Assessment/Plan VTE Prophylaxis VTE Prophylaxis Intervention: LMWH Lines/Catheters IV Catheter Type (from Nrs): Peripheral IV Urinary Cath still in place: No Assessment/Plan Chief Complaint/Hosp Course S: Events noted O: Vital signs stable PE No pallor adenopathy Regular Clear Bs present nt; nd; no r/r/g No edema. Diminished range of motion right hip as expected A/P: 1. Right femoral neck fracture. Likely pathologic; mod stable. treat pain. Only needs tertiary care/ surgical-onc for stabilization of his fracture. 2. Stage III multiple myeloma, on chemo. Radiation. 3. Anemia likely chronic disease 4. L5 1 mild pathological compression fracture 5. Failure to thrive may need significant some point with PT OT once stable 6. Chronic HIV 7. Diverticulosis 8. Hypocalcemia 9. Diarrhea; try Imodium Problems: Exam/Review of Systems Vital Signs Vitals Vital Signs Date Time Temp Pulse Resp B/P Pulse Ox O2 Delivery O2 Flow Rate FiO2 09/09/17 07:27 98.0 80 18 127/82 98 09/07/17 20:18 Room Air Intake and Output 09/08/17 09/08/17 09/09/17 14:59 22:59 06:59 Intake Total 550 ml 1260 ml 1320 ml Output Total 1500 ml 500 ml Balance 550 ml -240 ml 820 ml Results Result Diagram: 09/09/17 0515 09/09/17 0515 Results 24 hrs Laboratory Tests Test 09/09/17 05:15 White Blood Count 4.8 # Red Blood Count 3.96 L Hemoglobin 11.9 L Hematocrit 34.8 L Mean Corpuscular Volume 87.9 Mean Corpuscular Hemoglobin 30.1 Mean Corpuscular Hemoglobin Concent 34.2 Red Cell Distribution Width 14.0 Platelet Count 108 L Mean Platelet Volume 13.2 H Neutrophils % Segmented Neutrophils % (Manual) 47 Band Neutrophils % (Manual) 12 H Lymphocytes % Lymphocytes % (Manual) 27 Reactive Lymphocytes % (Manual) 7 H Monocytes % Monocytes % (Manual) 8 Eosinophils % Basophils % Nucleated Red Blood Cells % 0.0 Neutrophils # Neutrophils # (Manual) 2.3 Band Neutrophils # 0.5 Absolute Lymphocytes (Manual) 1.2 Lymphocytes # Reactive Lymphocytes # 0.3 H Monocytes # Absolute Monocytes (Manual) 0.3 Eosinophils # Basophils # Nucleated Red Blood Cells # Platelet Estimate DECREASED Polychromasia 3+ Anisocytosis 1+ Microcytosis 1+ Sodium Level 142 Potassium Level 3.5 Chloride Level 108 Carbon Dioxide Level 28 Anion Gap 10 Blood Urea Nitrogen 11 Creatinine 0.83 Glucose Level 92 Calcium Level 6.5 L Medications Medications Current Medications Ondansetron HCl (Zofran Inj) 4 mg Q6H PRN IV NAUSEA AND/OR VOMITING; Start 09/07/17 at 19:30 Acetaminophen (Tylenol Tab) 650 mg Q6H PRN PO PAIN LEVEL 1-3 OR FEVER; Start 09/07/17 at 19:30 Acetaminophen/ Hydrocodone Bitart ([place] (5/325)) 1 tab Q6H PRN PO MODERATE PAIN LEVEL 4-6 Last administered on 09/07/17 20:18; Admin Dose 1 TAB; Start at 19:30 Morphine Sulfate (morphine) 2 mg Q4H PRN IV SEVERE PAIN LEVEL 7-10; Start 09/07 at 19:30 Hydromorphone HCl (Dilaudid) 0.5 mg Q4H PRN IV SEVERE PAIN LEVEL 7-10; Start 09/07/17 at 19:30 Docusate Sodium (Colace) 100 mg Q12H PRN PO CONSTIPATION; Start 09/07/17 at 19: 30 Magnesium Hydroxide (Milk Of Mag) 30 ml DAILY PRN PO CONSTIPATION; Start at 19:30 Sodium Biphosphate/ Sodium Phosphate (Fleet Enema) 133 ml DAILY PRN [place] CONSTIPATION; Start 09/07/17 at 19:30 Heparin Sodium (Porcine) (Heparin (5000 Units/0.5 ml)) 5,000 unit Q12 SC Last administered on 09/08/17 09:59; Admin Dose 5,000 UNIT; Start 09/07/17 at 21:00 Lorazepam (Ativan) 0.5 mg Q6H PRN IV ANXIETY; Start 09/07/17 at 19:30 Hydralazine HCl (Apresoline) 10 mg Q6H PRN IV ELEVATED BLOOD PRESSURE; Start 09/07/17 at 19:30 Nitroglycerin (Nitroglycerin (Sl Tab) 0.4 Mg) 1 tab Q5M PRN SL ANGINA; Start 09/07/17 at 19:30 Acyclovir (Zovirax) 400 mg BID PO Last administered on 09/09/17 09:01; Admin Dose 400 MG; Start 09/07/17 at 21:00 Methocarbamol (Robaxin) 500 mg QID PO Last administered on 09/09/17 12:30; Admin Dose 500 MG; Start 09/07/17 at 21:00 Mirtazapine (Remeron) 30 mg HS PO Last administered on 09/08/17 21:10; Admin Dose 30 MG; Start 09/07/17 at 21:00 Trazodone HCl (Desyrel) 50 mg QHS PO Last administered on 09/08/17 21:10; Admin Dose 50 MG; Start 09/07/17 at 21:00 Ziprasidone 60 mg 60 mg QHS PO Last administered on 09/08/17 21:10; Admin Dose 60 MG; Start 09/07/17 at 21:00 Potassium Chloride/Dextrose/ Sod Cl (D5-1/2ns + KCl 10 Meq) 1,000 ml @ 100 mls/ hr Q10H IV Last administered on 09/09/17 07:46; Admin Dose 100 MLS/HR; Start 09/08/17 at 00:00 Guaifenesin/ Dextromethorphan (Robitussin Dm Liquid Cup) 10 ml Q6 PRN PO COUGH Last administered on 09/08/17 21:11; Admin Dose 10 ML; Start 09/08/17 at 21:00 Patient Own Medication 1 ea QHS PO Last administered on 09/08/17 21:22; Admin Dose 1 EA; Start 09/08/17 at 21:12 Patient Own Medication 1 ea QHS PO Last administered on 09/08/17 21:25; Admin Dose 1 EA; Start 09/08/17 at 21:13 JUANITA LEWIS MD Sep 09, 2017 14:16
[2017-09-09] MEDS ORDERED: LOPERAMIDE 2 MG CAP PO PRN (14:30)
[2017-09-09 14:49] VITALS: BP 136/85; RESP 20
[2017-09-09] MEDS: GABAPENTIN 100 MG CAP PO SCH ×2 (16:00→21:53)
[2017-09-09] MEDS: POTASSIUM CHLORIDE 20 MEQ POWDER FOR ORAL SOLN PO SCH (16:01)
[2017-09-09] MEDS: GUAIFENESIN/DM 5ML CUP PO PRN ×2 (17:47→21:53)
[2017-09-09] MEDS: ZIPRASIDONE 20 MG CAP PO SCH (21:53)
[2017-09-09] MEDS: DESCOVY 200/25 PO SCH (21:53)
[2017-09-09] MEDS: PREZCOBIX PO SCH (21:53)
[2017-09-09] MEDS: MIRTAZAPINE 15 MG TAB PO SCH (21:53)
[2017-09-09] MEDS: PSYLLIUM 28% PACKET PO SCH (21:54)
--- NOTE | 2017-09-09 22:28 | CONS ---
Date/Time of Note Date/Time of Note DATE: 09/09/17 TIME: 22:25 Assessment/Plan Assessment/Plan Chief Complaint/Hosp Course #STAGE III Multiple Myeloma -pt received cycle 2 day 11 of therapy on 09/06 -will start cycle 3 of VRD on 09/15 if patient is in house -pt should contnue Revlimid 25 mg with ASA while in house.he will need 3 more days of this cycle (given day 1-14) -continue Decadron 40 mg q Tuesday. -continue acyclovir 400 mg bid as well as Bactrim SS Tue /Tuesday #R femur fracture -pt will need this stabilized by orthopedic surgery -pt is at great risk for complete fracture of this weight bearing bone -pt needs to be transferred to tertiary care center for surgery since orthopedic surgery at [facility] is not able to operative on pathologic fractures -afterwards pt can receive adjuvant radiation #Bone pain -continue current pain regimen -pt getting pamidronate as an out patient #HIV -continue HAART therapy #HTN -continue current medications Problems: Consultation Date/Type/Reason Admit Date/Time Sep 07, 2017 at 19:33 Initial Consult Date 09/08/17 Type of Consultation: hematology Reason for Consultation multiple myeloma Referring Provider: ESPERANZA ADAMS 24 HR Interval Summary Free Text/Dictation no acute overnight events. pt is still c/o RLE pain Exam/Review of Systems Vital Signs Vitals Vital Signs Date Time Temp Pulse Resp B/P Pulse Ox O2 Delivery O2 Flow Rate FiO2 09/09/17 14:49 99.0 67 20 136/85 96 09/07/17 20:18 Room Air Intake and Output 09/08/17 09/08/17 09/09/17 14:59 22:59 06:59 Intake Total 550 ml 1260 ml 1320 ml Output Total 1500 ml 500 ml Balance 550 ml -240 ml 820 ml Exam Constitutional: alert, oriented Psych: no complaints Head: normocephalic Eyes: nl conjunctiva ENMT: nl external ears & nose, nl lips & teeth Neck: non-tender, supple Respiratory: clear to auscultation, normal air movement Cardiovascular: regular rate and rhythm Gastrointestinal: soft Musculoskeletal: joint tenderness, muscle weakness, range of motion Results Result Diagram: 09/09/1715 09/09/17 0515 Results 24 hrs Laboratory Tests Test 09/09/17 05:15 White Blood Count 4.8 # Red Blood Count 3.96 L Hemoglobin 11.9 L Hematocrit 34.8 L Mean Corpuscular Volume 87.9 Mean Corpuscular Hemoglobin 30.1 Mean Corpuscular Hemoglobin Concent 34.2 Red Cell Distribution Width 14.0 Platelet Count 108 L Mean Platelet Volume 13.2 H Neutrophils % Segmented Neutrophils % (Manual) 47 Band Neutrophils % (Manual) 12 H Lymphocytes % Lymphocytes % (Manual) 27 Reactive Lymphocytes % (Manual) 7 H Monocytes % Monocytes % (Manual) 8 Eosinophils % Basophils % Nucleated Red Blood Cells % 0.0 Neutrophils # Neutrophils # (Manual) 2.3 Band Neutrophils # 0.5 Absolute Lymphocytes (Manual) 1.2 Lymphocytes # Reactive Lymphocytes # 0.3 H Monocytes # Absolute Monocytes (Manual) 0.3 Eosinophils # Basophils # Nucleated Red Blood Cells # Platelet Estimate DECREASED Polychromasia 3+ Anisocytosis 1+ Microcytosis 1+ Sodium Level 142 Potassium Level 3.5 Chloride Level 108 Carbon Dioxide Level 28 Anion Gap 10 Blood Urea Nitrogen 11 Creatinine 0.83 Glucose Level 92 Calcium Level 6.5 L Medications Medications Current Medications Ondansetron HCl (Zofran Inj) 4 mg Q6H PRN IV NAUSEA AND/OR VOMITING; Start 09/07/17 at 19:30 Acetaminophen (Tylenol Tab) 650 mg Q6H PRN PO PAIN LEVEL 1-3 OR FEVER; Start 09/07/17 at 19:30 Acetaminophen/ Hydrocodone Bitart ([place] (5/325)) 1 tab Q6H PRN PO MODERATE PAIN LEVEL 4-6 Last administered on 09/07/17t 20:18; Admin Dose 1 TAB; Start at 19:30 Morphine Sulfate (morphine) 2 mg Q4H PRN IV SEVERE PAIN LEVEL 7-10; Start 09/07 at 19:30 Hydromorphone HCl (Dilaudid) 0.5 mg Q4H PRN IV SEVERE PAIN LEVEL 7-10; Start 09/07/17 at 19:30 Docusate Sodium (Colace) 100 mg Q12H PRN PO CONSTIPATION; Start 09/07/17 at 19: 30 Sodium Biphosphate/ Sodium Phosphate (Fleet Enema) 133 ml DAILY PRN [place] CONSTIPATION; Start 09/07/17 at 19:30 Heparin Sodium (Porcine) (Heparin (5000 Units/0.5 ml)) 5,000 unit Q12 SC Last administered on 09/08/17 09:59; Admin Dose 5,000 UNIT; Start 09/07/17 at 21:00 Lorazepam (Ativan) 0.5 mg Q6H PRN IV ANXIETY; Start 09/07/17 at 19:30 Hydralazine HCl (Apresoline) 10 mg Q6H PRN IV ELEVATED BLOOD PRESSURE; Start 09/07/17 at 19:30 Nitroglycerin (Nitroglycerin (Sl Tab) 0.4 Mg) 1 tab Q5M PRN SL ANGINA; Start 09/07/17 at 19:30 Acyclovir (Zovirax) 400 mg BID PO Last administered on 09/09/17 21:53; Admin Dose 400 MG; Start 09/07/17 at 21:00 Methocarbamol (Robaxin) 500 mg QID PO Last administered on 09/09/17 21:53; Admin Dose 500 MG; Start 09/07/17 at 21:00 Mirtazapine (Remeron) 30 mg HS PO Last administered on 09/09/17 21:53; Admin Dose 30 MG; Start 09/07/17 at 21:00 Ziprasidone 60 mg 60 mg QHS PO Last administered on 09/09/17 21:53; Admin Dose 60 MG; Start 09/07/17 at 21:00 Potassium Chloride/Dextrose/ Sod Cl (D5-1/2ns + KCl 10 Meq) 1,000 ml @ 100 mls/ hr Q10H IV Last administered on 09/09/17 17:40; Admin Dose 100 MLS/HR; Start 09/08/17 at 00:00 Guaifenesin/ Dextromethorphan (Robitussin Dm Liquid Cup) 10 ml Q6 PRN PO COUGH Last administered on 09/09/17 21:53; Admin Dose 10 ML; Start 09/08/17 at 21:00 Patient Own Medication 1 ea QHS PO Last administered on 09/09/17 21:53; Admin Dose 1 EA; Start 09/08/17 at 21:12 Patient Own Medication 1 ea QHS PO Last administered on 09/09/17 21:53; Admin Dose 1 EA; Start 09/08/17 at 21:13 Loperamide HCl (Imodium Cap) 2 mg QID PRN PO DIARRHEA Last administered on 16:00; Admin Dose 2 MG; Start 09/09/17 at 14:30 Psyllium Hydrophilic Mucilloid (Metamucil) 1 pkt BID PO Last administered on 21:54; Admin Dose 1 PKT; Start 09/09/17 at 21:00 Potassium Chloride (Potassium Chloride Pwd/Soln) 40 meq DAILY PO Last administered on 09/09/17 16:01; Admin Dose 40 MEQ; Start 09/09/17 at 14:30 Lidocaine (Lidoderm) 1 patch DAILY TD ; Start 09/10/17 at 09:00 Gabapentin (Neurontin) 100 mg TID PO Last administered on 09/09/17 21:53; Admin Dose 100 MG; Start 09/09/17 at 15:00 IQRA MIDDLETON M.D. Sep 09, 2017 22:28
[2017-09-09] MEDS ORDERED: LENA20CA PO (22:29)
[2017-09-09] MEDS ORDERED: DEXA4TAB PO (22:29)
[2017-09-09] MEDS ORDERED: LENALIDOMIDE 25 MG PO SCH (23:00)
[2017-09-10] MEDS: REVLIMID 25 MG PO SCH ×2 (01:00→20:09)
[2017-09-10 02:30] VITALS: BP 130/88; RESP 18
[2017-09-10] MEDS: D5W-0.45 NACL + KCL 10 MEQ 1,000 ML IV SCH ×2 (04:04→14:18)
[2017-09-10 05:45] LABS: BASOPHILS % 0.2 % (0.0-2.0); EOSINOPHILS # 0.1 10^3/ul (0.0-0.5); HEMATOCRIT 34.7 % (42.0-52.0); HEMOGLOBIN 11.7 g/dl (14.0-18.0); LYMPHOCYTES # 1.1 10^3/ul (0.8-2.9); LYMPHOCYTES % 21.2 % (15.0-51.0); MEAN CORPUSCULAR HEMOGLOBIN 29.5 pg (29.0-33.0); MEAN CORPUSCULAR HGB CONC 33.7 g/dl (32.0-37.0); MEAN CORPUSCULAR VOLUME 87.4 fl (82.0-101.0); MEAN PLATELET VOLUME 12.9 fl (7.4-10.4); MONOCYTE # 0.4 10^3/ul (0.3-0.9); MONOCYTES % 8.3 % (0.0-11.0); NEUTROPHIL # 3.6 10^3/ul (1.6-7.5); NEUTROPHILS % 68.5 % (39.0-77.0); PLATELET COUNT 118 10^3/UL (140-415); RED BLOOD COUNT 3.97 10^6/ul (4.70-6.10); RED CELL DISTRIBUTION WIDTH 14.1 % (11.5-14.5); WHITE BLOOD COUNT 5.2 10^3/ul (4.8-10.8)
[2017-09-10 06:12] LABS: CALCIUM 6.7 mg/dl (8.4-10.2); CREATININE 0.9 mg/dl (0.61-1.24); POTASSIUM 4.2 mmol/L (3.5-5.1)
[2017-09-10 07:20] VITALS: BP 149/71; RESP 16
[2017-09-10 08:16] LABS: MAGNESIUM 2.2 mg/dl (1.7-2.5); PHOSPHORUS 2.5 mg/dl (2.5-4.9)
[2017-09-10] MEDS: HEPARIN 5,000 UNIT/0.5 ML VIAL SC SCH (09:00)
[2017-09-10] MEDS: PSYLLIUM 28% PACKET PO SCH ×2 (09:00→20:08)
[2017-09-10] MEDS: LIDOCAINE 5% PATCH TD SCH (09:30)
[2017-09-10] MEDS: POTASSIUM CHLORIDE 20 MEQ POWDER FOR ORAL SOLN PO SCH (09:31)
[2017-09-10] MEDS: GABAPENTIN 100 MG CAP PO SCH ×3 (09:31→20:09)
[2017-09-10] MEDS: ACYCLOVIR 400 MG TAB PO SCH ×2 (09:31→20:09)
[2017-09-10] MEDS: TRIMETHOPRIM/SULFAMETHOX (SS) TAB PO SCH (09:31)
[2017-09-10] MEDS: ASPIRIN 81 MG TAB PO SCH (09:31)
[2017-09-10] MEDS: METHOCARBAMOL 500 MG TAB PO SCH ×4 (09:31→20:09)
[2017-09-10] MEDS: DEXAMETHASONE 4 MG TAB PO SCH (09:32)
--- NOTE | 2017-09-10 11:02 | PN ---
Date/Time of Note Date/Time of Note DATE: 09/10/17 TIME: 11:02 Assessment/Plan VTE Prophylaxis VTE Prophylaxis Intervention: LMWH Lines/Catheters IV [facility]ter Type (from [facility]): Peripheral IV Urinary Cath still in place: No Assessment/Plan Chief Complaint/Hosp Course 1. Nondisplaced pathologic fracture of the right femoral neck. The patient needs tertiary care orthopedic surgeon specialized in oncology for management of the pathologic fracture. Awaiting transfer. 2. Stage III multiple myeloma. On chemotherapy and radiation. 3. Anemia, normocytic and normochromic. Most probably anemia chronic disease. Monitor H&H closely. 4. Mild L1 compression fracture. Continue pain control. 5. HIV positive status. Continue antiretroviral medications. 6. Protein calorie malnutrition. Mild to moderate. Continue dietary supplements. 7. Hypocalcemia. Most probably from underlying multiple myeloma. Monitor. 8. Fluids, electrolytes, and nutrition. Regular diet. 9. DVT prophylaxis. Subcutaneous Lovenox. 10. Plan. Await transfer to a tertiary care facility. Case discussed with Dr. Cueva. Problems: Subjective 24 Hr Interval Summary Free Text/Dictation Right hip pain well controlled. Complaints of cough. Exam/Review of Systems Vital Signs Vitals Vital Signs Date Time Temp Pulse Resp B/P Pulse Ox O2 Delivery O2 Flow Rate FiO2 09/10/17 07:20 98.2 76 16 149/71 98 09/07/17 20:18 Room Air Intake and Output 09/09/17 09/09/17 09/10/17 15:00 23:00 07:00 Intake Total 1000 ml 1580 ml Output Total 550 ml Balance 1000 ml 1030 ml Exam General: Adequately build 46 year-old male lying in bed in no apparent distress. HEENT: Normocephalic, atraumatic. Eyes: Anicteric sclerae, conjunctivae clear. ENT: Nasal septum midline, oral mucosa moist. Neck supple, no JVD noticed. Respiratory: Bilaterally diminished breath sounds. No use of accessory muscles of respiration. Scattered rhonchi. Cardiovascular: S1, S2 heard. No murmurs or gallops. Abdomen: Soft, nontender, and nondistended. Bowel sounds positive in all 4 quadrants. Genitourinary: Deferred. Extremities: No cyanosis, no clubbing, no edema. Peripheral pulses palpable. Neurologic: Cranial nerves II through XII grossly intact. The patient is awake, alert, and oriented. Skin: Normal skin turgor. No skin rashes. Results Result Diagram: 09/10/17 0500 09/10/17 0500 Results 24 hrs Laboratory Tests Test 09/10/17 05:00 White Blood Count 5.2 Red Blood Count 3.97 L Hemoglobin 11.7 L Hematocrit 34.7 L Mean Corpuscular Volume 87.4 Mean Corpuscular Hemoglobin 29.5 Mean Corpuscular Hemoglobin Concent 33.7 Red Cell Distribution Width 14.1 Platelet Count 118 L Mean Platelet Volume 12.9 H Neutrophils % 68.5 Lymphocytes % 21.2 Monocytes % 8.3 Eosinophils % 1.0 Basophils % 0.2 Nucleated Red Blood Cells % 0.0 Neutrophils # 3.6 Lymphocytes # 1.1 Monocytes # 0.4 Eosinophils # 0.1 Basophils # 0.0 Nucleated Red Blood Cells # 0.0 Sodium Level 141 Potassium Level 4.2 Chloride Level 110 Carbon Dioxide Level 25 Anion Gap 10 Blood Urea Nitrogen 10 Creatinine 0.90 Glucose Level 89 Calcium Level 6.7 L Phosphorus Level 2.5 Magnesium Level 2.2 Medications Medications Current Medications Ondansetron HCl (Zofran Inj) 4 mg Q6H PRN IV NAUSEA AND/OR VOMITING; Start 09/07/17 at 19:30 Acetaminophen (Tylenol Tab) 650 mg Q6H PRN PO PAIN LEVEL 1-3 OR FEVER; Start 09/07/17 at 19:30 Acetaminophen/ Hydrocodone Bitart ([place] (5/325)) 1 tab Q6H PRN PO MODERATE PAIN LEVEL 4-6 Last administered on 09/07/17t 20:18; Admin Dose 1 TAB; Start at 19:30 Morphine Sulfate (morphine) 2 mg Q4H PRN IV SEVERE PAIN LEVEL 7-10; Start 09/07 at 19:30 Hydromorphone HCl (Dilaudid) 0.5 mg Q4H PRN IV SEVERE PAIN LEVEL 7-10; Start 09/07/17 at 19:30 Docusate Sodium (Colace) 100 mg Q12H PRN PO CONSTIPATION; Start 09/07/17 at 19: 30 Sodium Biphosphate/ Sodium Phosphate (Fleet Enema) 133 ml DAILY PRN [place] CONSTIPATION; Start 09/07/17 at 19:30 Lorazepam (Ativan) 0.5 mg Q6H PRN IV ANXIETY; Start 09/07/17 at 19:30 Hydralazine HCl (Apresoline) 10 mg Q6H PRN IV ELEVATED BLOOD PRESSURE; Start 09/07/17 at 19:30 Nitroglycerin (Nitroglycerin (Sl Tab) 0.4 Mg) 1 tab Q5M PRN SL ANGINA; Start 09/07/17 at 19:30 Acyclovir (Zovirax) 400 mg BID PO Last administered on 09/10/17 09:31; Admin Dose 400 MG; Start 09/07/17 at 21:00 Methocarbamol (Robaxin) 500 mg QID PO Last administered on 09/10/17 09:31; Admin Dose 500 MG; Start 09/07/17 at 21:00 Mirtazapine (Remeron) 30 mg HS PO Last administered on 09/09/17 21:53; Admin Dose 30 MG; Start 09/07/17 at 21:00 Ziprasidone 60 mg 60 mg QHS PO Last administered on 09/09/17 21:53; Admin Dose 60 MG; Start 09/07/17 at 21:00 Potassium Chloride/Dextrose/ Sod Cl (D5-1/2ns + KCl 10 Meq) 1,000 ml @ 100 mls/ hr Q10H IV Last administered on 09/10/17 04:04; Admin Dose 100 MLS/HR; Start 09/08/17 at 00:00 Guaifenesin/ Dextromethorphan (Robitussin Dm Liquid Cup) 10 ml Q6 PRN PO COUGH Last administered on 09/09/17 21:53; Admin Dose 10 ML; Start 09/08/17 at 21:00 Patient Own Medication 1 ea QHS PO Last administered on 09/09/17 21:53; Admin Dose 1 EA; Start 09/08/17 at 21:12 Patient Own Medication 1 ea QHS PO Last administered on 09/09/17 21:53; Admin Dose 1 EA; Start 09/08/17 at 21:13 Loperamide HCl (Imodium Cap) 2 mg QID PRN PO DIARRHEA Last administered on 16:00; Admin Dose 2 MG; Start 09/09/17 at 14:30 Psyllium Hydrophilic Mucilloid (Metamucil) 1 pkt BID PO Last administered on 21:54; Admin Dose 1 PKT; Start 09/09/17 at 21:00 Potassium Chloride (Potassium Chloride Pwd/Soln) 40 meq DAILY PO Last administered on 09/10/17 09:31; Admin Dose 40 MEQ; Start 09/09/17 at 14:30 Lidocaine (Lidoderm) 1 patch DAILY TD Last administered on 09/10/17 09:30; Admin Dose 1 PATCH; Start 09/10/17 at 09:00 Gabapentin (Neurontin) 100 mg TID PO Last administered on 09/10/17 09:31; Admin Dose 100 MG; Start 09/09/17 at 15:00 Dexamethasone (Decadron) 40 mg Sa@09 PO Last administered on 09/10/17 09:32; Admin Dose 40 MG; Start 09/10/17 at 09:00 Trimethoprim/ Sulfamethoxazole (Bactrim (Ss)) 1 tab SuSa@09 PO Last administered on 09/10/17 09:31; Admin Dose 1 TAB; Start 09/10/17 at 09:00 Aspirin (Aspirin) 81 mg DAILY PO Last administered on 09/10/17 09:31; Admin Dose 81 MG; Start 09/10/17 at 09:00 Patient Own Medication 1 ea QHS PO Last administered on 09/10/17 01:00; Admin Dose 1 EA; Start 09/09/17 at 23:13; Stop 09/11/17 at 23:00 Enoxaparin Sodium (Lovenox) 40 mg DAILY SC ; Start 09/11/17 at 09:00; Status JUVENCIO OSORIO NP Sep 10, 2017 11:02
--- NOTE | 2017-09-10 12:38 | CONS ---
DATE OF ADMISSION: 09/07/2017 DATE OF CONSULTATION: ORTHOPEDIC CONSULTATION CHIEF COMPLAINT: Right hip pain. HISTORY OF PRESENT ILLNESS: This is a 46-year-old male with a history of stage III multiple myeloma , hypertension, who is complaining of right hip pain. He denies any recent trauma. He states that the pain is minimal. He has been ambulating on the right leg. He denies any fevers, chills, chest pain or shortness of breath. PAST MEDICAL HISTORY: HIV, stage III multiple myeloma, hypertension, diverticulosis, hypocalcemia. MEDICATIONS: 1. Zovirax 400 mg. 2. Trazodone 50 mg. PAST SURGICAL HISTORY: None. SOCIAL HISTORY: Denies tobacco, alcohol use. FAMILY HISTORY: Noncontributory. ALLERGIES: NO KNOWN DRUG ALLERGIES. PHYSICAL EXAMINATION: VITAL SIGNS: 99.0, 113/67, pulse of 85, respiratory rate of 18. GENERAL: Patient is in no acute distress. EXTREMITIES: Right lower extremity, no shortening noted. No open wounds. Pain with axial loading. Neurovascularly intact throughout the right lower extremity. CT right lower extremity: There is a nondisplaced femoral neck fracture. There are lytic lesions t hroughout the right hip including femoral neck, intertrochanteric region, as well as the femoral sha ft. No acetabular lesions are noted. IMPRESSION: This is a 46-year-old male with history of stage III multiple myeloma, and human immuno deficiency virus with a pathologic fracture of the right femoral neck with lytic lesions throughout the right femur. PLAN: I discussed treatment options with Mr. Brumfield. I explained to him that he requires a cemented long stem partial hip replacement. The patient has lytic lesions throughout the right femur. He a lso requires postoperative radiation. I discussed with primary care physician the need for transfer for higher level of care for an orthopedic oncologist. The patient will have SCDs on bilateral low er extremities. He will receive medications for pain control. Dictated By: GERHARD NAVARRETE/CHRIS Conf#: [id number] DID#: [id number] CC: ALEX RODRIGUEZ;*EndCC*
[2017-09-10 14:05] VITALS: BP 131/85; RESP 16
[2017-09-10 20:02] VITALS: BP 120/68; RESP 20
[2017-09-10] MEDS: ZIPRASIDONE 20 MG CAP PO SCH (20:08)
[2017-09-10] MEDS: MIRTAZAPINE 15 MG TAB PO SCH (20:08)
[2017-09-10] MEDS: DESCOVY 200/25 PO SCH (20:14)
[2017-09-10] MEDS: PREZCOBIX PO SCH (20:14)
[2017-09-11] MEDS: D5W-0.45 NACL + KCL 10 MEQ 1,000 ML IV SCH ×4 (00:34→17:58)
[2017-09-11 02:20] VITALS: BP 142/78; RESP 16
[2017-09-11 06:35] LABS: BASOPHILS % 0.1 % (0.0-2.0); HEMATOCRIT 36.6 % (42.0-52.0); HEMOGLOBIN 12.3 g/dl (14.0-18.0); LYMPHOCYTES % 11.1 % (15.0-51.0); MEAN CORPUSCULAR HEMOGLOBIN 29.1 pg (29.0-33.0); MEAN CORPUSCULAR HGB CONC 33.6 g/dl (32.0-37.0); MEAN CORPUSCULAR VOLUME 86.5 fl (82.0-101.0); MEAN PLATELET VOLUME 12.7 fl (7.4-10.4); MONOCYTE # 0.1 10^3/ul (0.3-0.9); NEUTROPHIL # 7.7 10^3/ul (1.6-7.5); NEUTROPHILS % 86.8 % (39.0-77.0); PLATELET COUNT 134 10^3/UL (140-415); RED BLOOD COUNT 4.23 10^6/ul (4.70-6.10); RED CELL DISTRIBUTION WIDTH 14.1 % (11.5-14.5); WHITE BLOOD COUNT 8.8 10^3/ul (4.8-10.8)
[2017-09-11 07:10] LABS: CALCIUM 7.8 mg/dl (8.4-10.2); CREATININE 0.77 mg/dl (0.61-1.24); POTASSIUM 4.4 mmol/L (3.5-5.1)
[2017-09-11 07:50] VITALS: BP 120/72; RESP 16
[2017-09-11] MEDS: ENOXAPARIN 40 MG/0.4 ML SYG SC SCH (09:00)
[2017-09-11] MEDS: ASPIRIN 81 MG TAB PO SCH (09:08)
[2017-09-11] MEDS: TRIMETHOPRIM/SULFAMETHOX (SS) TAB PO SCH (09:08)
[2017-09-11] MEDS: PSYLLIUM 28% PACKET PO SCH ×2 (09:08→21:06)
[2017-09-11] MEDS: GABAPENTIN 100 MG CAP PO SCH ×3 (09:08→21:06)
[2017-09-11] MEDS: ACYCLOVIR 400 MG TAB PO SCH ×2 (09:09→21:06)
[2017-09-11] MEDS: METHOCARBAMOL 500 MG TAB PO SCH ×4 (09:09→21:06)
[2017-09-11] MEDS: POTASSIUM CHLORIDE 20 MEQ POWDER FOR ORAL SOLN PO SCH (09:09)
[2017-09-11] MEDS: LIDOCAINE 5% PATCH TD SCH (09:10)
--- NOTE | 2017-09-11 12:30 | PN ---
Date/Time of Note Date/Time of Note DATE: 09/11/17 TIME: 12:28 Assessment/Plan VTE Prophylaxis VTE Prophylaxis Intervention: SCD's Lines/Catheters IV Catheter Type (from [facility]): Peripheral IV Urinary Cath still in place: No Assessment/Plan Chief Complaint/Hosp Course Assessment and plan 1. History of monoclonal gammopathy with stage III multiple myeloma. Oncologist is following. Continue recommendations. 2. Right femoral pathologic fracture. Orthopedic surgeon was consulted. Patient will need transfer to [facility] for orthopedic oncologist consultation. wild life manager aware. Follow-up with disposition 3. History of HIV. Patient resumed on his home medications. 4. Mild L1 compression fracture. Patient to be seen by physical therapy. Continue with analgesics as needed. Disposition plan: Plan to transfer to [facility] facility. Await follow-up in case management. continue with analgesics and supportive care for now Discussed plan of care with Problems: Subjective 24 Hr Interval Summary Free Text/Dictation Reports good pain control present. No other specific complaints. Exam/Review of Systems Vital Signs Vitals Vital Signs Date Time Temp Pulse Resp B/P Pulse Ox O2 Delivery O2 Flow Rate FiO2 09/11/17 07:50 97.3 80 16 120/72 97 09/07/17 20:18 Room Air Intake and Output 09/10/17 09/10/17 09/11/17 15:00 23:00 07:00 Intake Total 900 ml 1050 ml 1380 ml Output Total 700 ml Balance 900 ml 1050 ml 680 ml Exam Constitutional: alert, oriented Psych: no complaints Head: normocephalic Eyes: nl conjunctiva Neck: non-tender, supple Respiratory: clear to auscultation Cardiovascular: regular rate and rhythm Gastrointestinal: nl liver, spleen, soft Musculoskeletal: No swelling Neurological: SEWER PIPE SORTER II-XII intact, nl mental status, nl speech Skin: nl turgor Results Result Diagram: 09/11/1712 09/11/17 0512 Results 24 hrs Laboratory Tests Test 09/11/17 05:12 White Blood Count 8.8 # Red Blood Count 4.23 L Hemoglobin 12.3 L Hematocrit 36.6 L Mean Corpuscular Volume 86.5 Mean Corpuscular Hemoglobin 29.1 Mean Corpuscular Hemoglobin Concent 33.6 Red Cell Distribution Width 14.1 Platelet Count 134 L Mean Platelet Volume 12.7 H Neutrophils % 86.8 H Lymphocytes % 11.1 L Monocytes % 1.0 Eosinophils % 0.0 Basophils % 0.1 Nucleated Red Blood Cells % 0.0 Neutrophils # 7.7 H Lymphocytes # 1.0 Monocytes # 0.1 L Eosinophils # 0.0 Basophils # 0.0 Nucleated Red Blood Cells # 0.0 Sodium Level 140 Potassium Level 4.4 Chloride Level 110 Carbon Dioxide Level 22 Anion Gap 12 Blood Urea Nitrogen 15 Creatinine 0.77 Glucose Level 134 # Calcium Level 7.8 L Medications Medications Current Medications Ondansetron HCl (Zofran Inj) 4 mg Q6H PRN IV NAUSEA AND/OR VOMITING; Start 09/07/17 at 19:30 Acetaminophen (Tylenol Tab) 650 mg Q6H PRN PO PAIN LEVEL 1-3 OR FEVER; Start 09/07/17 at 19:30 Acetaminophen/ Hydrocodone Bitart ([place] (5/325)) 1 tab Q6H PRN PO MODERATE PAIN LEVEL 4-6 Last administered on 09/07/17 20:18; Admin Dose 1 TAB; Start at 19:30 Morphine Sulfate (morphine) 2 mg Q4H PRN IV SEVERE PAIN LEVEL 7-10; Start 09/07 at 19:30 Hydromorphone HCl (Dilaudid) 0.5 mg Q4H PRN IV SEVERE PAIN LEVEL 7-10; Start 09/07/17 at 19:30 Docusate Sodium (Colace) 100 mg Q12H PRN PO CONSTIPATION; Start 09/07/17 at 19: 30 Sodium Biphosphate/ Sodium Phosphate (Fleet Enema) 133 ml DAILY PRN [place] CONSTIPATION; Start 09/07/17 at 19:30 Lorazepam (Ativan) 0.5 mg Q6H PRN IV ANXIETY; Start 09/07/17 at 19:30 Hydralazine HCl (Apresoline) 10 mg Q6H PRN IV ELEVATED BLOOD PRESSURE; Start 09/07/17 at 19:30 Nitroglycerin (Nitroglycerin (Sl Tab) 0.4 Mg) 1 tab Q5M PRN SL ANGINA; Start 09/07/17 at 19:30 Acyclovir (Zovirax) 400 mg BID PO Last administered on 09/11/17 09:09; Admin Dose 400 MG; Start 09/07/17 at 21:00 Methocarbamol (Robaxin) 500 mg QID PO Last administered on 09/11/17 09:09; Admin Dose 500 MG; Start 09/07/17 at 21:00 Mirtazapine (Remeron) 30 mg HS PO Last administered on 09/10/17 20:08; Admin Dose 30 MG; Start 09/07/17 at 21:00 Ziprasidone 60 mg 60 mg QHS PO Last administered on 09/10/17 20:08; Admin Dose 60 MG; Start 09/07/17 at 21:00 Potassium Chloride/Dextrose/ Sod Cl (D5-1/2ns + KCl 10 Meq) 1,000 ml @ 100 mls/ hr Q10H IV Last administered on 09/11/17 00:34; Admin Dose 100 MLS/HR; Start 09/08/17 at 00:00 Patient Own Medication 1 ea QHS PO Last administered on 09/10/17 20:14; Admin Dose 1 EA; Start 09/08/17 at 21:12 Patient Own Medication 1 ea QHS PO Last administered on 09/10/17 20:14; Admin Dose 1 EA; Start 09/08/17 at 21:13 Loperamide HCl (Imodium Cap) 2 mg QID PRN PO DIARRHEA Last administered on 16:00; Admin Dose 2 MG; Start 09/09/17 at 14:30 Psyllium Hydrophilic Mucilloid (Metamucil) 1 pkt BID PO Last administered on 09:08; Admin Dose 1 PKT; Start 09/09/17 at 21:00 Potassium Chloride (Potassium Chloride Pwd/Soln) 40 meq DAILY PO Last administered on 09/11/17 09:09; Admin Dose 40 MEQ; Start 09/09/17 at 14:30 Lidocaine (Lidoderm) 1 patch DAILY TD Last administered on 09/11/17 09:10; Admin Dose 1 PATCH; Start 09/10/17 at 09:00 Gabapentin (Neurontin) 100 mg TID PO Last administered on 09/11/17 09:08; Admin Dose 100 MG; Start 09/09/17 at 15:00 Dexamethasone (Decadron) 40 mg Sa@09 PO Last administered on 09/10/17 09:32; Admin Dose 40 MG; Start 09/10/17 at 09:00 Trimethoprim/ Sulfamethoxazole (Bactrim (Ss)) 1 tab SuSa@09 PO Last administered on 09/11/17 09:08; Admin Dose 1 TAB; Start 09/10/17 at 09:00 Aspirin (Aspirin) 81 mg DAILY PO Last administered on 09/11/17 09:08; Admin Dose 81 MG; Start 09/10/17 at 09:00 Patient Own Medication 1 ea QHS PO Last administered on 09/10/17 20:09; Admin Dose 1 EA; Start 09/09/17 at 23:13; Stop 09/11/17 at 23:00 Enoxaparin Sodium (Lovenox) 40 mg DAILY SC ; Start 09/11/17 at 09:00 Guaifenesin (Robitussin Liquid Cup) 100 mg Q4H PRN PO COUGH; Start 09/10/17 at 11:30 ESPERANZA ADAMS Sep 11, 2017 12:30
[2017-09-11] MEDS: GUAIFENESIN 20 MG/ML 5ML CUP PO PRN ×3 (13:38→22:21)
[2017-09-11 14:25] VITALS: BP 137/79; RESP 16
[2017-09-11 19:56] VITALS: BP 126/65; RESP 20
[2017-09-11] MEDS: PREZCOBIX PO SCH (21:05)
[2017-09-11] MEDS: DESCOVY 200/25 PO SCH (21:05)
[2017-09-11] MEDS: ZIPRASIDONE 20 MG CAP PO SCH (21:06)
[2017-09-11] MEDS: REVLIMID 25 MG PO SCH (21:06)
[2017-09-11] MEDS: MIRTAZAPINE 15 MG TAB PO SCH (21:06)
[2017-09-12] MEDS: D5W-0.45 NACL + KCL 10 MEQ 1,000 ML IV SCH ×3 (01:08→21:29)
[2017-09-12 02:25] VITALS: BP 136/89; RESP 20
[2017-09-12 06:12] LABS: BASOPHILS % 0.1 % (0.0-2.0); HEMATOCRIT 35.5 % (42.0-52.0); HEMOGLOBIN 11.9 g/dl (14.0-18.0); LYMPHOCYTES % 7.4 % (15.0-51.0); MEAN CORPUSCULAR HEMOGLOBIN 29.5 pg (29.0-33.0); MEAN CORPUSCULAR HGB CONC 33.5 g/dl (32.0-37.0); MEAN CORPUSCULAR VOLUME 87.9 fl (82.0-101.0); MEAN PLATELET VOLUME 12.9 fl (7.4-10.4); MONOCYTE # 0.6 10^3/ul (0.3-0.9); MONOCYTES % 3.9 % (0.0-11.0); NEUTROPHIL # 12.4 10^3/ul (1.6-7.5); NEUTROPHILS % 87.7 % (39.0-77.0); PLATELET COUNT 192 10^3/UL (140-415); RED BLOOD COUNT 4.04 10^6/ul (4.70-6.10); RED CELL DISTRIBUTION WIDTH 14.4 % (11.5-14.5); WHITE BLOOD COUNT 14.1 10^3/ul (4.8-10.8)
[2017-09-12 06:45] LABS: CALCIUM 8.3 mg/dl (8.4-10.2); CREATININE 0.81 mg/dl (0.61-1.24); POTASSIUM 4.6 mmol/L (3.5-5.1)
[2017-09-12 07:44] VITALS: BP 123/74; RESP 18
[2017-09-12] MEDS: POTASSIUM CHLORIDE 20 MEQ POWDER FOR ORAL SOLN PO SCH (08:19)
[2017-09-12] MEDS: PSYLLIUM 28% PACKET PO SCH ×2 (08:19→20:26)
[2017-09-12] MEDS: GABAPENTIN 100 MG CAP PO SCH ×3 (08:19→20:25)
[2017-09-12] MEDS: ASPIRIN 81 MG TAB PO SCH (08:19)
[2017-09-12] MEDS: METHOCARBAMOL 500 MG TAB PO SCH ×4 (08:19→20:25)
[2017-09-12] MEDS: LIDOCAINE 5% PATCH TD SCH (08:20)
[2017-09-12] MEDS: ENOXAPARIN 40 MG/0.4 ML SYG SC SCH ×2 (08:23→08:33)
--- NOTE | 2017-09-12 09:21 | CONS ---
Date/Time of Note Date/Time of Note DATE: 09/12/17 TIME: 09:19 Assessment/Plan Assessment/Plan Chief Complaint/Hosp Course #STAGE III Multiple Myeloma -pt received cycle 2 day 11 of therapy on 09/06 -will start cycle 3 of VRD on 09/15 if patient is in house -pt completed his 14 day course of Revlimid on Tuesday. to restart this -continue Decadron 40 mg q Tuesday. -continue acyclovir 400 mg bid as well as Bactrim SS Tue /Tuesday #R femur fracture -pt will need this stabilized by orthopedic surgery -pt is at great risk for complete fracture of this weight bearing bone -pt needs to be transferred to tertiary [facility] center for surgery since orthopedic surgery at [facility] is not able to operative on pathologic fractures -afterwards pt can receive adjuvant radiation #Bone pain -continue current pain regimen -pt getting pamidronate as an out patient #HIV -continue HAART therapy #HTN -continue current medications Problems: Consultation Date/Type/Reason Admit Date/Time Sep 07, 2017 at 19:33 Initial Consult Date 09/08/17 Type of Consultation: hematology Reason for Consultation Multiple myeloma Referring Provider: ESPERANZA ADAMS 24 HR Interval Summary Free Text/Dictation pain in R femur is much improved Exam/Review of Systems Vital Signs Vitals Vital Signs Date Time Temp Pulse Resp B/P Pulse Ox O2 Delivery O2 Flow Rate FiO2 09/12/17 07:44 97.5 74 18 123/74 97 Intake and Output 09/11/17 09/11/17 09/12/17 14:59 22:59 06:59 Intake Total 650 ml 1320 ml 1700 ml Output Total 900 ml Balance 650 ml 1320 ml 800 ml Exam Constitutional: alert, frail, oriented Psych: no complaints Head: normocephalic Eyes: nl conjunctiva ENMT: nl external ears & nose Neck: non-tender, supple Respiratory: clear to auscultation, normal air movement Gastrointestinal: soft Musculoskeletal: nl extremities to inspection Results Result Diagram: 09/12/17 0515 09/12/17 0515 Results 24 hrs Laboratory Tests Test 09/12/17 05:15 White Blood Count 14.1 #H Red Blood Count 4.04 L Hemoglobin 11.9 L Hematocrit 35.5 L Mean Corpuscular Volume 87.9 Mean Corpuscular Hemoglobin 29.5 Mean Corpuscular Hemoglobin Concent 33.5 Red Cell Distribution Width 14.4 Platelet Count 192 # Mean Platelet Volume 12.9 H Neutrophils % 87.7 H Lymphocytes % 7.4 L Monocytes % 3.9 Eosinophils % 0.0 Basophils % 0.1 Nucleated Red Blood Cells % 0.0 Neutrophils # 12.4 H Lymphocytes # 1.0 Monocytes # 0.6 Eosinophils # 0.0 Basophils # 0.0 Nucleated Red Blood Cells # 0.0 Sodium Level 142 Potassium Level 4.6 Chloride Level 110 Carbon Dioxide Level 26 Anion Gap 11 Blood Urea Nitrogen 24 H Creatinine 0.81 Glucose Level 126 Calcium Level 8.3 L Medications Medications Current Medications Ondansetron HCl (Zofran Inj) 4 mg Q6H PRN IV NAUSEA AND/OR VOMITING; Start 09/07/17 at 19:30 Acetaminophen (Tylenol Tab) 650 mg Q6H PRN PO PAIN LEVEL 1-3 OR FEVER; Start 09/07/17 at 19:30 Acetaminophen/ Hydrocodone Bitart ([place] (5/325)) 1 tab Q6H PRN PO MODERATE PAIN LEVEL 4-6 Last administered on 09/07/17 20:18; Admin Dose 1 TAB; Start at 19:30 Morphine Sulfate (morphine) 2 mg Q4H PRN IV SEVERE PAIN LEVEL 7-10; Start 09/07 at 19:30 Hydromorphone HCl (Dilaudid) 0.5 mg Q4H PRN IV SEVERE PAIN LEVEL 7-10; Start 09/07/17 at 19:30 Docusate Sodium (Colace) 100 mg Q12H PRN PO CONSTIPATION; Start 09/07/17 at 19: 30 Sodium Biphosphate/ Sodium Phosphate (Fleet Enema) 133 ml DAILY PRN [place] CONSTIPATION; Start 09/07/17 at 19:30 Lorazepam (Ativan) 0.5 mg Q6H PRN IV ANXIETY; Start 09/07/17 at 19:30 Hydralazine HCl (Apresoline) 10 mg Q6H PRN IV ELEVATED BLOOD PRESSURE; Start 09/07/17 at 19:30 Nitroglycerin (Nitroglycerin (Sl Tab) 0.4 Mg) 1 tab Q5M PRN SL ANGINA; Start 09/07/17 at 19:30 Acyclovir (Zovirax) 400 mg BID PO Last administered on 09/11/17 21:06; Admin Dose 400 MG; Start 09/07/17 at 21:00 Methocarbamol (Robaxin) 500 mg QID PO Last administered on 09/12/17 08:19; Admin Dose 500 MG; Start 09/07/17 at 21:00 Mirtazapine (Remeron) 30 mg HS PO Last administered on 09/11/17 21:06; Admin Dose 30 MG; Start 09/07/17 at 21:00 Ziprasidone 60 mg 60 mg QHS PO Last administered on 09/11/17 21:06; Admin Dose 60 MG; Start 09/07/17 at 21:00 Potassium Chloride/Dextrose/ Sod Cl (D5-1/2ns + KCl 10 Meq) 1,000 ml @ 100 mls/ hr Q10H IV Last administered on 09/12/17 01:08; Admin Dose 100 MLS/HR; Start 09/08/17 at 00:00 Patient Own Medication 1 ea QHS PO Last administered on 09/11/17 21:05; Admin Dose 1 EA; Start 09/08/17 at 21:12 Patient Own Medication 1 ea QHS PO Last administered on 09/11/17 21:05; Admin Dose 1 EA; Start 09/08/17 at 21:13 Loperamide HCl (Imodium Cap) 2 mg QID PRN PO DIARRHEA Last administered on 16:00; Admin Dose 2 MG; Start 09/09/17 at 14:30 Psyllium Hydrophilic Mucilloid (Metamucil) 1 pkt BID PO Last administered on 08:19; Admin Dose 1 PKT; Start 09/09/17 at 21:00 Potassium Chloride (Potassium Chloride Pwd/Soln) 40 meq DAILY PO Last administered on 09/12/17 08:19; Admin Dose 40 MEQ; Start 09/09/17 at 14:30 Lidocaine (Lidoderm) 1 patch DAILY TD Last administered on 09/12/17 08:20; Admin Dose 1 PATCH; Start 09/10/17 at 09:00 Gabapentin (Neurontin) 100 mg TID PO Last administered on 09/12/17 08:19; Admin Dose 100 MG; Start 09/09/17 at 15:00 Dexamethasone (Decadron) 40 mg Sa@09 PO Last administered on 09/10/17 09:32; Admin Dose 40 MG; Start 09/10/17 at 09:00 Trimethoprim/ Sulfamethoxazole (Bactrim (Ss)) 1 tab SuSa@09 PO Last administered on 09/11/17 09:08; Admin Dose 1 TAB; Start 09/10/17 at 09:00 Aspirin (Aspirin) 81 mg DAILY PO Last administered on 09/12/17 08:19; Admin Dose 81 MG; Start 09/10/17 at 09:00 Enoxaparin Sodium (Lovenox) 40 mg DAILY SC ; Start 09/11/17 at 09:00 Guaifenesin (Robitussin Liquid Cup) 100 mg Q4H PRN PO COUGH Last administered on 09/11/17 22:21; Admin Dose 100 MG; Start 09/10/17 at 11:30 IQRA MIDDLETON M.D. Sep 12, 2017 09:21
[2017-09-12] MEDS: ACYCLOVIR 400 MG TAB PO SCH ×2 (12:05→20:25)
[2017-09-12] MEDS: GUAIFENESIN 20 MG/ML 5ML CUP PO PRN (14:08)
[2017-09-12 14:30] VITALS: BP 164/97; RESP 20
--- NOTE | 2017-09-12 15:53 | PN ---
Date/Time of Note Date/Time of Note DATE: 09/12/17 TIME: 15:49 Assessment/Plan VTE Prophylaxis VTE Prophylaxis Intervention: SCD's Lines/Catheters IV Catheter Type (from Nrs): Peripheral IV Urinary Cath still in place: No Assessment/Plan Assessment/Plan 1. Multiple myeloma, stage III, on chemotherapy, follow up with oncology 2. Right femoral neck pathologic fracture with diffuse bony lesions, patient will need transfer to tertiary care center for orthopedic oncologist consultation. 3. History of HIV. Patient resumed on his home medications. 4. Mild L1 compression fracture. Patient to be seen by physical therapy. Continue with analgesics as needed. Subjective 24 Hr Interval Summary Free Text/Dictation no pain Exam/Review of Systems Vital Signs Vitals Vital Signs Date Time Temp Pulse Resp B/P Pulse Ox O2 Delivery O2 Flow Rate FiO2 09/12/17 14:30 98.8 83 20 164/97 97 Intake and Output 09/11/17 09/11/17 09/12/17 15:00 23:00 07:00 Intake Total 650 ml 1320 ml 1700 ml Output Total 900 ml Balance 650 ml 1320 ml 800 ml Exam Constitutional: alert, oriented, well developed Psych: nl mood/affect, no complaints Head: atraumatic, normocephalic Eyes: EOMI, PERRL, nl conjunctiva, nl lids, nl sclera ENMT: nl external ears & nose, nl lips & teeth, nl nasal mucosa & septum Neck: non-tender, supple Respiratory: clear to auscultation, normal air movement, No congested cough, No crackles/rales, No diminished breath sounds, No intercostal retraction, No labored breathing, No other, No respirations, No tactile fremitus, No wheezing Cardiovascular: nl pulses, regular rate and rhythm, No S3, No S4, No bruits, No diastolic murmur, No edema, No gallop, No irregular rhythm, No jugular venous distention (JVD), No murmurs/extra sounds, No other, No rub, No systolic murmur Gastrointestinal: nl liver, spleen, non-tender, soft Musculoskeletal: nl extremities to inspection Extremities: normal pulses, No calf tenderness, No clubbing, No cyanosis, No edema, No other, No palpable cord, No pitting pedal edema, No tenderness 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, nl mental status, nl speech, nl strength Skin: nl turgor Lymph: nl lymph nodes Results Result Diagram: 09/12/1715 09/12/17 0515 Results 24 hrs Laboratory Tests Test 09/12/17 05:15 White Blood Count 14.1 #H Red Blood Count 4.04 L Hemoglobin 11.9 L Hematocrit 35.5 L Mean Corpuscular Volume 87.9 Mean Corpuscular Hemoglobin 29.5 Mean Corpuscular Hemoglobin Concent 33.5 Red Cell Distribution Width 14.4 Platelet Count 192 # Mean Platelet Volume 12.9 H Neutrophils % 87.7 H Lymphocytes % 7.4 L Monocytes % 3.9 Eosinophils % 0.0 Basophils % 0.1 Nucleated Red Blood Cells % 0.0 Neutrophils # 12.4 H Lymphocytes # 1.0 Monocytes # 0.6 Eosinophils # 0.0 Basophils # 0.0 Nucleated Red Blood Cells # 0.0 Sodium Level 142 Potassium Level 4.6 Chloride Level 110 Carbon Dioxide Level 26 Anion Gap 11 Blood Urea Nitrogen 24 H Creatinine 0.81 Glucose Level 126 Calcium Level 8.3 L Medications Medications Current Medications Ondansetron HCl (Zofran Inj) 4 mg Q6H PRN IV NAUSEA AND/OR VOMITING; Start 09/07/17 at 19:30 Acetaminophen (Tylenol Tab) 650 mg Q6H PRN PO PAIN LEVEL 1-3 OR FEVER; Start 09/07/17 at 19:30 Acetaminophen/ Hydrocodone Bitart ([place] (5/325)) 1 tab Q6H PRN PO MODERATE PAIN LEVEL 4-6 Last administered on 09/07/17t 20:18; Admin Dose 1 TAB; Start at 19:30 Morphine Sulfate (morphine) 2 mg Q4H PRN IV SEVERE PAIN LEVEL 7-10; Start 09/07 at 19:30 Hydromorphone HCl (Dilaudid) 0.5 mg Q4H PRN IV SEVERE PAIN LEVEL 7-10; Start 09/07/17 at 19:30 Docusate Sodium (Colace) 100 mg Q12H PRN PO CONSTIPATION; Start 09/07/17 at 19: 30 Sodium Biphosphate/ Sodium Phosphate (Fleet Enema) 133 ml DAILY PRN [place] CONSTIPATION; Start 09/07/17 at 19:30 Lorazepam (Ativan) 0.5 mg Q6H PRN IV ANXIETY; Start 09/07/17 at 19:30 Hydralazine HCl (Apresoline) 10 mg Q6H PRN IV ELEVATED BLOOD PRESSURE; Start 09/07/17 at 19:30 Nitroglycerin (Nitroglycerin (Sl Tab) 0.4 Mg) 1 tab Q5M PRN SL ANGINA; Start 09/07/17 at 19:30 Acyclovir (Zovirax) 400 mg BID PO Last administered on 09/12/17 12:05; Admin Dose 400 MG; Start 09/07/17 at 21:00 Methocarbamol (Robaxin) 500 mg QID PO Last administered on 09/12/17 12:05; Admin Dose 500 MG; Start 09/07/17 at 21:00 Mirtazapine (Remeron) 30 mg HS PO Last administered on 09/11/17 21:06; Admin Dose 30 MG; Start 09/07/17 at 21:00 Ziprasidone 60 mg 60 mg QHS PO Last administered on 09/11/17 21:06; Admin Dose 60 MG; Start 09/07/17 at 21:00 Potassium Chloride/Dextrose/ Sod Cl (D5-1/2ns + KCl 10 Meq) 1,000 ml @ 100 mls/ hr Q10H IV Last administered on 09/12/17 12:06; Admin Dose 100 MLS/HR; Start 09/08/17 at 00:00 Patient Own Medication 1 ea QHS PO Last administered on 09/11/17 21:05; Admin Dose 1 EA; Start 09/08/17 at 21:12 Patient Own Medication 1 ea QHS PO Last administered on 09/11/17 21:05; Admin Dose 1 EA; Start 09/08/17 at 21:13 Loperamide HCl (Imodium Cap) 2 mg QID PRN PO DIARRHEA Last administered on 16:00; Admin Dose 2 MG; Start 09/09/17 at 14:30 Psyllium Hydrophilic Mucilloid (Metamucil) 1 pkt BID PO Last administered on 08:19; Admin Dose 1 PKT; Start 09/09/17 at 21:00 Potassium Chloride (Potassium Chloride Pwd/Soln) 40 meq DAILY PO Last administered on 09/12/17 08:19; Admin Dose 40 MEQ; Start 09/09/17 at 14:30 Lidocaine (Lidoderm) 1 patch DAILY TD Last administered on 09/12/17 08:20; Admin Dose 1 PATCH; Start 09/10/17 at 09:00 Gabapentin (Neurontin) 100 mg TID PO Last administered on 09/12/17 12:05; Admin Dose 100 MG; Start 09/09/17 at 15:00 Dexamethasone (Decadron) 40 mg Sa@09 PO Last administered on 09/10/17 09:32; Admin Dose 40 MG; Start 09/10/17 at 09:00 Trimethoprim/ Sulfamethoxazole (Bactrim (Ss)) 1 tab SuSa@09 PO Last administered on 09/11/17 09:08; Admin Dose 1 TAB; Start 09/10/17 at 09:00 Aspirin (Aspirin) 81 mg DAILY PO Last administered on 09/12/17 08:19; Admin Dose 81 MG; Start 09/10/17 at 09:00 Enoxaparin Sodium (Lovenox) 40 mg DAILY SC ; Start 09/11/17 at 09:00 Guaifenesin (Robitussin Liquid Cup) 100 mg Q4H PRN PO COUGH Last administered on 09/12/17 14:08; Admin Dose 100 MG; Start 09/10/17 at 11:30 KARYN BROWNE MD Sep 12, 2017 15:53
[2017-09-12 20:12] VITALS: BP 124/78; RESP 18
[2017-09-12] MEDS: HYDROCODONE/APAP (5/325) TAB PO PRN (20:24)
[2017-09-12] MEDS: PREZCOBIX PO SCH (20:25)
[2017-09-12] MEDS: MIRTAZAPINE 15 MG TAB PO SCH (20:25)
[2017-09-12] MEDS: DESCOVY 200/25 PO SCH (20:26)
[2017-09-12] MEDS: ZIPRASIDONE 20 MG CAP PO SCH (21:26)
[2017-09-12] MEDS: HYDROmorphONE 1 MG/ML SYG IV PRN (23:34)
[2017-09-13 02:14] VITALS: BP 110/63; RESP 18
--- NOTE | 2017-09-13 04:52 | RADRPT ---
PROCEDURE: XR Hip. CLINICAL INDICATION: RE-EVAL. PER PT., HEARD CRACK WHEN LIFTED LEG, INC PAIN TECHNIQUE: 2 views of the right hip were performed. COMPARISON: CT EXTREMITY 09/08/2017; DR EXTREMITY 09/01/2017 FINDINGS: There is worsening of the right femoral neck fracture with mild displacement. Multiple lytic lesio ns are again visualized. The hip joint is normal without evidence of arthritis or effusion. IMPRESSION: Worsening of the right femoral neck fracture with mild displacement. Lytic lesions compatible with metastatic disease or myeloma. Physician Mario Date Time Electronically viewed and signed by Physician Mario on 09/13/2017 04:52 CS/
[2017-09-13 05:38] LABS: BASOPHILS % 0.1 % (0.0-2.0); EOSINOPHILS % 0.2 % (0.0-7.0); HEMATOCRIT 34.4 % (42.0-52.0); HEMOGLOBIN 11.4 g/dl (14.0-18.0); LYMPHOCYTES % 10.8 % (15.0-51.0); MEAN CORPUSCULAR HEMOGLOBIN 30.2 pg (29.0-33.0); MEAN CORPUSCULAR HGB CONC 33.1 g/dl (32.0-37.0); MEAN PLATELET VOLUME 12.5 fl (7.4-10.4); MONOCYTES % 10.1 % (0.0-11.0); NEUTROPHIL # 7.3 10^3/ul (1.6-7.5); NEUTROPHILS % 78.1 % (39.0-77.0); PLATELET COUNT 222 10^3/UL (140-415); RED BLOOD COUNT 3.78 10^6/ul (4.70-6.10); RED CELL DISTRIBUTION WIDTH 14.7 % (11.5-14.5); WHITE BLOOD COUNT 9.4 10^3/ul (4.8-10.8)
[2017-09-13 06:25] LABS: CREATININE 0.86 mg/dl (0.61-1.24); POTASSIUM 4.3 mmol/L (3.5-5.1)
[2017-09-13 07:39] VITALS: BP 117/72; RESP 20
[2017-09-13] MEDS: D5W-0.45 NACL + KCL 10 MEQ 1,000 ML IV SCH ×2 (07:51→16:33)
[2017-09-13] MEDS: HYDROmorphONE 1 MG/ML SYG IV PRN ×3 (07:52→20:47)
[2017-09-13] MEDS: GABAPENTIN 100 MG CAP PO SCH ×3 (08:12→20:41)
[2017-09-13] MEDS: LIDOCAINE 5% PATCH TD SCH (08:12)
[2017-09-13] MEDS: ACYCLOVIR 400 MG TAB PO SCH ×2 (08:12→20:46)
[2017-09-13] MEDS: ASPIRIN 81 MG TAB PO SCH (08:12)
[2017-09-13] MEDS: POTASSIUM CHLORIDE 20 MEQ POWDER FOR ORAL SOLN PO SCH (08:12)
[2017-09-13] MEDS: PSYLLIUM 28% PACKET PO SCH ×2 (08:12→20:57)
[2017-09-13] MEDS: METHOCARBAMOL 500 MG TAB PO SCH ×4 (08:12→20:41)
[2017-09-13] MEDS: ENOXAPARIN 40 MG/0.4 ML SYG SC SCH (08:18)
[2017-09-13 14:20] VITALS: BP 129/79; RESP 18
--- NOTE | 2017-09-13 15:16 | PN ---
Date/Time of Note Date/Time of Note DATE: 09/13/17 TIME: 15:13 Assessment/Plan VTE Prophylaxis VTE Prophylaxis Intervention: SCD's Lines/Catheters IV [facility] Peripheral IV Urinary Cath still in place: No Assessment/Plan Assessment/Plan 1. Multiple myeloma, stage III, on chemotherapy, follow up with oncology 2. Right femoral neck pathologic fracture with diffuse bony lesions, patient will need transfer to tertiary care center for orthopedic oncologist consultation. 3. History of HIV. Patient resumed on his home medications. 4. Mild L1 compression fracture. Patient to be seen by physical therapy. Continue with analgesics as needed. 5. Awaiting for transfer to a tertiary care center Subjective 24 Hr Interval Summary Free Text/Dictation no event. afebrile Exam/Review of Systems Vital Signs Vitals Vital Signs Date Time Temp Pulse Resp B/P Pulse Ox O2 Delivery O2 Flow Rate FiO2 09/13/17 14:20 97.8 74 18 129/79 97 Intake and Output 09/12/17 09/12/17 09/13/17 15:00 23:00 07:00 Intake Total 600 ml 1190 ml 1230 ml Output Total 600 ml 900 ml Balance 600 ml 590 ml 330 ml Exam Constitutional: alert, oriented, well developed Psych: nl mood/affect, no complaints Head: atraumatic, normocephalic Eyes: EOMI, PERRL, nl conjunctiva, nl lids, nl sclera ENMT: nl external ears & nose, nl lips & teeth, nl nasal mucosa & septum Neck: non-tender, supple Respiratory: clear to auscultation, normal air movement, No congested cough, No crackles/rales, No diminished breath sounds, No intercostal retraction, No labored breathing, No other, No respirations, No tactile fremitus, No wheezing Cardiovascular: nl pulses, regular rate and rhythm, No S3, No S4, No bruits, No diastolic murmur, No edema, No gallop, No irregular rhythm, No jugular venous distention (JVD), No murmurs/extra sounds, No other, No rub, No systolic murmur Gastrointestinal: nl liver, spleen, non-tender, soft Musculoskeletal: nl extremities to inspection Extremities: normal pulses, No calf tenderness, No clubbing, No cyanosis, No edema, No other, No palpable cord, No pitting pedal edema, No tenderness 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, nl mental status, nl speech, nl strength Skin: nl turgor Lymph: nl lymph nodes Results Result Diagram: 09/13/17 0453 09/13/17 0453 Results 24 hrs Laboratory Tests Test 09/13/17 04:53 White Blood Count 9.4 # Red Blood Count 3.78 L Hemoglobin 11.4 L Hematocrit 34.4 L Mean Corpuscular Volume 91.0 Mean Corpuscular Hemoglobin 30.2 Mean Corpuscular Hemoglobin Concent 33.1 Red Cell Distribution Width 14.7 H Platelet Count 222 Mean Platelet Volume 12.5 H Neutrophils % 78.1 H Lymphocytes % 10.8 L Monocytes % 10.1 Eosinophils % 0.2 Basophils % 0.1 Nucleated Red Blood Cells % 0.0 Neutrophils # 7.3 Lymphocytes # 1.0 Monocytes # 1.0 H Eosinophils # 0.0 Basophils # 0.0 Nucleated Red Blood Cells # 0.0 Sodium Level 141 Potassium Level 4.3 Chloride Level 105 Carbon Dioxide Level 28 Anion Gap 12 Blood Urea Nitrogen 18 Creatinine 0.86 Glucose Level 110 Calcium Level 8.0 L Medications Medications Current Medications Ondansetron HCl (Zofran Inj) 4 mg Q6H PRN IV NAUSEA AND/OR VOMITING; Start 09/07/17 at 19:30 Acetaminophen (Tylenol Tab) 650 mg Q6H PRN PO PAIN LEVEL 1-3 OR FEVER; Start 09/07/17 at 19:30 Acetaminophen/ Hydrocodone Bitart ([place] (5/325)) 1 tab Q6H PRN PO MODERATE PAIN LEVEL 4-6 Last administered on 09/12/17t 20:24; Admin Dose 1 TAB; Start 09/07/17 at 19:30 Morphine Sulfate (morphine) 2 mg Q4H PRN IV SEVERE PAIN LEVEL 7-10; Start 09/07 at 19:30 Docusate Sodium (Colace) 100 mg Q12H PRN PO CONSTIPATION; Start 09/07/17 at 19: 30 Sodium Biphosphate/ Sodium Phosphate (Fleet Enema) 133 ml DAILY PRN [place] CONSTIPATION; Start 09/07/17 at 19:30 Lorazepam (Ativan) 0.5 mg Q6H PRN IV ANXIETY; Start 09/07/17 at 19:30 Hydralazine HCl (Apresoline) 10 mg Q6H PRN IV ELEVATED BLOOD PRESSURE; Start 09/07/17 at 19:30 Nitroglycerin (Nitroglycerin (Sl Tab) 0.4 Mg) 1 tab Q5M PRN SL ANGINA; Start 09/07/17 at 19:30 Acyclovir (Zovirax) 400 mg BID PO Last administered on 09/13/17 08:12; Admin Dose 400 MG; Start 09/07/17 at 21:00 Methocarbamol (Robaxin) 500 mg QID PO Last administered on 09/13/17 12:46; Admin Dose 500 MG; Start 09/07/17 at 21:00 Mirtazapine (Remeron) 30 mg HS PO Last administered on 09/12/17 20:25; Admin Dose 30 MG; Start 09/07/17 at 21:00 Ziprasidone 60 mg 60 mg QHS PO Last administered on 09/12/17 21:26; Admin Dose 60 MG; Start 09/07/17 at 21:00 Potassium Chloride/Dextrose/ Sod Cl (D5-1/2ns + KCl 10 Meq) 1,000 ml @ 100 mls/ hr Q10H IV Last administered on 09/13/17 07:51; Admin Dose 100 MLS/HR; Start 09/08/17 at 00:00 Patient Own Medication 1 ea QHS PO Last administered on 09/12/17 20:25; Admin Dose 1 EA; Start 09/08/17 at 21:12 Patient Own Medication 1 ea QHS PO Last administered on 09/12/17 20:26; Admin Dose 1 EA; Start 09/08/17 at 21:13 Loperamide HCl (Imodium Cap) 2 mg QID PRN PO DIARRHEA Last administered on 16:00; Admin Dose 2 MG; Start 09/09/17 at 14:30 Psyllium Hydrophilic Mucilloid (Metamucil) 1 pkt BID PO Last administered on 08:12; Admin Dose 1 PKT; Start 09/09/17 at 21:00 Potassium Chloride (Potassium Chloride Pwd/Soln) 40 meq DAILY PO Last administered on 09/13/17 08:12; Admin Dose 40 MEQ; Start 09/09/17 at 14:30 Lidocaine (Lidoderm) 1 patch DAILY TD Last administered on 09/13/17 08:12; Admin Dose 1 PATCH; Start 09/10/17 at 09:00 Gabapentin (Neurontin) 100 mg TID PO Last administered on 09/13/17 12:46; Admin Dose 100 MG; Start 09/09/17 at 15:00 Dexamethasone (Decadron) 40 mg Sa@09 PO Last administered on 09/10/17 09:32; Admin Dose 40 MG; Start 09/10/17 at 09:00 Trimethoprim/ Sulfamethoxazole (Bactrim (Ss)) 1 tab SuSa@ PO Last administered on 09/11/17 09:08; Admin Dose 1 TAB; Start 09/10/17 at 09:00 Aspirin (Aspirin) 81 mg DAILY PO Last administered on 09/13/17 08:12; Admin Dose 81 MG; Start 09/10/17 at 09:00 Enoxaparin Sodium (Lovenox) 40 mg DAILY SC ; Start 09/11/17 at 09:00 Guaifenesin (Robitussin Liquid Cup) 100 mg Q4H PRN PO COUGH Last administered on 09/12/17 14:08; Admin Dose 100 MG; Start 09/10/17 at 11:30 Hydromorphone HCl (Dilaudid) 1 mg Q4H PRN IV SEVERE PAIN LEVEL 7-10 Last administered on 09/13/17 14:56; Admin Dose 1 MG; Start 09/12/17 at 23:30 KARYN BROWNE MD Sep 13, 2017 15:16
[2017-09-13] MEDS: HYDROCODONE/APAP (5/325) TAB PO PRN (16:12)
[2017-09-13 20:02] VITALS: BP 106/55; RESP 18
[2017-09-13] MEDS: MIRTAZAPINE 15 MG TAB PO SCH (20:41)
[2017-09-13] MEDS: ZIPRASIDONE 20 MG CAP PO SCH (20:42)
[2017-09-13] MEDS: PREZCOBIX PO SCH (20:43)
[2017-09-13] MEDS: DESCOVY 200/25 PO SCH (20:44)
[2017-09-14 02:05] VITALS: BP 112/60; RESP 18
[2017-09-14] MEDS: D5W-0.45 NACL + KCL 10 MEQ 1,000 ML IV SCH ×2 (03:58→14:58)
[2017-09-14 06:17] LABS: BASOPHILS % 0.2 % (0.0-2.0); EOSINOPHILS # 0.1 10^3/ul (0.0-0.5); EOSINOPHILS % 1.8 % (0.0-7.0); HEMATOCRIT 33.8 % (42.0-52.0); HEMOGLOBIN 11.2 g/dl (14.0-18.0); LYMPHOCYTES # 1.2 10^3/ul (0.8-2.9); LYMPHOCYTES % 21.3 % (15.0-51.0); MEAN CORPUSCULAR HEMOGLOBIN 30.4 pg (29.0-33.0); MEAN CORPUSCULAR HGB CONC 33.1 g/dl (32.0-37.0); MEAN CORPUSCULAR VOLUME 91.6 fl (82.0-101.0); MONOCYTE # 0.9 10^3/ul (0.3-0.9); MONOCYTES % 15.5 % (0.0-11.0); NEUTROPHIL # 3.3 10^3/ul (1.6-7.5); PLATELET COUNT 255 10^3/UL (140-415); RED BLOOD COUNT 3.69 10^6/ul (4.70-6.10); RED CELL DISTRIBUTION WIDTH 14.7 % (11.5-14.5); WHITE BLOOD COUNT 5.6 10^3/ul (4.8-10.8)
[2017-09-14 06:39] LABS: CREATININE 0.94 mg/dl (0.61-1.24); POTASSIUM 4.2 mmol/L (3.5-5.1)
[2017-09-14 07:36] VITALS: BP 120/67; RESP 20
[2017-09-14] MEDS: HYDROmorphONE 1 MG/ML SYG IV PRN ×3 (07:43→21:06)
[2017-09-14] MEDS: GABAPENTIN 100 MG CAP PO SCH ×3 (08:03→21:08)
[2017-09-14] MEDS: POTASSIUM CHLORIDE 20 MEQ POWDER FOR ORAL SOLN PO SCH (08:03)
[2017-09-14] MEDS: ACYCLOVIR 400 MG TAB PO SCH ×2 (08:03→21:07)
[2017-09-14] MEDS: ASPIRIN 81 MG TAB PO SCH (08:03)
[2017-09-14] MEDS: LIDOCAINE 5% PATCH TD SCH (08:04)
[2017-09-14] MEDS: ENOXAPARIN 40 MG/0.4 ML SYG SC SCH (08:04)
[2017-09-14] MEDS: PSYLLIUM 28% PACKET PO SCH ×2 (08:04→21:21)
[2017-09-14] MEDS: METHOCARBAMOL 500 MG TAB PO SCH ×4 (08:08→21:06)
[2017-09-14 14:13] VITALS: BP 117/69; RESP 18
--- NOTE | 2017-09-14 16:02 | PN ---
Date/Time of Note Date/Time of Note DATE: 09/14/17 TIME: 16:01 Assessment/Plan VTE Prophylaxis VTE Prophylaxis Intervention: SCD's Lines/Catheters IV Catheter Type (from Nrs): Peripheral IV Urinary Cath still in place: No Assessment/Plan Assessment/Plan 1. Multiple myeloma, stage III, on chemotherapy, follow up with oncology 2. Right femoral neck pathologic fracture with diffuse bony lesions, patient will need transfer to tertiary care center for orthopedic oncologist consultation. 3. History of HIV. Patient resumed on his home medications. 4. Mild L1 compression fracture. Patient to be seen by physical therapy. Continue with analgesics as needed. 5. Awaiting for transfer to a tertiary care center. I talked to [facility] personnel yesterday, awaiting for bed Subjective 24 Hr Interval Summary Free Text/Dictation no pain, no fever Exam/Review of Systems Vital Signs Vitals Vital Signs Date Time Temp Pulse Resp B/P Pulse Ox O2 Delivery O2 Flow Rate FiO2 09/14/17 14:13 98.3 89 18 117/69 98 Intake and Output 09/13/17 09/13/17 09/14/17 15:00 23:00 07:00 Intake Total 1725 ml 1460 ml Output Total 200 ml 1050 ml Balance 1525 ml 410 ml Exam Constitutional: alert, oriented, well developed Psych: nl mood/affect, no complaints Head: atraumatic, normocephalic Eyes: EOMI, PERRL, nl conjunctiva, nl lids ENMT: nl external ears & nose, nl lips & teeth, nl nasal mucosa & septum Neck: non-tender, supple Respiratory: clear to auscultation, normal air movement, No congested cough, No crackles/rales, No diminished breath sounds, No intercostal retraction, No labored breathing, No other, No respirations, No tactile fremitus, No wheezing Cardiovascular: nl pulses, regular rate and rhythm, No S3, No S4, No bruits, No diastolic murmur, No edema, No gallop, No irregular rhythm, No jugular venous distention (JVD), No murmurs/extra sounds, No other, No rub, No systolic murmur Gastrointestinal: nl liver, spleen, non-tender, soft Musculoskeletal: nl extremities to inspection Extremities: normal pulses, No calf tenderness, No clubbing, No cyanosis, No edema, No other, No palpable cord, No pitting pedal edema, No tenderness Neurological: [employer] II-XII intact, nl mental status, nl speech, nl strength Results Result Diagram: 09/14/175 09/14/17434 Results 24 hrs Laboratory Tests Test 09/14/17 04:35 White Blood Count 5.6 # Red Blood Count 3.69 L Hemoglobin 11.2 L Hematocrit 33.8 L Mean Corpuscular Volume 91.6 Mean Corpuscular Hemoglobin 30.4 Mean Corpuscular Hemoglobin Concent 33.1 Red Cell Distribution Width 14.7 H Platelet Count 255 Mean Platelet Volume 12.0 H Neutrophils % 59.0 Lymphocytes % 21.3 Monocytes % 15.5 H Eosinophils % 1.8 Basophils % 0.2 Nucleated Red Blood Cells % 0.0 Neutrophils # 3.3 Lymphocytes # 1.2 Monocytes # 0.9 Eosinophils # 0.1 Basophils # 0.0 Nucleated Red Blood Cells # 0.0 Sodium Level 140 Potassium Level 4.2 Chloride Level 106 Carbon Dioxide Level 31 Anion Gap 7 L Blood Urea Nitrogen 19 Creatinine 0.94 Glucose Level 87 Calcium Level 8.0 L Medications Medications Current Medications Ondansetron HCl (Zofran Inj) 4 mg Q6H PRN IV NAUSEA AND/OR VOMITING; Start 09/07/17 at 19:30 Acetaminophen (Tylenol Tab) 650 mg Q6H PRN PO PAIN LEVEL 1-3 OR FEVER; Start 09/07/17 at 19:30 Acetaminophen/ Hydrocodone Bitart ([place] (5/325)) 1 tab Q6H PRN PO MODERATE PAIN LEVEL 4-6 Last administered on 09/13/17t 16:12; Admin Dose 1 TAB; Start 09/07/17 at 19:30 Morphine Sulfate (morphine) 2 mg Q4H PRN IV SEVERE PAIN LEVEL 7-10; Start 09/07 at 19:30 Docusate Sodium (Colace) 100 mg Q12H PRN PO CONSTIPATION; Start 09/07/17 at 19: 30 Sodium Biphosphate/ Sodium Phosphate (Fleet Enema) 133 ml DAILY PRN [place] CONSTIPATION; Start 09/07/17 at 19:30 Lorazepam (Ativan) 0.5 mg Q6H PRN IV ANXIETY; Start 09/07/17 at 19:30 Hydralazine HCl (Apresoline) 10 mg Q6H PRN IV ELEVATED BLOOD PRESSURE; Start 09/07/17 at 19:30 Nitroglycerin (Nitroglycerin (Sl Tab) 0.4 Mg) 1 tab Q5M PRN SL ANGINA; Start 09/07/17 at 19:30 Acyclovir (Zovirax) 400 mg BID PO Last administered on 09/14/17 08:03; Admin Dose 400 MG; Start 09/07/17 at 21:00 Methocarbamol (Robaxin) 500 mg QID PO Last administered on 09/14/17 13:56; Admin Dose 500 MG; Start 09/07/17 at 21:00 Mirtazapine (Remeron) 30 mg HS PO Last administered on 09/13/17 20:41; Admin Dose 30 MG; Start 09/07/17 at 21:00 Ziprasidone 60 mg 60 mg QHS PO Last administered on 09/13/17 20:42; Admin Dose 60 MG; Start 09/07/17 at 21:00 Potassium Chloride/Dextrose/ Sod Cl (D5-1/2ns + KCl 10 Meq) 1,000 ml @ 100 mls/ hr Q10H IV Last administered on 09/14/17 14:58; Admin Dose 100 MLS/HR; Start 09/08/17 at 00:00 Patient Own Medication 1 ea QHS PO Last administered on 09/13/17 20:43; Admin Dose 1 EA; Start 09/08/17 at 21:12 Patient Own Medication 1 ea QHS PO Last administered on 09/13/17 20:44; Admin Dose 1 EA; Start 09/08/17 at 21:13 Loperamide HCl (Imodium Cap) 2 mg QID PRN PO DIARRHEA Last administered on 16:00; Admin Dose 2 MG; Start 09/09/17 at 14:30 Psyllium Hydrophilic Mucilloid (Metamucil) 1 pkt BID PO Last administered on 08:04; Admin Dose 1 PKT; Start 09/09/17 at 21:00 Potassium Chloride (Potassium Chloride Pwd/Soln) 40 meq DAILY PO Last administered on 09/14/17 08:03; Admin Dose 40 MEQ; Start 09/09/17 at 14:30 Lidocaine (Lidoderm) 1 patch DAILY TD Last administered on 09/14/17 08:04; Admin Dose 1 PATCH; Start 09/10/17 at 09:00 Gabapentin (Neurontin) 100 mg TID PO Last administered on 09/14/17 12:33; Admin Dose 100 MG; Start 09/09/17 at 15:00 Dexamethasone (Decadron) 40 mg Sa@09 PO Last administered on 09/10/17 09:32; Admin Dose 40 MG; Start 09/10/17 at 09:00 Trimethoprim/ Sulfamethoxazole (Bactrim (Ss)) 1 tab SuSa@ PO Last administered on 09/11/17 09:08; Admin Dose 1 TAB; Start 09/10/17 at 09:00 Aspirin (Aspirin) 81 mg DAILY PO Last administered on 09/14/17 08:03; Admin Dose 81 MG; Start 09/10/17 at 09:00 Enoxaparin Sodium (Lovenox) 40 mg DAILY SC ; Start 09/11/17 at 09:00 Guaifenesin (Robitussin Liquid Cup) 100 mg Q4H PRN PO COUGH Last administered on 09/12/17 14:08; Admin Dose 100 MG; Start 09/10/17 at 11:30 Hydromorphone HCl (Dilaudid) 1 mg Q4H PRN IV SEVERE PAIN LEVEL 7-10 Last administered on 09/14/17 12:33; Admin Dose 1 MG; Start 09/12/17 at 23:30 KARYN BROWNE MD Sep 14, 2017 16:02
--- NOTE | 2017-09-14 16:15 | CONS ---
Date/Time of Note Date/Time of Note DATE: 09/14/17 TIME: 16:13 Assessment/Plan Assessment/Plan Chief Complaint/Hosp Course #STAGE III Multiple Myeloma -pt received cycle 2 day 11 of therapy on 09/06 -will start cycle 3 of VRD on 09/15 if patient is in house. velcade orders have been written, can start when revlimid has been received. -pt completed his 14 day course of Revlimid on Tuesday. to restart this -continue Decadron 40 mg q Tuesday. -continue acyclovir 400 mg bid as well as Bactrim SS Tue /Tuesday #R femur fracture -pt will need this stabilized by orthopedic surgery . this is now worse s/p his injury from yesterday -pt is at great risk for complete fracture of this weight bearing bone -pt needs to be transferred to tertiary care center for surgery since orthopedic surgery at [facility] is not able to operative on pathologic fractures -afterwards pt can receive adjuvant radiation #Bone pain -continue current pain regimen -pt getting pamidronate as an out patient #HIV -continue HAART therapy #HTN -continue current medications Problems: Consultation Date/Type/Reason Admit Date/Time Sep 07, 2017 at 19:33 Initial Consult Date 09/08/17 Type of Consultation: hematology Reason for Consultation multiple myeloma Referring Provider: ESPERANZA ADAMS 24 HR Interval Summary Free Text/Dictation pt lifted his leg yesterday and worsened his R femur fracture Exam/Review of Systems Vital Signs Vitals Vital Signs Date Time Temp Pulse Resp B/P Pulse Ox O2 Delivery O2 Flow Rate FiO2 09/14/17 14:13 98.3 89 18 117/69 98 Intake and Output 09/13/17 09/13/17 09/14/17 15:00 23:00 07:00 Intake Total 1725 ml 1460 ml Output Total 200 ml 1050 ml Balance 1525 ml 410 ml Exam Constitutional: alert, frail, oriented Psych: anxiety, depression Head: normocephalic ENMT: nl external ears & nose Neck: non-tender, supple Respiratory: clear to auscultation, normal air movement Cardiovascular: nl pulses, regular rate and rhythm Gastrointestinal: soft Musculoskeletal: muscle weakness, nl extremities to inspection, nl gait and stance, other (pain in r femur), range of motion (decreased) Results Result Diagram: 09/14/17 0435 09/14/17 0435 Results 24 hrs Laboratory Tests Test 09/14/17 04:35 White Blood Count 5.6 # Red Blood Count 3.69 L Hemoglobin 11.2 L Hematocrit 33.8 L Mean Corpuscular Volume 91.6 Mean Corpuscular Hemoglobin 30.4 Mean Corpuscular Hemoglobin Concent 33.1 Red Cell Distribution Width 14.7 H Platelet Count 255 Mean Platelet Volume 12.0 H Neutrophils % 59.0 Lymphocytes % 21.3 Monocytes % 15.5 H Eosinophils % 1.8 Basophils % 0.2 Nucleated Red Blood Cells % 0.0 Neutrophils # 3.3 Lymphocytes # 1.2 Monocytes # 0.9 Eosinophils # 0.1 Basophils # 0.0 Nucleated Red Blood Cells # 0.0 Sodium Level 140 Potassium Level 4.2 Chloride Level 106 Carbon Dioxide Level 31 Anion Gap 7 L Blood Urea Nitrogen 19 Creatinine 0.94 Glucose Level 87 Calcium Level 8.0 L Medications Medications Current Medications Ondansetron HCl (Zofran Inj) 4 mg Q6H PRN IV NAUSEA AND/OR VOMITING; Start 09/07/17 at 19:30 Acetaminophen (Tylenol Tab) 650 mg Q6H PRN PO PAIN LEVEL 1-3 OR FEVER; Start 09/07/17 at 19:30 Acetaminophen/ Hydrocodone Bitart ([place] (5/325)) 1 tab Q6H PRN PO MODERATE PAIN LEVEL 4-6 Last administered on 09/13/17t 16:12; Admin Dose 1 TAB; Start 09/07/17 at 19:30 Morphine Sulfate (morphine) 2 mg Q4H PRN IV SEVERE PAIN LEVEL 7-10; Start 09/07 at 19:30 Docusate Sodium (Colace) 100 mg Q12H PRN PO CONSTIPATION; Start 09/07/17 at 19: 30 Sodium Biphosphate/ Sodium Phosphate (Fleet Enema) 133 ml DAILY PRN [place] CONSTIPATION; Start 09/07/17 at 19:30 Lorazepam (Ativan) 0.5 mg Q6H PRN IV ANXIETY; Start 09/07/17 at 19:30 Hydralazine HCl (Apresoline) 10 mg Q6H PRN IV ELEVATED BLOOD PRESSURE; Start 09/07/17 at 19:30 Nitroglycerin (Nitroglycerin (Sl Tab) 0.4 Mg) 1 tab Q5M PRN SL ANGINA; Start 09/07/17 at 19:30 Acyclovir (Zovirax) 400 mg BID PO Last administered on 09/14/17 08:03; Admin Dose 400 MG; Start 09/07/17 at 21:00 Methocarbamol (Robaxin) 500 mg QID PO Last administered on 09/14/17 13:56; Admin Dose 500 MG; Start 09/07/17 at 21:00 Mirtazapine (Remeron) 30 mg HS PO Last administered on 09/13/17 20:41; Admin Dose 30 MG; Start 09/07/17 at 21:00 Ziprasidone 60 mg 60 mg QHS PO Last administered on 09/13/17 20:42; Admin Dose 60 MG; Start 09/07/17 at 21:00 Potassium Chloride/Dextrose/ Sod Cl (D5-1/2ns + KCl 10 Meq) 1,000 ml @ 100 mls/ hr Q10H IV Last administered on 09/14/17 14:58; Admin Dose 100 MLS/HR; Start 09/08/17 at 00:00 Patient Own Medication 1 ea QHS PO Last administered on 09/13/17 20:43; Admin Dose 1 EA; Start 09/08/17 at 21:12 Patient Own Medication 1 ea QHS PO Last administered on 09/13/17 20:44; Admin Dose 1 EA; Start 09/08/17 at 21:13 Loperamide HCl (Imodium Cap) 2 mg QID PRN PO DIARRHEA Last administered on 16:00; Admin Dose 2 MG; Start 09/09/17 at 14:30 Psyllium Hydrophilic Mucilloid (Metamucil) 1 pkt BID PO Last administered on 08:04; Admin Dose 1 PKT; Start 09/09/17 at 21:00 Potassium Chloride (Potassium Chloride Pwd/Soln) 40 meq DAILY PO Last administered on 09/14/17 08:03; Admin Dose 40 MEQ; Start 09/09/17 at 14:30 Lidocaine (Lidoderm) 1 patch DAILY TD Last administered on 09/14/17 08:04; Admin Dose 1 PATCH; Start 09/10/17 at 09:00 Gabapentin (Neurontin) 100 mg TID PO Last administered on 09/14/17 12:33; Admin Dose 100 MG; Start 09/09/17 at 15:00 Dexamethasone (Decadron) 40 mg Sa@09 PO Last administered on 09/10/17 09:32; Admin Dose 40 MG; Start 09/10/17 at 09:00 Trimethoprim/ Sulfamethoxazole (Bactrim (Ss)) 1 tab SuSa@09 PO Last administered on 09/11/17 09:08; Admin Dose 1 TAB; Start 09/10/17 at 09:00 Aspirin (Aspirin) 81 mg DAILY PO Last administered on 09/14/17 08:03; Admin Dose 81 MG; Start 09/10/17 at 09:00 Enoxaparin Sodium (Lovenox) 40 mg DAILY SC ; Start 09/11/17 at 09:00 Guaifenesin (Robitussin Liquid Cup) 100 mg Q4H PRN PO COUGH Last administered on 09/12/17 14:08; Admin Dose 100 MG; Start 09/10/17 at 11:30 Hydromorphone HCl (Dilaudid) 1 mg Q4H PRN IV SEVERE PAIN LEVEL 7-10 Last administered on 09/14/17 12:33; Admin Dose 1 MG; Start 09/12/17 at 23:30 IQRA MIDDLETON M.D. Sep 14, 2017 16:15
[2017-09-14] MEDS ORDERED: [UNRECOGNIZED DRUG - REMARK] XX SCH (17:00)
[2017-09-14 20:05] VITALS: BP 121/71; RESP 20
[2017-09-14] MEDS: ZIPRASIDONE 20 MG CAP PO SCH (21:00)
[2017-09-14] MEDS: MIRTAZAPINE 15 MG TAB PO SCH (21:06)
[2017-09-14] MEDS: PREZCOBIX PO SCH (21:09)
[2017-09-14] MEDS: DESCOVY 200/25 PO SCH (21:09)
[2017-09-15] MEDS: D5W-0.45 NACL + KCL 10 MEQ 1,000 ML IV SCH ×3 (00:32→23:31)
[2017-09-15] MEDS: HYDROCODONE/APAP (5/325) TAB PO PRN ×2 (00:32→18:29)
[2017-09-15 02:19] VITALS: BP 116/75; RESP 18
[2017-09-15 05:16] LABS: BASOPHILS % 0.2 % (0.0-2.0); EOSINOPHILS # 0.2 10^3/ul (0.0-0.5); EOSINOPHILS % 4.2 % (0.0-7.0); HEMATOCRIT 32.9 % (42.0-52.0); HEMOGLOBIN 10.9 g/dl (14.0-18.0); LYMPHOCYTES # 1.2 10^3/ul (0.8-2.9); LYMPHOCYTES % 27.3 % (15.0-51.0); MEAN CORPUSCULAR HEMOGLOBIN 29.9 pg (29.0-33.0); MEAN CORPUSCULAR HGB CONC 33.1 g/dl (32.0-37.0); MEAN CORPUSCULAR VOLUME 90.4 fl (82.0-101.0); MONOCYTE # 0.6 10^3/ul (0.3-0.9); MONOCYTES % 12.8 % (0.0-11.0); NEUTROPHIL # 2.3 10^3/ul (1.6-7.5); NEUTROPHILS % 53.6 % (39.0-77.0); PLATELET COUNT 294 10^3/UL (140-415); RED BLOOD COUNT 3.64 10^6/ul (4.70-6.10); RED CELL DISTRIBUTION WIDTH 14.5 % (11.5-14.5); WHITE BLOOD COUNT 4.3 10^3/ul (4.8-10.8)
[2017-09-15 05:43] LABS: CALCIUM 6.9 mg/dl (8.4-10.2); CREATININE 0.85 mg/dl (0.61-1.24); POTASSIUM 4.3 mmol/L (3.5-5.1)
[2017-09-15] MEDS: HYDROmorphONE 1 MG/ML SYG IV PRN ×5 (06:14→23:31)
[2017-09-15 08:06] VITALS: BP 111/75; PULSE 85; RESP 18
[2017-09-15] MEDS: morphine 2 MG INJ IV PRN (08:42)
[2017-09-15] MEDS: GABAPENTIN 100 MG CAP PO SCH ×3 (08:45→21:04)
[2017-09-15] MEDS: METHOCARBAMOL 500 MG TAB PO SCH ×4 (08:45→21:04)
[2017-09-15] MEDS: ACYCLOVIR 400 MG TAB PO SCH ×2 (08:46→21:04)
[2017-09-15] MEDS: POTASSIUM CHLORIDE 20 MEQ POWDER FOR ORAL SOLN PO SCH (08:46)
[2017-09-15] MEDS: PSYLLIUM 28% PACKET PO SCH ×2 (08:46→21:05)
[2017-09-15] MEDS: ASPIRIN 81 MG TAB PO SCH (08:46)
[2017-09-15] MEDS: LIDOCAINE 5% PATCH TD SCH (08:47)
[2017-09-15] MEDS: ENOXAPARIN 40 MG/0.4 ML SYG SC SCH (08:48)
--- NOTE | 2017-09-15 08:51 | CONS ---
Date/Time of Note Date/Time of Note DATE: 09/15/17 TIME: 08:50 Assessment/Plan Assessment/Plan Chief Complaint/Hosp Course #STAGE III Multiple Myeloma -pt received cycle 2 day 11 of therapy on 09/06 -will start cycle 3 of VRD on 09/15 if patient is in house. velcade orders have been written, can start when revlimid has been received. waiting for brother to bring medication -pt completed his 14 day course of Revlimid on Tuesday. to restart this -continue Decadron 40 mg q Tuesday. -continue acyclovir 400 mg bid as well as Bactrim SS Tue /Tuesday #R femur fracture -pt will need this stabilized by orthopedic surgery . this is now worse s/p his injury from yesterday -pt is at great risk for complete fracture of this weight bearing bone -pt needs to be transferred to tertiary care center for surgery since orthopedic surgery at [facility] is not able to operative on pathologic fractures -afterwards pt can receive adjuvant radiation #Bone pain -continue current pain regimen -pt getting pamidronate as an out patient #HIV -continue HAART therapy #HTN -continue current medications Problems: Consultation Date/Type/Reason Admit Date/Time Sep 07, 2017 at 19:33 Initial Consult Date 09/08/17 Type of Consultation: hematology Reason for Consultation multiple myeloma Referring Provider: ESPERANZA ADAMS 24 HR Interval Summary Free Text/Dictation still with pain in right femur Exam/Review of Systems Vital Signs Vitals Vital Signs Date Time Temp Pulse Resp B/P Pulse Ox O2 Delivery O2 Flow Rate FiO2 09/15/17 08:06 97.4 85 18 111/75 96 Room Air Intake and Output 09/14/17 09/14/17 09/15/17 15:00 23:00 07:00 Intake Total 900 ml 860 ml 1450 ml Output Total 800 ml 500 ml Balance 900 ml 60 ml 950 ml Exam Constitutional: alert, oriented Psych: anxiety, depression, no complaints Head: normocephalic Eyes: nl conjunctiva ENMT: nl external ears & nose Neck: non-tender, supple Respiratory: clear to auscultation Cardiovascular: nl pulses, regular rate and rhythm Gastrointestinal: soft Musculoskeletal: muscle weakness, range of motion (limited in right LE. tender) Results Result Diagram: 09/15/17 0418 09/15/17 0418 Results 24 hrs Laboratory Tests Test 09/15/17 04:18 White Blood Count 4.3 #L Red Blood Count 3.64 L Hemoglobin 10.9 L Hematocrit 32.9 L Mean Corpuscular Volume 90.4 Mean Corpuscular Hemoglobin 29.9 Mean Corpuscular Hemoglobin Concent 33.1 Red Cell Distribution Width 14.5 Platelet Count 294 Mean Platelet Volume 11.0 H Neutrophils % 53.6 Lymphocytes % 27.3 Monocytes % 12.8 H Eosinophils % 4.2 Basophils % 0.2 Nucleated Red Blood Cells % 0.0 Neutrophils # 2.3 Lymphocytes # 1.2 Monocytes # 0.6 Eosinophils # 0.2 Basophils # 0.0 Nucleated Red Blood Cells # 0.0 Sodium Level 140 Potassium Level 4.3 Chloride Level 106 Carbon Dioxide Level 29 Anion Gap 9 Blood Urea Nitrogen 19 Creatinine 0.85 Glucose Level 89 Calcium Level 6.9 L Medications Medications Current Medications Ondansetron HCl (Zofran Inj) 4 mg Q6H PRN IV NAUSEA AND/OR VOMITING; Start 09/07/17 at 19:30 Acetaminophen (Tylenol Tab) 650 mg Q6H PRN PO PAIN LEVEL 1-3 OR FEVER; Start 09/07/17 at 19:30 Acetaminophen/ Hydrocodone Bitart ([place] (5/325)) 1 tab Q6H PRN PO MODERATE PAIN LEVEL 4-6 Last administered on 09/15/17t 00:32; Admin Dose 1 TAB; Start 09/07/17 at 19:30 Morphine Sulfate (morphine) 2 mg Q4H PRN IV SEVERE PAIN LEVEL 7-10; Start 09/07 at 19:30 Docusate Sodium (Colace) 100 mg Q12H PRN PO CONSTIPATION; Start 09/07/17 at 19: 30 Sodium Biphosphate/ Sodium Phosphate (Fleet Enema) 133 ml DAILY PRN [place] CONSTIPATION; Start 09/07/17 at 19:30 Lorazepam (Ativan) 0.5 mg Q6H PRN IV ANXIETY; Start 09/07/17 at 19:30 Hydralazine HCl (Apresoline) 10 mg Q6H PRN IV ELEVATED BLOOD PRESSURE; Start 09/07/17 at 19:30 Nitroglycerin (Nitroglycerin (Sl Tab) 0.4 Mg) 1 tab Q5M PRN SL ANGINA; Start 09/07/17 at 19:30 Acyclovir (Zovirax) 400 mg BID PO Last administered on 09/14/17 21:07; Admin Dose 400 MG; Start 09/07/17 at 21:00 Methocarbamol (Robaxin) 500 mg QID PO Last administered on 09/14/17 21:06; Admin Dose 500 MG; Start 09/07/17 at 21:00 Mirtazapine (Remeron) 30 mg HS PO Last administered on 09/14/17 21:06; Admin Dose 30 MG; Start 09/07/17 at 21:00 Ziprasidone 60 mg 60 mg QHS PO Last administered on 09/13/17 20:42; Admin Dose 60 MG; Start 09/07/17 at 21:00 Potassium Chloride/Dextrose/ Sod Cl (D5-1/2ns + KCl 10 Meq) 1,000 ml @ 100 mls/ hr Q10H IV Last administered on 09/15/17 00:32; Admin Dose 100 MLS/HR; Start 09/08/17 at 00:00 Patient Own Medication 1 ea QHS PO Last administered on 09/14/17 21:09; Admin Dose 1 EA; Start 09/08/17 at 21:12 Patient Own Medication 1 ea QHS PO Last administered on 09/14/17 21:09; Admin Dose 1 EA; Start 09/08/17 at 21:13 Loperamide HCl (Imodium Cap) 2 mg QID PRN PO DIARRHEA Last administered on 16:00; Admin Dose 2 MG; Start 09/09/17 at 14:30 Psyllium Hydrophilic Mucilloid (Metamucil) 1 pkt BID PO Last administered on 21:21; Admin Dose 1 PKT; Start 09/09/17 at 21:00 Potassium Chloride (Potassium Chloride Pwd/Soln) 40 meq DAILY PO Last administered on 09/14/17 08:03; Admin Dose 40 MEQ; Start 09/09/17 at 14:30 Lidocaine (Lidoderm) 1 patch DAILY TD Last administered on 09/14/17 08:04; Admin Dose 1 PATCH; Start 09/10/17 at 09:00 Gabapentin (Neurontin) 100 mg TID PO Last administered on 09/14/17 21:08; Admin Dose 100 MG; Start 09/09/17 at 15:00 Dexamethasone (Decadron) 40 mg Sa@09 PO Last administered on 09/10/17 09:32; Admin Dose 40 MG; Start 09/10/17 at 09:00 Trimethoprim/ Sulfamethoxazole (Bactrim (Ss)) 1 tab SuSa@ PO Last administered on 09/11/17 09:08; Admin Dose 1 TAB; Start 09/10/17 at 09:00 Aspirin (Aspirin) 81 mg DAILY PO Last administered on 09/14/17 08:03; Admin Dose 81 MG; Start 09/10/17 at 09:00 Enoxaparin Sodium (Lovenox) 40 mg DAILY SC ; Start 09/11/17 at 09:00 Guaifenesin (Robitussin Liquid Cup) 100 mg Q4H PRN PO COUGH Last administered on 09/12/17 14:08; Admin Dose 100 MG; Start 09/10/17 at 11:30 Hydromorphone HCl (Dilaudid) 1 mg Q4H PRN IV SEVERE PAIN LEVEL 7-10 Last administered on 09/15/17 06:14; Admin Dose 1 MG; Start 09/12/17 at 23:30 IQRA MIDDLETON M.D. Sep 15, 2017 08:51
--- NOTE | 2017-09-15 14:31 | PN ---
Date/Time of Note Date/Time of Note DATE: 09/15/17 TIME: 14:29 Assessment/Plan VTE Prophylaxis VTE Prophylaxis Intervention: SCD's Lines/Catheters IV Catheter Type (from Nrs): Peripheral IV Urinary Cath still in place: No Assessment/Plan Assessment/Plan 1. Multiple myeloma, stage III, 3rd cycle of chemo star today per Dr. Dorantes 2. Right femoral neck pathologic fracture with diffuse bony lesions, patient will need transfer to tertiary care center for orthopedic oncologist consultation. 3. History of HIV. Patient resumed on his home medications. 4. Mild L1 compression fracture. Patient to be seen by physical therapy. Continue with analgesics as needed. 5. Awaiting for transfer to a tertiary care center. I talked to [facility] team on and [facility] team on 09/14/2017, awaiting for bed Subjective 24 Hr Interval Summary Free Text/Dictation no event Exam/Review of Systems Vital Signs Vitals Vital Signs Date Time Temp Pulse Resp B/P Pulse Ox O2 Delivery O2 Flow Rate FiO2 09/15/17 08:06 97.4 85 18 111/75 96 Room Air Intake and Output 09/14/17 09/14/17 09/15/17 15:00 23:00 07:00 Intake Total 900 ml 860 ml 1450 ml Output Total 800 ml 500 ml Balance 900 ml 60 ml 950 ml Exam Constitutional: alert, oriented, well developed Psych: nl mood/affect, no complaints Head: atraumatic, normocephalic Eyes: EOMI, nl conjunctiva, nl lids ENMT: nl external ears & nose, nl lips & teeth, nl nasal mucosa & septum Neck: non-tender, supple Respiratory: clear to auscultation, normal air movement, No congested cough, No crackles/rales, No diminished breath sounds, No intercostal retraction, No labored breathing, No other, No respirations, No tactile fremitus, No wheezing Cardiovascular: nl pulses, regular rate and rhythm, No S3, No S4, No bruits, No diastolic murmur, No edema, No gallop, No irregular rhythm, No jugular venous distention (JVD), No murmurs/extra sounds, No other, No rub, No systolic murmur Gastrointestinal: nl liver, spleen, non-tender, soft Musculoskeletal: nl extremities to inspection Extremities: normal pulses, No calf tenderness, No clubbing, No cyanosis, No edema, No other, No palpable cord, No pitting pedal edema, No tenderness 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, nl mental status, nl speech, nl strength Skin: nl turgor Results Result Diagram: 09/15/178 09/15/17417 Results 24 hrs Laboratory Tests Test 09/15/17 04:18 White Blood Count 4.3 #L Red Blood Count 3.64 L Hemoglobin 10.9 L Hematocrit 32.9 L Mean Corpuscular Volume 90.4 Mean Corpuscular Hemoglobin 29.9 Mean Corpuscular Hemoglobin Concent 33.1 Red Cell Distribution Width 14.5 Platelet Count 294 Mean Platelet Volume 11.0 H Neutrophils % 53.6 Lymphocytes % 27.3 Monocytes % 12.8 H Eosinophils % 4.2 Basophils % 0.2 Nucleated Red Blood Cells % 0.0 Neutrophils # 2.3 Lymphocytes # 1.2 Monocytes # 0.6 Eosinophils # 0.2 Basophils # 0.0 Nucleated Red Blood Cells # 0.0 Sodium Level 140 Potassium Level 4.3 Chloride Level 106 Carbon Dioxide Level 29 Anion Gap 9 Blood Urea Nitrogen 19 Creatinine 0.85 Glucose Level 89 Calcium Level 6.9 L Medications Medications Current Medications Ondansetron HCl (Zofran Inj) 4 mg Q6H PRN IV NAUSEA AND/OR VOMITING; Start 09/07/17 at 19:30 Acetaminophen (Tylenol Tab) 650 mg Q6H PRN PO PAIN LEVEL 1-3 OR FEVER; Start 09/07/17 at 19:30 Acetaminophen/ Hydrocodone Bitart ([place] (5/325)) 1 tab Q6H PRN PO MODERATE PAIN LEVEL 4-6 Last administered on 09/15/17 00:32; Admin Dose 1 TAB; Start 09/07/17 at 19:30 Morphine Sulfate (morphine) 2 mg Q4H PRN IV SEVERE PAIN LEVEL 7-10 Last administered on 09/15/17 08:42; Admin Dose 2 MG; Start 09/07/17 at 19:30 Docusate Sodium (Colace) 100 mg Q12H PRN PO CONSTIPATION; Start 09/07/17 at 19: 30 Sodium Biphosphate/ Sodium Phosphate (Fleet Enema) 133 ml DAILY PRN [place] CONSTIP[place]; Start 09/07/17 at 19:30 Lorazepam (Ativan) 0.5 mg Q6H PRN IV ANXIETY; Start 09/07/17 at 19:30 Hydralazine HCl (Apresoline) 10 mg Q6H PRN IV ELEVATED BLOOD PRESSURE; Start 09/07/17 at 19:30 Nitroglycerin (Nitroglycerin (Sl Tab) 0.4 Mg) 1 tab Q5M PRN SL ANGINA; Start 09/07/17 at 19:30 Acyclovir (Zovirax) 400 mg BID PO Last administered on 09/15/17 08:46; Admin Dose 400 MG; Start 09/07/17 at 21:00 Methocarbamol (Robaxin) 500 mg QID PO Last administered on 09/15/17 12:14; Admin Dose 500 MG; Start 09/07/17 at 21:00 Mirtazapine (Remeron) 30 mg HS PO Last administered on 09/14/17 21:06; Admin Dose 30 MG; Start 09/07/17 at 21:00 Ziprasidone 60 mg 60 mg QHS PO Last administered on 09/13/17 20:42; Admin Dose 60 MG; Start 09/07/17 at 21:00 Potassium Chloride/Dextrose/ Sod Cl (D5-1/2ns + KCl 10 Meq) 1,000 ml @ 100 mls/ hr Q10H IV Last administered on 09/15/17 12:15; Admin Dose 100 MLS/HR; Start 09/08/17 at 00:00 Patient Own Medication 1 ea QHS PO Last administered on 09/14/17 21:09; Admin Dose 1 EA; Start 09/08/17 at 21:12 Patient Own Medication 1 ea QHS PO Last administered on 09/14/17 21:09; Admin Dose 1 EA; Start 09/08/17 at 21:13 Loperamide HCl (Imodium Cap) 2 mg QID PRN PO DIARRHEA Last administered on 16:00; Admin Dose 2 MG; Start 09/09/17 at 14:30 Psyllium Hydrophilic Mucilloid (Metamucil) 1 pkt BID PO Last administered on 08:46; Admin Dose 1 PKT; Start 09/09/17 at 21:00 Potassium Chloride (Potassium Chloride Pwd/Soln) 40 meq DAILY PO Last administered on 09/15/17 08:46; Admin Dose 40 MEQ; Start 09/09/17 at 14:30 Lidocaine (Lidoderm) 1 patch DAILY TD Last administered on 09/15/17 08:47; Admin Dose 1 PATCH; Start 09/10/17 at 09:00 Gabapentin (Neurontin) 100 mg TID PO Last administered on 09/15/17 12:14; Admin Dose 100 MG; Start 09/09/17 at 15:00 Dexamethasone (Decadron) 40 mg Sa@09 PO Last administered on 09/10/17 09:32; Admin Dose 40 MG; Start 09/10/17 at 09:00 Trimethoprim/ Sulfamethoxazole (Bactrim (Ss)) 1 tab SuSa@ PO Last administered on 09/11/17 09:08; Admin Dose 1 TAB; Start 09/10/17 at 09:00 Aspirin (Aspirin) 81 mg DAILY PO Last administered on 09/15/17 08:46; Admin Dose 81 MG; Start 09/10/17 at 09:00 Enoxaparin Sodium (Lovenox) 40 mg DAILY SC ; Start 09/11/17 at 09:00 Guaifenesin (Robitussin Liquid Cup) 100 mg Q4H PRN PO COUGH Last administered on 09/12/17 14:08; Admin Dose 100 MG; Start 09/10/17 at 11:30 Hydromorphone HCl (Dilaudid) 1 mg Q4H PRN IV SEVERE PAIN LEVEL 7-10 Last administered on 09/15/17 12:12; Admin Dose 1 MG; Start 09/12/17 at 23:30 KARYN BROWNE MD Sep 15, 2017 14:31
[2017-09-15 14:43] VITALS: BP 90/57; RESP 20
[2017-09-15 19:15] VITALS: BP 114/66; RESP 18
[2017-09-15] MEDS: MIRTAZAPINE 15 MG TAB PO SCH (21:03)
[2017-09-15] MEDS: ZIPRASIDONE 20 MG CAP PO SCH (21:03)
[2017-09-15] MEDS: DESCOVY 200/25 PO SCH (21:05)
[2017-09-15] MEDS: PREZCOBIX PO SCH (21:05)
[2017-09-16 02:26] VITALS: BP 122/72; RESP 18
[2017-09-16] MEDS: HYDROCODONE/APAP (5/325) TAB PO PRN ×3 (05:31→16:27)
[2017-09-16] MEDS: D5W-0.45 NACL + KCL 10 MEQ 1,000 ML IV SCH ×2 (06:00→12:10)
--- NOTE | 2017-09-16 07:38 | CONS ---
Date/Time of Note Date/Time of Note DATE: 09/16/17 TIME: 07:37 Assessment/Plan Assessment/Plan Chief Complaint/Hosp Course #STAGE III Multiple Myeloma -pt received cycle 2 day 11 of therapy on 09/06 -will start cycle 3 of VRD on 09/15 if patient is in house. velcade orders have been written, can start when revlimid has been received. waiting for brother to bring medication -pt completed his 14 day course of Revlimid on Tuesday. to restart this -continue Decadron 40 mg q Tuesday. -continue acyclovir 400 mg bid as well as Bactrim SS Tue /Tuesday #R femur fracture -pt will need this stabilized by orthopedic surgery . this is now worse s/p his injury from yesterday -pt is at great risk for complete fracture of this weight bearing bone -pt needs to be transferred to tertiary care center for surgery since orthopedic surgery at [facility] is not able to operative on pathologic fractures -afterwards pt can receive adjuvant radiation #Bone pain -continue current pain regimen -pt getting pamidronate as an out patient #HIV -continue HAART therapy #HTN -continue current medications Problems: Consultation Date/Type/Reason Admit Date/Time Sep 07, 2017 at 19:33 Initial Consult Date 09/08/17 Type of Consultation: hematology Reason for Consultation multiple myeloma Referring Provider: ESPERANZA ADAMS 24 HR Interval Summary Free Text/Dictation still with right hip pain Exam/Review of Systems Vital Signs Vitals Vital Signs Date Time Temp Pulse Resp B/P Pulse Ox O2 Delivery O2 Flow Rate FiO2 09/16/17 02:26 97.8 82 18 122/72 95 09/15/17 08:06 Room Air Intake and Output 09/15/17 09/15/17 09/16/17 15:00 23:00 07:00 Intake Total 550 ml 1900 ml 1280 ml Output Total 2500 ml 700 ml Balance 550 ml -600 ml 580 ml Exam Constitutional: alert, oriented Psych: no complaints Head: normocephalic Eyes: nl conjunctiva ENMT: nl external ears & nose Neck: non-tender, supple Respiratory: clear to auscultation, normal air movement Cardiovascular: regular rate and rhythm Gastrointestinal: soft Musculoskeletal: muscle weakness, other (pain in right femur) Results Result Diagram: 09/15/17 0418 09/15/17 0418 Medications Medications Current Medications Ondansetron HCl (Zofran Inj) 4 mg Q6H PRN IV NAUSEA AND/OR VOMITING; Start 09/07/17 at 19:30 Acetaminophen (Tylenol Tab) 650 mg Q6H PRN PO PAIN LEVEL 1-3 OR FEVER; Start 09/07/17 at 19:30 Acetaminophen/ Hydrocodone Bitart ([place] (5/325)) 1 tab Q6H PRN PO MODERATE PAIN LEVEL 4-6 Last administered on 09/16/17 05:31; Admin Dose 1 TAB; Start 09/07/17 at 19:30 Morphine Sulfate (morphine) 2 mg Q4H PRN IV SEVERE PAIN LEVEL 7-10 Last administered on 09/15/17 08:42; Admin Dose 2 MG; Start 09/07/17 at 19:30 Docusate Sodium (Colace) 100 mg Q12H PRN PO CONSTIPATION; Start 09/07/17 at 19: 30 Sodium Biphosphate/ Sodium Phosphate (Fleet Enema) 133 ml DAILY PRN [place] CONSTIPATION; Start 09/07/17 at 19:30 Lorazepam (Ativan) 0.5 mg Q6H PRN IV ANXIETY; Start 09/07/17 at 19:30 Hydralazine HCl (Apresoline) 10 mg Q6H PRN IV ELEVATED BLOOD PRESSURE; Start 09/07/17 at 19:30 Nitroglycerin (Nitroglycerin (Sl Tab) 0.4 Mg) 1 tab Q5M PRN SL ANGINA; Start 09/07/17 at 19:30 Acyclovir (Zovirax) 400 mg BID PO Last administered on 09/15/17 21:04; Admin Dose 400 MG; Start 09/07/17 at 21:00 Methocarbamol (Robaxin) 500 mg QID PO Last administered on 09/15/17 21:04; Admin Dose 500 MG; Start 09/07/17 at 21:00 Mirtazapine (Remeron) 30 mg HS PO Last administered on 09/15/17 21:03; Admin Dose 30 MG; Start 09/07/17 at 21:00 Ziprasidone 60 mg 60 mg QHS PO Last administered on 09/15/17 21:03; Admin Dose 60 MG; Start 09/07/17 at 21:00 Potassium Chloride/Dextrose/ Sod Cl (D5-1/2ns + KCl 10 Meq) 1,000 ml @ 100 mls/ hr Q10H IV Last administered on 09/15/17 23:31; Admin Dose 100 MLS/HR; Start 09/08/17 at 00:00 Patient Own Medication 1 ea QHS PO Last administered on 09/15/17 21:05; Admin Dose 1 EA; Start 09/08/17 at 21:12 Patient Own Medication 1 ea QHS PO Last administered on 09/15/17 21:05; Admin Dose 1 EA; Start 09/08/17 at 21:13 Loperamide HCl (Imodium Cap) 2 mg QID PRN PO DIARRHEA Last administered on 16:00; Admin Dose 2 MG; Start 09/09/17 at 14:30 Psyllium Hydrophilic Mucilloid (Metamucil) 1 pkt BID PO Last administered on 21:05; Admin Dose 1 PKT; Start 09/09/17 at 21:00 Potassium Chloride (Potassium Chloride Pwd/Soln) 40 meq DAILY PO Last administered on 09/15/17 08:46; Admin Dose 40 MEQ; Start 09/09/17 at 14:30 Lidocaine (Lidoderm) 1 patch DAILY TD Last administered on 09/15/17 08:47; Admin Dose 1 PATCH; Start 09/10/17 at 09:00 Gabapentin (Neurontin) 100 mg TID PO Last administered on 09/15/17 21:04; Admin Dose 100 MG; Start 09/09/17 at 15:00 Dexamethasone (Decadron) 40 mg Sa@09 PO Last administered on 09/10/17 09:32; Admin Dose 40 MG; Start 09/10/17 at 09:00 Trimethoprim/ Sulfamethoxazole (Bactrim (Ss)) 1 tab SuSa@09 PO Last administered on 09/11/17 09:08; Admin Dose 1 TAB; Start 09/10/17 at 09:00 Aspirin (Aspirin) 81 mg DAILY PO Last administered on 09/15/17 08:46; Admin Dose 81 MG; Start 09/10/17 at 09:00 Enoxaparin Sodium (Lovenox) 40 mg DAILY SC ; Start 09/11/17 at 09:00 Guaifenesin (Robitussin Liquid Cup) 100 mg Q4H PRN PO COUGH Last administered on 09/12/17 14:08; Admin Dose 100 MG; Start 09/10/17 at 11:30 Hydromorphone HCl (Dilaudid) 1 mg Q4H PRN IV SEVERE PAIN LEVEL 7-10 Last administered on 09/15/17 23:31; Admin Dose 1 MG; Start 09/12/17 at 23:30 IQRA MIDDLETON M.D. Sep 16, 2017 07:38
[2017-09-16 07:51] VITALS: BP 128/74; PULSE 86; RESP 18
[2017-09-16] MEDS: METHOCARBAMOL 500 MG TAB PO SCH ×4 (08:27→21:25)
[2017-09-16] MEDS: ASPIRIN 81 MG TAB PO SCH (08:28)
[2017-09-16] MEDS: GABAPENTIN 100 MG CAP PO SCH ×3 (08:28→21:24)
[2017-09-16] MEDS: ACYCLOVIR 400 MG TAB PO SCH ×2 (08:28→21:24)
[2017-09-16] MEDS: LIDOCAINE 5% PATCH TD SCH (08:28)
[2017-09-16] MEDS: PSYLLIUM 28% PACKET PO SCH ×2 (08:28→21:33)
[2017-09-16] MEDS: POTASSIUM CHLORIDE 20 MEQ POWDER FOR ORAL SOLN PO SCH (08:28)
[2017-09-16] MEDS: ENOXAPARIN 40 MG/0.4 ML SYG SC SCH (08:29)
[2017-09-16] MEDS: HYDROmorphONE 1 MG/ML SYG IV PRN ×3 (08:36→19:23)
--- NOTE | 2017-09-16 13:47 | PN ---
Date/Time of Note Date/Time of Note DATE: 09/16/17 TIME: 13:46 Assessment/Plan VTE Prophylaxis VTE Prophylaxis Intervention: SCD's Lines/Catheters IV Catheter Type (from Nrs): Peripheral IV Urinary Cath still in place: No Assessment/Plan Assessment/Plan 1. Multiple myeloma, stage III, chemotherapy per Dr. Dorantes 2. Right femoral neck pathologic fracture with diffuse bony lesions, patient will need transfer to tertiary care center for orthopedic oncologist consultation. 3. History of HIV. Patient resumed on his home medications. 4. Mild L1 compression fracture. Patient to be seen by physical therapy. Continue with analgesics as needed. 5. Awaiting for transfer to a tertiary care center. I talked to [facility] team on and [facility] team on 09/14/2017, awaiting for bed Subjective 24 Hr Interval Summary Free Text/Dictation awaiting for bed in [facility] or [facility]. no event Exam/Review of Systems Vital Signs Vitals Vital Signs Date Time Temp Pulse Resp B/P Pulse Ox O2 Delivery O2 Flow Rate FiO2 09/16/17 07:51 98.9 86 18 128/74 95 Room Air Intake and Output 09/15/17 09/15/17 09/16/17 14:59 22:59 06:59 Intake Total 550 ml 1900 ml 1280 ml Output Total 2500 ml 700 ml Balance 550 ml -600 ml 580 ml Exam Constitutional: alert, oriented, well developed Psych: nl mood/affect, no complaints Head: atraumatic, normocephalic Eyes: EOMI, PERRL, nl conjunctiva, nl lids ENMT: nl external ears & nose, nl lips & teeth, nl nasal mucosa & septum Neck: non-tender, supple Respiratory: clear to auscultation, normal air movement, No congested cough, No crackles/rales, No diminished breath sounds, No intercostal retraction, No labored breathing, No other, No respirations, No tactile fremitus, No wheezing Cardiovascular: nl pulses, regular rate and rhythm, No S3, No S4, No bruits, No diastolic murmur, No edema, No gallop, No irregular rhythm, No jugular venous distention (JVD), No murmurs/extra sounds, No other, No rub, No systolic murmur Gastrointestinal: nl liver, spleen, non-tender, soft Musculoskeletal: nl extremities to inspection Extremities: normal pulses, No calf tenderness, No clubbing, No cyanosis, No edema, No other, No palpable cord, No pitting pedal edema, No tenderness 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, nl mental status, nl speech, nl strength Skin: nl turgor Lymph: nl lymph nodes Results Result Diagram: 09/15/178 09/15/17417 Medications Medications Current Medications Ondansetron HCl (Zofran Inj) 4 mg Q6H PRN IV NAUSEA AND/OR VOMITING; Start 09/07/17 at 19:30 Acetaminophen (Tylenol Tab) 650 mg Q6H PRN PO PAIN LEVEL 1-3 OR FEVER; Start 09/07/17 at 19:30 Acetaminophen/ Hydrocodone Bitart ([place] (5/325)) 1 tab Q6H PRN PO MODERATE PAIN LEVEL 4-6 Last administered on 09/16/17 12:10; Admin Dose 1 TAB; Start 09/07/17 at 19:30 Morphine Sulfate (morphine) 2 mg Q4H PRN IV SEVERE PAIN LEVEL 7-10 Last administered on 09/15/17 08:42; Admin Dose 2 MG; Start 09/07/17 at 19:30 Docusate Sodium (Colace) 100 mg Q12H PRN PO CONSTIPATION; Start 09/07/17 at 19: 30 Sodium Biphosphate/ Sodium Phosphate (Fleet Enema) 133 ml DAILY PRN [place] CONSTIPATION; Start 09/07/17 at 19:30 Lorazepam (Ativan) 0.5 mg Q6H PRN IV ANXIETY; Start 09/07/17 at 19:30 Hydralazine HCl (Apresoline) 10 mg Q6H PRN IV ELEVATED BLOOD PRESSURE; Start 09/07/17 at 19:30 Nitroglycerin (Nitroglycerin (Sl Tab) 0.4 Mg) 1 tab Q5M PRN SL ANGINA; Start 09/07/17 at 19:30 Acyclovir (Zovirax) 400 mg BID PO Last administered on 09/16/17 08:28; Admin Dose 400 MG; Start 09/07/17 at 21:00 Methocarbamol (Robaxin) 500 mg QID PO Last administered on 09/16/17 12:11; Admin Dose 500 MG; Start 09/07/17 at 21:00 Mirtazapine (Remeron) 30 mg HS PO Last administered on 09/15/17 21:03; Admin Dose 30 MG; Start 09/07/17 at 21:00 Ziprasidone 60 mg 60 mg QHS PO Last administered on 09/15/17 21:03; Admin Dose 60 MG; Start 09/07/17 at 21:00 Potassium Chloride/Dextrose/ Sod Cl (D5-1/2ns + KCl 10 Meq) 1,000 ml @ 100 mls/ hr Q10H IV Last administered on 09/16/17 12:10; Admin Dose 100 MLS/HR; Start 09/08/17 at 00:00 Patient Own Medication 1 ea QHS PO Last administered on 09/15/17 21:05; Admin Dose 1 EA; Start 09/08/17 at 21:12 Patient Own Medication 1 ea QHS PO Last administered on 09/15/17 21:05; Admin Dose 1 EA; Start 09/08/17 at 21:13 Loperamide HCl (Imodium Cap) 2 mg QID PRN PO DIARRHEA Last administered on 16:00; Admin Dose 2 MG; Start 09/09/17 at 14:30 Psyllium Hydrophilic Mucilloid (Metamucil) 1 pkt BID PO Last administered on 08:28; Admin Dose 1 PKT; Start 09/09/17 at 21:00 Potassium Chloride (Potassium Chloride Pwd/Soln) 40 meq DAILY PO Last administered on 09/16/17 08:28; Admin Dose 40 MEQ; Start 09/09/17 at 14:30 Lidocaine (Lidoderm) 1 patch DAILY TD Last administered on 09/16/17 08:28; Admin Dose 1 PATCH; Start 09/10/17 at 09:00 Gabapentin (Neurontin) 100 mg TID PO Last administered on 09/16/17 12:11; Admin Dose 100 MG; Start 09/09/17 at 15:00 Dexamethasone (Decadron) 40 mg Sa@09 PO Last administered on 09/10/17 09:32; Admin Dose 40 MG; Start 09/10/17 at 09:00 Trimethoprim/ Sulfamethoxazole (Bactrim (Ss)) 1 tab SuSa@ PO Last administered on 09/11/17 09:08; Admin Dose 1 TAB; Start 09/10/17 at 09:00 Aspirin (Aspirin) 81 mg DAILY PO Last administered on 09/16/17 08:28; Admin Dose 81 MG; Start 09/10/17 at 09:00 Enoxaparin Sodium (Lovenox) 40 mg DAILY SC ; Start 09/11/17 at 09:00 Guaifenesin (Robitussin Liquid Cup) 100 mg Q4H PRN PO COUGH Last administered on 09/12/17 14:08; Admin Dose 100 MG; Start 09/10/17 at 11:30 Hydromorphone HCl (Dilaudid) 1 mg Q4H PRN IV SEVERE PAIN LEVEL 7-10 Last administered on 09/16/17 08:36; Admin Dose 1 MG; Start 09/12/17 at 23:30 KARYN BROWNE MD Sep 16, 2017 13:47
[2017-09-16 14:00] VITALS: BP 131/76; RESP 18
[2017-09-16] MEDS ORDERED: ALBUTEROL/IPRATROPIUM (NEB) 3 ML AMP HHN PRN (15:00)
[2017-09-16] MEDS: ALBUTEROL/IPRATROPIUM (NEB) 3 ML AMP HHN PRN ×2 (15:35→21:52)
[2017-09-16 20:06] VITALS: BP 143/69; RESP 18
[2017-09-16] MEDS: ZIPRASIDONE 20 MG CAP PO SCH (21:24)
[2017-09-16] MEDS: MIRTAZAPINE 15 MG TAB PO SCH (21:24)
[2017-09-16] MEDS: morphine 2 MG INJ IV PRN (21:34)
[2017-09-16] MEDS: DESCOVY 200/25 PO SCH (22:03)
[2017-09-16] MEDS: PREZCOBIX PO SCH (22:03)
[2017-09-17] MEDS: D5W-0.45 NACL + KCL 10 MEQ 1,000 ML IV SCH ×3 (01:49→22:00)
[2017-09-17 01:51] VITALS: BP 139/71; RESP 18
[2017-09-17] MEDS: HYDROmorphONE 1 MG/ML SYG IV PRN ×5 (01:52→21:21)
[2017-09-17 05:24] LABS: BASOPHILS % 0.4 % (0.0-2.0); EOSINOPHILS # 0.1 10^3/ul (0.0-0.5); EOSINOPHILS % 2.4 % (0.0-7.0); HEMATOCRIT 32.3 % (42.0-52.0); HEMOGLOBIN 10.8 g/dl (14.0-18.0); LYMPHOCYTES # 1.5 10^3/ul (0.8-2.9); LYMPHOCYTES % 27.5 % (15.0-51.0); MEAN CORPUSCULAR HEMOGLOBIN 30.6 pg (29.0-33.0); MEAN CORPUSCULAR HGB CONC 33.4 g/dl (32.0-37.0); MEAN CORPUSCULAR VOLUME 91.5 fl (82.0-101.0); MEAN PLATELET VOLUME 10.1 fl (7.4-10.4); MONOCYTE # 0.7 10^3/ul (0.3-0.9); MONOCYTES % 12.1 % (0.0-11.0); NEUTROPHIL # 3.1 10^3/ul (1.6-7.5); NEUTROPHILS % 56.5 % (39.0-77.0); PLATELET COUNT 412 10^3/UL (140-415); RED BLOOD COUNT 3.53 10^6/ul (4.70-6.10); RED CELL DISTRIBUTION WIDTH 14.7 % (11.5-14.5); WHITE BLOOD COUNT 5.5 10^3/ul (4.8-10.8)
[2017-09-17] MEDS: morphine 2 MG INJ IV PRN (06:37)
[2017-09-17 06:42] LABS: CREATININE 1.12 mg/dl (0.61-1.24); POTASSIUM 4.3 mmol/L (3.5-5.1)
[2017-09-17 07:59] VITALS: BP 144/89; RESP 17
[2017-09-17] MEDS: METHOCARBAMOL 500 MG TAB PO SCH ×4 (08:44→21:11)
[2017-09-17] MEDS: ACYCLOVIR 400 MG TAB PO SCH ×2 (08:44→21:11)
[2017-09-17] MEDS: GABAPENTIN 100 MG CAP PO SCH ×3 (08:44→21:11)
[2017-09-17] MEDS: ASPIRIN 81 MG TAB PO SCH (08:44)
[2017-09-17] MEDS: POTASSIUM CHLORIDE 20 MEQ POWDER FOR ORAL SOLN PO SCH (08:45)
[2017-09-17] MEDS: LIDOCAINE 5% PATCH TD SCH (08:47)
[2017-09-17] MEDS: PSYLLIUM 28% PACKET PO SCH ×2 (08:47→21:11)
[2017-09-17] MEDS: ENOXAPARIN 40 MG/0.4 ML SYG SC SCH (08:50)
[2017-09-17] MEDS: DEXAMETHASONE 4 MG TAB PO SCH (11:14)
[2017-09-17] MEDS: TRIMETHOPRIM/SULFAMETHOX (SS) TAB PO SCH (11:14)
[2017-09-17] MEDS: ALBUTEROL/IPRATROPIUM (NEB) 3 ML AMP HHN PRN (11:32)
--- NOTE | 2017-09-17 11:46 | PN ---
Date/Time of Note Date/Time of Note DATE: 09/17/17 TIME: 11:43 Assessment/Plan VTE Prophylaxis VTE Prophylaxis Intervention: other Lines/Catheters IV C[facility]ter Type (from [facility] Peripheral IV Urinary Cath still in place: No Assessment/Plan Problems: (1) Stage III multiple myeloma Status: Acute Comment: As per hematology oncology. He is received therapy. He however has diffuse bony metastases and has a pathologic fracture of the right femur with multiple metastases there. These see the consult note from orthopedics. Is going to need this repaired at a higher level of care followed by radiation therapy as we do not have this level of acuity at a [facility] hospital he would need to [facility] type facility (2) HIV (human immunodeficiency virus infection) Status: Chronic Comment: Remains stable on highly active antiretroviral therapy (3) Closed compression fracture of L1 lumbar vertebra Status: Acute Comment: Noted and stable this is pathologic fracture related to the myeloma Qualifiers: Encounter type: initial encounter Qualified Code: S32.010A - Closed compression fracture of first lumbar vertebra, initial encounter (4) Fracture of femoral neck, right, closed Status: Acute Comment: As noted above. He needs to be transferred to a higher level of care for the extensive surgical repair this will require an on the radiation therapy. Is beyond the means of this facility. We are awaiting callback from either [facility]. Qualifiers: Encounter type: initial encounter Qualified Code: S72.001A - Closed fracture of neck of right femur, initial encounter (5) Hypercalcemia Status: Acute Comment: Resolved with treatment. (6) QAMAR (acute kidney injury) Status: Acute Comment: Stable and resolved Subjective 24 Hr Interval Summary Free Text/Dictation Charming Ukrainian-speaking male lying in bed. He indicates that he is still having pain at the right hip and leg. He also complains of some sinus discharge i.e. allergic discharge. Constitutional: no complaints (Denies fevers chills or sweats) Eyes: no complaints ENT: other (Postnasal drip) Respiratory: no complaints Cardiovascular: no complaints Gastrointestinal: no complaints Musculoskeletal: other (Diffuse pain but especially pain at the right hip) Skin: no complaints Neurologic: no complaints Exam/Review of Systems Vital Signs Vitals Vital Signs Date Time Temp Pulse Resp B/P Pulse Ox O2 Delivery O2 Flow Rate FiO2 09/17/17 11:33 88 20 96 21 09/17/17 07:59 98.9 144/89 09/16/17 07:51 Room Air Intake and Output 09/16/17 09/16/17 09/17/17 15:00 23:00 07:00 Intake Total 550 ml 2100 ml 1170 ml Output Total 1400 ml 1050 ml Balance 550 ml 700 ml 120 ml Exam Constitutional: alert, oriented Eyes: EOMI, PERRL, nl conjunctiva, nl lids, nl sclera Neck: non-tender, supple Respiratory: clear to auscultation, normal air movement Cardiovascular: nl pulses, regular rate and rhythm Gastrointestinal: nl liver, spleen, non-tender, soft Results Result Diagram: 09/17/17 0431 09/17/17 0431 Results 24 hrs Laboratory Tests Test 09/17/17 04:31 White Blood Count 5.5 # Red Blood Count 3.53 L Hemoglobin 10.8 L Hematocrit 32.3 L Mean Corpuscular Volume 91.5 Mean Corpuscular Hemoglobin 30.6 Mean Corpuscular Hemoglobin Concent 33.4 Red Cell Distribution Width 14.7 H Platelet Count 412 # Mean Platelet Volume 10.1 Neutrophils % 56.5 Lymphocytes % 27.5 Monocytes % 12.1 H Eosinophils % 2.4 Basophils % 0.4 Nucleated Red Blood Cells % 0.0 Neutrophils # 3.1 Lymphocytes # 1.5 Monocytes # 0.7 Eosinophils # 0.1 Basophils # 0.0 Nucleated Red Blood Cells # 0.0 Sodium Level 142 Potassium Level 4.3 Chloride Level 106 Carbon Dioxide Level 29 Anion Gap 11 Blood Urea Nitrogen 13 Creatinine 1.12 Glucose Level 93 Calcium Level 8.0 L Medications Medications Current Medications Ondansetron HCl (Zofran Inj) 4 mg Q6H PRN IV NAUSEA AND/OR VOMITING; Start 09/07/17 at 19:30 Acetaminophen (Tylenol Tab) 650 mg Q6H PRN PO PAIN LEVEL 1-3 OR FEVER; Start 09/07/17 at 19:30 Acetaminophen/ Hydrocodone Bitart ([place] (5/325)) 1 tab Q6H PRN PO MODERATE PAIN LEVEL 4-6 Last administered on 09/16/17 16:27; Admin Dose 1 TAB; Start 09/07/17 at 19:30 Morphine Sulfate (morphine) 2 mg Q4H PRN IV SEVERE PAIN LEVEL 7-10 Last administered on 09/17/17 06:37; Admin Dose 2 MG; Start 09/07/17 at 19:30 Docusate Sodium (Colace) 100 mg Q12H PRN PO CONSTIPATION; Start 09/07/17 at 19: 30 Sodium Biphosphate/ Sodium Phosphate (Fleet Enema) 133 ml DAILY PRN NC CONSTIPATION; Start 09/07/17 at 19:30 Lorazepam (Ativan) 0.5 mg Q6H PRN IV ANXIETY; Start 09/07/17 at 19:30 Hydralazine HCl (Apresoline) 10 mg Q6H PRN IV ELEVATED BLOOD PRESSURE; Start 09/07/17 at 19:30 Nitroglycerin (Nitroglycerin (Sl Tab) 0.4 Mg) 1 tab Q5M PRN SL ANGINA; Start 09/07/17 at 19:30 Acyclovir (Zovirax) 400 mg BID PO Last administered on 09/17/17 08:44; Admin Dose 400 MG; Start 09/07/17 at 21:00 Methocarbamol (Robaxin) 500 mg QID PO Last administered on 09/17/17 08:44; Admin Dose 500 MG; Start 09/07/17 at 21:00 Mirtazapine (Remeron) 30 mg HS PO Last administered on 09/16/17 21:24; Admin Dose 30 MG; Start 09/07/17 at 21:00 Ziprasidone 60 mg 60 mg QHS PO Last administered on 09/16/17 21:24; Admin Dose 60 MG; Start 09/07/17 at 21:00 Potassium Chloride/Dextrose/ Sod Cl (D5-1/2ns + KCl 10 Meq) 1,000 ml @ 100 mls/ hr Q10H IV Last administered on 09/17/17 11:13; Admin Dose 100 MLS/HR; Start 09/08/17 at 00:00 Patient Own Medication 1 ea QHS PO Last administered on 09/16/17 22:03; Admin Dose 1 EA; Start 09/08/17 at 21:12 Patient Own Medication 1 ea QHS PO Last administered on 09/16/17 22:03; Admin Dose 1 EA; Start 09/08/17 at 21:13 Loperamide HCl (Imodium Cap) 2 mg QID PRN PO DIARRHEA Last administered on 16:00; Admin Dose 2 MG; Start 09/09/17 at 14:30 Psyllium Hydrophilic Mucilloid (Metamucil) 1 pkt BID PO Last administered on 08:47; Admin Dose 1 PKT; Start 09/09/17 at 21:00 Potassium Chloride (Potassium Chloride Pwd/Soln) 40 meq DAILY PO Last administered on 09/17/17 08:45; Admin Dose 40 MEQ; Start 09/09/17 at 14:30 Lidocaine (Lidoderm) 1 patch DAILY TD Last administered on 09/17/17 08:47; Admin Dose 1 PATCH; Start 09/10/17 at 09:00 Gabapentin (Neurontin) 100 mg TID PO Last administered on 09/17/17 08:44; Admin Dose 100 MG; Start 09/09/17 at 15:00 Dexamethasone (Decadron) 40 mg Sa@09 PO Last administered on 09/17/17 11:14; Admin Dose 40 MG; Start 09/10/17 at 09:00 Trimethoprim/ Sulfamethoxazole (Bactrim (Ss)) 1 tab SuSa@09 PO Last administered on 09/17/17 11:14; Admin Dose 1 TAB; Start 09/10/17 at 09:00 Aspirin (Aspirin) 81 mg DAILY PO Last administered on 09/17/17 08:44; Admin Dose 81 MG; Start 09/10/17 at 09:00 Enoxaparin Sodium (Lovenox) 40 mg DAILY SC Last administered on 09/17/17 08: 50; Admin Dose 40 MG; Start 09/11/17 at 09:00 Guaifenesin (Robitussin Liquid Cup) 100 mg Q4H PRN PO COUGH Last administered on 09/12/17 14:08; Admin Dose 100 MG; Start 09/10/17 at 11:30 Hydromorphone HCl (Dilaudid) 1 mg Q4H PRN IV SEVERE PAIN LEVEL 7-10 Last administered on 09/17/17 08:41; Admin Dose 1 MG; Start 09/12/17 at 23:30 TRACIE NEWSOME MD Sep 17, 2017 11:46
[2017-09-17 14:31] VITALS: BP 121/70; RESP 20
[2017-09-17] MEDS ORDERED: METHYLPREDNISOLONE 40 MG INJ IV PRN (15:00)
[2017-09-17] MEDS ORDERED: DIPHENHYDRAMINE 50 MG INJ IV PRN (15:00)
[2017-09-17] MEDS ORDERED: ONDANSETRON INJ 16 MG in SOD CHLORIDE 0.9% 50 ML IVPB SCH (16:00)
[2017-09-17] MEDS: REVLIMID 25 MG PO SCH (16:20)
[2017-09-17] MEDS ORDERED: BORTEZOMIB 3.5 MG SC SCH (16:30)
[2017-09-17 17:45] VITALS: BP 134/72; PULSE 93; RESP 18
[2017-09-17 18:11] VITALS: BP 130/78; PULSE 95; RESP 18
[2017-09-17 19:15] VITALS: BP 134/75; RESP 18
[2017-09-17] MEDS: MIRTAZAPINE 15 MG TAB PO SCH (21:11)
[2017-09-17] MEDS: ZIPRASIDONE 20 MG CAP PO SCH (21:11)
[2017-09-17] MEDS: PREZCOBIX PO SCH (21:12)
[2017-09-17] MEDS: DESCOVY 200/25 PO SCH (21:12)
[2017-09-18 02:25] VITALS: BP 141/81; RESP 18
[2017-09-18] MEDS: HYDROmorphONE 1 MG/ML SYG IV PRN ×3 (06:37→16:48)
[2017-09-18 07:35] VITALS: BP 128/72; RESP 20
[2017-09-18] MEDS: ACYCLOVIR 400 MG TAB PO SCH (08:43)
[2017-09-18] MEDS: GABAPENTIN 100 MG CAP PO SCH ×2 (08:43→12:22)
[2017-09-18] MEDS: ASPIRIN 81 MG TAB PO SCH (08:43)
[2017-09-18] MEDS: METHOCARBAMOL 500 MG TAB PO SCH ×3 (08:43→16:17)
[2017-09-18] MEDS: PSYLLIUM 28% PACKET PO SCH (08:44)
[2017-09-18] MEDS: LIDOCAINE 5% PATCH TD SCH (08:46)
[2017-09-18] MEDS ORDERED: TRIMETHOPRIM/SULFAMETHOX (DS) TAB ONE (08:50)
[2017-09-18] MEDS: ENOXAPARIN 40 MG/0.4 ML SYG SC SCH (08:57)
[2017-09-18] MEDS: D5W-0.45 NACL + KCL 10 MEQ 1,000 ML IV SCH (09:00)
[2017-09-18] MEDS: HYDROCODONE/APAP (5/325) TAB PO PRN (09:01)
[2017-09-18] MEDS: POTASSIUM CHLORIDE 20 MEQ POWDER FOR ORAL SOLN PO SCH (09:06)
[2017-09-18] MEDS: TRIMETHOPRIM/SULFAMETHOX (SS) TAB PO SCH (10:07)
--- NOTE | 2017-09-18 10:30 | DS ---
Date/Time of Note Date/Time of Note DATE: 09/18/17 TIME: 10:22 Discharge Summary Admission/Discharge Info Admit Date/Time Sep 07, 2017 at 19:33 Discharge Date/Time September 18, 2017 Discharge Diagnosis Pathologic fracture of the right hip due to metastatic multiple myeloma stage III; HIV disease on HAART; hypercalcemia; anemia; diabetes mellitus type 2; history of hypertension; dysthymia-major depressive disorder; diverticulosis coli; L1 compression fracture Patient Condition: Fair Consults Hematology oncology-Dr. Dorantes; orthopedics Dr. Do-Rad; Procedures CT scan lower extremity; CT scan abdomen and pelvis; Hx of Present Illness This is a 46-year-old male with a history of monoclonal gammopathy with stage III multiple myeloma, HIV, hypertension who presented to the ER complaining of abdominal pain, diarrhea and right lower extremity pain. Patient has generalized body pain and also chronic right lower extremity pain but has been worsening. He also reported watery nonbloody diarrhea. Recent CD4 count is 544. When he presented to the ER imaging showed right femoral neck pathologic fracture and a mild L1 fracture which is new. Hospital Course #STAGE III Multiple Myeloma -pt received cycle 2 day 11 of therapy on 09/06 -will start cycle 3 of VRD on 09/15 if patient is in house. velcade orders have been written, can start when revlimid has been received. waiting for brother to bring medication -pt completed his 14 day course of Revlimid on Tuesday. to restart this -continue Decadron 40 mg q Tuesday. -continue acyclovir 400 mg bid as well as Bactrim SS Tue /Tuesday #R femur fracture -pt will need this stabilized by orthopedic surgery . this is now worse s/p his injury from yesterday -pt is at great risk for complete fracture of this weight bearing bone -pt needs to be transferred to tertiary care center for surgery since orthopedic surgery at [facility] is not able to operative on pathologic fractures -afterwards pt can receive adjuvant radiation #Bone pain -continue current pain regimen -pt getting pamidronate as an out patient #HIV -continue HAART therapy #HTN -continue current medications 47-year-old gentleman with a history of multiple myeloma stage III. He was admitted with hip pain and was found to have a pathologic fracture of the right hip. He was seen in orthopedic consultation but due to the extensive nature of the metastatic disease to the right femur the orthopedist had recommended the patient be transferred to a higher level of care. With the orthopedist's opinion that he needed a long leg rodding procedure followed by radiation therapy. This is beyond what most [facility] are able to supply. As such we have been working on his transfer to higher level care specifically to [facility] level. In addition to this he has a history of HIV disease on highly active antiretroviral therapy with the patient reporting a CD4 count prior to coming in of greater than 540. He has been stable in the hospital although he has had some complaints of cough. There was initial complaint of diarrhea which resolved without specific treatment. He is stable for transfer. He has no known communicable diseases but he is in need of higher level care. Please see below most recent assessment and plan from [facility] as well as the orthopedic consultation. Assessment/Plan Assessment/Plan Chief Complaint/Hosp Course #STAGE III Multiple Myeloma -pt received cycle 2 day 11 of therapy on 09/06 -will start cycle 3 of VRD on 09/15 if patient is in house. velcade orders have been written, can start when revlimid has been received. waiting for brother to bring medication -pt completed his 14 day course of Revlimid on Tuesday. to restart this -continue Decadron 40 mg q Tuesday. -continue acyclovir 400 mg bid as well as Bactrim SS Sat /Tuesday #R femur fracture -pt will need this stabilized by orthopedic surgery . this is now worse s/p his injury from yesterday -pt is at great risk for complete fracture of this weight bearing bone -pt needs to be transferred to tertiary care center for surgery since orthopedic surgery at [facility] is not able to operative on pathologic fractures -afterwards pt can receive adjuvant radiation #Bone pain -continue current pain regimen -pt getting pamidronate as an out patient #HIV -continue HAART therapy #HTN -continue current medications ORTHOPEDIC CONSULTATION CHIEF COMPLAINT: Right hip pain. HISTORY OF PRESENT ILLNESS: This is a 46-year-old male with a history of stage III multiple myeloma, hypertension, who is complaining of right hip pain. He denies any recent trauma. He states that the pain is minimal. He has been ambulating on the right leg. He denies any fevers, chills, chest pain or shortness of breath. PAST MEDICAL HISTORY: HIV, stage III multiple myeloma, hypertension, diverticulosis, hypocalcemia. MEDICATIONS: 1. Zovirax 400 mg. 2. Trazodone 50 mg. PAST SURGICAL HISTORY: None. SOCIAL HISTORY: Denies tobacco, alcohol use. FAMILY HISTORY: Noncontributory. ALLERGIES: NO KNOWN DRUG ALLERGIES. PHYSICAL EXAMINATION: VITAL SIGNS: 99.0, 113/67, pulse of 85, respiratory rate of 18. GENERAL: Patient is in no acute distress. EXTREMITIES: Right lower extremity, no shortening noted. No open wounds. Pain with axial loading. Neurovascularly intact throughout the right lower extremity. CT right lower extremity: There is a nondisplaced femoral neck fracture. There are lytic lesions throughout the right hip including femoral neck, intertrochanteric region, as well as the femoral shaft. No acetabular lesions are noted. IMPRESSION: This is a 46-year-old male with history of stage III multiple myeloma, and human immunodeficiency virus with a pathologic fracture of the right femoral neck with lytic lesions throughout the right femur. PLAN: I discussed treatment options with Mr. Brumfield. I explained to him that he requires a cemented long stem partial hip replacement. The patient has lytic lesions throughout the right femur. He also requires postoperative radiation. I discussed with primary care physician the need for transfer for higher level of care for an orthopedic oncologist. The patient will have SCDs on bilateral lower extremities. He will receive medications for pain control. Dictated By: GERHARD DELANEY MD Home Meds Active Scripts Ketorolac Tromethamine* (Ketorolac Tromethamine*) 10 Mg Tablet, 10 MG PO TID for 10 Days, #30 TAB Prov:ROMERO GEE MD 09/01/17 Oxycodone HCl/Acetaminophen (Percocet 7.5-325 mg Tablet) 1 Each Tablet, 1 EACH PO Q6H, #30 TAB Prov:RACHELLAVERNEA VRa [employer] HELPER 07/18/17 Acyclovir* (Acyclovir*) 400 Mg Tablet, 400 MG PO BID, #8 TAB Prov:RACHELLETY RUTHERFORD V. [employer] HELPER 07/18/17 Methocarbamol* (Methocarbamol*) 500 Mg Tablet, 500 MG PO QID, #60 TAB Prov:LETY RACHEL NP 07/18/17 Reported Medications Dexamethasone* (Dexamethasone*) 4 Mg Tablet, 4 MG PO, TAB 09/09/17 Lenalidomide (REVLIMID) 20 Mg Capsule, 25 MG PO ONCE, CAP Revlimid 25mg on 09/09, 09/10, 09/11 and then rest for 7days 09/09/17 Darunavir/Cobicistat (Prezcobix 800 mg-150 mg Tablet) 1 Each Tablet, 1 EACH PO DAILY, TAB 09/08/17 Emtricitabine/Tenofov Alafenam (Descovy 200-25 mg Tablet) 1 Each Tablet, 1 EACH PO DAILY, TAB 07/14/17 Darunavir/Cobicistat (Prezcobix 800 mg-150 mg Tablet) 1 Each Tablet, PO, TAB 07/14/17 Mirtazapine* (Remeron*) 30 Mg Tablet, 30 MG PO HS, TAB 07/14/17 Ziprasidone* (Geodon*) 60 Mg Capsule, 60 MG PO QHS, CAP 07/14/17 Trazodone Hcl* (Trazodone Hcl*) 50 Mg Tablet, 50 MG PO QHS, #30 TAB 07/14/17 Follow-up Plan Transfer to higher level of care followed by return for continuation of chemotherapy outlined above and radiation therapy Primary Care Provider Not On Staff Doctor Time spent on discharge: > 30 minutes TRACIE NEWSOME MD Sep 18, 2017 10:30
[2017-09-18 12:43] LABS: IRON 70 ug/dl (35-150)
[2017-09-18 12:52] LABS: TOTAL IRON BINDING CAPACITY 260 ug/dl (241-421)
--- NOTE | 2017-09-18 13:06 | RADRPT ---
PROCEDURE: XR Chest. CLINICAL INDICATION: Cough TECHNIQUE: Single frontal view of the chest was obtained COMPARISON: 06/20/2017 FINDINGS: No pleural effusion or pneumothorax. No consolidation. Stable cardiomediastinal silhouette. No acute osseous abnormality. IMPRESSION: No acute cardiopulmonary disease. RPTAT: EE Marcos Flannery Physician Date Time Electronically viewed and signed by Marcos Flannery Physician on 09/18/2017 13:06 /
[2017-09-18 16:04] VITALS: BP 133/66; RESP 20
[2017-09-18] MEDS: REVLIMID 25 MG PO SCH (16:20)
[2017-09-19 14:09] LABS: LYMPHOCYTE - CD4/CD8 RATIO 0.31 (0.86-5.00)
[2017-09-24] MEDS ORDERED: ONDANSETRON INJ 16 MG in SOD CHLORIDE 0.9% 50 ML IVPB SCH (16:00)
[2017-09-24] MEDS ORDERED: BORTEZOMIB 3.5 MG SC SCH (16:30)
== END 2017-09-18 18:00 | disposition other institution (70) | DRG 543 ==
LOC: E/R 12:41 → PP2 19:33 → MS1 09-14 11:27
PROVIDERS: ADMIT Hospitalist; ATTEND Hospitalist
DX: M84.451A Pathological fracture, right femur, initial encounter for fracture (principal); C90.00 Multiple myeloma not having achieved remission; E44.0 Moderate protein-calorie malnutrition; E83.51 Hypocalcemia; I10 Essential (primary) hypertension; D64.9 Anemia, unspecified; E11.9 Type 2 diabetes mellitus without complications; M84.48XA Pathological fracture, other site, initial encounter for fracture; R19.7 Diarrhea, unspecified; F32.9 Major depressive disorder, single episode, unspecified; R62.7 Adult failure to thrive
CPT/HCPCS: 36415; 71010; 73510; 73700; 74177; 80048; 80053; 80061; 81001; 82330; 82728; 83036; 83540; 83690; 83735; 84100; 84439; 84443; 85025; 85610; 85730; 86360; 87081; 93005; 94640; 94664; 96374; 96375; J0610; J1170; J1644; J1650; J2270; J2405; J3480; J7030; Q9967

== ENCOUNTER 2018-05-11 14:29 | Inpatient (IN) | END 2018-05-31 15:38 | disposition home or self-care (01) | DRG 977 ==